=== PATIENT | male | born 1960 | race American Indian/Alaskan Native ===

== ENCOUNTER 2017-06-15 04:26 | Inpatient (IN) | payer OTHER ==
[~2017-06-15 04:26] MED LIST: FUROSEMIDE 100 MG/10 ML VIAL IV ONE; Nicardipine/NS 25 MG/250 ML KIT IV ONE; RSI MEDICATION KIT IV ONE
[2017-06-15 04:59] LABS: Arterial Blood Carboxyhemoglob 1.2 % (0-1.5); Blood O2 Saturation 83.7 % (92-98.5)
[2017-06-15 05:15] LABS: Absolute Lymphocytes (CBC) 10.6 K/uL (0.7-4.9); Absolute Monocytes 1.3 K/uL (0.1-1.3); Absolute Neutrophil 11.9 K/uL (1.8-8.0); Basophils % 0.8 % (0-1.3); Eosinophils % 3.1 % (0-4.4); Hematocrit 54.5 % (39.6-49.0); Lymphocytes % 42.9 % (15.3-44.8); MCH 21.5 pg (27.0-35.0); MCV 71.3 fL (80-100); MPV 8.7 fL (7.6-11.3); Monocytes % 5.2 % (3.3-12.3); RBC Red Blood Cell Count 7.64 M/uL (4.33-5.43)
[2017-06-15] MEDS ORDERED: FENTANYL CITR 100 MCG/2 ML ONE (05:24)
[2017-06-15] MEDS ORDERED: MIDAZOLAM HCL 2 MG/2 ML INJ ONE (05:24)
[2017-06-15] MEDS ORDERED: ALBUTEROL 2.5 MG/3 ML NEB SOL ONE (05:41)
[2017-06-15] MEDS ORDERED: IPRATROPIUM BROM 0.5MG/2.5ML ONE (05:41)
[2017-06-15 05:47] LABS: Albumin 4.3 g/dL (3.2-5.5); Bilirubin Direct 0.2 mg/dL (0-0.2); Bilirubin Total 0.5 mg/dL (0.3-1.2); Magnesium 2.2 mg/dL (1.8-2.5); Protein, Total 8.5 g/dL (6.0-8.3)
[2017-06-15 05:48] LABS: Potassium 2.7 mEq/L (3.6-5.0)
--- NOTE | 2017-06-15 06:04 | ER ---
Nurse's Notes [facility] Unit Name: Marco Antonio Reed Age: 56 yrs Sex: Male : 1960 Arrival Date: 06/15/2017 Time: 04:29 Bed 2 Private MD: Diagnosis: Acute respiratory failure Presentation: 06/15 04:35 Presenting complaint:. Transition of care: patient was not received from another 2 setting of care. Onset of symptoms was June 15, 2017. Care prior to arrival: None. 04:35 Method Of Arrival: EMS: [facility] tl2 04:35 Acuity: SHAKIRA 2 tl2 04:35 Presenting complaint: EMS states: HE CALLED 911 CAUSE HE COULDN'T BREATHE. bp Triage Assessment: 04:35 General: Appears distressed, uncomfortable, Behavior is restless. Pain: Denies pain. bp EENT: No deficits noted. Neuro: PT UNABLE TO ANSWER. Cardiovascular: Rhythm is sinus tachycardia. Respiratory: Breath sounds with crackles bilaterally. GI: No deficits noted. : No signs and/or symptoms were reported regarding the genitourinary system. Derm: No deficits noted. Musculoskeletal: Circulation, motion, and sensation intact. Range of motion: UNABLE TO ASSESS. Historical: - Allergies: 04:44 unknown; tl2 - Home Meds: 04:44 tramadol 50 mg Oral tab 1 tab q 6 hrs prn [Active]; metoprolol succinate 50 mg oral tl2 Tb24 [Active]; losartan potassium [Active]; atorvastatin 80 mg Oral tab nightly [Active]; Plavix 75 mg Oral tab 1 tab once daily [Active]; sertraline 50 mg Oral tab 1 tab once daily [Active]; Precose 25 mg Oral tab 1 tab 3 times per day [Active]; trental 400 mg three times a day [Active]; - PMHx: 04:44 CAD; Depression; Diabetes - NIDDM; High Cholesterol; Hypertension; Myocardial tl2 infarction; PERIPHERAL NEUROPATHY; - Immunization history:: Adult Immunizations up to date. - Social history:: Smoking status: unknown. Screenin:45 Abuse screen: Denies threats or abuse. Nutritional screening: No deficits noted. tl2 Tuberculosis screening: No symptoms or risk factors identified. Fall Risk IV access (20 points). Assessment: 04:45 General: Appears distressed, uncomfortable, well groomed, Behavior is appropriate for bp age, agitated, anxious. Pain: Denies pain. Neuro: Level of Consciousness is awake, alert, obeys commands, UNABLE TO ASSESS. Cardiovascular: Rhythm is sinus tachycardia. Respiratory: Airway is patent Respiratory effort is labored, gasping, with retractions, Respiratory pattern is symmetrical, hyperventilation tachypnea Breath sounds with crackles bilaterally. GI: No deficits noted. No signs and/or symptoms were reported involving the gastrointestinal system. : No signs and/or symptoms were reported regarding the genitourinary system. EENT: No signs and/or symptoms were reported regarding the EENT system. Derm: Skin is diaphoretic, Skin is dusky, Skin temperature is cool. Musculoskeletal: Circulation, motion, and sensation intact. Range of motion: intact in all extremities. 04:45 Reassessment: PT PLACED ON BIPAP, TRIPODING, UNABLE TO SPEAK 2/2 DYSPNEA. bp 05:15 Reassessment: CARDENE ON HOLD 2/2 HYPOTENSION. bp 05:30 Reassessment: WBC 24.1, MD NOTIFIED. bp 05:41 Reassessment: PT INDICATES S/S IMPROVED, INTUBATION ON HOLD AT THIS TIME PER MD. bp 05:51 Reassessment: CRITICAL VALUE K 2.7, MD NOTIFIED. bp 07:11 Reassessment: Respiratory Therapist at bedside reassessing patient and adjusting Bipap ae1 settings, O2 now set to 70%. 07:12 Reassessment: Patient appears in no apparent distress at this time. Patient states yes ae1 the Bipap is providing relief. Patient states feeling better. Vital Signs: 04:16 BP 197 / 131; Pulse 135; Resp 32; Pulse Ox 74% ; Weight 81.65 kg (R); bp 04:33 BP 134 / 86; Pulse 120; Resp 51; Pulse Ox 91% ; bp 04:44 BP 128 / 84; Pulse 121; Resp 48; Pulse Ox 89% on BiPAP; tl2 05:00 BP 100 / 82; Pulse 117; Resp 41; Pulse Ox 90% ; bp 05:15 BP 101 / 75; Pulse 116; Resp 45; Pulse Ox 89% ; bp 05:30 BP 121 / 81; Pulse 118; Resp 36; Pulse Ox 98% ; bp 05:49 BP 118 / 80; Pulse 118; Resp 34; Temp 98.4; Pulse Ox 95% on 90% BiPAP; tl2 06:20 BP 143 / 91; Pulse 112; Resp 36; Pulse Ox 96% on 90% BiPAP; tl2 06:42 BP 137 / 91; Pulse 110; Resp 34; Temp 98.5; Pulse Ox 95% on 90% BiPAP; tl2 07:11 BP 142 / 94; Pulse 109; Resp 45; Temp 98.6; Pulse Ox 98% on 80% BiPAP; ae1 07:22 BP 142 / 96; Pulse 109; Resp 32; Temp 98.8(C); Pulse Ox 97% on 70% BiPAP; ae1 07:33 BP 129 / 95; Pulse 109; Resp 35; Temp 98.9(C); Pulse Ox 100% on 70% BiPAP; ae1 ED Course: 04:23 No provider procedures requiring assistance completed. Inserted saline lock: 20 gauge bp in left antecubital area, using aseptic technique. Blood collected. 04:27 Inserted saline lock: 22 gauge in right hand, using aseptic technique. bp 04:29 Patient arrived in ED. bb 04:29 Ishan Contreras MD is Attending Physician. gs 04:35 Null cath inserted, using sterile technique, 18 Fr., by ED staff, balloon inflated, to bp gravity drainage, urine specimen collected. 04:37 Triage completed. tl2 04:44 Arm band placed on right wrist. tl2 04:45 Patient has correct armband on for positive identification. Placed in gown. Bed in low tl2 position. Call light in reach. Side rails up X2. 05:12 X-ray completed. Portable x-ray completed in exam room. Patient tolerated procedure jw2 well. 05:14 XRAY Chest (1 view) In Process Unspecified. EDMS 05:36 Slava Dupree, JESUS is Primary Nurse. bp 06:02 Robson Shelley MD is Hospitalizing Provider. gs 06:58 Notified ED physician of a critical lab result(s). lactate acid of 53.2 Dr Diane ireland notified. 08:03 Patient admitted, IV remains in place. ae1 Administered Medications: Discontinued: Cardene 5 mcg/kg/min IV at Titrate continuous; 5mg/hr 04:23 Drug: Lasix 80 mg Route: IVP; Site: left antecubital; bp 05:44 Follow up: Response: No adverse reaction bp 04:26 Drug: Cardene 5 mcg/kg/min Route: IV; Rate: Titrate; Site: left antecubital; bp 08:05 Follow up: IV Status: Order to discontinue infusion ae1 06:41 Drug: Cefepime 1 grams Route: IVPB; Rate: 200 ml/hr; Infused Over: 30 mins; Site: left tl2 antecubital; 07:14 Follow up: IV Status: Completed infusion ae1 06:53 CANCELLED (Physician Discretion): Succinylcholine 145 mg IVP once bb 06:53 CANCELLED (Physician Discretion): Etomidate 20 mg IVP once bb Outcome: 06:03 Decision to Hospitalize by Provider. 08:03 Admitted to ICU accompanied by nurse, accompanied by tech, via stretcher, room 7, with ae1 oxygen, on monitor, with chart, Report called to JESUS jordan 08:03 Condition: stable 08:03 Instructed on follow up and referral plans. the need for admit, Demonstrated understanding of instructions. 08:04 Patient left the ED. ae1 Signatures: Dispatcher [employer] EDMS Lynne Stiles RN RN Nancy Acosta jw2 Nisa Moya RN RN tl2 Kenan Hyde RN RN ae1 Ishan Contreras MD MD gs Peltier, Brian RN RN bp Corrections: (The following items were deleted from the chart) 05:40 04:38 Inserted saline lock: 22 gauge in right hand, using aseptic technique. bp bp 05:51 04:35 BP 197 / 131; Pulse 135bpm; Resp 32bpm; Pulse Ox 74%; 81.65 kg Reported; bp bp
--- NOTE | 2017-06-15 06:04 | EDPHYS ---
Physician Documentation [facility] Name: Marco Antonio Reed Age: 56 yrs Sex: Male : 1960 Arrival Date: 06/15/2017 Time: 04:29 Bed 2 Private MD: ED Physician Ishan Contreras HPI: 06/15 05:53 This 56 yrs old Other Male presents to ER via EMS with unknown complaint. gs 05:53 The patient has shortness of breath at rest. Onset: The symptoms/episode began/occurred gs acutely. Duration: The symptoms are continuous, and are markedly worse than the original presentation. Severity of symptoms: At their worst the symptoms were incapacitating in the emergency department the symptoms are unchanged. Unable to obtain HPI due to patient distress. Historical: - Allergies: 04:44 unknown; tl2 - Home Meds: 04:44 tramadol 50 mg Oral tab 1 tab q 6 hrs prn [Active]; metoprolol succinate 50 mg oral tl2 Tb24 [Active]; losartan potassium [Active]; atorvastatin 80 mg Oral tab nightly [Active]; Plavix 75 mg Oral tab 1 tab once daily [Active]; sertraline 50 mg Oral tab 1 tab once daily [Active]; Precose 25 mg Oral tab 1 tab 3 times per day [Active]; trental 400 mg three times a day [Active]; - PMHx: 04:44 CAD; Depression; Diabetes - NIDDM; High Cholesterol; Hypertension; Myocardial tl2 infarction; PERIPHERAL NEUROPATHY; - Immunization history:: Adult Immunizations up to date. - Social history:: Smoking status: unknown. ROS: 05:53 Unable to obtain ROS due to patient distress. gs Exam: 05:53 Head/Face: Normocephalic, atraumatic. Eyes: Pupils equal round and reactive to light, gs extra-ocular motions intact. Lids and lashes normal. Conjunctiva and sclera are non-icteric and not injected. Cornea within normal limits. Periorbital areas with no swelling, redness, or edema. ENT: Nares patent. No nasal discharge, no septal abnormalities noted. Tympanic membranes are normal and external auditory canals are clear. Oropharynx with no redness, swelling, or masses, exudates, or evidence of obstruction, uvula midline. Mucous membranes moist. Neck: Trachea midline, no thyromegaly or masses palpated, and no cervical lymphadenopathy. Supple, full range of motion without nuchal rigidity, or vertebral point tenderness. No Meningismus. Chest/axilla: Normal chest wall appearance and motion. Nontender with no deformity. No lesions are appreciated. 05:53 Abdomen/GI: Soft, non-tender, with normal bowel sounds. No distension or tympany. No guarding or rebound. No evidence of tenderness throughout. Back: No spinal tenderness. No costovertebral tenderness. Full range of motion. Skin: Warm, dry with normal turgor. Normal color with no rashes, no lesions, and no evidence of cellulitis. MS/ Extremity: Pulses equal, no cyanosis. Neurovascular intact. Full, normal range of motion. Neuro: Awake and alert, GCS 15, oriented to person, place, time, and situation. Cranial nerves II-XII grossly intact. Motor strength 5/5 in all extremities. Sensory grossly intact. Cerebellar exam normal. Normal gait. 05:53 Constitutional: The patient appears alert, awake, in obvious distress, severely distressed. 05:53 Cardiovascular: Rate: tachycardic, Rhythm: regular, Pulses: no pulse deficits are appreciated, Edema: is not appreciated. 05:53 ECG was reviewed by the Attending Physician. 05:53 Respiratory: severe repiratory distress is noted, Respirations: labored breathing, accessory muscle usage, shallow respirations, tachypnea, Breath sounds: rales, that are moderate, are heard diffusely, Respiratory rate: 50 Vital Signs: 04:16 BP 197 / 131; Pulse 135; Resp 32; Pulse Ox 74% ; Weight 81.65 kg (R); bp 04:33 BP 134 / 86; Pulse 120; Resp 51; Pulse Ox 91% ; bp 04:44 BP 128 / 84; Pulse 121; Resp 48; Pulse Ox 89% on BiPAP; tl2 05:00 BP 100 / 82; Pulse 117; Resp 41; Pulse Ox 90% ; bp 05:15 BP 101 / 75; Pulse 116; Resp 45; Pulse Ox 89% ; bp 05:30 BP 121 / 81; Pulse 118; Resp 36; Pulse Ox 98% ; bp 05:49 BP 118 / 80; Pulse 118; Resp 34; Temp 98.4; Pulse Ox 95% on 90% BiPAP; tl2 06:20 BP 143 / 91; Pulse 112; Resp 36; Pulse Ox 96% on 90% BiPAP; tl2 06:42 BP 137 / 91; Pulse 110; Resp 34; Temp 98.5; Pulse Ox 95% on 90% BiPAP; tl2 07:11 BP 142 / 94; Pulse 109; Resp 45; Temp 98.6; Pulse Ox 98% on 80% BiPAP; ae1 07:22 BP 142 / 96; Pulse 109; Resp 32; Temp 98.8(C); Pulse Ox 97% on 70% BiPAP; ae1 07:33 BP 129 / 95; Pulse 109; Resp 35; Temp 98.9(C); Pulse Ox 100% on 70% BiPAP; ae1 MDM: 04:29 Patient medically screened. 05:53 Differential diagnosis: CHF exacerbation, Chronic Obstructive Pulmonary Disease gs Myocardial Infarction pneumonia. Data reviewed: vital signs, nurses notes. ED course: pt denies chest pain, cxr shows severe pulmonary edema, mult reevals rr in 50's sats in high 80's. planned to intubate but pt wanted more time. at 535 had episode of coughing sats went to mid 90's and rr to high 20's will hold intubation based on this and abg shows adequate co2 ventilation.. 06/15 04:30 Order name: Basic Metabolic Panel 06/15 04:30 Order name: BNP 06/15 04:30 Order name: CBC with Diff 06/15 04:30 Order name: LFT's 06/15 04:30 Order name: Magnesium 06/15 04:30 Order name: PT-INR 06/15 04:30 Order name: Troponin (emerg Dept Use Only) 06/15 04:30 Order name: XRAY Chest (1 view) 06/15 04:59 Order name: ABG Arterial Blood Gas; Complete Time: 05:21 EDMS 06/15 05:26 Order name: Manual Differential EDMS 06/15 05:33 Order name: Lactate 06/15 05:33 Order name: Blood Culture* 06/15 04:30 Order name: EKG; Complete Time: 04:57 06/15 04:30 Order name: Cardiac monitoring; Complete Time: 04:47 06/15 04:30 Order name: EKG - Nurse/Tech; Complete Time: 04:47 06/15 04:30 Order name: IV Saline Lock; Complete Time: 04:47 gs 06/15 04:30 Order name: Labs collected and sent; Complete Time: 04:47 gs 06/15 04:30 Order name: O2 Per Protocol; Complete Time: 04:47 gs 06/15 04:30 Order name: O2 Sat Monitoring; Complete Time: 04:47 06/15 04:30 Order name: Urine Dipstick-Ancillary (obtain specimen); Complete Time: 04:47 gs EC:53 Rate is 123 beats/min. [place] interval is normal. QRS interval is prolonged. T waves are gs Flattened. Clinical impression: NSR w/ Non-specific ST/T Changes and Abnormal EKG without significant change. Interpreted by me. Administered Medications: Discontinued: Cardene 5 mcg/kg/min IV at Titrate continuous; 5mg/hr 04:23 Drug: Lasix 80 mg Route: IVP; Site: left antecubital; bp 05:44 Follow up: Response: No adverse reaction bp 04:26 Drug: Cardene 5 mcg/kg/min Route: IV; Rate: Titrate; Site: left antecubital; bp 08:05 Follow up: IV Status: Order to discontinue infusion ae1 06:41 Drug: Cefepime 1 grams Route: IVPB; Rate: 200 ml/hr; Infused Over: 30 mins; Site: left tl2 antecubital; 07:14 Follow up: IV Status: Completed infusion ae1 06:53 CANCELLED (Physician Discretion): Succinylcholine 145 mg IVP once bb 06:53 CANCELLED (Physician Discretion): Etomidate 20 mg IVP once bb Disposition: 05:53 Critical Care:. gs Disposition: 06/15/17 06:03 Hospitalization ordered by Robson Shelley for Inpatient Admission. Preliminary diagnosis is Acute respiratory failure. - Bed requested for Intensive Care Unit. - Status is Inpatient Admission. ae1 - Condition is Critical. - Problem is an acute exacerbation. - Symptoms have improved. UTI on Admission? No Critical care time excluding procedures: 05:53 Critical care time: Bedside Care: 10 minutes, Consultation: 10 minutes, Family gs Intervention: 10 minutes. Total time: 30 minutes Signatures: Dispatcher [employer] EDWI Ray Hidalgo 2 Lynne Stiles RN RN bb Nisa Moya RN RN tl2 Kenan Hyde RN RN ae1 Ishan Contreras MD MD gs Slava Dupree RN RN bp Corrections: (The following items were deleted from the chart) :53 06:52 Succinylcholine 145 mg IVP once ordered. shu ireland :53 06:52 Etomidate 20 mg IVP once ordered. shu ireland
[2017-06-15] MEDS ORDERED: FUROSEMIDE 40 MG/4 ML VIAL IV ONE (06:12)
--- NOTE | 2017-06-15 06:23 | P.HP ---
Certification for Inpatient Patient admitted to: Inpatient With expected LOS: >2 Midnights Practitioner: I am a practitioner with admitting privileges, knowledge of patient current condition, hospital course, and medical plan of care. Services: Services provided to patient in accordance with Admission requirements found in Title 42 Section 412.3 of the Code of Federal Regulations Patient History Date of Service: 06/15/17 Reason for admission: acute respiratory failure History of Present Illness: Mr Reed is a 56 years old male with history of DM II, CAD, HTN, tobacco abuse, who start a couple of days ago with productive cough, with yellowish secretions. Yesterday, he start feeling worse and suddenly become SOB. No history of fever or chills. No chest pain either. At arrival he was on respiratory distress, O2 Sat 74 % on RA, BP 197/131. CXR shows bilateral infiltrate consistent with pulmonary edema vs ARDS. He was placed on BiPAP, received benzodiazepine and fentanyl, his BP decreased and he gradually improved. Lab work remarkable for leukocytosis. Lactic acid and procalcitonin still pending. Allergies No Known Allergies Allergy (Verified 12/11/16 16:32) Home Medications: Aspirin Chewable [Aspirin Chewable*] 81 mg PO DAILY #30 tab.chew 12/12/16 Clopidogrel Bisulfate [Plavix*] 75 mg PO DAILY #30 tablet 12/12/16 Metoprolol Tartrate [Lopressor*] 50 mg PO BID #60 tab 12/12/16 - Past Medical/Surgical History Diabetic: Yes -: DM -: HTN -: HYPERLIPEMIA -: CHF -: SMOKER' -: CT -: PERIPHERAL NEUROPATHY -: CAD -: CABG 2013 - Social History Smoking Status: Heavy Tobacco smoker (>10 cigarettes/day) Counseled patient to stop smoking for: less than 10 minutes Smoking therapy provided: Yes Patient receptive to therapy: Yes Alcohol use: No CD- Drugs: No Caffeine use: No Review of Systems 10-point ROS is otherwise unremarkable Physical Examination - Physical Exam General: Alert, Mild distress (due to SOB) HEENT: Atraumatic, PERRLA, Mucous membr. moist/pink, EOMI, Sclerae nonicteric Neck: Supple, 2+ carotid pulse no bruit, No LAD, Without JVD or thyroid abnormality Respiratory: Normal air movement, Crackles/rales (bibasilar crackles) Cardiovascular: Regular rate/rhythm, Normal S1 S2 Gastrointestinal: Normal bowel sounds, No tenderness Musculoskeletal: No tenderness Integumentary: No rashes Neurological: Normal speech, Normal strength at 5/5 x4 extr, Normal tone, Normal affect Lymphatics: No axilla or inguinal lymphadenopathy - Studies Laboratory Data (last 24 hrs) 06/15/17 04:23: WBC 24.7 H*, Hgb 16.5, Hct 54.5 H, Plt Count 375 06/15/17 04:23: B-Natriuretic Peptide 373 H 06/15/17 04:23: Sodium 131 L, Potassium 2.7 L*, BUN 9, Creatinine 1.12, Glucose 341 H, Magnesium 2.2, Total Bilirubin 0.5, AST 38, ALT 33, Alkaline Phosphatase 89 Assessment and Plan - Problems (Diagnosis) (1) Acute respiratory failure Current Visit: Yes Status: Acute Qualifiers: Respiratory failure complication: hypoxia Qualified Code(s): J96.01 - Acute respiratory failure with hypoxia (2) Pulmonary edema Current Visit: Yes Status: Acute Qualifiers: Chronicity: acute Qualified Code(s): J81.0 - Acute pulmonary edema (3) CAD (coronary artery disease) of artery bypass graft Current Visit: No Status: Acute Qualifiers: [place] vs. transplanted heart: [place] heart (4) Diabetes mellitus Onset Date: 12/12/16 Current Visit: No Status: Acute Qualifiers: Diabetes mellitus type: type 2 Diabetes mellitus snf insulin use: without termite inspector use Diabetes mellitus complication status: with unspecified complications Qualified Code(s): E11.8 - Type 2 diabetes mellitus with unspecified complications (5) Hypertension Onset Date: 12/12/16 Current Visit: No Status: Acute Qualifiers: Hypertension type: essential hypertension Qualified Code(s): I10 - Essential (primary) hypertension - Plan Mr Reed will be admitted to the hospital due to acute respiratory failure, possible secondary to flash pulmonary edema on top of respiratory infection. The patient improved with BiPAP but mostly after BP decreased. Will continue with diuretics, empiric antibiotics treatment and scheduled breathing treatments. - Advance Directives Does patient have a Living Will: No Does patient have a Durable POA for Healthcare: No - Code Status/Comfort Care Code Status Assessed: Yes Code Status: Full Code
[2017-06-15] MEDS ORDERED: CEFEPIME 1 GM/100 ML BAG IV ONE (06:27)
[2017-06-15 06:58] LABS: Protime INR 1.08
[2017-06-15] MEDS ORDERED: ONDANSETRON 4 MG/2 ML VIAL IV PRN (07:23)
[2017-06-15] MEDS ORDERED: ACETAMINOPHEN 500 MG TAB PO PRN (07:23)
[2017-06-15] MEDS: ALBUTEROL 2.5 MG/3 ML NEB SOL NEB SCH ×5 (08:00→23:24)
[2017-06-15] MEDS: IPRATROPIUM BROM 0.5MG/2.5ML NEB SCH ×5 (08:00→23:24)
[2017-06-15 08:13] LABS: Anisocytosis 1+; Blood Morphology Comment NOTED (NOT SEEN); Platelet Estimate ADEQ; Platelets, Giant PRESENT; Polychromasia SLIGHT
[2017-06-15] MEDS ORDERED: Levofloxacin 750mg IV 750 MG/150 ML BAG IV SCH (09:00)
[2017-06-15] MEDS: KCL 20 MEQ/100 mL IVPB 20 MEQ/100 ML BAG IV SCH ×3 (09:58→15:04)
[2017-06-15] MEDS: NICOTINE 14 MG/PAT TD SCH (09:58)
[2017-06-15] MEDS: ENOXAPARIN 40 MG/0.4 ML SQ SCH (09:58)
[2017-06-15] MEDS: INSULIN -REGULAR HUMAN 50 UNIT/0.5 ML ML SQ SCH ×4 (10:24→20:12)
--- NOTE | 2017-06-15 10:28 | RAD REPORT ---
EXAM DESCRIPTION: RAD - Chest Single View - 06/15/2017 5:14 am CLINICAL HISTORY: Cough, shortness of breath COMPARISON: December 2016 TECHNIQUE: AP portable chest image was obtained 0509 hours . FINDINGS: Diffuse alveolar edema is present throughout most of the lung rodríguez. This is accentuated by shallow inspiration. Sternotomy wires in place. Heart size within normal limits for portable imagi ng. Trachea is midline. Vasculature is obscured mostly by the alveolar opacification. No pneumothorax . No large pleural effusion. No gross bony abnormality seen. No acute aortic findings suspected. IMPRESSION: Diffuse alveolar edema pattern most commonly from failure or volume overload. Extensive bilateral pneumonia would be possible if there are matching clinical or laboratory findings.
[2017-06-15] MEDS ORDERED: ETOMIDATE 20 MG/10 ML VIAL IV ONE (10:39)
[2017-06-15] MEDS ORDERED: SUCCINYLCHOLINE 20 MG/ML (10 ML) IV ONE (10:39)
[2017-06-15 11:06] LABS: Urine Appearance CLEAR; Urine Bilirubin NEGATIVE (NEG); Urine Blood 2+ (NEG); Urine Color YELLOW; Urine Glucose TRACE (NEG); Urine Protein NEGATIVE (NEG); Urine Specific Gravity <=1.005 (1.005-1.030); Urine Urobilinogen 0.2 mg/dL (0.2-1.0); Urine pH 6.5 (5.0-7.0)
[2017-06-15 11:43] LABS: Urine Microscopic Reflex ORDER UMIC
[2017-06-15 11:47] LABS: Urine Bacteria <20 /HPF (NONE SEEN); Urine Culture Reflex Order REFLEXED
[2017-06-15] MEDS ORDERED: TRAMADOL HCL 50 MG TAB PO PRN (13:39)
[2017-06-15 14:39] LABS: Absolute Lymphocytes (CBC) 1.4 K/uL (0.7-4.9); Absolute Monocytes 0.7 K/uL (0.1-1.3); Absolute Neutrophil 16.4 K/uL (1.8-8.0); Basophils % 0.4 % (0-1.3); Eosinophils % 0.1 % (0-4.4); Hematocrit 48.9 % (39.6-49.0); Lymphocytes % 7.3 % (15.3-44.8); MCH 21.1 pg (27.0-35.0); MCV 67.7 fL (80-100); MPV 7.8 fL (7.6-11.3); Monocytes % 3.7 % (3.3-12.3); RBC Red Blood Cell Count 7.22 M/uL (4.33-5.43)
--- NOTE | 2017-06-15 14:58 | RAD REPORT ---
EXAM DESCRIPTION: RAD - Chest Single View - 06/15/2017 2:43 pm CLINICAL HISTORY: Respiratory failure COMPARISON: June 15 TECHNIQUE: AP portable chest image was obtained 1432 hours . FINDINGS: Alveolar opacification seen previously has substantially cleared. Heart size is normal. Va sculature has decreased in prominence. No pneumothorax or enlarging pleural effusion. No gross bony a bnormality seen. No acute aortic findings suspected. IMPRESSION: Substantial clearing of the pulmonary edema pattern seen earlier in the day.
[2017-06-15] MEDS: VANCOMYCIN 1.75 GM in NA CHLORIDE 0.9% 500 ML IVPB SCH (15:02)
[2017-06-15 15:06] LABS: Albumin 4.1 g/dL (3.2-5.5); Bilirubin Total 0.9 mg/dL (0.3-1.2); Potassium 4.5 mEq/L (3.6-5.0)
[2017-06-15] MEDS ORDERED: LORazepam 2 MG/ML VIAL IV PRN (15:57)
[2017-06-15] MEDS: LOSARTAN POTASSIUM 50 MG TABLET PO SCH (15:57)
[2017-06-15] MEDS: ASPIRIN 81 MG CHEWABLE TABLET PO SCH (15:58)
[2017-06-15] MEDS: METOPROLOL XL 50 MG TAB PO SCH (15:58)
[2017-06-15] MEDS: CLOPIDOGREL 75 MG TABLET PO SCH (15:59)
[2017-06-15] MEDS ORDERED: FUROSEMIDE 40 MG/4 ML VIAL IV SCH (17:00)
[2017-06-15] MEDS: PIPER/TAZO/NS 3.375gm 3.375 GM/100 ML BAG IV SCH (17:03)
[2017-06-15 17:10] LABS: Blood Morphology Comment NOTED (NOT SEEN); Platelet Estimate ADEQ
[2017-06-15] MEDS: ATORVASTATIN 80 MG TAB PO SCH (19:46)
--- NOTE | 2017-06-15 22:31 | EKG ---
Test Date: 2017-06-15 Test Time: 04:29:19 Flotation Tender: CLAUDIA MEASUREMENT RESULTS: Intervals: Rate: 123 OR: 150 QRSD: 106 QT: 308 QTc: 440 [place]: P: 63 OR: 150 QRS: -8 T: 248 INTERPRETIVE STATEMENTS: Sinus tachycardia Possible Left atrial enlargement Septal infarct, age undetermined Marked ST abnormality, possible inferior subendocardial injury Abnormal ECG Compared to ECG 12/12/2016 07:09:03 Sinus rhythm no longer present Possible ischemia no longer present Myocardial infarct finding still present ST (T wave) deviation still present Electronically Signed On 06-15-17 22:30:37 CDT by Travis Torres
[2017-06-16] MEDS: PIPER/TAZO/NS 3.375gm 3.375 GM/100 ML BAG IV SCH ×3 (01:48→16:50)
[2017-06-16] MEDS: IPRATROPIUM BROM 0.5MG/2.5ML NEB SCH ×2 (03:36→07:35)
[2017-06-16] MEDS: ALBUTEROL 2.5 MG/3 ML NEB SOL NEB SCH ×2 (03:36→07:35)
[2017-06-16 05:16] LABS: Absolute Lymphocytes (CBC) 2.2 K/uL (0.7-4.9); Absolute Monocytes 1.1 K/uL (0.1-1.3); Absolute Neutrophil 11.5 K/uL (1.8-8.0); Basophils % 0.8 % (0-1.3); Eosinophils % 1.4 % (0-4.4); Hematocrit 44.3 % (39.6-49.0); Lymphocytes % 14.4 % (15.3-44.8); MCH 21.3 pg (27.0-35.0); MPV 8.2 fL (7.6-11.3); Monocytes % 7.4 % (3.3-12.3); RBC Red Blood Cell Count 6.56 M/uL (4.33-5.43)
[2017-06-16 05:21] LABS: MCV 67.6 fL (80-100)
[2017-06-16 05:36] LABS: Potassium 4.1 mEq/L (3.6-5.0)
[2017-06-16] MEDS: INSULIN -REGULAR HUMAN 50 UNIT/0.5 ML ML SQ SCH ×4 (07:30→20:46)
[2017-06-16] MEDS ORDERED: ALBUTEROL 2.5 MG/3 ML NEB SOL NEB PRN (08:25)
--- NOTE | 2017-06-16 08:26 | P.CNS ---
Date of Consult: 06/15/17 Chief Complaint: acute respiratory failure History of Present Illness: Patient is 56 years of age an alcoholic who was recently traveling to [facility] has been sick for the past 2-3 weeks has been complaining of shortness of breath he was seen by a doctor in [place] became progressively worse and appeared in the hospital. Denies any fever chills cough sputum hemoptysis or weight loss history of coronary artery disease status post CABG Allergies No Known Allergies Allergy (Verified 12/11/16 16:32) Home Medications: Aspirin Chewable [Aspirin Chewable*] 81 mg PO DAILY #30 tab.chew 12/12/16 Clopidogrel Bisulfate [Plavix*] 75 mg PO DAILY #30 tablet 12/12/16 Atorvastatin Calcium [Lipitor] 80 mg PO BEDTIME 06/15/17 Levocetirizine Dihydrochloride [Xyzal] 5 mg PO DAILY 06/15/17 Losartan Potassium [Cozaar] 25 mg PO DAILY 06/15/17 Metoprolol Succinate 50 mg PO DAILY 06/15/17 Ranolazine [Ranexa] 500 mg PO BID 06/15/17 Tramadol HCl [Ultram] 50 mg PO Q6HR PRN 06/15/17 - Past Medical/Surgical History Diabetic: Yes -: DM -: HTN -: HYPERLIPEMIA -: CHF -: SMOKER' -: GA -: PERIPHERAL NEUROPATHY -: CAD -: CABG 2013 - Social History Smoking Status: Unknown if ever smoked Alcohol use: No CD- Drugs: No Caffeine use: No Place of Residence: Home Review of Systems 10-point ROS is otherwise unremarkable General: Weakness Respiratory: Shortness of Breath Physical Examination Temp Pulse Resp BP Pulse Ox 99.2 F 86 25 H 103/71 96 06/16/17 04:00 06/16/17 07:00 06/16/17 07:00 06/16/17 07:00 06/16/17 07:00 General: Alert, Oriented x3 HEENT: Atraumatic Neck: Supple Respiratory: Clear to auscultation bilaterally Cardiovascular: No edema, Regular rate/rhythm Gastrointestinal: Normal bowel sounds, Soft and benign Musculoskeletal: No clubbing, No swelling Integumentary: No rashes, No breakdown - Problems (1) Acute respiratory failure Current Visit: Yes Status: Acute Plan: Patient is 56 years of age admitted with dyspnea bilateral infiltrates he is an alcoholic most likely he has heart failure patient is hypoxic white count is elevated he does have patchy bilateral infiltrates high risk for pneumonia cover with broad-spectrum antibiotics sputum cultures blood cultures doubt if this tuberculosis CT angio patient has a microcytosis rule out iron deficiency workup is pending including echocardiogram cultures except for use breathing treatments on a p.r.n. basis patient is also on active smoker Qualifiers: Respiratory failure complication: hypoxia Qualified Code(s): J96.01 - Acute respiratory failure with hypoxia
--- NOTE | 2017-06-16 08:29 | P.PN ---
Subjective Date of Service: 06/16/17 Chief Complaint: acute respiratory failure Subjective: Improving (Patient is doing better he is on nasal cannula oxygen very comfortable) Review of Systems Unremarkable Physical Examination - Vital Signs Temperature: 99.2 F Blood Pressure: 103/71 Pulse: 86 Respirations: 25 Pulse Ox (%): 96 - Physical Exam General: Alert, Oriented x3 Neck: Supple Respiratory: Crackles/rales (Crackles mostly on the left side) Cardiovascular: No edema, Regular rate/rhythm Assessment & Plan - Problems (Diagnosis) (1) Acute respiratory failure Current Visit: Yes Status: Acute Plan: Patient is improving workup is all pending labs cultures echo CT angiogram ordered I have also ordered pro von he is a heavy smoker white count is improving chest x-ray shows left lower lobe consolidation doubt TB reduce dose of Lasix Qualifiers: Respiratory failure complication: hypoxia Qualified Code(s): J96.01 - Acute respiratory failure with hypoxia
[2017-06-16] MEDS ORDERED: HOME MED 1 EA UNK (Levocetirizine Dihydrochloride [Xyzal] 5 MG) PO SCH (09:00)
[2017-06-16] MEDS: ASPIRIN 81 MG CHEWABLE TABLET PO SCH (09:23)
[2017-06-16] MEDS: NICOTINE 14 MG/PAT TD SCH (09:23)
[2017-06-16] MEDS: CLOPIDOGREL 75 MG TABLET PO SCH (09:23)
[2017-06-16] MEDS: FUROSEMIDE 40 MG/4 ML VIAL IV SCH ×2 (09:24→16:50)
[2017-06-16] MEDS: VANCOMYCIN 1.75 GM in NA CHLORIDE 0.9% 500 ML IVPB SCH (09:24)
[2017-06-16] MEDS: ENOXAPARIN 40 MG/0.4 ML SQ SCH (09:24)
[2017-06-16] MEDS: CETIRIZINE HCL 5 MG TABLET PO SCH (09:26)
[2017-06-16] MEDS: LOSARTAN POTASSIUM 50 MG TABLET PO SCH (09:26)
[2017-06-16] MEDS: METOPROLOL XL 50 MG TAB PO SCH (09:26)
[2017-06-16 09:40] LABS: Ferritin 239.7 ng/ml (23.9-336.2); Thyroid Stimulating Hormone 2.63 uIU/mL (0.34-5.60)
--- NOTE | 2017-06-16 10:58 | P.PN ---
Subjective Date of Service: 06/16/17 Chief Complaint: acute respiratory failure Patient seen and examined at bedside with RN. Chart reviewed. Case discussed with pulmonology. Currently patient is awaiting CT of the thorax. Abdomen is markedly since yesterday. Feels much better. Had IV Lasix and put out over 1999 overnight. No fever chills noted. Patient denies having any night sweats , recent weight loss or any exposure to TB. Patient's sister stated questionable exposure to TB. Currently is on isolation awaiting AFB cultures. Highly unlikely. Continues to have hemoptysis With light marina color sputum Review of Systems General: As per HPI Physical Examination - Vital Signs Temperature: 99.2 F Blood Pressure: 99/66 Pulse: 92 Respirations: 20 Pulse Ox (%): 95 - Physical Exam General: Alert, In no apparent distress, Oriented x3 HEENT: Atraumatic Neck: Supple, JVD not distended Respiratory: Normal air movement, Rhonchi/gurgles Cardiovascular: Regular rate/rhythm, Normal S1 S2 Gastrointestinal: Normal bowel sounds, No tenderness Musculoskeletal: No tenderness Integumentary: No rashes Neurological: Normal speech, Normal tone, Normal affect Lymphatics: No axilla or inguinal lymphadenopathy - Studies Medications List Reviewed: Yes Assessment & Plan - Problems (Diagnosis) (1) Acute respiratory failure Onset Date: 06/16/17 Current Visit: Yes Status: Acute Plan: Most Likely 2/2 to Volume overload. Cannot r/o PNA. Improving. -Initially on BIPAP now on NC saturating well -IV vanc and zosyn and lasix -Pulmonology consulted. appreciated reccs -CT thorax pending. -Sputum Culture pending (AFB as well) -Currently with hemoptysis and ? exposure to TB and thus on isolation. Qualifiers: Respiratory failure complication: hypoxia Qualified Code(s): J96.01 - Acute respiratory failure with hypoxia (2) Pulmonary edema Onset Date: 06/16/17 Current Visit: Yes Status: Acute Plan: Acute Pulmonary Edema. Now resolved -ECHO pending -IV lasix BID Qualifiers: Chronicity: acute Qualified Code(s): J81.0 - Acute pulmonary edema (3) CAD (coronary artery disease) of artery bypass graft Onset Date: 06/16/17 Current Visit: No Status: Chronic Qualifiers: [place] vs. 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 Smoke for > 20 years and 1 pack a day now down to 1/2 pack a day (8) Alcohol abuse Current Visit: Yes Status: Acute Plan: CIWA with Ativan PRN. Drinks 2 pints of hard liquor Discharge Plan: Home Plan to discharge in: 48 Hours - Code Status/Comfort Care Code Status Assessed: Yes Critical Care: No
--- NOTE | 2017-06-16 11:04 | ECHO ---
HEIGHT: 5 ft 8 in WEIGHT: 177 lb 3 oz DATE OF STUDY: 06/16/[address]: Padmaja Joe MD 2-DIMENSIONAL: YES M.MODE: YES DOPPLER: YES COLOR FLOW: YES TDS: NO PORTABLE: NO DEFINITY: NO BUBBLE STUDY: NO DIAGNOSIS: RULE OUT CONGESTIVE HEART FAILURE CARDIAC HISTORY: CATHERIZATION: NO SURGERY:CABG PROSTHETIC VALVE: NO PACEMAKER: NO MEASUREMENTS (cm) DIASTOLIC (NORMALS) SYSTOLIC (NORMALS) IVSd 1.2 (0.6-1.2) LA Diam 3.8 (1.9-4.0) LVEF 30-35% LVIDd 5.1 (3.5-5.7) LVIDs 4.5 (2.0-3.5) %FS 12% LVPWd 1.2 (0.6-1.2) Ao Diam 2.4 (2.0-3.7) 2 DIMENSIONAL ASSESSMENT: RIGHT ATRIUM: DILATED LEFT ATRIUM: DILATED RIGHT VENTRICLE: NORMAL LEFT VENTRICLE: NORMAL TRICUSPID VALVE: NORMAL MITRAL VALVE: NORMAL PULMONIC VALVE: NORMAL AORTIC VALVE: NORMAL PERICARDIAL EFFUSION: NONE AORTIC ROOT: NORMAL LEFT VENTRICULAR WALL MOTION: GOLBAL HYPOKINESIS. DOPPLER/COLOR FLOW: WAS NORMAL. COMMENTS: DEPRESSED LEFT VENTRICULAR EJECTION FRACTION. DILATED LEFT AND RIGHT ATRIUM. TECHNOLOGIST: ALMA DELIA HERNANDEZ
--- NOTE | 2017-06-16 11:26 | RAD REPORT ---
EXAM DESCRIPTION: CT - Chest For Pe Angio - 06/16/2017 11:05 am CLINICAL HISTORY: Shortness of breath, TB precautions COMPARISON: Chest exams June 15 TECHNIQUE: Dynamically enhanced 3 mm thick images of the chest were obtained during administration o f approximately 150mL Isovue 370 IV contrast. Coronal and oblique reconstruction images were generate d and reviewed. Exam utilizes a protocol to evaluate the pulmonary arterial tree. All CT scans are performed using dose optimization technique as appropriate and may include automated exposure control or mA/KV adjustment according to patient size. FINDINGS: No pulmonary emboli are identified. The aorta as imaged shows no acute or suspicious finding. No pericardial thickening or effusion. Albin nary artery calcifications are present. Bypass surgical changes are noted. Interstitial thickening is present throughout both lung rodríguez. There are scattered areas of ground-g lass opacification in mid and upper aspects of each upper lobe. Similar ground-glass opacities are pr esent scattered in each lower lobe. No pleural based mass. No pleural effusion or pleural thickening. No consolidated parenchyma or air bronchogram formation. No endobronchial lesion or significant bron chial wall thickening. No mediastinal or hilar suspicious masses. No chest wall masses or abnormal axillary lymphadenopathy. IMPRESSION: No pulmonary emboli identified. Interstitial thickening throughout the lung rodríguez with scattered ground-glass opacities most likely edema from failure or volume overload. Focal infectious pneumonia is unlikely.
[2017-06-16] MEDS: ARFORMOTEROL TARTRATE 15 MCG/2 ML VIAL.NEB NEB SCH ×2 (11:45→19:58)
--- NOTE | 2017-06-16 16:55 | CON ---
CARDIOLOGY CONSULTATION History Of Present Illness: Mr. Reed is a 56-year-old man, who came to the hospital with dyspne a. He had been on an airplane traveling to [place] and back and became very short of breath, more so w hen supine than sitting. He has a history of bypass surgery. He had a myocardial infarction before the bypass surgery. He has a depressed ejection fraction, which is known, but he has not had any hea rt failure hospital admissions on our records or that the patient remembers. He has been instructed to stay on a low-sodium diet. He had a CAT scan of the chest that indicated no pulmonary emboli and looked like diffuse pulmonary edema on the CT scan. On the chest x-ray, it looked like focal infiltr ate, retrocardiac, but that is not borne out by the CT scan, and the patient seems to have had a mario estive heart failure exacerbation. His ejection fraction is in the 30% to 35% range. Medications: As an outpatient, he takes aspirin, Plavix, Ranexa, tramadol, atorvastatin, losartan, m etoprolol, and Xyzal as needed. Allergies: HE HAS NO ALLERGIES. Social History: He uses no tobacco, he did remotely. He does not have diabetes. Laboratory Data: When he first came to the hospital, his white cell count was 24,000. There did not seem to be a left shift. His next CBC showed a white cell count of 18,500 with a left shift, so lit tle bit of a confusing issue there. I do not think he has had an elevated procalcitonin, although on e was 0.61, which is barely above normal. Physical Examination: Vital Signs: Height 5 feet 8 inches, weight 177 pounds. Alert, oriented, pleasant, and not in distr ess. Lungs: Reveal sparse basilar crackles. Heart: Exam is significant for a regular rate and rhythm. No significant murmur. There seems to be an S4 gallop. Abdomen: Soft. Extremities: No edema. Distal pulses are diminished but palpable. Diagnostic Data: His electrocardiogram revealed sinus rhythm, old septal infarct. There is an ST ab normality, nonspecific. His troponins have been in the borderline range or actually probably complet misha normal, the highest one we see is 0.04. Assessment And Plan: I think Mr. Reed probably has congestive heart failure that is chronic. H e had an acute exacerbation probably from spending more than 15 hours on an airplane over the last fe w days flying back from [place] and probably got exposed to a lot of extra sodium and probably resulted in pulmonary edema. I do not really think it is infectious process at all, so continued congestive heart failure care. As an outpatient, he could be considered for Entresto therapy, it might improve things for him overall, but he is improving with the present care. I think he is ready to be moved o fl of intensive care. DL/MODL Voice ID: [id number] Report ID: [id number]
[2017-06-16] MEDS: ATORVASTATIN 80 MG TAB PO SCH (20:46)
[2017-06-17] MEDS: PIPER/TAZO/NS 3.375gm 3.375 GM/100 ML BAG IV SCH ×2 (01:46→09:23)
[2017-06-17] MEDS ORDERED: VANCOMYCIN 1.75 GM in NA CHLORIDE 0.9% 500 ML IVPB SCH (03:00)
[2017-06-17] MEDS: ARFORMOTEROL TARTRATE 15 MCG/2 ML VIAL.NEB NEB SCH (07:15)
[2017-06-17] MEDS: INSULIN -REGULAR HUMAN 50 UNIT/0.5 ML ML SQ SCH ×2 (07:30→11:30)
[2017-06-17] MEDS: ENOXAPARIN 40 MG/0.4 ML SQ SCH (08:38)
[2017-06-17] MEDS: FUROSEMIDE 40 MG/4 ML VIAL IV SCH (08:39)
[2017-06-17] MEDS: NICOTINE 14 MG/PAT TD SCH (08:40)
[2017-06-17] MEDS: CLOPIDOGREL 75 MG TABLET PO SCH (08:41)
[2017-06-17] MEDS: CETIRIZINE HCL 5 MG TABLET PO SCH (08:41)
[2017-06-17] MEDS: ASPIRIN 81 MG CHEWABLE TABLET PO SCH (08:41)
[2017-06-17] MEDS: METOPROLOL XL 50 MG TAB PO SCH (08:41)
[2017-06-17] MEDS: LOSARTAN POTASSIUM 50 MG TABLET PO SCH (08:41)
--- NOTE | 2017-06-17 10:54 | PN ---
Date of Progress Note: 06/17/2017 The patient was seen by Dr. Torres yesterday for congestive heart failure that is acute on chronic sy stolic congestive heart failure, ejection fraction 30% to 35%. He continues to diuresed. He is diur esing well. His vital signs are stable. He was afebrile. He was in normal rhythm. He can go home today. He needs an outpatient appointment, probably an outpatient stress test and consider starting him on outpatient Entresto. He should be a good candidate for defibrillator. I will discuss the radha e further with Dr. Joe. He can go home whenever it is okay with Dr. Joe. OFE/REJI Voice ID: [id number] Report ID: [id number]
[2017-06-17 12:44] LABS: Absolute Lymphocytes (CBC) 2.9 K/uL (0.7-4.9); Absolute Monocytes 0.7 K/uL (0.1-1.3); Absolute Neutrophil 7.5 K/uL (1.8-8.0); Basophils % 1.1 % (0-1.3); Eosinophils % 4.5 % (0-4.4); Hematocrit 43.4 % (39.6-49.0); Lymphocytes % 25.1 % (15.3-44.8); MCH 21.2 pg (27.0-35.0); MCV 68.5 fL (80-100); MPV 8.1 fL (7.6-11.3); Monocytes % 5.7 % (3.3-12.3); RBC Red Blood Cell Count 6.34 M/uL (4.33-5.43)
[2017-06-17 12:46] LABS: Potassium 3.6 mEq/L (3.6-5.0)
[2017-06-17 12:59] LABS: Albumin 3.8 g/dL (3.2-5.5); Bilirubin Total 0.9 mg/dL (0.3-1.2); Protein, Total 7.1 g/dL (6.0-8.3)
[2017-06-17 13:46] LABS: Anisocytosis 1+; Blood Morphology Comment NOTED (NOT SEEN); Hypochromasia 1+; Platelet Estimate ADEQ
[2017-06-17] MEDS ORDERED: POTASSIUM CL SA 10 MEQ TAB PO ONE (14:00)
[2017-06-17] MEDS ORDERED: D50W 25 GM/50 ML SYRINGE IV PRN (14:12)
[2017-06-17] MEDS ORDERED: GLUCAGON 1 MG/VIAL IM PRN (14:12)
--- NOTE | 2017-06-17 16:36 | P.DS ---
Admission Date: 06/15/17 Discharge Date: 06/17/17 Primary Care Provider: None Disposition: ROUTINE DISCHARGE Discharge Condition: GOOD Reason for Admission: acute respiratory failure Consultations: Cardiology and Pulmonology - Problems (1) Acute respiratory failure Onset Date: 06/16/17 Current Visit: Yes Status: Resolved Qualifiers: Respiratory failure complication: hypoxia Qualified Code(s): J96.01 - Acute respiratory failure with hypoxia (2) Pulmonary edema Onset Date: 06/16/17 Current Visit: Yes Status: Resolved Qualifiers: Chronicity: acute Qualified Code(s): J81.0 - Acute pulmonary edema (3) CAD (coronary artery disease) of artery bypass graft Onset Date: 06/16/17 Current Visit: No Status: Chronic Qualifiers: [place] vs. transplanted heart: [place] heart (4) Diabetes mellitus Onset Date: 12/12/16 Current Visit: No Status: Chronic Qualifiers: Diabetes mellitus type: type 2 Diabetes mellitus [facility] insulin use: without adjunct faculty for medical terminology use Diabetes mellitus complication status: with unspecified complications Qualified Code(s): E11.8 - Type 2 diabetes mellitus with unspecified complications (5) Dyslipidemia Onset Date: 12/12/16 Current Visit: No Status: Chronic (6) Hypertension Onset Date: 12/12/16 Current Visit: No Status: Chronic Qualifiers: Hypertension type: essential hypertension Qualified Code(s): I10 - Essential (primary) hypertension (7) Nicotine abuse Current Visit: Yes Status: Chronic (8) Alcohol abuse Current Visit: Yes Status: Chronic Brief History of Present Illness: Mr Reed is a 56 years old male with history of DM II, CAD, HTN, tobacco abuse, who start a couple of days ago with productive cough, with yellowish secretions. Yesterday, he start feeling worse and suddenly become SOB. No history of fever or chills. No chest pain either. At arrival he was on respiratory distress, O2 Sat 74 % on RA, BP 197/131. CXR shows bilateral infiltrate consistent with pulmonary edema vs ARDS. He was placed on BiPAP, received benzodiazepine and fentanyl, his BP decreased and he gradually improved. Lab work remarkable for leukocytosis. Lactic acid and procalcitonin still pending. Hospital Course: Overall during the hospital stay patient remained stable The patient was initially admitted to the hospital for chronic cough and hemoptysis along with dyspnea. Patient did recently travel to [facility] for about 20 days and returned with worsening of his cough hemoptysis and dyspnea. The patient was initially admitted to the ICU and was on BiPAP. X-ray the admission room was consistent with extensive opacity which could have been possibly due to CHF overload versus pneumonia. Pulmonology was consulted at that time patient was kept on vanc and Zosyn. Patient also had some IV Lasix in the ER which improved his symptoms markedly. Patient was continued on antibiotics and IV Lasix here in the hospital and had improvement over several days. Given the history of travel and hemoptysis patient was also high risk for TB. Patient however did not complain of having any fever chills night sweats or any other associated symptoms. If the was done which was negative. Sputum cultures were negative as well. Per pulmonology is recommendation patient had Dc of his IV antibiotics as patient's symptoms were most likely secondary to the CHF exacerbation. Echocardiogram was done here in the hospital which was consistent with EF of 30%. Cardiology was consulted who recommended that patient be kept on Lasix and have a close outpatient followup. Patient to also have outpatient stress test. Today the patient was feeling much better and thus was discharged home under stable condition. Patient was asked to follow up with cardiology and pulmonology in 1 week and have a primary care doctor. While here in the hospital patient also remained on Ativan IV for his alcohol withdrawal. Patient is trying to pt of alcohol daily. Patient is as dictated extensively while here in the hospital regarding alcohol and its effect on heart given the CHF. Patient demonstrated understanding and stated that he would slow down on his drinking and eventually stopped. Patient also has tobacco abuse and was given smoking cessation here in the hospital. Vital Signs/Physical Exam: Temp Pulse Resp BP Pulse Ox 97.9 F 84 18 117/73 96 06/17/17 12:00 06/17/17 12:00 06/17/17 12:00 06/17/17 12:06/17/17 12:00 General: Alert, In no apparent distress, Oriented x3 HEENT: Atraumatic, PERRLA, EOMI Neck: Supple, JVD not distended Respiratory: Clear to auscultation bilaterally, Normal air movement Cardiovascular: Regular rate/rhythm, Normal S1 S2 Gastrointestinal: Normal bowel sounds, No tenderness Musculoskeletal: No tenderness Integumentary: No rashes Neurological: Normal speech, Normal tone, Normal affect Lymphatics: No axilla or inguinal lymphadenopathy Laboratory Data at Discharge: WBC 11.7 K/uL (4.3-10.9) H D 06/17/17 12:15 Hgb 13.4 g/dL (13.6-17.9) L 06/17/17 12:15 Hct 43.4 % (39.6-49.0) 06/17/17 12:15 Plt Count 231 K/uL (152-406) 06/17/17 12:15 PT 12.7 SECONDS (9.5-12.5) H 06/15/17 06:31 INR 1.08 06/15/17 06:31 Sodium 134 mEq/L (135-145) L 06/17/17 12:15 Potassium 3.6 mEq/L (3.6-5.0) 06/17/17 12:15 BUN 18 mg/dL (6-20) 06/17/17 12:15 Creatinine 0.97 mg/dL (0.61-1.24) 06/17/17 12:15 Glucose 186 mg/dL (65-120) H 06/17/17 12:15 Magnesium 2.2 mg/dL (1.8-2.5) 06/15/17 04:23 Total Bilirubin 0.9 mg/dL (0.3-1.2) 06/17/17 12:15 AST 45 IU/L (10-42) H 06/17/17 12:15 ALT 30 IU/L (10-60) 06/17/17 12:15 Alkaline Phosphatase 52 IU/L (42-121) 06/17/17 12:15 B-Natriuretic Peptide 373 pg/ml (<=100) H 06/15/17 04:23 Home Medications: Aspirin Chewable [Aspirin Chewable*] 81 mg PO DAILY #30 tab.chew 12/12/16 Clopidogrel Bisulfate [Plavix*] 75 mg PO DAILY #30 tablet 12/12/16 Atorvastatin Calcium [Lipitor] 80 mg PO BEDTIME 06/15/17 Levocetirizine Dihydrochloride [Xyzal] 5 mg PO DAILY 06/15/17 Losartan Potassium [Cozaar] 25 mg PO DAILY 06/15/17 Metoprolol Succinate 50 mg PO DAILY 06/15/17 Ranolazine [Ranexa] 500 mg PO BID 06/15/17 Tramadol HCl [Ultram] 50 mg PO Q6HR PRN 06/15/17 Arformoterol Tartrate [Brovana] 15 mcg NEB BIDRESP #1 vial.neb 06/17/17 Furosemide 40 mg PO DAILY #30 tablet 06/17/17 New Medications: Arformoterol Tartrate [Brovana] 15 mcg NEB BIDRESP #1 vial.neb Furosemide 40 mg PO DAILY #30 tablet Patient Discharge Instructions: Please f/u with Cardiology in 1 week post discharge. Please f/u with PCP in 1 week post discharge. Please f/u with Dr Dawson in 1 week post discharge. You were admitted to the hospital for Congestive heart failure. Heart Ultrasound was consistent with EF of 30-35%. You need to conitinue with 1.5L fluids restriction and Low Sodium diet. New medication. lasix 40mg Daily. Continue taking ASA, Lipitor, Losartan, Metoprolol and Inhalers. You will need an outpt Stress test and new medication for your heart after your f/u with Cardiology. Diet: Low Sodium with 1.5L fluid restriciton Activity: Ad kelsey Followup: Antonio Marcano MD [ACTIVE - CAN ADMIT] - 1 Week Federico Wilde MD [ACTIVE - CAN ADMIT] - 1 Week
== END 2017-06-17 15:12 | disposition home or self-care (01) | DRG 291 ==
LOC: ER 04:26 → ERHOLD 05:46 → 3RD-ICU 06:19 → 2ND 06-16 14:27
PROVIDERS: ADMIT Internal Medicine; ATTEND Internal Medicine
PROC: 5A09457 Assistance with Respiratory Ventilation, 24-96 Consecutive Hours, Continuous Positive Airway Pressure (ICD-10-PCS; principal; 2017-06-15)
DX: I11.0 Hypertensive heart disease with heart failure (principal); J96.01 Acute respiratory failure with hypoxia; I50.23 Acute on chronic systolic (congestive) heart failure; E11.9 Type 2 diabetes mellitus without complications; E78.5 Hyperlipidemia, unspecified; F17.210 Nicotine dependence, cigarettes, uncomplicated; I25.10 Atherosclerotic heart disease of native coronary artery without angina pectoris; Z95.1 Presence of aortocoronary bypass graft; F10.10 Alcohol abuse, uncomplicated; I25.2 Old myocardial infarction
CPT/HCPCS: 36415; 51702; 71045; 71275; 80048; 80053; 80076; 81003; 81015; 82607; 82728; 82805; 82962; 83540; 83605; 83735; 83880; 84145; 84443; 84466; 84484; 85025; 85610; 87015; 87040; 87070; 87081; 87086; 87088; 87116; 87205; 87206; 87804; 93005; 93306; 94640; 94660; 94760; 96365; 96366; 96375; 99285; J0330; J0692; J1650; J2250; J2543; J3010; J7605; Q9967

== ENCOUNTER 2018-07-11 04:57 | Inpatient (IN) | payer OTHER ==
--- OUTSIDE RECORDS SUMMARY | 2018-07-11 05:00 | XMS REPORT | Summary of Care ---
:1960 Author Organization [facility] Cardiology [facility] Address [address] [place] [address] Encounter HQ Augustor_dov(FIN) [id number] Date(s): 12/10/17 - 12/10/17 [facility] Cardiology [facility] [address] [address] [place] [address]- [phone] Attending Physician: Favian Mcnair MD Referring Physician: Brian Portillo MD Vital Signs No data available for this section Problem List Condition Effective Dates Status Health Status Informant CAD - Coronary artery Active disease(Confirmed) Cardiomyopathy(Confirmed) Active CHF (congestive heart Active failure)(Confirmed) CHF (congestive heart Resolved failure)(Confirmed) CVA (cerebral infarction)(Confirmed) Resolved DM - Diabetes mellitus(Confirmed) Active H/O: stroke(Confirmed) Active H/O acute myocardial Active infarction(Confirmed) Hypercholesterolemia(Confirmed) Active Hypertension(Confirmed) Active PAD (peripheral artery Active disease)(Confirmed) PAD (peripheral artery Resolved disease)(Confirmed) Peripheral artery disease(Confirmed) Active PVD (peripheral vascular Active disease)(Confirmed) PVD (peripheral vascular Resolved disease)(Confirmed) Allergies, Adverse Reactions, Alerts No Known Medication Allergies Medications No data available for this section Results No data available for this section Immunizations Given and Recorded Vaccine Date Status Refusal Reason pneumococcal 23-valent vaccine 09/30/12 Given Procedures Procedure Date Related Diagnosis Body Site Status Peripheral angiography 09/18/17 Completed Catheterization Completed Hernia repair1 Completed 1abdominal in [place] 2009 Social History Social History Type Response Substance Abuse Use: None. Sexual Sexually active: No. Alcohol Current, Type Beer, Liquor. Frequency: Daily. Previous treatment: None. Alcohol use interferes with work or home: No. Drinks more than intended: Yes. Others hurt by drinking: No. Ready to change: Yes. Household alcohol concerns: No. Smoking Status Heavy tobacco smoker; Type: Cigarettes; Ready to change: Yes; Concerns about tobacco use in household: No; Exposure to Tobacco Smoke None; Cigarette Smoking Last 365 Days No; Reg Smoking Cessation Counseling No1 entered on: 11/18/17 11 pack of cigarette per day, last time he had was 06/14/17 . Assessment and Plan No data available for this section
--- OUTSIDE RECORDS SUMMARY | 2018-07-11 05:00 | XMS REPORT | Summary of Care ---
:1960 Author Organization [facility] Cardiology [facility] Address [address] [place] [address] Encounter HQ Mariana_dov(FIN) [id number] Date(s): 10/10/17 - 10/10/17 [facility] [address] [address] [place] [address] [phone] Discharge Disposition: Home or Self Care Attending Physician: Tito Hunt MD Referring Physician: Brian Portillo MD Vital Signs Most recent to oldest [Reference Range]: 1 Height 172.72 cm (10/10/17 1:39 PM) Blood Pressure [90-140/60-90 mmHg] 120/77 mmHg (10/10/17 1:39 PM) Peripheral Pulse Rate [60-100 bpm] 71 bpm (10/10/17 1:39 PM) Weight 73.409 kg (10/10/17 1:39 PM) Body Mass Index 24.61 m2 (10/10/17 1:39 PM) Problem List Condition Effective Dates Status Health [...] vascular Resolved disease)(Confirmed) Allergies, Adverse Reactions, Alerts Substance Reaction Severity Status NKDA Active Medications clopidogrel 75 mg oral tablet 75 mg=1 tab, PO, Daily, # 90 tab, 2 Refill(s), Pharmacy: [facility] Start Date: 10/10/17 Stop Date: 10/23/17 Status: Discontinued Results No data available for this section [...]
--- OUTSIDE RECORDS SUMMARY | 2018-07-11 05:00 | XMS REPORT | Summary of Care ---
:1960 Author Organization [facility] Cardiology [facility] Address [address] [place] [address] [address] [place] [address]- Encounter HQ Mariana_dov(FIN) [id number] Date(s): 10/10/17 - 10/11/[address], [facility] [address] [place] [address]- [phone] Vital Signs No data available for this [...] Substance Reaction Severity Status NKDA Active Medications No data available for this section [...]
--- OUTSIDE RECORDS SUMMARY | 2018-07-11 05:00 | XMS REPORT | Summary of Care ---
:1960 Author Organization [facility] Cardiology [facility] Address [address] [place] [address], [address] [place] [address]- Encounter HQ Ofelia(IVON) [id number] Date(s): 11/18/17 - 11/18/[address] [place], [place] [address]- [phone] Discharge Disposition: Home or Self Care Attending Physician: Tito Hunt MD Referring Physician: Brian Portillo MD Vital Signs Most recent to oldest [Reference Range]: 1 Height 172.72 cm (11/18/17 2:21 PM) Blood Pressure [90-140/60-90 mmHg] 132/86 mmHg (11/18/17 2:21 PM) Peripheral Pulse Rate [60-100 bpm] 76 bpm (11/18/17 2:21 PM) Weight 72.273 kg (11/18/17 2:21 PM) Body Mass Index 24.23 m2 (11/18/17 2:21 PM) Problem List Condition Effective Dates Status [...] Medications clopidogrel 75 mg oral tablet 75 mg, PO, Daily, # 90 tab, 0 Refill(s), Pharmacy: [facility] Start Date: 11/18/17 Stop Date: 02/16/18 Status: Ordered Results No data available for this section [...]
--- OUTSIDE RECORDS SUMMARY | 2018-07-11 05:02 | XMS REPORT | Summary of Care ---
:1960 Author Organization [facility] Cardiology [facility] Address [address] [address] Encounter HQ Augustor_jaydeerna(FIN) [id number] Date(s): 08/26/17 - 08/27/17 [facility] [address] [place] [address] [phone] Vital Signs No data available for this section Problem List Condition Effective Dates Status Health Status Informant CAD - Coronary artery Active disease(Confirmed) Cardiomyopathy(Confirmed) Active CVA (cerebral infarction)(Confirmed) Resolved DM - Diabetes mellitus(Confirmed) Active H/O: stroke(Confirmed) Active H/O acute myocardial Active infarction(Confirmed) Hypertension(Confirmed) Active Peripheral artery disease(Confirmed) Active Allergies, Adverse Reactions, Alerts Substance Reaction Severity Status NKDA Active Medications aspirin 81 mg tablet, enteric coated 81 mg=1 tab, PO, Daily, # 90 tab, 2 Refill(s), Pharmacy: [facility] Start Date: 08/26/17 Stop Date: 05/23/18 Status: Orderedatorvastatin 40 mg oral tablet 80 mg=2 tab, PO, Bedtime, # 180 tab, 2 Refill(s), Pharmacy: [facility] Start Date: 08/26/17 Stop Date: 05/23/18 Status: Orderedcarvedilol 3.125 mg oral tablet 6.25 mg=2 tab, PO, Q12H, # 360 tab, 2 Refill(s), Pharmacy: [facility] Start Date: 08/26/17 Stop Date: 3/23/19 Status: Orderedclopidogrel 75 mg oral tablet 75 mg=1 tab, PO, Daily, # 90 tab, 2 Refill(s), Pharmacy: [facility] Start Date: 08/26/17 Stop Date: 05/23/18 Status: OrderedLasix 20 mg oral tablet 20 mg=1 tab, PO, Daily, PRN Edema, NEEDED FOR EDEMA, # 90 tab, 2 Refill(s), Pharmacy: [facility] Start Date: 08/26/17 Stop Date: 05/23/18 Status: Orderedlosartan 25 mg oral tablet 25 mg=1 tab, PO, Daily, # 90 tab, 2 Refill(s), Pharmacy: [facility] Start Date: 08/26/17 Stop Date: 05/23/18 Status: Ordered Results No data available for this section Immunizations Given and Recorded Vaccine Date Status Refusal Reason pneumococcal 23-valent vaccine 09/30/12 Given Procedures Procedure Date Related Diagnosis Body Site Status Catheterization Completed Hernia repair1 Completed 1abdominal in [facility] 2009 Social History Social History Type Response [...] Reg Smoking Cessation Counseling No1 entered on: 07/31/17 11 pack of cigarette per day, last time he had was 06/14/17 . Assessment and Plan No data available for this section
--- OUTSIDE RECORDS SUMMARY | 2018-07-11 05:02 | XMS REPORT | Summary of Care ---
:1960 Author Organization [facility] Address [address], [place] [address]- Encounter HQ Mariana_dov(IVON) [id number] Date(s): 08/26/17 - 08/26/17 [facility] [address] [place] [address]- Discharge Disposition: Home or Self Care Attending Physician: Favian Mcnair MD Referring Physician: Favian Mcnair MD Vital Signs Most recent to oldest [Reference Range]: 1 Height 172.72 cm (08/26/17 8:29 AM) Temperature Oral [96.4-99.1 DegF] 98.5 DegF (08/26/17 8:33 AM) Blood Pressure [90-140/60-90 mmHg] 131/75 mmHg (08/26/17 8:33 AM) Weight 74.545 kg (08/26/17 8:29 AM) Body Mass Index 24.99 m2 (08/26/17 8:29 AM) Problem List Condition Effective Dates Status Health Status Informant CAD - Coronary artery Active disease(Confirmed) Cardiomyopathy(Confirmed) Active CVA (cerebral infarction)(Confirmed) Resolved DM - Diabetes mellitus(Confirmed) Active H/O: stroke(Confirmed) Active H/O acute myocardial Active infarction(Confirmed) Hypertension(Confirmed) Active Peripheral artery disease(Confirmed) Active Allergies, Adverse Reactions, Alerts Substance Reaction Severity Status NKDA Active Medications aspirin 81 mg tablet, chewable 81 mg, Route: PO, Drug form: CHEWTAB, ONCE, Dosing Weight 74.545, kg, Start date : 08/26/17 8:48:00 CDT, Stop date: 08/26/17 8:48:00 CDT Start Date: 08/26/17 Stop Date: 08/26/17 Status: CompletedPlavix 75 mg, Route: PO, Drug form: TAB, ONCE, Dosing Weight 74.545, kg, Start date: 8:48:00 CDT, Stop date: 08/26/17 8:48:00 CDT Start Date: 08/26/17 Stop Date: 08/26/17 Status: CompletedSodium Chloride 0.9% IV 1,000 mL 1,000 mL, Rate: 75 ml/hr, Infuse over: 13.3 hr, Route: IV, Dosing Weight 74.545 kg, Total Volume: 1,000, Start date: 08/26/17 9:19:00 CDT, Duration: 30 day, Stop date: 09/25/17 9:18:00 CDT, 1.9, m2 Start Date: 08/26/17 Stop Date: 08/26/17 Status: Discontinued Results No data available for this section Immunizations Given and Recorded Vaccine Date Status Refusal Reason pneumococcal 23-valent vaccine 09/30/12 Given Procedures Procedure Date Related Diagnosis Body Site Status Catheterization Completed Hernia repair1 Completed 1abdominal in [facility] 2009 Social History Social History Type Response [...]
--- OUTSIDE RECORDS SUMMARY | 2018-07-11 05:02 | XMS REPORT | Summary of Care ---
:1960 Author Organization [facility] [place] Address [address] [facility] [address] [place] [address] Encounter HQ Augustor_dov(FIN) [id number] Date(s): 09/29/17 - 09/29/17 [facility] [place] [address] [facility] [address] [place] [address] [phone] Discharge Disposition: Home or Self Care Attending Physician: Litzy Santana MD Referring Physician: Litzy Santana MD Vital Signs Most recent to oldest [Reference Range]: 1 Height 172.72 cm (09/29/17 2:06 PM) Temperature Oral [96.4-99.1 DegF] 98.2 DegF (09/29/17 2:06 PM) Blood Pressure [90-140/60-90 mmHg] 126/79 mmHg (09/29/17 2:06 PM) Peripheral Pulse Rate [60-100 bpm] 82 bpm (09/29/17 2:06 PM) Weight 73.818 kg (09/29/17 2:06 PM) Body Mass Index 24.74 m2 (09/29/17 2:06 PM) Problem List Condition Effective Dates Status Health Status Informant CAD - Coronary artery Active disease(Confirmed) Cardiomyopathy(Confirmed) Active CHF (congestive heart Resolved failure)(Confirmed) CVA (cerebral infarction)(Confirmed) Resolved DM - Diabetes mellitus(Confirmed) Active H/O: stroke(Confirmed) Active H/O acute myocardial Active infarction(Confirmed) Hypertension(Confirmed) Active PAD (peripheral artery Resolved disease)(Confirmed) Peripheral artery disease(Confirmed) Active PVD (peripheral vascular Resolved disease)(Confirmed) Allergies, Adverse Reactions, Alerts Substance Reaction Severity Status NKDA Active Medications No Known Medications Results No data available for this section [...] concerns: No. Smoking Status Heavy tobacco smoker; Exposure to Tobacco Smoke None; Cigarette Smoking Last 365 Days Yes; Reg Smoking Cessation Counseling No entered on: 09/29/17 Assessment and Plan No data available for this section
--- OUTSIDE RECORDS SUMMARY | 2018-07-11 05:02 | XMS REPORT | Summary of Care ---
:1960 Author Organization [facility] Cardiology [facility] Address [address] [address] Encounter HQ Ofelia(IVON) [id number] Date(s): 09/10/17 - 09/10/17 [facility] Cardiology [facility] [address] [address] [phone] Discharge Disposition: Home or Self Care Attending Physician: Favian Mcnair MD Referring Physician: Brian Portillo MD Vital Signs Most recent to oldest [Reference Range]: 1 Height 172.72 cm (09/10/17 10:55 AM) Blood Pressure [90-140/60-90 mmHg] 111/67 mmHg (09/10/17 10:55 AM) Peripheral Pulse Rate [60-100 bpm] 78 bpm (09/10/17 10:55 AM) Weight 73.239 kg (09/10/17 10:55 AM) Body Mass Index 24.55 m2 (09/10/17 10:55 AM) Problem List Condition Effective Dates Status Health Status Informant CAD - Coronary artery Active disease(Confirmed) Cardiomyopathy(Confirmed) Active CVA (cerebral infarction)(Confirmed) Resolved DM - Diabetes mellitus(Confirmed) Active H/O: stroke(Confirmed) Active H/O acute myocardial Active infarction(Confirmed) Hypertension(Confirmed) Active Peripheral artery disease(Confirmed) Active Allergies, Adverse Reactions, Alerts Substance Reaction Severity Status NKDA Active Medications No Known Medications Results ELECTROLYTES Most recent to oldest [Reference Range]: 1 Sodium Lvl [135-145 mEq/L] 141 mEq/L (08/18/17 10:43 AM) Potassium Lvl [3.5-5.1 mEq/L] 4.7 mEq/L (08/18/17 10:43 AM) Chloride Lvl [95-109 mEq/L] 105 mEq/L (08/18/17 10:43 AM) CO2 [24-32 mEq/L] 27 mEq/L (08/18/17 10:43 AM) AGAP [10.0-20.0 mEq/L] 13.7 mEq/L (08/18/17 10:43 AM) CHEM PANEL Most recent to oldest [Reference Range]: 1 Creatinine Lvl [0.50-1.40 mg/dL] 0.90 mg/dL (08/18/17 10:43 AM) eGFR 95 mL/min/1.73m2 1 *NA* (08/18/17 10:43 AM) BUN [7-22 mg/dL] 12 mg/dL (08/18/17 10:43 AM) Glucose Lvl [70-99 mg/dL] 139 mg/dL *HI* (08/18/17 10:43 AM) Calcium Lvl [8.5-10.5 mg/dL] 9.3 mg/dL (08/18/17 10:43 AM) 1Result Comment: The eGFR is calculated using the CKD-EPI formula. In most young , healthy individualsthe eGFR will be >90 mL/min/1.73m2. The eGFR declines with age. An eGFR of 60-89 may be normal insome populations, particularly the elderly, for whom the CKD-EPI formula has not been extensively validated. Use of the eGFR is not recommended in the following populations: Individuals with unstable creatinine concentrations, including patients and those with serious co-morbid conditions. Patients with extremes in muscle mass or diet. The data above are obtained from the National Kidney Disease Education Program ( NKDEP) which additionally recommends that when the eGFR is used in patients with extremes of body mass index for purposesof drug dosing, the eGFR should be multiplied by the estimated BMI.HEMATOLOGY Most recent to oldest [Reference Range]: 1 WBC [3.7-10.4 K/CMM] 11.2 K/CMM *HI* (08/18/17 10:43 AM) RBC [4.70-6.10 M/CMM] 6.21 M/CMM *HI* (08/18/17 10:43 AM) Hgb [14.0-18.0 g/dL] 12.8 g/dL *LOW* (08/18/17 10:43 AM) Hct [42.0-54.0 %] 41.0 % *LOW* (08/18/17 10:43 AM) MCV [80.0-94.0 fL] 66.0 fL *LOW* (08/18/17 10:43 AM) MCH [27.0-31.0 pg] 20.7 pg *LOW* (08/18/17 10:43 AM) MCHC [32.0-36.0 g/dL] 31.3 g/dL *LOW* (08/18/17 10:43 AM) RDW [11.5-14.5 %] 15.3 % *HI* (08/18/17 10:43 AM) MPV [7.4-10.4 fL] 9.2 fL (08/18/17 10:43 AM) Platelet [133-450 K/CMM] 195 K/CMM (08/18/17 10:43 AM) Segs [45.0-75.0 %] 60.7 % (08/18/17 10:43 AM) Lymphocytes [20.0-40.0 %] 27.0 % (08/18/17 10:43 AM) Monocytes [2.0-12.0 %] 7.0 % (08/18/17 10:43 AM) Eosinophils [0.0-4.0 %] 4.6 % *HI* (08/18/17 10:43 AM) Basophils [0.0-1.0 %] 0.7 % (08/18/17 10:43 AM) Segs-Bands # [1.5-8.1 K/CMM] 6.8 K/CMM (08/18/17 10:43 AM) Lymphocytes # [1.0-5.5 K/CMM] 3.0 K/CMM (08/18/17 10:43 AM) Monocytes # [0.0-0.8 K/CMM] 0.8 K/CMM (08/18/17 10:43 AM) Eosinophils # [0.0-0.5 K/CMM] 0.5 K/CMM (08/18/17 10:43 AM) Basophils # [0.0-0.2 K/CMM] 0.1 K/CMM (08/18/17 10:43 AM) Microcyte [None Seen] 3+ *NA* (08/18/17 10:43 AM) Plt Morph Normal (08/18/17 10:43 AM) PT [12.0-14.7 seconds] 14.8 seconds *HI* (08/18/17 10:43 AM) INR [0.85-1.17] 1.16 (08/18/17 10:43 AM) PTT [22.9-35.8 seconds] 33.1 seconds (08/18/17 10:43 AM) Immunizations Given and Recorded Vaccine Date Status [...] Reg Smoking Cessation Counseling No1 entered on: 09/12/17 11 pack of cigarette per day, last time he had was 06/14/17 . Assessment and Plan No data available for this section
--- OUTSIDE RECORDS SUMMARY | 2018-07-11 05:02 | XMS REPORT | Summary of Care ---
:1960 Author Organization [facility] Cardiology [facility] Address [address] [facility] [address] [place] [address] Encounter HQ Ofelia(IVON) [id number] Date(s): 09/12/17 - 09/12/17 [facility] Cardiology [facility] [address] [facility] [address] [place] [address] [phone] Discharge Disposition: Home or Self Care Attending Physician: Tito Hunt MD Referring Physician: Favian Mcnair MD Vital Signs Most recent to oldest [Reference Range]: 1 Height 172.72 cm (09/12/17 3:53 PM) Blood Pressure [90-140/60-90 mmHg] 108/74 mmHg (09/12/17 3:53 PM) Peripheral Pulse Rate [60-100 bpm] 72 bpm (09/12/17 3:53 PM) Weight 72.33 kg (09/12/17 3:53 PM) Body Mass Index 24.25 m2 (09/12/17 3:53 PM) Problem List Condition Effective Dates Status [...]
--- OUTSIDE RECORDS SUMMARY | 2018-07-11 05:03 | XMS REPORT | Summary of Care ---
:1960 Author Organization [facility] Cardiology [facility] Address [address] [address] Encounter HQ Lazarusntr_dov(FIN) [id number] Date(s): 03/23/18 - 03/23/18 [facility] [address] [place] [address] [phone] Attending Physician: Favian Mcnair MD Vital Signs No data available for [...]
--- OUTSIDE RECORDS SUMMARY | 2018-07-11 05:03 | XMS REPORT | Summary of Care ---
:1960 Author Organization [facility] Cardiology [facility] Address [address] [place] [address], [address] [place] [address]- Encounter HQ Augustor_dov(FIN) [id number] Date(s): 10/29/17 - 10/30/[address] [place] [address] [phone] Vital Signs No data available for this [...]
--- OUTSIDE RECORDS SUMMARY | 2018-07-11 05:03 | XMS REPORT | Summary of Care ---
:1960 Author Organization [facility] Address [facility] [place], [place] [address]- Encounter HQ Encntr_alierna(FIN) [id number] Date(s): 10/24/17 - 10/27/[address] [address]- Encounter Diagnosis Atherosclerosis of sy[place] arteries of extremities with intermittent claudication , right leg (Final) - 11/03/17 Chronic systolic (congestive) heart failure (Final) - Acute posthemorrhagic anemia (Final) - Postprocedural hemorrhage of a circulatory system organ or structure following other circulatory system procedure (Final) - Postprocedural hematoma of a circulatory system organ or structure following other circulatory system procedure (Final) - Type 2 diabetes mellitus with diabetic peripheral angiopathy without gangrene ( Final) - Hypertensive heart disease with heart failure (Final) - Thrombocytopenia, unspecified (Final) - Type 2 diabetes mellitus with hyperglycemia (Final) - Hyperlipidemia, unspecified (Final) - Pure hypercholesterolemia, unspecified (Final) - Bradycardia, unspecified (Final) - Postprocedural hypotension (Final) - 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 (Final) - Nicotine dependence, cigarettes, uncomplicated (Final) - Presence of aortocoronary bypass graft (Final) - Discharge Disposition: Home or Self Care Attending Physician: Yaw Hayes MD Admitting Physician: Yaw Hayes MD Referring Physician: Makayla Guerrero MD Vital Signs Most recent to oldest 1 2 3 [Reference Range]: Height 172.72 cm (10/23/17 7:58 AM) Current Weight 77.409 kg 77.727 kg 78.182 kg (10/27/17 5:25 AM) (10/25/17 5:00 AM) (10/24/17 5:27 AM) Temperature Oral [96.4-99.1 98.7 DegF 99 DegF 99.7 DegF DegF] (10/26/17 7:40 AM) (10/25/17 5:00 PM) *HI* (10/25/17 4:00 AM) Blood Pressure [90-140/60-90 133/80 mmHg 124/71 mmHg 130/76 mmHg mmHg] (10/27/17 11:13 AM) (10/27/17 7:31 AM) (10/27/17 4:30 AM) Respiratory Rate [14-20 BRMIN] 18 BRMIN 18 BRMIN 18 BRMIN (10/27/17 11:13 AM) (10/27/17 7:31 AM) (10/27/17 4:30 AM) Peripheral Pulse Rate [60-100 79 bpm 73 bpm 80 bpm bpm] (10/27/17 11:13 AM) (10/27/17 7:31 AM) (10/27/17 4:30 AM) Weight 72.841 kg (10/23/17 7:58 AM) Body Mass Index 24.42 m2 (10/23/17 7:58 AM) Problem List Condition Effective Dates Status [...] Substance Reaction Severity Status NKDA Active Medications acetaminophen 650 mg, 2 tab, Route: PO, Drug form: TAB, Q4H, Dosing Weight 72.841, kg, PRN Pain 1-3/Temp > 100.4 F, Start date: 10/23/17 13:11:00 CDT, Duration: 30 day , Stop date: 11/22/17 13:10:00 CDT Notes: Do not exceed 4 gm/day. (Same as: Tylenol) Start Date: 10/23/17 Stop Date: 10/27/17 Status: Discontinuedacetaminophen 650 mg, 2 tab, Route: PO, Drug form: TAB, Q4H, Dosing Weight 72.841, kg, PRN Pain Score 1-3, Start date: 10/23/17 10:29:00 CDT, Duration: 30 day, Stop date: 11/22/17 10:28:00 CDT Notes: Do not exceed 4 gm/day. (Same as: Tylenol) Start Date: 10/23/17 Stop Date: 10/27/17 Status: Discontinuedacetaminophen-codeine #3 2 tab, Route: PO, Drug Form: TAB, Dosing Weight 72.841, kg, Q4H, PRN Pain Score 4-6, Start date: 10/23/17 13:11:00 CDT, Duration: 30 day, Stop date: 11/22/17 13 :10:00 CDT Notes: Do not exceed 4gm/day of acetaminophen. (Same as: Tylenol with Codeine # 3) Start Date: 10/23/17 Stop Date: 10/27/17 Status: Discontinuedacetaminophen-codeine #3 1 tab, Route: PO, Drug Form: TAB, Dosing Weight 72.841, kg, Q4H, PRN Pain Score 4-6, Start date: 10/23/17 13:11:00 CDT, Duration: 30 day, Stop date: 11/22/17 13 :10:00 CDT Notes: Do not exceed 4gm/day of acetaminophen. (Same as: Tylenol with Codeine # 3) Start Date: 10/23/17 Stop Date: 10/27/17 Status: Discontinuedacetaminophen-hydrocodone 325 mg-10 mg oral tablet 1 tab, Route: PO, Drug Form: TAB, Dosing Weight 72.841, kg, Q6H, PRN Pain Score 6-10, Start date: 10/23/17 13:11:00 CDT, Duration: 30 day, Stop date: 11/22/17 13:10:00 CDT Notes: Do not exceed 4gm/day of acetaminophen. (Same as: [place] 325/10) Start Date: 10/23/17 Stop Date: 10/27/17 Status: Discontinuedacetaminophen-hydrocodone 325 mg-5 mg oral tablet 1 tab, Route: PO, Drug Form: TAB, Dosing Weight 72.841, kg, Q4H, PRN Pain Score 4-6, Start date: 10/23/17 13:11:00 CDT, Duration: 30 day, Stop date: 11/22/17 13 :10:00 CDT Notes: (Same as: [place] 325/5) Do not exceed 4gm/day of acetaminophen. Start Date: 10/23/17 Stop Date: 10/27/17 Status: Discontinuedacetaminophen-hydrocodone 325 mg-5 mg oral tablet 1 tab, Route: PO, Drug Form: TAB, Dosing Weight 72.841, kg, Q4H, PRN Pain Score 4-6, Start date: 10/23/17 10:29:00 CDT, Duration: 30 day, Stop date: 11/22/17 10 :28:00 CDT Notes: (Same as: [place] 325/5) Do not exceed 4gm/day of acetaminophen. Start Date: 10/23/17 Stop Date: 10/23/17 Status: Discontinuedacetaminophen-hydrocodone 325 mg-5 mg oral tablet 2 tab, Route: PO, Drug Form: TAB, Dosing Weight 72.841, kg, Q4H, PRN Pain Score 7-10, Start date: 10/23/17 10:29:00 CDT, Duration: 30 day, Stop date: 11/22/17 10:28:00 CDT Notes: (Same as: [place] 325/5) Do not exceed 4gm/day of acetaminophen. Start Date: 10/23/17 Stop Date: 10/27/17 Status: DiscontinuedAmidate (ANES) Route: IV, Drug form: INJ, ONCE, Stop date: 10/23/17 13:34:00 CDT Start Date: 10/23/17 Stop Date: 10/23/17 Status: CompletedANES flumazenil 0.2 mg, 2 mL, Route: IVP, Drug form: INJ, PRN, Dosing Weight 72.841, kg, PRN Benzodiazepine Reversal, Initial dose, Start date: 10/23/17 13:27:00 CDT, Duration: 30 day, Stop date: 11/22/17 13:26:00 CDT Notes: (Same as: Romazicon) Start Date: 10/23/17 Stop Date: 10/27/17 Status: DiscontinuedANES HYDROmorphone 0.5 mg, 0.25 mL, Route: IVP, Drug form: INJ, Q5Min, Dosing Weight 72.841, kg, PRN Pain Score 7-10, Start date: 10/23/17 13:27:00 CDT, Duration: 4 doses or times, Stop date: Limited # of times Notes: Same as Dilaudid Start Date: 10/23/17 Stop Date: 10/27/17 Status: DiscontinuedANES labetalol 10 mg, 2 mL, Route: IVP, Drug form: INJ, Q5Min, Dosing Weight 72.841, kg, PRN Elevated BP, Start date: 10/23/17 13:27:00 CDT, Duration: 5 doses or times, Stop date: Limited # of times Notes: (Same as: Normodyne, Trandate)Push over 2 minutes Give bolus over 2-3 minutes. Start Date: 10/23/17 Stop Date: 10/27/17 Status: DiscontinuedANES morphine Sulfate 2 mg, 0.5 mL, Route: IVP, Drug form: SOLN, Q5Min, Dosing Weight 72.841, kg, PRN Pain Score 4-6, Start date: 10/23/17 13:27:00 CDT, Duration: 5 doses or times, Stop date: Limited # of times Notes: (Same as:MORPhine Sulfate) Start Date: 10/23/17 Stop Date: 10/27/17 Status: DiscontinuedANES naloxone 0.4 mg, 1 mL, Route: IVP, Drug form: INJ, Q2MIN, Dosing Weight 72.841, kg, PRN Narcotic Reversal, Start date: 10/23/17 13:27:00 CDT, Duration: 8 doses or times , Stop date: Limited # of times Notes: Same as Narcan Start Date: 10/23/17 Stop Date: 10/27/17 Status: DiscontinuedANES ondansetron 4 mg, 2 mL, Route: IVP, Drug form: INJ, ONCE, Dosing Weight 72.841, kg, PRN Nausea & Vomiting, Start date: 10/23/17 13:27:00 CDT Notes: (Same as: Sharon) MEDICATION WASTE Product Size: 4 mgProduct Wasted: ___ mg Start Date: 10/23/17 Stop Date: 10/23/17 Status: Completedaspirin 81 mg tablet, enteric coated 81 mg, 1 tab, Route: PO, Drug form: ECTAB, Daily, Dosing Weight 72.841, kg, Start date: 10/24/17 9:00:00 CDT, Duration: 30 day, Stop date: 11/22/17 9:00:00 CDT Notes: Do not crush or chew.(Same As: Ecotrin) Start Date: 10/24/17 Stop Date: 10/27/17 Status: Discontinuedaspirin 81 mg tablet, enteric coated 81 mg=1 tab, PO, Daily, 0 Refill(s) Start Date: 10/23/17 Status: Orderedaspirin 81 mg tablet, enteric coated 81 mg, 1 tab, Route: PO, Drug form: ECTAB, Daily, Dosing Weight 72.841, kg, Start date: 10/24/17 9:00:00 CDT, Duration: 30 day, Stop date: 11/22/17 9:00:00 CDT Notes: Do not crush or chew.(Same As: Ecotrin) Start Date: 10/24/17 Stop Date: 10/23/17 Status: Canceledatorvastatin 80 mg, 2 tab, Route: PO, Drug form: TAB, Bedtime, Dosing Weight 72.841, kg, Start date: 10/23/17 21:00:00 CDT, Duration: 30 day, Stop date: 11/21/17 21:00: 00 CDT Notes: (Same as: Lipitor) Start Date: 10/23/17 Stop Date: 10/27/17 Status: Discontinuedatorvastatin 80 mg oral tablet 80 mg, PO, Bedtime, 0 Refill(s) Start Date: 10/23/17 Status: Orderedcarvedilol 6.25 mg, 1 tab, Route: PO, Drug form: TAB, Q12H, Dosing Weight 72.841, kg, Start date: 10/23/17 21:00:00 CDT, Duration: 30 day, Stop date: 11/22/17 9:00: 00 CDT Notes: Give with food. (Same As: Coreg) Start Date: 10/23/17 Stop Date: 10/27/17 Status: Discontinuedcarvedilol 6.25 mg oral tablet 6.25 mg, PO, Q12H, 0 Refill(s) Start Date: 10/23/17 Status: OrderedceFAZolin (ANES) Route: IV, Drug form: INJ, ONCE, Stop date: 10/23/17 13:34:00 CDT Start Date: 10/23/17 Stop Date: 10/23/17 Status: Completedcefuroxime (ANES) Route: IV, Drug form: INJ, ONCE, Stop date: 10/23/17 13:34:00 CDT Start Date: 10/23/17 Stop Date: 10/23/17 Status: Completedclopidogrel 75 mg, 1 tab, Route: PO, Drug form: TAB, Daily, Dosing Weight 72.841, kg, Start date: 10/24/17 9:00:00 CDT, Duration: 30 day, Stop date: 11/22/17 9:00:00 CDT Notes: (Same As: Plavix) Start Date: 10/24/17 Stop Date: 10/27/17 Status: Discontinuedclopidogrel 75 mg, 1 tab, Route: PO, Drug form: TAB, Daily, Dosing Weight 72.841, kg, Start date: 10/24/17 9:00:00 CDT, Duration: 30 day, Stop date: 11/22/17 9:00:00 CDT Notes: (Same As: Plavix) Start Date: 10/24/17 Stop Date: 10/23/17 Status: Canceledclopidogrel 75 mg oral tablet 75 mg, PO, Daily, 0 Refill(s) Start Date: 10/23/17 Stop Date: 11/18/17 Status: DiscontinuedDextrose 50% Syringe 25 gm, 50 mL, Route: IVP, Drug Form: INJ, Dosing Weight 72.841, kg, PRN, PRN Blood Glucose Results, Start date: 10/24/17 15:37:00 CDT, Duration: 30 day, Stop date: 11/23/17 15:36:00 CDT Start Date: 10/24/17 Stop Date: 10/27/17 Status: DiscontinuedDextrose 50% Syringe 12.5 gm, 25 mL, Route: IVP, Drug Form: INJ, Dosing Weight 72.841, kg, PRN, PRN Blood Glucose Results, Start date: 10/24/17 15:37:00 CDT, Duration: 30 day, Stop date: 11/23/17 15:36:00 CDT Start Date: 10/24/17 Stop Date: 10/27/17 Status: Discontinueddocusate sodium 100 mg oral capsule 100 mg, 1 cap, Route: PO, Drug form: CAP, BID, Dosing Weight 72.841, kg, Start date: 10/23/17 17:00:00 CDT, Duration: 30 day, Stop date: 11/22/17 9:00:00 CDT Notes: (Same as: Colace) (Do Not Crush) Start Date: 10/23/17 Stop Date: 10/27/17 Status: Discontinuedferrous sulfate 325 mg, 1 tab, Route: PO, Drug form: TAB, Daily, Dosing Weight 72.841, kg, Start date: 10/27/17 9:00:00 CDT, Duration: 30 day, Stop date: 11/25/17 9:00:00 CDT Notes: Give with food.iron elemental [id number] as ferrous sulfateDose=___mg elemental iron Start Date: 10/27/17 Stop Date: 10/27/17 Status: Discontinuedglucagon 1 mg, Route: IM, Drug form: PDR/INJ, PRN, Dosing Weight 72.841, kg, PRN Blood Glucose Results, Startdate: 10/24/17 15:37:00 CDT, Duration: 30 day, Stop date: 11/23/17 15:36:00 CDT Start Date: 10/24/17 Stop Date: 10/27/17 Status: Discontinuedheparin 5,000 unit, 1 mL, Route: SUB-Q, Drug form: INJ, Q12H, Dosing Weight 72.841, kg, Start date: 10/23/1820:00:00 CDT, Stop date: 11/22/17 9:00:00 CDT Notes: porcine heparin Start Date: 10/23/17 Stop Date: 10/23/17 Status: Canceledinsulin lispro 1 unit, 0.01 mL, Route: SUB-Q, Drug form: SOLN, TID-Before Meals, Dosing Weight 72.841, kg, PRN Blood Glucose Results, Start date: 10/23/17 13:11:00 CDT, Duration: 30 day, Stop date: 11/22/17 13:10:00 CDT Notes: (Same as: Humalog ) Roll in palms of hands gently; Do not shake ` vigorously. "Single PatientUse Only " WASTE: F/P - Black; E - Municipal Trash Bin Stable for 28 days at room temperature.Expires in days from Date Start Date: 10/23/17 Stop Date: 10/24/17 Status: Discontinuedinsulin lispro 2 unit, 0.02 mL, Route: SUB-Q, Drug form: SOLN, TID-Before Meals, Dosing Weight 72.841, kg, PRN Blood Glucose Results, Start date: 10/23/17 13:11:00 CDT, Duration: 30 day, Stop date: 11/22/17 13:10:00 CDT Notes: (Same as: Humalog ) Roll in palms of hands gently; Do not shake ` vigorously. "Single PatientUse Only " WASTE: F/P - Black; E - Municipal Trash Bin Stable for 28 days at room temperature.Expires in days from Date Start Date: 10/23/17 Stop Date: 10/24/17 Status: Discontinuedinsulin lispro 5 unit, 0.05 mL, Route: SUB-Q, Drug form: SOLN, TID-Before Meals, Dosing Weight 72.841, kg, PRN Blood Glucose Results, Start date: 10/23/17 13:11:00 CDT, Duration: 30 day, Stop date: 11/22/17 13:10:00 CDT Notes: (Same as: Humalog ) Roll in palms of hands gently; Do not shake ` vigorously. "Single PatientUse Only " WASTE: F/P - Black; E - Municipal Trash Bin Stable for 28 days at room temperature.Expires in days from Date Start Date: 10/23/17 Stop Date: 10/24/17 Status: Discontinuedinsulin lispro 4 unit, 0.04 mL, Route: SUB-Q, Drug form: SOLN, TID-Before Meals, Dosing Weight 72.841, kg, PRN Blood Glucose Results, Start date: 10/23/17 13:11:00 CDT, Duration: 30 day, Stop date: 11/22/17 13:10:00 CDT Notes: (Same as: Humalog ) Roll in palms of hands gently; Do not shake ` vigorously. "Single PatientUse Only " WASTE: F/P - Black; E - Municipal Trash Bin Stable for 28 days at room temperature.Expires in days from Date Start Date: 10/23/17 Stop Date: 10/24/17 Status: Discontinuedinsulin lispro 3 unit, 0.03 mL, Route: SUB-Q, Drug form: SOLN, TID-Before Meals, Dosing Weight 72.841, kg, PRN Blood Glucose Results, Start date: 10/23/17 13:11:00 CDT, Duration: 30 day, Stop date: 11/22/17 13:10:00 CDT Notes: (Same as: Humalog ) Roll in palms of hands gently; Do not shake ` vigorously. "Single PatientUse Only " WASTE: F/P - Black; E - Municipal Trash Bin Stable for 28 days at room temperature.Expires in days from Date Start Date: 10/23/17 Stop Date: 10/24/17 Status: Discontinuedinsulin lispro 10 unit, 0.1 mL, Route: SUB-Q, Drug form: SOLN, TID-Before Meals, Dosing Weight 72.841, kg, PRN Blood Glucose Results, Start date: 10/24/17 15:37:00 CDT, Duration: 30 day, Stop date: 11/23/17 15:36:00 CDT Notes: (Same as: Humalog ) Roll in palms of hands gently; Do not shake ` vigorously. "Single PatientUse Only " WASTE: F/P - Black; E - Municipal Trash Bin Stable for 28 days at room temperature.Expires in days from Date Start Date: 10/24/17 Stop Date: 10/27/17 Status: Discontinuedinsulin lispro 6 unit, 0.06 mL, Route: SUB-Q, Drug form: SOLN, TID-Before Meals, Dosing Weight 72.841, kg, PRN Blood Glucose Results, Start date: 10/24/17 15:37:00 CDT, Duration: 30 day, Stop date: 11/23/17 15:36:00 CDT Notes: (Same as: Humalog ) Roll in palms of hands gently; Do not shake ` vigorously. "Single PatientUse Only " WASTE: F/P - Black; E - Municipal Trash Bin Stable for 28 days at room temperature.Expires in days from Date Start Date: 10/24/17 Stop Date: 10/27/17 Status: Discontinuedinsulin lispro 8 unit, 0.08 mL, Route: SUB-Q, Drug form: SOLN, TID-Before Meals, Dosing Weight 72.841, kg, PRN Blood Glucose Results, Start date: 10/24/17 15:37:00 CDT, Duration: 30 day, Stop date: 11/23/17 15:36:00 CDT Notes: (Same as: Humalog ) Roll in palms of hands gently; Do not shake ` vigorously. "Single PatientUse Only " WASTE: F/P - Black; E - Municipal Trash Bin Stable for 28 days at room temperature.Expires in days from Date Start Date: 10/24/17 Stop Date: 10/27/17 Status: Discontinuedinsulin lispro 2 unit, 0.02 mL, Route: SUB-Q, Drug form: SOLN, TID-Before Meals, Dosing Weight 72.841, kg, PRN Blood Glucose Results, Start date: 10/24/17 15:37:00 CDT, Duration: 30 day, Stop date: 11/23/17 15:36:00 CDT Notes: (Same as: Humalog ) Roll in palms of hands gently; Do not shake ` vigorously. "Single PatientUse Only " WASTE: F/P - Black; E - Municipal Trash Bin Stable for 28 days at room temperature.Expires in days from Date Start Date: 10/24/17 Stop Date: 10/27/17 Status: Discontinuedinsulin lispro 4 unit, 0.04 mL, Route: SUB-Q, Drug form: SOLN, TID-Before Meals, Dosing Weight 72.841, kg, PRN Blood Glucose Results, Start date: 10/24/17 15:37:00 CDT, Duration: 30 day, Stop date: 11/23/17 15:36:00 CDT Notes: (Same as: Humalog ) Roll in palms of hands gently; Do not shake ` vigorously. "Single PatientUse Only " WASTE: F/P - Black; E - Municipal Trash Bin Stable for 28 days at room temperature.Expires in days from Date Start Date: 10/24/17 Stop Date: 10/27/17 Status: Discontinuediron sulfate (ferrous sulfate) 325 mg oral tablet 325 mg=1 tab, PO, Daily, # 90 tab, 0 Refill(s), Pharmacy: [facility] Start Date: 10/27/17 Stop Date: 01/25/18 Status: OrderedIsolyte S PH 7.4 (ANES) 1000 mL Route: IV, Total Volume: 1,000, Start date: 10/23/17 12:30:00 CDT, Stop date: 13:30:00 CDT Start Date: 10/23/17 Stop Date: 10/23/17 Status: CompletedJardiance 10 mg oral tablet Jardiance 10 mg oral tablet, 10 mg, Route: PO, Bedtime, 10/23/17 21:00:00 CDT, Duration: 30 day, Stop date: 11/21/17 21:00:00 CDT, Patient's Own Meds Start Date: 10/23/17 Stop Date: 10/27/17 Status: DiscontinuedketOROLAC 15 mg, 1 mL, Route: IVP, Drug form: INJ, Q6H, Dosing Weight 72.841, kg, Start date: 10/23/17 18:00:00 CDT, Duration: 6 doses or times, Stop date: 10/25/17 0: 00:00 CDT Notes: (Same as:Toradol) IV bolus must be given >15 seconds. Give IM administration slowly and deeply into the muscle. Not for use > 4 days. Start Date: 10/23/17 Stop Date: 10/24/17 Status: DiscontinuedLasix 20 mg oral tablet 20 mg=1 tab, PO, Daily, PRN Edema, 0 Refill(s) Start Date: 10/23/17 Status: OrderedLasix 20 mg oral tablet 20 mg, 1 tab, Route: PO, Drug form: TAB, Daily, Dosing Weight 72.841, kg, PRN Edema, Start date: 10/23/17 10:30:00 CDT, Duration: 30 day, Stop date: 11/22/17 10:29:00 CDT Notes: (Same as: Lasix) May cause GI upset. Give with food or milk. Start Date: 10/23/17 Stop Date: 10/27/17 Status: DiscontinuedLasix 20 mg oral tablet 20 mg, 1 tab, Route: PO, Drug form: TAB, Daily, Dosing Weight 72.841, kg, PRN Edema, Start date: 10/23/17 13:14:00 CDT, Duration: 30 day, Stop date: 11/22/17 13:13:00 CDT Start Date: 10/23/17 Stop Date: 10/23/17 Status: Discontinuedlosartan 25 mg, 1 tab, Route: PO, Drug form: TAB, Daily, Dosing Weight 72.841, kg, Start date: 10/24/17 9:00:00 CDT, Duration: 30 day, Stop date: 11/22/17 9:00:00 CDT Notes: (Same as: Cozaar) Start Date: 10/24/17 Stop Date: 10/27/17 Status: Discontinuedlosartan 25 mg, Route: PO, Drug form: TAB, Daily, Dosing Weight 72.841, kg, Start date: 10/24/17 9:00:00 CDT,Duration: 30 day, Stop date: 11/22/17 9:00:00 CDT Start Date: 10/24/17 Stop Date: 10/23/17 Status: Discontinuedlosartan 25 mg oral tablet 25 mg, PO, Daily, 0 Refill(s) Start Date: 10/23/17 Status: Orderedmorphine Sulfate 2 mg, 0.5 mL, Route: IVP, Drug form: SOLN, Q4H, Dosing Weight 72.841, kg, PRN Pain Score 1-3, Start date: 10/23/17 13:11:00 CDT, Duration: 30 day, Stop date: 11/22/17 13:10:00 CDT Notes: (Same as:MORPhine Sulfate) Start Date: 10/23/17 Stop Date: 10/27/17 Status: DiscontinuedOmnipaque 350 injectable solution 100 mL, Route: IVP, Drug Form: SOLN, Dosing Weight 72.841, kg, ONCALL, For CTA exam with GFR > 45mL/min, STAT, Start date: 10/25/17 10:32:00 CDT, Duration: 1 doses or times Notes: (same as:Omnipaque 350).WASTE: F/P - Black; E - Municipal Trash Bin Start Date: 10/25/17 Stop Date: 10/25/17 Status: Completedondansetron 4 mg, 2 mL, Route: IVP, Drug form: INJ, Q6H, Dosing Weight 72.841, kg, PRN Nausea & Vomiting, Start date: 10/23/17 13:11:00 CDT, Duration: 30 day, Stop date: 11/22/17 13:10:00 CDT Notes: (Same as: Sharon) MEDICATION WASTE Product Size: 4 mgProduct Wasted: ___ mg Start Date: 10/23/17 Stop Date: 10/27/17 Status: Discontinuedondansetron 4 mg, 2 mL, Route: IVP, Drug form: INJ, Q8H, Dosing Weight 72.841, kg, PRN Nausea & Vomiting, Start date: 10/23/17 10:29:00 CDT, Duration: 30 day, Stop date: 11/22/17 10:28:00 CDT Notes: (Same as: Zofrhawa) MEDICATION WASTE Product Size: 4 mgProduct Wasted: ___ mg Start Date: 10/23/17 Stop Date: 10/27/17 Status: Discontinuedpantoprazole 40 mg, 1 tab, Route: PO, Drug form: ECTAB, Daily, Dosing Weight 72.841, kg, Start date: 10/24/17 9:00:00 CDT, Duration: 30 day, Stop date: 11/22/17 9:00:00 CDT Notes: Tablet should not be chewed or crushed.(Same as: Protonix) Start Date: 10/24/17 Stop Date: 10/27/17 Status: Discontinuedphenylephrine (ANES) Route: IV, Drug form: INJ, ONCE, Stop date: 10/23/17 13:34:00 CDT Start Date: 10/23/17 Stop Date: 10/23/17 Status: Completedrocuronium (ANES) Route: IV, Drug form: INJ, ONCE, Stop date: 10/23/17 13:34:00 CDT Start Date: 10/23/17 Stop Date: 10/23/17 Status: CompletedSaline Flush 0.9% 10 ml, Route: IVP, Drug Form: INJ, Dosing Weight 72.841, kg, PRN, PRN Line Flush , Start date: 10/23/17 13:11:00 CDT, Duration: 30 day, Stop date: 11/22/17 13:10 :00 CDT Notes: (Same as: BD Posiflush) Start Date: 10/23/17 Stop Date: 10/27/17 Status: DiscontinuedSodium Chloride 0.9% IV 1,000 mL 1,000 mL, Rate: 75 ml/hr, Infuse over: 13.3 hr, Route: IV, Dosing Weight 72.841 kg, Total Volume: 1,000, Start date: 10/23/17 13:11:00 CDT, Duration: 30 day, Stop date: 11/22/17 13:10:00 CDT, 1.88, m2 Start Date: 10/23/17 Stop Date: 10/23/17 Status: DiscontinuedSodium Chloride 0.9% IV 1,000 mL 1,000 mL, Rate: 30 ml/hr, Infuse over: 33.3 hr, Route: IV, Dosing Weight 72.841 kg, Total Volume: 1,000, Start date: 10/23/17 8:06:00 CDT, Duration: 30 day, Stop date: 11/22/17 8:05:00 CDT, 1.88, m2 Start Date: 10/23/17 Stop Date: 10/23/17 Status: DiscontinuedSodium Chloride 0.9% IV 750 mL 750 mL, Rate: 75 ml/hr, Infuse over: 10 hr, Route: IV, Dosing Weight 72.841 kg, Total Volume: 750, Start date: 10/23/17 10:29:00 CDT, Duration: 10 hr, Stop date : 10/23/17 20:28:00 CDT, 1.88, m2 Start Date: 10/23/17 Stop Date: 10/23/17 Status: Discontinuedsugammadex (ANES) Route: IV, Drug form: SOLN, ONCE, Stop date: 10/23/17 13:35:00 CDT Start Date: 10/23/17 Stop Date: 10/23/17 Status: CompletedZinacef + sterile water 20 mL 1.5 gm, Route: IVP, Drug form: PDR/INJ, PRE OP, Dosing Weight 72.841, kg, Start date: 10/23/17 12:00:00 CDT, Duration: 30 day, Stop date: 11/22/17 11:59:00 CDT Notes: (Same As: Kefurox, Zinacef) MEDICATION WASTE Product Size: 1500 mgProduct Wasted: ___ mg Start Date: 10/23/17 Stop Date: 10/27/17 Status: DiscontinuedZinacef + sterile water 20 mL 1.5 gm, Route: IVP, Drug form: PDR/INJ, ABXQ8H, Dosing Weight 72.841, kg, Start date: 10/23/17 14:00:00 CDT, Duration: 2 doses or times, Stop date: 10/23/17 22: 00:00 CDT Notes: (Same As: Kefurox, Zinacef) MEDICATION WASTE Product Size: 1500 mgProduct Wasted: ___ mg Start Date: 10/23/17 Stop Date: 10/23/17 Status: DeletedZinacef + sterile water 20 mL 1.5 gm, Route: IVP, Drug form: PDR/INJ, ABXQ8H, Dosing Weight 72.841, kg, Start date: 10/23/17 21:00:00 CDT, Duration: 2 doses or times, Stop date: 10/24/17 5: 00:00 CDT Notes: (Same As: Kefurox, Zinacef) MEDICATION WASTE Product Size: 1500 mgProduct Wasted: ___ mg Start Date: 10/23/17 Stop Date: 10/24/17 Status: Completed Results BLOOD BANK RESULTS Most recent to oldest 1 2 3 [Reference Range]: ABO/Rh A POS *Unknown* (10/23/17 11:57 AM) Antibody Scrn Negative (10/23/17 11:57 AM) RBC product Product available 1 Product available Product available (10/25/17 9:45 AM) (10/23/17 3:45 PM) (10/23/17 12:05 PM) 1Result Comment: 10/25/2017 09:59 [id number] Blood available, notified Artemio at 10/25/2017 09:59 by [email or web address] Most recent to oldest 1 2 3 [Reference Range]: Sodium Lvl [135-145 mEq/L] 136 mEq/L 136 mEq/L 140 mEq/L (10/27/17 5:36 AM) (10/26/17 4:41 AM) (10/25/17 4:54 AM) Potassium Lvl [3.5-5.1 4.3 mEq/L 3.8 mEq/L 3.9 mEq/L mEq/L] (10/27/17 5:36 AM) (10/26/17 4:41 AM) (10/25/17 4:54 AM) Chloride Lvl [95-109 mEq/L] 102 mEq/L 103 mEq/L 105 mEq/L (10/27/17 5:36 AM) (10/26/17 4:41 AM) (10/25/17 4:54 AM) CO2 [24-32 mEq/L] 25 mEq/L 25 mEq/L 24 mEq/L (10/27/17 5:36 AM) (10/26/17 4:41 AM) (10/25/17 4:54 AM) AGAP [10.0-20.0 mEq/L] 13.3 mEq/L 11.8 mEq/L 14.9 mEq/L (10/27/17 5:36 AM) (10/26/17 4:41 AM) (10/25/17 4:54 AM) POC Sodium [135-145 mEq/L] 140 mEq/L (10/23/17 7:34 AM) POC Potassium [3.5-5.1 4.1 mEq/L mEq/L] (10/23/17 7:34 AM) POC Chloride [95-109 mEq/L] 101 mEq/L (10/23/17 7:34 AM) POC Carbon Dioxide [24-32 26 mEq/dL mEq/dL] (10/23/17 7:34 AM) POC AGAP [10.0-20.0 mEq/L] 18.0 mEq/L (10/23/17 7:34 AM) CHEM PANEL Most recent to oldest 1 2 3 [Reference Range]: Creatinine Lvl [0.50-1.40 0.70 mg/dL 0.80 mg/dL 0.80 mg/dL mg/dL] (10/27/17 5:36 AM) (10/26/17 4:41 AM) (10/25/17 4:54 AM) eGFR 106 mL/min/1.73m2 1 100 mL/min/1.73m2 2 100 mL/min/1.73m2 3 *NA* *NA* *NA* (10/27/17 5:36 AM) (10/26/17 4:41 AM) (10/25/17 4:54 AM) BUN [7-22 mg/dL] 10 mg/dL 10 mg/dL 15 mg/dL (10/27/17 5:36 AM) (10/26/17 4:41 AM) (10/25/17 4:54 AM) B/C Ratio [6-25] 10 (10/23/17 11:57 AM) Glucose Lvl [70-99 mg/dL] 124 mg/dL 127 mg/dL 140 mg/dL *HI* *HI* *HI* (10/27/17 5:36 AM) (10/26/17 4:41 AM) (10/25/17 4:54 AM) POC Creatinine [0.5-1.4 0.8 mg/dL mg/dL] (10/23/17 7:34 AM) POC BUN [7-22 mg/dL] 8 mg/dL (10/23/17 7:34 AM) POC Glucose [70-99 mg/dL] 138 mg/dL *HI* (10/23/17 7:34 AM) Total Protein [6.4-8.4 5.5 g/dL g/dL] *LOW* (10/23/17 11:57 AM) Albumin Lvl [3.5-5.0 g/dL] 2.8 g/dL *LOW* (10/23/17 11:57 AM) Globulin [2.7-4.2 g/dL] 2.7 g/dL (10/23/17 11:57 AM) A/G Ratio [0.7-1.6] 1.0 (10/23/17 11:57 AM) Calcium Lvl [8.5-10.5 9.0 mg/dL 8.1 mg/dL 8.2 mg/dL mg/dL] (10/27/17 5:36 AM) *LOW* *LOW* (10/26/17 4:41 AM) (10/25/17 4:54 AM) POC Ion Ca [1.05-1.25 1.26 mMol/L mMol/L] *HI* (10/23/17 7:34 AM) ALT [0-65 unit/L] 15 unit/L (10/23/17 11:57 AM) AST [0-37 unit/L] 15 unit/L (10/23/17 11:57 AM) Alk Phos [39-136 unit/L] 66 unit/L (10/23/17 11:57 AM) Bili Total [0.2-1.3 mg/dL] 1.4 mg/dL *HI* (10/23/17 11:57 AM) 1Result Comment: The eGFR is calculated [...] eGFR should be multiplied by the estimated BMI.2Result Comment: The eGFR is calculated using the CKD-EPI formula. In most young, healthy individualsthe eGFR will be >90 mL/min/1.73m2. [...] eGFR should be multiplied by the estimated BMI.3Result Comment: The eGFR is calculated using the CKD-EPI formula. In most young, healthy individualsthe eGFR will be >90 mL/min/1.73m2. [...] the estimated BMI.HEMATOLOGY Most recent to oldest 1 2 3 [Reference Range]: WBC [3.7-10.4 K/CMM] 11.7 K/CMM 10.6 K/CMM 9.9 K/CMM *HI* *HI* (10/26/17 4:41 AM) (10/27/17 5:36 AM) (10/26/17 6:00 PM) RBC [4.70-6.10 M/CMM] 4.09 M/CMM 4.07 M/CMM 3.81 M/CMM *LOW* *LOW* *LOW* (10/27/17 5:36 AM) (10/26/17 6:00 PM) (10/26/17 4:41 AM) Hgb [14.0-18.0 g/dL] 9.7 g/dL 9.7 g/dL 9.0 g/dL *LOW* *LOW* *LOW* (10/27/17 5:36 AM) (10/26/17 6:00 PM) (10/26/17 4:41 AM) Hct [42.0-54.0 %] 29.3 % 29.3 % 27.2 % *LOW* *LOW* *LOW* (10/27/17:36 AM) (10/26/17 6:00 PM) (10/26/17 4:41 AM) POC Hemoglobin [14.0-18.0 15.6 g/dL g/dL] (10/23/17 7:34 AM) POC Hematocrit [42.0-54.0 46.0 % %] (10/23/17 7:34 AM) MCV [80.0-94.0 fL] 71.5 fL 72.0 fL 71.2 fL *LOW* *LOW* *LOW* (10/27/17 5:36 AM) (10/26/17 6:00 PM) (10/26/17 4:41 AM) MCH [27.0-31.0 pg] 23.8 pg 23.7 pg 23.6 pg *LOW* *LOW* *LOW* (10/27/17 5:36 AM) (10/26/17 6:00 PM) (10/26/17 4:41 AM) MCHC [32.0-36.0 g/dL] 33.3 g/dL 33.0 g/dL 33.2 g/dL (10/27/17 5:36 AM) (10/26/17 6:00 PM) (10/26/17 4:41 AM) RDW [11.5-14.5 %] 23.5 % 22.9 % 22.6 % *HI* *HI* *HI* (10/27/17 5:36 AM) (10/26/17 6:00 PM) (10/26/17 4:41 AM) MPV [7.4-10.4 fL] 8.8 fL 9.8 fL 9.0 fL (10/27/17 5:36 AM) (10/26/17 6:00 PM) (10/26/17 4:41 AM) Platelet [133-450 K/CMM] 133 K/CMM 135 K/CMM 122 K/CMM (10/27/17 5:36 AM) (10/26/17 6:00 PM) *LOW* (10/26/17 4:41 AM) Segs [45.0-75.0 %] 63.5 % 59.0 % 64.7 % (10/27/17 5:36 AM) (10/26/17 4:41 AM) (10/25/17 4:54 AM) Lymphocytes [20.0-40.0 %] 21.5 % 25.2 % 21.7 % (10/27/17 5:36 AM) (10/26/17 4:41 AM) (10/25/17 4:54 AM) Monocytes [2.0-12.0 %] 9.0 % 9.7 % 9.0 % (10/27/17 5:36 AM) (10/26/17 4:41 AM) (10/25/17 4:54 AM) Eosinophils [0.0-4.0 %] 5.7 % 5.6 % 4.1 % *HI* *HI* *HI* (10/27/17 5:36 AM) (10/26/17 4:41 AM) (10/25/17 4:54 AM) Basophils [0.0-1.0 %] 0.3 % 0.5 % 0.5 % (10/27/17 5:36 AM) (10/26/17 4:41 AM) (10/25/17 4:54 AM) Neutrophils # [1.5-8.1 7.4 K/CMM 5.9 K/CMM 7.0 K/CMM K/CMM] (10/27/17 5:36 AM) (10/26/17 4:41 AM) (10/25/17 4:54 AM) Lymphocytes # [1.0-5.5 2.5 K/CMM 2.5 K/CMM 2.3 K/CMM K/CMM] (10/27/17 5:36 AM) (10/26/17 4:41 AM) (10/25/17 4:54 AM) Monocytes # [0.0-0.8 K/CMM] 1.0 K/CMM 1.0 K/CMM 1.0 K/CMM *HI* *HI* *HI* (10/27/17 5:36 AM) (10/26/17 4:41 AM) (10/25/17 4:54 AM) Eosinophils # [0.0-0.5 0.7 K/CMM 0.6 K/CMM 0.4 K/CMM K/CMM] *HI* *HI* (10/25/17 4:54 AM) (10/27/17 5:36 AM) (10/26/17 4:41 AM) Basophils # [0.0-0.2 K/CMM] 0.1 K/CMM 0.2 K/CMM 0.1 K/CMM (10/25/17 4:54 AM) (10/24/17 7:37 AM) (10/23/17 11:57 AM) Polychrom [None Seen] Moderate Moderate *ABN* *ABN* (10/26/17 4:41 AM) (10/23/17 11:57 AM) Microcyte [None Seen] 2+ 2+ 3+ *ABN* *ABN* *NA* (10/27/17 5:36 AM) (10/26/17 4:41 AM) (10/25/17 4:54 AM) Tear Cell [None Seen] Moderate *ABN* (10/26/17 4:41 AM) Baso Stipplin [None Seen] Moderate *ABN* (10/23/17 11:57 AM) Plt Morph Normal Normal (10/26/17 4:41 AM) (10/23/17 11:57 AM) PT [12.0-14.7 seconds] 14.6 seconds 17.9 seconds (10/27/17 5:36 AM) *HI* (10/23/17 11:57 AM) INR [0.85-1.17] 1.14 1.47 (10/27/17 5:36 AM) *HI* (10/23/17 11:57 AM) POC Activated Clotting Time 301 seconds 330 seconds *NA* *NA* (10/23/17 8:52 AM) (10/23/17 8:04 AM) PTT [22.9-35.8 seconds] 30.9 seconds 96.0 seconds (10/27/17 5:36 AM) *HI* (10/23/17 11:57 AM) ACT (TEG) Rapid [86-118 128 seconds seconds] *HI* (10/23/17 12:54 PM) Split Point Rapid 0.7 minutes *NA* (10/23/17 12:54 PM) R-time Rapid [0.4-0.7 0.8 minutes minutes] *HI* (10/23/17 12:54 PM) K-time Rapid [0.6-2.3 1.7 minutes minutes] (10/23/17 12:54 PM) Angle Rapid [64-80 degrees] 70 degrees (10/23/17 12:54 PM) Max Amplitude Rapid [52-71 58 mm mm] (10/23/17 12:54 PM) G-value Rapid [5.0-11.6 K 6.8 K d/sc d/sc] (10/23/17 12:54 PM) Estimated % Lysis Rapid 1.4 % [0.0-7.5 %] (10/23/17 12:54 PM) Immunizations Given and Recorded Vaccine Date Status [...] had was 06/14/17 . Assessment and Plan Extracted from: Title: Cardiology Author: Maakyla Guerrero MD Date: 10/27/17 INTERVENTIONAL CARDIOLOGY MAKAYLA GUERRERO MD, PHD, [facility], [facility] PHONE: [phone] FAX:[phone] Attending: Yaw Hayes MD Service: Internal Medicine Code status: Full Code Reason for Admission: PVD Working DRG: Isolation: No Isolation/Standard Precautions Consulting Physicians: Yaw Hayes MD Office: Service: Medicine MaryaOsmany MD Office: Service: Thoracic/Cardiac Surgery SUBJECTIVE: JOSE MANUEL drain removed, no CP, no SOB, no LE pain OBJECTIVE: General: no acute distress, resting comfortably HEENT: anicteric sclerae, oral mucosa moist, Neck: supple, Cardiovascular: RRR , carotid upstrokes brisk Lungs: normal resp. effort, CTAB Abdomen: soft, non-distended, no guarding, + BS Extremities: no edema , no clubbing Skin: warm, no jaundice, Psych: AOx3, coherent, mood appropriate Temperature No result Systolic Blood Pressure 124 (07:32) Diastolic Blood Pressure 71 (07:32) Pulse 73 (07:32) SpO2 No result Respiratory Rate 18 (07:32) Vitals and Temp: Vitals Tmp(F) Pulse BP RR SpO2 FIO2 10/27 07:31 99.0 73 124/71 18 --- --- 10/27 04:30 99.5 80 130/76 18 --- --- 10/26 23:34 99.5 73 113/68 18 --- --- 10/26 19:44 99 69 121/74 18 --- --- 10/26 16:00 98.2 74 123/73 18 99 --- 24 Hr Tmax: 99.5F (37.50c) at 10/27 04:30 Vital Signs are the last 5 in the past 48 hours. Date Wt(kg) Wt(lb) Ht(cm) Ht(in) Method 10/27 77.41 170.30 Measured 10/25 77.73 171.00 Measured 10/24 78.18 172.00 Measured 10/23 (initial) 72.84 160.25 Measured 10/23 172.72 68.00 Stated I&O Record In Out Bal 10/27 24hr Tot 0 0 0 10/26 24hr Tot 360 [id number] -175 CURRENT MEDS: Medications (35) Active Scheduled Meds (9): 10/25/17 (Suspended) aspirin (aspirin 81 mg tablet, enteric coated) 81 mg PO Daily 10/23/17 atorvastatin 80 mg PO Bedtime 10/23/17 carvedilol 6.25 mg PO Q12H 10/24/17 clopidogrel 75 mg PO Daily 10/23/17 docusate (docusate sodium 100 mg oral capsule) 100 mg PO BID 10/27/17 ferrous sulfate 325 mg PO Daily 10/24/17 losartan 25 mg PO Daily 10/23/17 non-formulary (Jardiance 10 mg oral tablet) 10 mg PO Bedtime 10/24/17 pantoprazole 40 mg PO Daily Unscheduled Meds (1): 10/23/17 cefuroxime + sterile water 20 mL (Zinacef + sterile water 20 mL) 1.5 gm IVP PRE OP 400 ml/hr PRN Meds (25): 10/24/17 Dextrose 50% in Water IV (Dextrose 50% Syringe) 12.5 gm IVP PRN 10/24/17 Dextrose 50% in Water IV (Dextrose 50% Syringe) 25 gm IVP PRN 10/23/17 acetaminophen-codeine (acetaminophen-codeine #3) 1 tab PO Q4H 10/23/17 acetaminophen-codeine (acetaminophen-codeine #3) 2 tab PO Q4H 10/23/17 acetaminophen-hydrocodone (acetaminophen-hydrocodone 325 mg-5 mg oral tablet) 2 tab PO Q4H 10/23/17 acetaminophen-hydrocodone (acetaminophen-hydrocodone 325 mg-5 mg oral tablet) 1 tab PO Q4H 10/23/17 acetaminophen-hydrocodone (acetaminophen-hydrocodone 325 mg-10 mg oral tablet) 1 tab PO Q6H 10/23/17 acetaminophen 650 mg PO Q4H 10/23/17 acetaminophen 650 mg PO Q4H 10/23/17 flumazenil (ANES flumazenil) 0.2 mg IVP PRN 10/23/17 furosemide (Lasix 20 mg oral tablet) 20 mg PO Daily 10/24/17 glucagon 1 mg IM PRN 10/23/17 hydromorphone (ANES HYDROmorphone) 0.5 mg IVP Q5Min 10/24/17 insulin lispro 2 unit SUB-Q TID-Before Meals 10/24/17 insulin lispro 4 unit SUB-Q TID-Before Meals 10/24/17 insulin lispro 6 unit SUB-Q TID-Before Meals 10/24/17 insulin lispro 8 unit SUB-Q TID-Before Meals 10/24/17 insulin lispro 10 unit SUB-Q TID-Before Meals 10/23/17 labetalol (ANES labetalol) 10 mg IVP Q5Min 10/23/17 morphine Sulfate 2 mg IVP Q4H 10/23/17 morphine Sulfate (ANES morphine Sulfate) 2 mg IVP Q5Min 10/23/17 naloxone (ANES naloxone) 0.4 mg IVP Q2MIN 10/23/17 ondansetron 4 mg IVP Q8H 10/23/17 ondansetron 4 mg IVP Q6H 10/23/17 sodium chloride (Saline Flush 0.9%) 10 ml IVP PRN One Time Meds: None Continuous Infusions: None LABS: reviewed. Labs (Last four charted values) WBC H 11.7 (OCT 27) H 10.6 (OCT 26) 9.9 (OCT 26) H 10.8 (OCT 25) Hgb L 9.7 (OCT 27) L 9.7 (OCT 26) L 9.0 (OCT 26) L 7.2 (OCT 25 ) Hct L 29.3 (OCT 27) L 29.3 (OCT 26) L 27.2 (OCT 26) L 22.2 ( OCT 25) Plt 133 (OCT 27) 135 (OCT 26) L 122 (OCT 26) L 128 (OCT 25) Na 136 (OCT 27) 136 (OCT 26) 140 (OCT 25) 140 (OCT 24) K 4.3 (OCT 27) 3.8 (OCT 26) 3.9 (OCT 25) 4.3 (OCT 24) CO2 25 (OCT 27) 25 (OCT 26) 24 (OCT 25) 24 (OCT 24) Cl 102 (OCT 27) 103 (OCT 26) 105 (OCT 25) 105 (OCT 24) Cr 0.70 (OCT 27) 0.80 (OCT 26) 0.80 (OCT 25) 1.20 (OCT 24) BUN 10 (OCT 27) 10 (OCT 26) 15 (OCT 25) 19 (OCT 24) Glucose Random H 124 (OCT 27) H 127 (OCT 26) H 140 (OCT 25) H 147 (OCT 24 ) Ca 9.0 (OCT 27) L 8.1 (OCT 26) L 8.2 (OCT 25) L 8.4 (OCT 24) PT 14.6 (OCT 27) H 17.9 (OCT 23) INR 1.14 (OCT 27) H 1.47 (OCT 23) PTT 30.9 (OCT 27) H 96.0 (OCT 23) DIAGNOSTIC TESTS:Reviewed independently. TELEMETRY(reviewed tracings): ASSESSMENT and PLAN: 57 yo male with PMH CAD, CABG, PAD, CHF who presented for planned peripheral intervention. Post procedure noted Vascade failurewith RP bleed. Taken to the OR for exploration and repair. PAD- s/p DATA ENTRY SPECIALIST with atherectomy of R SFA and popliteal artery, s/p DATA ENTRY SPECIALIST of deep profunda artery RETROPERITONEAL HEMATOMA- s/p exploration/drainage and repair CAD - CP free. CHF - euvolemic. ANEMIA- stable post transfusion THROMBOCYTOPENIA - mild resume ASA, cont. plavix ok to d/c home f/u in 2 weeks. Total time ([id number]/floor time) including counseling and coordination of care > 35 min. Please excuse any typographical errors, documentation prepared using electronic dictation software - it may contain unintendedword substitutions
--- OUTSIDE RECORDS SUMMARY | 2018-07-11 05:03 | XMS REPORT | Summary of Care ---
:1960 Author Organization [facility] Address [facility] [place], [place] [address]- Encounter HQ Mariana_dov(FIN) [id number] Date(s): 09/18/17 - 09/19/[address] [address]- Encounter Diagnosis Atherosclerosis of blackfeet arteries of extremities with intermittent claudication , left leg (Final) - 09/27/17 Chronic total occlusion of artery of the extremities (Final) - Hypertensive heart disease with heart failure (Final) - Heart failure, unspecified (Final) - Atherosclerotic heart disease of blackfeet coronary artery without angina pectoris (Final) - Type 2 diabetes mellitus with diabetic peripheral angiopathy without gangrene ( Final) - Cardiomyopathy, unspecified (Final) - Old myocardial infarction (Final) - Nicotine dependence, cigarettes, uncomplicated (Final) - Personal history of transient ischemic attack (TIA), and cerebral infarction without residual deficits (Final) - assisted (current) use of aspirin (Final) - intermediate designer (current) use of antithrombotics/antiplatelets (Final) - Presence of aortocoronary bypass graft (Final) - Discharge Disposition: Home or Self Care Attending Physician: Makayla Guerrero MD Referring Physician: Makayla Guerrero MD Vital Signs Most recent to oldest 1 2 3 [Reference Range]: Height 172.72 cm (09/18/17 9:00 AM) Temperature Oral [96.4-99.1 97.5 DegF DegF] (09/18/17 9:00 AM) Blood Pressure [90-140/60-90 144/74 mmHg 125/66 mmHg 125/72 mmHg mmHg] *HI* (09/19/17 4:00 AM) (09/19/17 12:00 AM) (09/19/17 8:00 AM) Respiratory Rate [14-20 BRMIN] 18 BRMIN 20 BRMIN 20 BRMIN (09/19/17 8:00 AM) (09/19/17 4:00 AM) (09/19/17 12:00 AM) Peripheral Pulse Rate [60-100 81 bpm 77 bpm 88 bpm bpm] (09/19/17 8:00 AM) (09/19/17 4:00 AM) (09/19/17 12:00 AM) Weight 76.136 kg 71.818 kg (09/19/17 5:00 AM) (09/18/17 9:00 AM) Body Mass Index 24.07 m2 (09/18/17 9:00 AM) Problem List Condition Effective Dates Status [...] aspirin 81 mg tablet, enteric coated 81 mg, 1 tab, Route: PO, Drug form: ECTAB, Daily, Dosing Weight 71.818, kg, Start date: 09/19/17 9:00:00 CDT, Duration: 30 day, Stop date: 10/18/17 9:00:00 CDT Notes: Do not crush or chew.(Same As: Ecotrin) Start Date: 09/19/17 Stop Date: 09/19/17 Status: Discontinuedatorvastatin 80 mg, 2 tab, Route: PO, Drug form: TAB, Bedtime, Dosing Weight 71.818, kg, Start date: 09/18/17 21:00:00 CDT, Duration: 30 day, Stop date: 10/17/17 21:00: 00 CDT Notes: (Same as: Lipitor) Start Date: 09/18/17 Stop Date: 09/19/17 Status: DiscontinuedBD Normal Saline Flush 10 mL, Route: IVP, Drug Form: INJ, PRN, PRN Line Flush, Start date: 09/18/17 15: 49:00 CDT, Duration:30 day, Stop date: 10/18/17 15:48:00 CDT Notes: (Same as: BD Posiflush) Start Date: 09/18/17 Stop Date: 09/19/17 Status: Discontinuedcarvedilol 6.25 mg, 1 tab, Route: PO, Drug form: TAB, Q12H, Dosing Weight 71.818, kg, Start date: 09/18/17 21:00:00 CDT, Duration: 30 day, Stop date: 10/18/17 9:00: 00 CDT Notes: Give with food. (Same As: Coreg) Start Date: 09/18/17 Stop Date: 09/19/17 Status: Discontinuedclopidogrel 75 mg, 1 tab, Route: PO, Drug form: TAB, Daily, Dosing Weight 71.818, kg, Start date: 09/19/17 9:00:00 CDT, Duration: 30 day, Stop date: 10/18/17 9:00:00 CDT Notes: (Same As: Plavix) Start Date: 09/19/17 Stop Date: 09/19/17 Status: DiscontinuedJardiance PO, QAM, 0 Refill(s) Start Date: 09/18/17 Stop Date: 09/18/17 Status: DeletedJardiance 10 mg oral tablet 10 mg=1 tab, PO, Bedtime, 0 Refill(s) Start Date: 09/18/17 Status: Orderedlosartan 25 mg, 1 tab, Route: PO, Drug form: TAB, Daily, Dosing Weight 71.818, kg, Start date: 09/19/17 9:00:00 CDT, Duration: 30 day, Stop date: 10/18/17 9:00:00 CDT Notes: (Same as: Cozaar) Start Date: 09/19/17 Stop Date: 09/19/17 Status: DiscontinuedLovenox 70 mg, 0.7 mL, Route: SUB-Q, Drug form: INJ, ONCE, Dosing Weight 71.818, kg, Start date: 09/18/17 21:00:00 CDT, Stop date: 09/18/17 21:00:00 CDT Notes: Nurse to ensure documentation of patient education per anticoagulation policy. (Same as: Lovenox) Start Date: 09/18/17 Stop Date: 09/18/17 Status: Completednitroglycerin 2% ointment 0.5 inch, Route: TOP, Drug Form: OINT, Dosing Weight 71.818, kg, Q8H, Start date : 09/18/17 16:00:00 CDT, Duration: 30 day, Stop date: 10/18/17 8:00:00 CDT Notes: 1 gram is approximately 1 inch of nitroglycerin ointment (20 mg NTG per gram) (Same as:Nitro-Bid) Start Date: 09/18/17 Stop Date: 09/19/17 Status: Discontinuednitroglycerin 2% ointment 0.5 inch, Route: TOP, Drug Form: OINT, Dosing Weight 71.818, kg, TID, Start date : 09/18/17 17:00:00 CDT, Duration: 30 day, Stop date: 10/18/17 13:00:00 CDT Start Date: 09/18/17 Stop Date: 09/18/17 Status: CanceledSodium Chloride 0.9% IV 250 mL, Route: IVPB, Start date: 09/18/17 15:49:00 CDT, Duration: 30 day, Stop date: 10/18/17 15:48:00 CDT, PRN Line Flush Start Date: 09/18/17 Stop Date: 09/19/17 Status: DiscontinuedSodium Chloride 0.9% IV 1,000 mL 1,000 mL, Rate: 75 ml/hr, Infuse over: 13.3 hr, Route: IV, Dosing Weight 72.33 kg, Total Volume: 1,000, Start date: 09/18/17 8:40:00 CDT, Duration: 30 day, Stop date: 10/18/17 8:39:00 CDT, 1.87, m2 Start Date: 09/18/17 Stop Date: 09/19/17 Status: DiscontinuedSodium Chloride 0.9% IV 750 mL 750 mL, Rate: 75 ml/hr, Infuse over: 10 hr, Route: IV, Dosing Weight 71.818 kg, Total Volume: 750, Start date: 09/18/17 14:18:00 CDT, Duration: 10 hr, Stop date : 09/19/17 0:17:00 CDT, 1.87, m2 Start Date: 09/18/17 Stop Date: 09/19/17 Status: Completedtramadol 50 mg oral tablet 50 mg, 1 tab, Route: PO, Drug form: TAB, ONCE, Dosing Weight 76.136, kg, Priority: NOW, Start date: 09/19/17 10:17:00 CDT, Stop date: 09/19/17 10:17:00 CDT Notes: Not to exceed 400mg/day. (Same As: Ultram) Start Date: 09/19/17 Stop Date: 09/19/17 Status: Completed Results ELECTROLYTES Most recent to oldest [Reference Range]: 1 2 Sodium Lvl [135-145 mEq/L] 138 mEq/L (09/19/17 4:11 AM) Potassium Lvl [3.5-5.1 mEq/L] 3.8 mEq/L (09/19/17 4:11 AM) Chloride Lvl [95-109 mEq/L] 105 mEq/L (09/19/17 4:11 AM) CO2 [24-32 mEq/L] 23 mEq/L *LOW* (09/19/17 4:11 AM) AGAP [10.0-20.0 mEq/L] 13.8 mEq/L (09/19/17 4:11 AM) POC Sodium [135-145 mEq/L] 141 mEq/L (09/18/17 9:43 AM) POC Potassium [3.5-5.1 mEq/L] 3.9 mEq/L (09/18/17 9:43 AM) POC Chloride [95-109 mEq/L] 102 mEq/L (09/18/17 9:43 AM) POC Carbon Dioxide [24-32 mEq/dL] 25 mEq/dL (09/18/17 9:43 AM) POC AGAP [10.0-20.0 mEq/L] 19.0 mEq/L (09/18/17 9:43 AM) CHEM PANEL Most recent to oldest [Reference Range]: 1 2 Creatinine Lvl [0.50-1.40 mg/dL] 0.90 mg/dL (09/19/17 4:11 AM) eGFR 95 mL/min/1.73m2 1 106 mL/min/1.73m2 2 *NA* *NA* (09/19/17 4:11 AM) (09/18/17 9:43 AM) BUN [7-22 mg/dL] 16 mg/dL (09/19/17 4:11 AM) Glucose Lvl [70-99 mg/dL] 136 mg/dL *HI* (09/19/17 4:11 AM) POC Creatinine [0.5-1.4 mg/dL] 0.7 mg/dL (09/18/17 9:43 AM) POC BUN [7-22 mg/dL] 10 mg/dL (09/18/17 9:43 AM) POC Glucose [70-99 mg/dL] 137 mg/dL *HI* (09/18/17 9:43 AM) Calcium Lvl [8.5-10.5 mg/dL] 8.3 mg/dL *LOW* (09/19/17 4:11 AM) POC Ion Ca [1.05-1.25 mMol/L] 1.28 mMol/L *HI* (09/18/17 9:43 AM) 1Result Comment: The eGFR is calculated [...] Most recent to oldest [Reference Range]: 1 2 WBC [3.7-10.4 K/CMM] 10.8 K/CMM *HI* (09/19/17 4:11 AM) RBC [4.70-6.10 M/CMM] 5.85 M/CMM (09/19/17 4:11 AM) Hgb [14.0-18.0 g/dL] 12.3 g/dL *LOW* (09/19/17 4:11 AM) Hct [42.0-54.0 %] 37.2 % *LOW* (09/19/17 4:11 AM) MCV [80.0-94.0 fL] 63.6 fL *LOW* (09/19/17 4:11 AM) MCH [27.0-31.0 pg] 21.0 pg *LOW* (09/19/17 4:11 AM) MCHC [32.0-36.0 g/dL] 33.0 g/dL (09/19/17 4:11 AM) RDW [11.5-14.5 %] 16.4 % *HI* (09/19/17 4:11 AM) MPV [7.4-10.4 fL] 9.3 fL (09/19/17 4:11 AM) Platelet [133-450 K/CMM] 167 K/CMM (09/19/17 4:11 AM) POC Hemoglobin [14.0-18.0 g/dL] 13.3 g/dL *LOW* (09/18/17 9:43 AM) POC Hematocrit [42.0-54.0 %] 39.0 % *LOW* (09/18/17 9:43 AM) Segs [45.0-75.0 %] 66.8 % (09/19/17 4:11 AM) Lymphocytes [20.0-40.0 %] 19.2 % *LOW* (09/19/17 4:11 AM) Monocytes [2.0-12.0 %] 8.5 % (09/19/17 4:11 AM) Eosinophils [0.0-4.0 %] 4.9 % *HI* (09/19/17 4:11 AM) Basophils [0.0-1.0 %] 0.6 % (09/19/17 4:11 AM) Neutrophils # [1.5-8.1 K/CMM] 7.2 K/CMM (09/19/17 4:11 AM) Lymphocytes # [1.0-5.5 K/CMM] 2.1 K/CMM (09/19/17 4:11 AM) Monocytes # [0.0-0.8 K/CMM] 0.9 K/CMM *HI* (09/19/17 4:11 AM) Eosinophils # [0.0-0.5 K/CMM] 0.5 K/CMM (09/19/17 4:11 AM) Basophils # [0.0-0.2 K/CMM] 0.1 K/CMM (09/19/17 4:11 AM) Polychrom [None Seen] Moderate *ABN* (09/19/17 4:11 AM) Microcyte [None Seen] 3+ *NA* (09/19/17 4:11 AM) Schistocyte [None Seen] 1-3 per HPF (09/19/17 4:11 AM) Plt Morph Normal (09/19/17 4:11 AM) POC Activated Clotting Time 339 seconds 358 seconds *NA* *NA* (09/18/17 1:02 PM) (09/18/17 12:17 PM) Immunizations Given and Recorded Vaccine Date [...] and Plan Extracted from: Title: Cardiology Author: Makayla Guerrero MD Date: 09/19/17 [facility]ARDIOLOG[facility] MAKAYLA GUERRERO MD, PHD, FACC, [facility] [place] PHONE: [phone] FAX:[phone] Attending: Makayla Guerrero MD Service: Internal Medicine Code status: None Specified=FULL CODE Reason for Admission: I73.9 Working DRG: Isolation: None Documented Consulting Physicians: (none on file) SUBJECTIVE: No LE pain, had some tingling in the L toe, OBJECTIVE: General: no acute distress, resting comfortably HEENT: anicteric sclerae, oral mucosa moist, Neck: supple, Cardiovascular: RRR, no murmur , carotid upstrokes brisk Lungs: normal resp. effort, CTAB Abdomen: soft, non-distended, no guarding, + BS Extremities: no edema, R groin no hematoma, L EKG/ECG TECHNICIAN ++ L and R foot warm. L DP palpable, L HVAC SALES ENGINEER / DP with strong biphasic doppler signals Skin: warm, no jaundice, Psych: AOx3, coherent, mood appropriate Temperature No result Systolic Blood Pressure 125 (05:17) Diastolic Blood Pressure 66 (05:17) Pulse 77 (05:17) SpO2 100 (07:18) Respiratory Rate 20 (05:17) Vitals and Temp: Vitals Tmp(F) Pulse BP RR SpO2 FIO2 09/19 04:00 99.4 77 125/66 20 100 --- 09/19 00:00 97.6 88 125/72 20 99 --- 09/18 20:00 98.8 66 147/79 20 100 --- 09/18 17:00 97.7 70 147/81 18 98 --- 09/18 09:00 97.5 73 114/69 18 100 --- 24 Hr Tmax: 99.4F (37.44c) at 09/19 04:00 Vital Signs are the last 5 in the past 48 hours. Date Wt(kg) Wt(lb) Ht(cm) Ht(in) Method 09/19 76.14 167.50 Measured 09/18 (initial) 71.82 158.00 Measured 09/18 172.72 68.00 Stated I&O Record In Out Bal 09/18 24hr Tot 1672 750 922 09/17 24hr Tot 0 0 0 CURRENT MEDS: Medications (10) Active Scheduled Meds (6): 09/19/17 aspirin (aspirin 81 mg tablet, enteric coated) 81 mg PO Daily 09/18/17 atorvastatin 80 mg PO Bedtime 09/18/17 carvedilol 6.25 mg PO Q12H 09/19/17 clopidogrel 75 mg PO Daily 09/19/17 losartan 25 mg PO Daily 09/18/17 nitroglycerin (nitroglycerin 2% ointment) 0.5 inch TOP Q8H Unscheduled Meds: None PRN Meds (2): 09/18/17 Sodium Chloride 0.9% IV 250 mL IVPB PRN 09/18/17 sodium chloride (BD Normal Saline Flush) 10 mL IVP PRN One Time Meds (1): 09/18/17 (Completed) enoxaparin (Lovenox) 70 mg SUB-Q ONCE Continuous Infusions (1): 09/18/17 Sodium Chloride 0.9% IV 1,000 mL 1,000 mL 75 ml/hr LABS: reviewed. Labs (Last four charted values) WBC H 10.8 (SEP 19) Hgb L 12.3 (SEP 19) Hct L 37.2 (SEP 19) Plt 167 (SEP 19) Na 138 (SEP 19) K 3.8 (SEP 19) CO2 L 23 (SEP 19) Cl 105 (SEP 19) Cr 0.90 (SEP 19) BUN 16 (SEP 19) Glucose Random H 136 (SEP 19) Ca L 8.3 (SEP 19) DIAGNOSTIC TESTS:Reviewed independently. ASSESSMENT and PLAN: 57 yo male with PMH CAD, CABG, PAD, CHF who presented for planned peripheral intervention. [employer] SAL[employer] ENGINEER of the L EKG/ECG TECHNICIAN with atherectomy [employer] SAL[employer] ENGINEER of the L SFA with atherectomy and stent x 2 [employer] SALES ENGINEER of the L ROSY CAD - CP free. CHF - euvolemic. L foot warm, strong dopplerable pulses, L DP palpable. Cont. ASA 8 1mg Cont. PLavix 75 mg cont. statin d/c home f/u in 2 weeks. Total time ([id number]/floor time) including counseling and coordination of care > 35 min. Please excuse any typographical errors, documentation prepared using electronic dictation software - it may contain unintendedword substitutions
--- OUTSIDE RECORDS SUMMARY | 2018-07-11 05:03 | XMS REPORT | Summary of Care ---
:1960 Author Organization [facility] [place] Address [address] [address] Encounter [facility] [place](FIN) [id number] Date(s): 09/29/17 - 09/29/17 [facility] [place] [address] [id number] [phone] Discharge Disposition: Home or Self Care Attending [...] Catheterization Completed Hernia repair1 Completed 1abdominal in [facility] [place] 2009 Social History Social History Type Response [...]
--- OUTSIDE RECORDS SUMMARY | 2018-07-11 05:03 | XMS REPORT | CCD ---
:1960 Author Organization [facility] Care Team Providers Name Role Phone Dante Burnham Consulting Provider Allergies, Adverse Reactions, Alerts Substance Reaction Status NKDA Active Problem List Condition Effective Dates Status DM - Diabetes mellitus Active Hypertension Active Results CHEMISTRY Most recent to oldest [Reference Range]: 1 POC Sodium [135-145 mEq/L] 138 mEq/L (09/16/2012 11:08:00) POC Potassium [3.5-5.1 mEq/L] 4.0 mEq/L (09/16/2012 11:08:00) POC Chloride [95-109 mEq/L] 106 mEq/L (09/16/2012 11:08:00) POC Carbon Dioxide [24-32 mEq/dL] 22 mEq/dL *LOW* (09/16/2012 11:08:00) eGFR 87 mL/min/1.73m2 1 *NA* (09/16/2012 11:08:00) POC Creatinine [0.5-1.4 mg/dL] 1.0 mg/dL (09/16/2012 11:08:00) POC BUN [7-22 mg/dL] 21 mg/dL (09/16/2012 11:08:00) POC Glucose [70-99 mg/dL] 98 mg/dL (09/16/2012 11:08:00) 1Result Comment: The eGFR is calculated using the CKD-EPI formula. In most young , healthy individualsthe eGFR will be >90 mL/min/1.73m2. The eGFR declines with age. An eGFR of 60-89 may be normal in some populations, particularly the elderly, for whom the [...] Most recent to oldest [Reference Range]: 1 POC Hemoglobin [14.0-18.0 g/dL] 13.6 g/dL *LOW* (09/16/2012 11:08:00) POC Hematocrit [42.0-54.0 %] 40.0 % *LOW* (09/16/2012 11:08:00)
--- OUTSIDE RECORDS SUMMARY | 2018-07-11 05:04 | XMS REPORT | CCD ---
:1960 Author Organization [facility] Care Team Providers Name Role Phone Mike Chawla Consulting Provider Allergies, Adverse Reactions, Alerts Substance Reaction Status NKDA Active Problem List Condition Effective Dates Status CAD - Coronary artery disease Active DM - Diabetes mellitus Active Hypertension Active Medications Medication Instructions Start Date End Date Status valsartan 160 mg oral tablet 160 mg, 1 tab, PO, Daily, 09/25/2012 Ordered tab, Substitution Allowed, TAB pravastatin 80 mg oral tablet 80 mg, 1 tab, PO, Daily, 09/25/2012 Ordered tab, Substitution Allowed, TAB isosorbide mononitrate 30 mg 30 mg, 1 tab, PO, QAM, 09/25/2012 Ordered oral tablet, extended release tab, Substitution Allowed, ERTAB enoxaparin 80 mg/0.8 mL SUB-Q, Q12H, Substitution 09/25/2012 Ordered subcutaneous solution Allowed docusate sodium 100 mg oral 100 mg, PO, BID, PRN, 20 09/25/2012 Ordered capsule cap, Constipation, Substitution Allowed carvedilol 3.125 mg oral 3.125 mg, 1 tab, PO, Q12H, 09/25/2012 Ordered tablet 60 tab, Substitution Allowed, TAB [place] 5/325 oral tablet 1 tab, PO, Q4H, PRN, for 09/25/2012 Ordered pain, Substitution Allowed, Maintenance, TAB Vital Signs Most recent to oldest [Reference Range]: 1 Height 172.72 cm (09/25/2012 12:15:00) Weight 93.182 kg (09/25/2012 12:15:00) Procedures Procedures Date Related Diagnosis Catheterization
--- OUTSIDE RECORDS SUMMARY | 2018-07-11 05:04 | XMS REPORT | CCD ---
:1960 Author Organization [facility] Care Team Providers Name Role Phone Mike Chawla Consulting Provider Allergies, Adverse Reactions, Alerts Substance Reaction Status NKDA Active Problem List Condition Effective Dates Status CAD - Coronary artery disease Active DM - Diabetes mellitus Active Hypertension Active
--- OUTSIDE RECORDS SUMMARY | 2018-07-11 05:04 | XMS REPORT | CCD ---
:1960 Author Organization [facility] Care Team Providers Name Role Phone Dante Burnham Referring Provider Allergies, Adverse Reactions, Alerts Substance Reaction Status NKDA Active Problem List Condition Effective Dates Status DM - Diabetes mellitus Active Hypertension Active Vital Signs Most recent to oldest [Reference Range]: 1 Current Weight 78.909 kg (08/21/2012 10:15:00) Results CHEMISTRY Most recent to oldest [Reference Range]: 1 2 3 POC Sodium [135-145 mEq/L] 138 mEq/L (08/21/2012 10:24:00) POC Potassium [3.5-5.1 mEq/L] 4.5 mEq/L (08/21/2012 10:24:00) POC Chloride [95-109 mEq/L] 105 mEq/L (08/21/2012 10:24:00) POC Carbon Dioxide [24-32 mEq/dL] 25 mEq/dL (08/21/2012 10:24:00) eGFR 87 mL/min/1.73m2 1 *NA* (08/21/2012 10:24:00) POC Creatinine [0.5-1.4 mg/dL] 1.0 mg/dL (08/21/2012 10:24:00) POC BUN [7-22 mg/dL] 19 mg/dL (08/21/2012 10:24:00) POC Glucose [70-99 mg/dL] 126 mg/dL *HI* (08/21/2012 10:24:00) 1Result Comment: The eGFR is calculated using [...] to oldest 1 2 3 [Reference Range]: POC Hemoglobin 13.9 g/dL [14.0-18.0 g/dL] *LOW* (08/21/2012 10:24:00) POC Hematocrit 41.0 % [42.0-54.0 %] *LOW* (08/21/2012 10:24:00) POC PT [12.0-14.7 43.7 seconds 34.8 seconds 21.3 seconds seconds] *HI* *HI* *HI* (09/16/2012 10:56:00) (08/27/2012 10:27:00) (08/24/2012 16:19:00) POC INR [0.8-1.2] 3.9 3.1 1.8 *HI* *HI* *HI* (09/16/2012 10:56:00) (08/27/2012 10:27:00) (08/24/2012 16:19:00)
--- OUTSIDE RECORDS SUMMARY | 2018-07-11 05:05 | XMS REPORT | Summary of Care ---
:1960 Author Name [address] Address Unavailable Unavailable , Care Team Providers Name Role Phone VANIA TINOCO M.D. Unavailable Unavailable OTONIEL AZ[address] RD Unavailable Unavailable Vania Tinoco MD Unavailable Unavailable Unavailable Unavailable Unavailable Functional Status Name Dates Details Functional status health issues are not documented Status: Name Dates Details Cognitive status health issues are not documented Status: Problems Name Dates Details Coronary artery disease (414.00, I25.10) Status: Active Left ventricular thrombosis (410.90, I51.3) Status: Active Aftercare following surgery (V58.89, Z48.89) Status: Active Controlled diabetes mellitus (250.00, E11.9) Status: Active Carotid artery stenosis (433.10, I65.29) Status: Active CVA (cerebral vascular accident) (434.91, I63.9) Status: Active PAD (peripheral artery disease) (443.9, I73.9) Status: Active CAD (coronary artery disease) (414.00, I25.10) Status: Active ETOH abuse (305.00, F10.10) Status: Active Medications Name Dates Details Aspirin 81 MG TABS TAKE 1 TABLET DAILY. Refills: 0 Active Atorvastatin Calcium 40 MG Oral Tablet TAKE 1 TABLET AT BEDTIME. Quantity: 30 Refills: 0 Active Losartan Potassium 25 MG Oral Tablet TAKE 1 TABLET DAILY Quantity: 90 Refills: 0 Active Carvedilol 3.125 MG Oral Tablet TAKE 1 TABLET TWICE DAILY WITH MEALS. Refills: 0 Active Plavix 75 MG Oral Tablet TAKE 1 TABLET DAILY. Refills: 0 Active Jardiance 10 MG Oral Tablet TAKE 1 TABLET BY MOUTH EVERY DAY Quantity: 30 Refills: 0 Active Januvia 100 MG Oral Tablet TAKE 1 TABLET DAILY. Quantity: 90 Refills: 1 Active OneTouch Verio In Vitro Strip USE 1 STRIP DAILY Quantity: 1 Refills: 0 VANIA TINOCO M.D. Start : 11-Feb-2018 Active 100 Strip Box OneTouch Delica Lancets Fine Test 1 times a day Quantity: 1 Refills: 0 ALEJANDRINA Pate MIGUELINAJarrod Start : 11-Feb-2018 Active 100 Unit Box Allergies and Adverse Reactions Name Dates Details No Known Drug Allergies (Allergy) Status: Active Past Medical History Name Dates Details Aftercare following surgery (V58.89, Z48.89) Status: Active Carotid artery stenosis (433.10, I65.29) Status: Active Coronary artery disease (414.00, I25.10) Status: Active Left ventricular thrombosis (410.90, I51.3) Status: Active History of congestive heart disease (V12.59, Z86.79) Status: Resolved History of Diabetes mellitus (250.00, E11.9) Status: Resolved History of essential hypertension (V12.59, Z86.79) Status: Resolved History of hyperlipidemia (V12.29, Z86.39) Status: Resolved History of transient cerebral ischemia (V12.54, Z86.73) Status: Resolved Past myocardial infarction (412, I25.2) Status: Resolved Procedures Procedure Dates Details [QLH] CMP W/EGFR Date: 11-Feb-2018 [QL] LIPID PANEL Date: 11-Feb-2018 [QL] MICROALBUMIN, RANDOM URINE (W/CREATININE) Date: 11-Feb-2018 [QL] T4, FREE Date: 11-Feb-2018 [QL] TSH, 3RD GENERATION Date: 11-Feb-2018 History of Lithotomy Completed History of CABG Completed Immunization Name Dates Details Immunizations not documented Family History Name Dates Details Family history of Coronary Artery Disease (V17.49) Comments: Family History Status: Active Social History Name Dates Details - Status: Name Dates Details Current every day smoker Vital Signs Date Test Result Details [id number] BP Systolic 134 mm[Hg] Status: Comments: Location: RUE; Position: Sitting BP Diastolic 82 mm[Hg] Status: Comments: Location: E; Position: Sitting Height 68 in Status: Weight 166 lb Status: Body Mass Index Calculated 25.24 kg/m2 Status: Body Surface Area Calculated 1.89 m2 Status: Heart Rate 76 /min Status: Results Date Description Value Details [id number] Glucose (Point of Care In Office) Glucose POC Lifescan 203 (Abnormal) [id number] [O] Hemoglobin A1c (in office) HEMOGLOBIN A1c 6.5 (Abnormal) Plan of Care Name Dates Details Planned Observations Planned Goals not documented Planned Encounters Appointment; VANIA TINOCO M.D. On: 11-Mar-2018 15:00 Interventions Provided Follow-ups/ReferralsDiabetes Educator Referral; Done: 11 Feb 2018 Instructions Name Dates Details Instructions not documented Encounters Appointment; VANIA TINOCO M.D. On: 11-Feb-2018 14:20 Encounter Diagnosis: Problem not documented
--- OUTSIDE RECORDS SUMMARY | 2018-07-11 05:05 | XMS REPORT | CCD ---
:1960 Author Organization [facility] Care Team Providers Name Role Phone Everardo Rand Consulting Provider Allergies, Adverse Reactions, Alerts Substance Reaction Status NKDA Active Problem List Condition Effective Dates Status CAD - Coronary artery disease Active CVA (cerebral infarction) Resolved DM - Diabetes mellitus Active Hypertension Active Medications Medication Instructions Start Date End Date Status levalbuterol 0.63 mg, 3 mL, Route: 10/09/2012 10/13/2012 Discontinued NEB, Drug form: SOLN, PRN, Dosing Weight 68.182, kg, PRN Respiratory Protocol, Start date: 10/09/12 9:24:00, Duration: 30 day, Stop date: 11/08/12 9:23:00, Substitute Allowed No fentanyl 50 microgram, 1 mL, 09/29/2012 10/07/2012 Discontinued Route: IVP, Drug form: INJ, Q1H, Dosing Weight 78, kg, PRN Breakthrough Pain, Start date: 09/29/12 9:32:00, Duration: 30 day, Stop date: 10/29/12 9:31:00 Tylenol 650 mg, 2 tab, Route: 09/29/2012 10/13/2012 Discontinued PO, Drug form: TAB, Q4H, Dosing Weight 78, kg, PRN Fever, Start date: 09/29/12 9:32:00, Duration: 30 day, Stop date: 10/29/12 9:31:00 Protonix 40 mg, 1 tab, Route: PO, 09/29/2012 10/01/2012 Completed Drug form: ECTAB, Before Dinner, Dosing Weight 78, kg, Start date: 09/29/12 16:30:00, Stop date: 10/01/12 19:00:00 fentanyl 75 microgram, 1.5 mL, 09/29/2012 09/30/2012 Discontinued Route: IV, Drug form: INJ, Q1H, Dosing Weight 78, kg, PRN Pain, Start date: 09/29/12 9:32:00, Duration: 30 day, Stop date: 10/29/12 9:31:00 simethicone 80 mg, 1 tab, Route: 09/29/2012 10/13/2012 Discontinued CHEW, Drug form: CHEWTAB, Q6H, Dosing Weight 78, kg, Start date: 09/29/12 12:00:00, Duration: 30 day, Stop date: 10/29/12 6:00:00 colchicine 0.6 mg, 1 tab, Route: 10/07/2012 10/13/2012 Discontinued PO, Drug form: TAB, BID, Dosing Weight 68.182, kg, Start date: 10/07/12 17:00:00, Duration: 30 day, Stop date: 11/06/12 9:00:00 albumin human 25% 25 gm, 100 mL, Route: 09/30/2012 09/30/2012 Completed intravenous solution IVPB, Drug form: INJ, ONCE, Dosing Weight 78, kg, Start date: 09/30/12 10:43:00, Stop date: 09/30/12 10:43:00 warfarin 7.5 mg, 1 tab, Route: 10/02/2012 10/02/2012 Completed PO, Drug form: TAB, Q5PM, Dosing Weight 68.182, kg, Start date: 10/02/12 17:00:00, Duration: 1 doses or times, Stop date: 10/02/12 17:00:00 warfarin 7.5 mg, 1 tab, Route: 10/10/2012 10/10/2012 Completed PO, Drug form: TAB, Q5PM, Dosing Weight 68.182, kg, Start date: 10/10/12 17:00:00, Duration: 1 doses or times, Stop date: 10/10/12 17:00:00 albumin human 5% 25 gm, 500 mL, 0 ml/hr, 09/29/2012 09/29/2012 Completed intravenous solution Route: IV, Drug Form: INJ, Dosing Weight 78, kg, ONCE, NOW, Start date: 09/29/12 9:38:00, Stop date: 09/29/12 9:38:00 ipratropium 0.5 mg, 2.5 mL, Route: 09/28/2012 10/13/2012 Discontinued NEB, Drug form: SOLN, PRN, Dosing Weight 79.091, kg, PRN Respiratory Protocol, Start date: 09/28/12 16:23:00, Duration: 30 day, Stop date: 10/28/12 16:22:00 Lasix 40 mg, 4 mL, Route: IVP, 10/10/2012 10/13/2012 Discontinued Drug form: INJ, Daily, Dosing Weight 68.182, kg, Start date: 10/10/12 14:03:00, Duration: 30 day, Stop date: 11/09/12 9:00:00 warfarin 7.5 mg, 1 tab, Route: 10/13/2012 10/13/2012 Completed PO, Drug form: TAB, Q5PM, Dosing Weight 68.182, kg, Start date: 10/13/12 17:00:00, Duration: 1 doses or times, Stop date: 10/13/12 17:00:00 pravastatin 80 mg, 4 tab, Route: PO, 09/29/2012 10/13/2012 Discontinued Drug form: TAB, Bedtime, Dosing Weight 78, kg, Start date: 09/29/12 21:00:00, Duration: 30 day, Stop date: 10/28/12 21:00:00 warfarin 7.5 mg, 1 tab, Route: 10/04/2012 10/04/2012 Completed PO, Drug form: TAB, Q5PM, Dosing Weight 68.182, kg, Start date: 10/04/12 17:00:00, Duration: 1 doses or times, Stop date: 10/04/12 17:00:00 Silvadene 1% topical cream 1 appl, Route: TOP, BID, 10/10/2012 10/13/2012 Discontinued Drug form: CRM, Start date: 10/10/12 17:00:00, Duration: 30 day, Stop date: 11/09/12 9:00:00 magnesium oxide 400 mg, 1 tab, Route: 10/09/2012 10/11/2012 Discontinued PO, Drug form: TAB, Daily, Dosing Weight 68.182, kg, Priority: NOW, Start date: 10/09/12 14:47:00, Duration: 30 day, Stop date: 11/08/12 9:00:00 Saline Flush 0.9% 10 mL, Route: IVP, Drug 10/02/2012 10/13/2012 Discontinued Form: INJ, Dosing Weight 68.182, kg, PRN, PRN Line Flush, Start date: 10/02/12 10:31:00, Duration: 30 day, Stop date: 11/01/12 10:30:00 Saline Flush 0.9% 10 mL, Route: IVP, Drug 10/02/2012 10/13/2012 Discontinued Form: INJ, Dosing Weight 68.182, kg, Q8H, Start date: 10/02/12 16:00:00, Duration: 30 day, Stop date: 11/01/12 8:00:00 NS 0.45% IV 1,000 mL 1,000 mL, Rate: 75 09/29/2012 09/30/2012 Discontinued ml/hr, Infuse over: 13.3 hr, Route: IV, Dosing Weight 78 kg, Total Volume: 1,000, Start date: 09/29/12 9:36:00, Stop date: 10/29/12 9:35:00 molasses 240 mL, Route: GA, Drug 10/02/2012 10/02/2012 Discontinued Form: SYRP, Dosing Weight 68.182, kg, ONCE, Milk of Molasses Enema, Start date: 10/02/12 9:55:00, Duration: 1 doses or times, Stop date: 10/02/12 9:55:00 warfarin 7.5 mg, 1 tab, Route: 10/09/2012 10/09/2012 Completed PO, Drug form: TAB, Q5PM, Dosing Weight 68.182, kg, Start date: 10/09/12 17:00:00, Duration: 1 doses or times, Stop date: 10/09/12 17:00:00 [place] 5/325 oral tablet 1 tab, Route: PO, Drug 09/29/2012 09/30/2012 Discontinued Form: TAB, Dosing Weight 78, kg, Q4H, PRN Pain, Start date: 09/29/12 21:20:00, Duration: 30 day, Stop date: 10/29/12 21:19:00 [place] Enema 133 ml, Route: GA, Drug 10/01/2012 10/13/2012 Discontinued Form: FERNIE, Dosing Weight 68.182, kg, ONCE, PRN Bowel Movements, Start date: 10/01/12 16:56:00, May repeat x 1 if needed Lasix 40 mg, Route: IVP, Drug 10/01/2012 10/01/2012 Completed form: INJ, ONCE, Dosing Weight 78, kg, Priority: STAT, Start date: 10/01/12 6:08:00, Stop date: 10/01/12 6:08:00 Toradol 15 mg/mL 15 mg, 1 mL, Route: IV, 09/30/2012 10/02/2012 Completed injectable solution Drug form: INJ, Q6H, Dosing Weight 78, kg, Start date: 09/30/12 18:00:00, Stop date: 10/02/12 6:00:00 fentanyl 25 microgram, 0.5 mL, 09/28/2012 09/29/2012 Discontinued Route: IVP, Drug form: INJ, Q2H, Dosing Weight 79.091, kg, PRN Pain, Start date: 09/28/12 16:21:00, Duration: 30 day, Stop date: 10/28/12 16:20:00 pneumococcal 23-valent 0.5 ml, Route: IM, Drug 09/30/2012 09/30/2012 Completed vaccine Form: INJ, Start date: 09/30/12 9:00:00, Stop date: 09/30/12 9:00:00 norepinephrine 8 mg + 242 mL, Rate: Use as 09/28/2012 09/29/2012 Discontinued Sodium Chloride 0.9% direced, Dosing Weight (titrate) 242 mL 79.091, kg, Route: IV, Total Volume: 250 mL, Duration: 30 day, Stop date: 10/28/12 16:21:00, Replace Every: 24 hr colchicine 0.6 mg oral 0.6 mg, 1 tab, Route: 10/07/2012 10/07/2012 Discontinued tablet PO, Drug form: TAB, BID, Dosing Weight 68.182, kg, PRN Other -See Comment, Start date: 10/07/12 9:59:00, Duration: 30 day, Stop date: 11/06/12 9:58:00 aspirin 325 mg tablet, 325 mg, 1 tab, Route: 09/30/2012 10/06/2012 Discontinued enteric coated PO, Drug form: ECTAB, Daily, Dosing Weight 78, kg, Priority: NOW, Start date: 09/30/12 10:23:00, Duration: 30 day, Stop date: 10/30/12 9:00:00 Coumadin 5 mg oral tablet See Instructions, 1 tab PO Daily, 30 tab, Substitution Allowed 10/13/2012 Ordered 1 tab PO Daily calcium gluconate + Sodium 4 gm, 40 mL, Route: IVPB, ONCE, Dosing Weight 68.182, kg, Start date: 10/06/12 12:21:00, Duration: 1 doses or times, Stop date : 10/06/12 12:21:00, For Ionized Ca < 0.91 mMol/L 10/06/2012 10/06/2012 Completed Chloride 0.9% IV 110 mL For Ionized Ca < 0.91 mMol/L potassium chloride 20 mEq, Route: PO, Drug 10/01/2012 10/01/2012 Discontinued form: ELIX, ONCE, Dosing Weight 78, kg, Start date: 10/01/12 12:59:00, Stop date: 10/01/12 12:59:00 Lasix 40 mg, Route: IVP, Drug 10/01/2012 10/01/2012 Canceled form: INJ, Q12H, Dosing Weight 78, kg, Start date: 10/01/12 21:00:00, Duration: 30 day, Stop date: 10/31/12 9:00:00 Toradol 30 mg/mL 30 mg, 1 mL, Route: IV, 09/30/2012 09/30/2012 Completed injectable solution Drug form: INJ, ONCE, Dosing Weight 78, kg, Priority: NOW, Start date: 09/30/12 12:37:00, Stop date: 09/30/12 12:37:00 metoprolol extended 25 mg, 1 tab, Route: PO, 10/05/2012 10/13/2012 Discontinued release Drug form: ERTAB, Q12H, Start date: 10/05/12 21:00:00, Duration: 30 day, Stop date: 11/04/12 9:00:00 magnesium oxide 500 mg, Route: PO, Drug 10/11/2012 10/10/2012 Canceled form: TAB, Daily, Dosing Weight 68.182, kg, Start date: 10/11/12 9:00:00, Duration: 30 day, Stop date: 11/09/12 9:00:00 pneumococcal 23-valent 0.5 ml, Route: IM, Drug 09/30/2012 09/30/2012 Completed vaccine Form: INJ, Daily, Start date: 09/30/12 9:00:00, Duration: 1 doses or times, Stop date: 09/30/12 9:00:00 Coumadin 2.5 mg oral See Instructions, 1 tab, 30 tab, Substitution Allowed Ordered tablet 1 tab Zofran 4 mg, 2 mL, Route: IVP, 09/28/2012 10/13/2012 Discontinued Drug form: INJ, Q8H, PRN Nausea, Start date: 09/28/12 21:41:00, Duration: 30 day, Stop date: 10/28/12 21:40:00 furosemide 20 mg, 2 mL, Route: IV, 10/08/2012 10/09/2012 Completed Drug form: INJ, Daily, Dosing Weight 68.182, kg, Start date: 10/08/12 14:00:00, Duration: 2 doses or times, Stop date: 10/09/12 9:00:00 insulin aspart 10 unit, 0.1 mL, Route: 09/30/2012 10/13/2012 Discontinued SUB-Q, Drug form: SOLN, TID-Before Meals, Dosing Weight 78, kg, PRN Blood Glucose Results, Start date: 09/30/12 10:38:00, Duration: 30 day, Stop date: 10/30/12 10:37:00 insulin aspart 6 unit, 0.06 mL, Route: 09/30/2012 10/13/2012 Discontinued SUB-Q, Drug form: SOLN, TID-Before Meals, Dosing Weight 78, kg, PRN Blood Glucose Results, Start date: 09/30/12 10:38:00, Duration: 30 day, Stop date: 10/30/12 10:37:00 insulin aspart 4 unit, 0.04 mL, Route: 09/30/2012 10/13/2012 Discontinued SUB-Q, Drug form: SOLN, TID-Before Meals, Dosing Weight 78, kg, PRN Blood Glucose Results, Start date: 09/30/12 10:38:00, Duration: 30 day, Stop date: 10/30/12 10:37:00 insulin aspart 2 unit, 0.02 mL, Route: 09/30/2012 10/13/2012 Discontinued SUB-Q, Drug form: SOLN, TID-Before Meals, Dosing Weight 78, kg, PRN Blood Glucose Results, Start date: 09/30/12 10:38:00, Duration: 30 day, Stop date: 10/30/12 10:37:00 insulin aspart 8 unit, 0.08 mL, Route: 09/30/2012 10/13/2012 Discontinued SUB-Q, Drug form: SOLN, TID-Before Meals, Dosing Weight 78, kg, PRN Blood Glucose Results, Start date: 09/30/12 10:38:00, Duration: 30 day, Stop date: 10/30/12 10:37:00 glucagon 1 mg, Route: IM, Drug 09/30/2012 10/13/2012 Discontinued form: PDR/INJ, PRN, Dosing Weight 78, kg, PRN Blood Glucose Results, Start date: 09/30/12 10:38:00, Duration: 30 day, Stop date: 10/30/12 10:37:00 Dextrose 50% Syringe 25 gm, 50 mL, Route: 09/30/2012 10/13/2012 Discontinued IVP, Drug Form: INJ, Dosing Weight 78, kg, PRN, PRN Blood Glucose Results, Start date: 09/30/12 10:38:00, Duration: 30 day, Stop date: 10/30/12 10:37:00 Dextrose 50% Syringe 12.5 gm, 25 mL, Route: 09/30/2012 10/13/2012 Discontinued IVP, Drug Form: INJ, Dosing Weight 78, kg, PRN, PRN Blood Glucose Results, Start date: 09/30/12 10:38:00, Duration: 30 day, Stop date: 10/30/12 10:37:00 insulin aspart 5 unit, 0.05 mL, Route: 09/30/2012 10/13/2012 Discontinued SUB-Q, Drug form: SOLN, TID-Before Meals, Dosing Weight 78, kg, Start date: 09/30/12 11:30:00, Stop date: 10/30/12 7:30:00 insulin glargine 10 unit, 0.1 mL, Route: 09/30/2012 09/30/2012 Discontinued SUB-Q, Drug form: INJ, Q12H, Dosing Weight 78, kg, Start date: 09/30/12 21:00:00, Duration: 30 day, Stop date: 10/30/12 9:00:00 NS 1,000 mL 1,000 mL, Rate: 75 09/28/2012 09/29/2012 Discontinued ml/hr, Infuse over: 13.3 hr, Route: IV, Dosing Weight 78 kg, Total Volume: 1,000, Start date: 09/28/12 18:53:00, Duration: 30 day, Stop date: 10/28/12 18:52:00 warfarin 1 mg, 1 tab, Route: PO, 10/07/2012 10/07/2012 Completed Drug form: TAB, Q5PM, Dosing Weight 68.182, kg, Start date: 10/07/12 17:00:00, Duration: 1 doses or times, Stop date: 10/07/12 17:00:00 warfarin 5 mg, 1 tab, Route: PO, 10/12/2012 10/12/2012 Completed Drug form: TAB, Q5PM, Dosing Weight 68.182, kg, Start date: 10/12/12 17:00:00, Duration: 1 doses or times, Stop date: 10/12/12 17:00:00 tramadol 50 mg oral tablet 50 mg, 1 tab, Route: PO, 10/02/2012 10/13/2012 Discontinued Drug form: TAB, Q6H, Dosing Weight 68.182, kg, Start date: 10/02/12 12:00:00, Duration: 30 day, Stop date: 11/01/12 6:00:00 vancomycin 1.5 gm, Route: IVPB, 09/28/2012 09/28/2012 Completed ONCE, Dosing Weight 79.091, kg, Start date: 09/28/12 8:11:00, Stop date: 09/28/12 8:11:00 Flomax 0.8 mg, 2 cap, Route: 10/01/2012 10/13/2012 Discontinued PO, Drug form: CAP, After Dinner, Dosing Weight 68.182, kg, Priority: NOW, Start date: 10/01/12 19:04:00, Stop date: 10/31/12 17:00:00 warfarin 5 mg, 1 tab, Route: PO, 10/03/2012 10/03/2012 Completed Drug form: TAB, Q5PM, Dosing Weight 68.182, kg, Start date: 10/03/12 17:00:00, Duration: 1 doses or times, Stop date: 10/03/12 17:00:00 Ancef 2 gm, Route: IVP, ONCE, 09/28/2012 09/28/2012 Completed Dosing Weight 79.091, kg, Start date: 09/28/12 8:11:00, Stop date: 09/28/12 8:11:00 Lantus 10 unit, Route: SUB-Q, 09/30/2012 09/30/2012 Discontinued Drug form: SOLN, Daily, Dosing Weight 78, kg, Priority: NOW, Start date: 09/30/12 10:35:00, Duration: 30 day, Stop date: 10/30/12 9:00:00 indomethacin 25 mg, 1 cap, Route: PO, 10/01/2012 10/02/2012 Discontinued Drug form: CAP, TID, Dosing Weight 68.182, kg, Priority: NOW, Start date: 10/01/12 17:32:00, Duration: 30 day, Stop date: 10/31/12 17:00:00 Ancef 2 gm, Route: IVPB, ONCE, 10/06/2012 10/06/2012 Completed Dosing Weight 68.182, kg, Start date: 10/06/12 8:28:00, Duration: 1 doses or times, Stop date: 10/06/12 8:28:00 Lasix 40 mg, 4 mL, Route: IVP, 09/30/2012 09/30/2012 Completed Drug form: INJ, ONCE, Dosing Weight 78, kg, Priority: STAT, Start date: 09/30/12 10:34:00, Stop date: 09/30/12 10:34:00 Insulin regular 100 unit + 99 mL, Rate: Start Insulin Drip Per ICU Protocol, Dosing Weight 79.091, kg, Route: IVPB, Total Volume: 100, Stop date: 10/28/12 14 :01:00, Replace Every: 24 hr, Initial Insulin Drip Rate (units/hour)=(Fasting Blood Glucose-60)X0.03 "multiplier". 09/28/2012 09/30/2012 Discontinued Sodium Chloride 0.9% Initial Insulin Drip Rate (units/hour)=(Fasting Blood Glucose-60)X0.03 "multiplier". (titrate) 99 mL Dextrose 50% Syringe 25 gm, 50 mL, Route: 09/28/2012 09/30/2012 Discontinued IVP, Drug Form: INJ, Dosing Weight 79.091, kg, PRN, PRN Blood Glucose Results, Start date: 09/28/12 14:00:00, Duration: 30 day, Stop date: 10/28/12 13:59:00 Dextrose 50% Syringe 12.5 gm, 25 mL, Route: 09/28/2012 09/30/2012 Discontinued IVP, Drug Form: INJ, Dosing Weight 79.091, kg, PRN, PRN Blood Glucose Results, Start date: 09/28/12 14:00:00, Duration: 30 day, Stop date: 10/28/12 13:59:00 aspirin 81 mg tablet, 81 mg, 1 tab, Route: PO, 09/29/2012 09/29/2012 Discontinued enteric coated Drug form: ECTAB, Daily, Dosing Weight 79.091, kg, Start date: 09/29/12 9:00:00, Duration: 30 day, Stop date: 10/28/12 9:00:00 cefazolin (SCIP) 1 gm, Route: IVPB, Drug 09/28/2012 09/29/2012 Completed form: PDR/INJ, [id number], Dosing Weight 79.091, kg, Start date: 09/28/12 16:00:00, Duration: 3 doses or times, Stop date: 09/29/12 8:00:00 vancomycin (SCIP) 1 gm, Route: IVPB, Drug 09/28/2012 09/29/2012 Completed form: INJ, [id number], Dosing Weight 79.091, kg, Start date: 09/28/12 20:00:00, Duration: 2 doses or times, Stop date: 09/29/12 8:00:00 magnesium oxide 400 mg, 1 tab, Route: 10/12/2012 10/13/2012 Discontinued PO, Drug form: TAB, Daily, Dosing Weight 68.182, kg, Start date: 10/12/12 9:00:00, Duration: 30 day, Stop date: 11/10/12 9:00:00 metoprolol tartrate 25 mg, 1 tab, Route: PO, 10/03/2012 10/05/2012 Discontinued Drug form: TAB, TID, Dosing Weight 68.182, kg, Start date: 10/03/12 13:00:00, Duration: 30 day, Stop date: 11/02/12 9:00:00 metoprolol 25 mg oral 25 mg, 1 tab, PO, Q12H, 10/13/2012 Ordered tablet, extended release 60 tab, Substitution Allowed, ERTAB Dilaudid 0.5 mg, 0.25 mL, Route: 09/29/2012 09/29/2012 Discontinued IV, Drug form: INJ, Q2H, Dosing Weight 78, kg, PRN Pain, Priority: NOW, Start date: 09/29/12 15:52:00, Duration: 30 day, Stop date: 10/29/12 15:51:00 tamsulosin 0.4 mg oral 0.8 mg, 2 cap, PO, After 10/13/2012 Ordered capsule Dinner, 60 cap, Substitution Allowed, CAP Xopenex 1.25 mg, 3 mL, Route: 10/06/2012 10/09/2012 Discontinued NEB, Drug form: SOLN, RQ4H, Dosing Weight 68.182, kg, Start date: 10/06/12 15:00:00, Duration: 30 day, Stop date: 11/05/12 11:00:00 nitroglycerin 0.4 mg, 1 tab, Route: 10/06/2012 10/13/2012 Discontinued SL, Drug form: TAB, Q5Min, Dosing Weight 68.182, kg, PRN Chest Pain, Start date: 10/06/12 9:31:00, Duration: 30 day, Stop date: 11/05/12 9:30:00 chlorhexidine topical 15 ml, Route: S&SPIT, 10/06/2012 10/06/2012 Canceled 0.12% liquid Q12H, Drug form: LIQ, Start date: 10/06/12 21:00:00, Duration: 2 week, Stop date: 10/20/12 9:00:00 docusate 100 mg, Route: PO, BID, 10/06/2012 10/06/2012 Deleted Dosing Weight 68.182, kg, PRN Constipation, Start date: 10/06/12 9:31:00, Duration: 30 day, Stop date: 11/05/12 9:30:00 atorvastatin 20 mg, Route: PO, Drug 10/06/2012 10/06/2012 Canceled form: TAB, QPM, Dosing Weight 68.182, kg, Start date: 10/06/12 17:00:00, Duration: 30 day, Stop date: 11/04/12 17:00:00 aspirin 81 mg tablet, 81 mg, 1 tab, Route: PO, 10/07/2012 10/13/2012 Discontinued enteric coated Drug form: ECTAB, Daily, Dosing Weight 68.182, kg, Start date: 10/07/12 9:00:00, Duration: 30 day, Stop date: 11/05/12 9:00:00 cefazolin (SCIP) 1 gm, Route: IVPB, Drug 10/06/2012 10/07/2012 Completed form: PDR/INJ, Q8H, Dosing Weight 68.182, kg, Start date: 10/06/12 16:00:00, Duration: 3 doses or times, Stop date: 10/07/12 8:00:00 Lactated Ringers Injection 1,000 mL, Rate: 50 10/06/2012 10/07/2012 Discontinued IV 1,000 mL ml/hr, Infuse over: 20 hr, Route: IV, Dosing Weight 68.182 kg, Total Volume: 1,000, Start date: 10/06/12 9:31:00, Duration: 30 day, Stop date: 11/05/12 9:30:00 Colace 100 mg oral capsule 100 mg, 1 cap, Route: 09/29/2012 10/13/2012 Discontinued PO, Drug form: CAP, BID, Dosing Weight 78, kg, Start date: 09/29/12 17:00:00, Duration: 30 day, Stop date: 10/29/12 9:00:00 colchicine 0.6 mg oral 0.6 mg, 1 tab, PO, BID, 10/13/2012 Ordered tablet 14 tab, Substitution Allowed, TAB aspirin 81 mg tablet, 81 mg, 1 tab, PO, Daily, 10/13/2012 Ordered enteric coated 30 tab, Substitution Allowed, ECTAB FENTanyl 1000 mcg in 20 mL 1,000 microgram, 20 mL, 09/28/2012 09/29/2012 Discontinued (titrate) IV 1,000 Rate: Titrate., Dosing microgram Weight 78, kg, Route: IV, Total Volume: 20, Duration: 30 day, Stop date: 10/28/12 18:52:00, Replace Every: 24 hr metoprolol tartrate 12.5 mg, 1 ea, Route: 10/01/2012 10/03/2012 Discontinued PO, Drug form: TAB, Q6H, Dosing Weight 68.182, kg, Priority: NOW, Start date: 10/01/12 15:51:00, Duration: 30 day, Stop date: 10/31/12 12:00:00 metoprolol 5 mg/5 ml INJ 5 mg, 5 mL, Route: IVP, 09/30/2012 10/13/2012 Discontinued Drug form: INJ, Q6H, Dosing Weight 78, kg, PRN Hypertension, Start date: 09/30/12 10:41:00, Duration: 30 day, Stop date: 10/30/12 10:40:00, SBP >150 ipratropium 0.5 mg, 2.5 mL, Route: 09/29/2012 10/13/2012 Discontinued NEB, Drug form: SOLN, RQ8H, Dosing Weight 78, kg, Start date: 09/29/12 15:00:00, Duration: 30 day, Stop date: 10/29/12 7:00:00 [place] 7.5/325 oral tablet 1 tab, PO, Q4H, PRN, 30 10/13/2012 Ordered tab, Pain Score 1-5, Substitution Allowed, Maintenance, TAB Zofran 4 mg, 2 mL, Route: IV, 09/28/2012 09/28/2012 Discontinued Drug form: INJ, Q8H, Dosing Weight 78, kg, PRN Nausea, Start date: 09/28/12 21:19:00, Duration: 30 day, Stop date: 10/28/12 21:18:00 [place] 7.5/325 oral tablet 2 tab, Route: PO, Drug 09/30/2012 10/13/2012 Discontinued Form: TAB, Dosing Weight 78, kg, Q4H, PRN Pain Score 6-10, Start date: 09/30/12 10:33:00, Duration: 30 day, Stop date: 10/30/12 10:32:00 [place] 7.5/325 oral tablet 1 tab, Route: PO, Drug 09/30/2012 10/13/2012 Discontinued Form: TAB, Dosing Weight 78, kg, Q4H, PRN Pain Score 1-5, Start date: 09/30/12 10:33:00, Duration: 30 day, Stop date: 10/30/12 10:32:00 Silvadene 1% topical cream 1 appl, Route: TOP, BID, 09/30/2012 10/10/2012 Discontinued Drug form: CRM, Start date: 09/30/12 17:00:00, Duration: 30 day, Stop date: 10/30/12 9:00:00 magnesium sulfate 2 gm, 50 mL, Route: 09/29/2012 09/29/2012 Completed IVPB, Drug form: INJ, ONCE, Dosing Weight 78, kg, Total dose=2 gm, Start date: 09/29/12 19:32:00, Duration: 1 doses or times, Stop date: 09/29/12 19:32:00 epinephrine 4 mg + Sodium 246 mL, Rate: Titrate, 09/28/2012 09/29/2012 Discontinued Chloride 0.9% (titrate) Dosing Weight 79.091, 246 mL kg, Route: IV, Total Volume: 250, Duration: 30 day, Stop date: 10/28/12 14:02:00, Replace Every: 24 hr metoprolol tartrate 12.5 mg, 1 ea, Route: 09/30/2012 10/01/2012 Discontinued PO, Drug form: TAB, Q12H, Dosing Weight 78, kg, Priority: NOW, Start date: 09/30/12 10:40:00, Duration: 30 day, Stop date: 10/30/12 9:00:00 Lovenox 70 mg, 0.7 mL, Route: 10/01/2012 10/05/2012 Discontinued SUB-Q, Drug form: INJ, [id number], Dosing Weight 68.182, kg, Priority: NOW, Start date: 10/01/12 15:49:00, Duration: 30 day, Stop date: 10/31/12 3:49:00 Lovenox 70 mg, 0.7 mL, Route: 10/10/2012 10/13/2012 Discontinued SUB-Q, Drug form: INJ, [id number], Dosing Weight 68.182, kg, Priority: NOW, Start date: 10/10/12 6:44:00, Duration: 30 day, Stop date: 11/08/12 18:44:00 molasses 240 mL, Route: GA, Drug 10/02/2012 10/02/2012 Discontinued Form: SYRP, Dosing Weight 68.182, kg, ONCE, Milk of Molasses Enema, Start date: 10/02/12 10:11:00, Duration: 1 doses or times, Stop date: 10/02/12 10:11:00 Dulcolax Laxative 10 mg, 1 supp, Route: 09/30/2012 10/02/2012 Discontinued GA, Drug form: SUPP, Daily, Dosing Weight 78, kg, Priority: NOW, Start date: 09/30/12 15:15:00, Duration: 30 day, Stop date: 10/30/12 9:00:00 warfarin 5 mg, 1 tab, Route: PO, 10/01/2012 10/01/2012 Completed Drug form: TAB, Q5PM, Dosing Weight 68.182, kg, Start date: 10/01/12 17:00:00, Duration: 1 doses or times, Stop date: 10/01/12 17:00:00 furosemide 20 mg, Route: IV, ONCE, 10/08/2012 10/08/2012 Discontinued Dosing Weight 68.182, kg, Start date: 10/08/12 13:31:00, Stop date: 10/08/12 13:31:00 warfarin 7.5 mg, 1 tab, Route: 10/11/2012 10/11/2012 Completed PO, Drug form: TAB, Q5PM, Dosing Weight 68.182, kg, Start date: 10/11/12 17:00:00, Duration: 1 doses or times, Stop date: 10/11/12 17:00:00 warfarin 5 mg, 1 tab, Route: PO, 10/08/2012 10/08/2012 Completed Drug form: TAB, Q5PM, Dosing Weight 68.182, kg, Start date: 10/08/12 17:00:00, Duration: 1 doses or times, Stop date: 10/08/12 17:00:00 Lovenox 40 mg, 0.4 mL, Route: 09/30/2012 10/01/2012 Discontinued SUB-Q, Drug form: INJ, [id number], Dosing Weight 78, kg, Start date: 09/30/12 9:00:00, Duration: 30 day, Stop date: 10/29/12 9:00:00 enoxaparin 80 mg/0.8 mL 70 mg, 0.7 mL, SUB-Q, 10/13/2012 Ordered subcutaneous solution [id number], 4 doses or times, 0, 0, Substitution Allowed, INJ Reglan 10 mg, 2 mL, Route: IVP, 09/30/2012 10/03/2012 Completed Drug form: INJ, Q6H, Dosing Weight 78, kg, Priority: NOW, Start date: 09/30/12 15:14:00, Duration: 3 day, Stop date: 10/03/12 12:00:00 Milk of Magnesia 30 ml, Route: PO, Drug 09/30/2012 10/13/2012 Discontinued Form: SUSP, Dosing Weight 78, kg, Daily, Routine, Start date: 09/30/12 9:00:00, Duration: 30 day, Stop date: 10/29/12 9:00:00 morphine Sulfate 1 mg, 0.5 mL, Route: 10/08/2012 10/08/2012 Completed IVP, Drug form: INJ, ONCE, Dosing Weight 68.182, kg, Start date: 10/08/12 12:34:00, Stop date: 10/08/12 12:34:00 Blistex Lip Revitalizer 1 appl, Route: TOP, TID, 09/29/2012 10/13/2012 Discontinued Drug form: STIC, PRN Dry Lips, Start date: 09/29/12 13:00:00, Duration: 30 day, Stop date: 10/29/12 9:00:00 phenol topical 1.4% spray 1 spray, Route: TOP, 09/29/2012 10/13/2012 Discontinued QID, Drug form: SPRY, PRN as needed for sore throat, Start date: 09/29/12 13:00:00, Stop date: 10/29/12 9:00:00 Lantus 15 unit, 0.15 mL, Route: 09/30/2012 10/13/2012 Discontinued SUB-Q, Drug form: INJ, Q12H, Dosing Weight 78, kg, Priority: NOW, Start date: 09/30/12 10:52:00, Stop date: 10/30/12 9:00:00 Immunizations Vaccine Date Status pneumococcal 23-valent vaccine 09/30/2012 Auth (Verified) Vital Signs Most recent to oldest 1 2 3 [Reference Range]: Height 147.32 cm 172.72 cm 172.72 cm (09/28/2012 18:30:00) (09/28/2012 06:10:00) (09/25/2012 16:04:00) Current Weight 77.926 kg 82.443 kg 82.3 kg (10/12/2012 04:28:00) (10/09/2012 07:01:00) (09/29/2012 07:07:00) Temperature Oral 98.1 DegF 97.8 DegF 98.9 DegF [96.4-99.1 DegF] (10/13/2012 12:15:00) (10/13/2012 07:30:00) (10/13/2012 04: 00:00) Systolic Blood Pressure 97 mmHg 99 mmHg 104 mmHg [90-140 mmHg] (10/13/2012 14:00:00) (10/13/2012 12:00:00) (10/13/2012 11:00: 00) Diastolic Blood Pressure 63 mmHg 60 mmHg 67 mmHg [60-90 mmHg] (10/13/2012 14:00:00) (10/13/2012 12:00:00) (10/13/2012 11:00: 00) Respiratory Rate [14-20 20 BRMIN 22 BRMIN 20 BRMIN BRMIN] (10/13/2012 14:00:00) *HI* (10/13/2012 11:00:00) (10/13/2012 12:00:00) Peripheral Pulse Rate 99 bpm 97 bpm 100 bpm [60-100 bpm] (10/03/2012 15:15:00) (10/03/2012 15:00:00) (10/03/2012 14:45: 00) Weight 78 kg 79.091 kg 79.091 kg (09/28/2012 18:30:00) (09/28/2012 06:10:00) (09/25/2012 16:04:00) Results BACTERIAL - SEROLOGY Most recent to oldest [Reference Range]: 1 2 3 MRSA by PCR Negative 1 (09/28/2012 14:52:41) 1Interpretive Data: Interpretive Data: The [employer] Light[employer] MRSA assay is a qualitative test for thedirect detection of nasal colonization with methicillin- resistant Staphylococcus aureus (MRSA) to aid in the prevention and control of MRSA infections in healthcare settings. A positive result does notindicate an infection or require treatment. A negative result does not exclude colonization or infection. The polymerase chain reaction (PCR) assay detects a proprietary sequence indicative of the integration of the SCCmec cassette into the Staphylococcus aureus chromosome, indicating the presence of MRSA DNA. The assay utilizes FDA cleared IVD reagents. Performance characteristics have been verified by the [facility] within the [facility]. The [facility] is authorized under the Clinical Laboratory Improvement Amendment of 1988 (CLIA-88) to performhigh complexity testing.BEDSIDE GLUCOSE TESTING Most recent to 1 2 3 [Reference Range]: Gluc POC Lifscn [70-99 127 mg/dL 2 130 mg/dL 3 157 mg/dL 4 mg/dL] *HI* *HI* *HI* (10/13/2012 11:53:00) (10/13/2012 08:05:00) (10/12/2012 21:14:00) Comment1 Notify RN/MD Notify RN/MD Notify RN/MD *NA* *NA* *NA* (10/13/2012 11:53:00) (10/13/2012 08:05:00) (10/12/2012 21:14:00) 2Interpretive Data: Upper Reportable Limit: 200 mg/dL.3Interpretive Data: Upper Reportable Limit: 200 mg/dL.4Interpretive Data: Upper Reportable Limit: 200 mg/dL.URINALYSIS Most recent to oldest [Reference 1 2 3 Range]: UA Turbidity [Clear] Clear Clear (10/01/2012 11:34:28) (09/25/2012 13:40:00) UA Color [Yellow] Yellow Yellow *NA* *NA* (10/01/2012 11:34:28) (09/25/2012 13:40:00) UA pH [5.0-8.0] 5.0 5.5 (10/01/2012 11:34:28) (09/25/2012 13:40:00) UA Spec Grav [<=1.030] 1.011 1.016 (10/01/2012 11:34:28) (09/25/2012 13:40:00) UA Glucose [Negative mg/dL] Negative mg/dL 50 mg/dL *NA* *ABN* (10/01/2012 11:34:28) (09/25/2012 13:40:00) UA Blood [Negative] Negative Negative (10/01/2012 11:34:28) (09/25/2012 13:40:00) UA Ketones [Negative mg/dL] Negative mg/dL Negative mg/dL *NA* *NA* (10/01/2012 11:34:28) (09/25/2012 13:40:00) UA Protein [Negative mg/dL] Negative mg/dL Negative mg/dL (10/01/2012 11:34:28) (09/25/2012 13:40:00) UA Urobilinogen [0.1-1.0 mg/dL] <=1.0 mg/dL <=1.0 mg/dL *NA* *NA* (10/01/2012 11:34:28) (09/25/2012 13:40:00) UA Bili [Negative] Negative Negative *NA* *NA* (10/01/2012 11:34:28) (09/25/2012 13:40:00) UA Leuk Est [Negative] Negative Negative (10/01/2012 11:34:28) (09/25/2012 13:40:00) UA Nitrite [Negative] Negative Negative (10/01/2012 11:34:28) (09/25/2012 13:40:00) UA WBC [0-5 /HPF] 2 /HPF 2 /HPF (10/01/2012 11:34:28) (09/25/2012 13:40:00) UA RBC [0-2 /HPF] 3 /HPF <1 /HPF *HI* (09/25/2012 13:40:00) (10/01/2012 11:34:28) UA Sq Epi [Few /LPF] Few /LPF Few /LPF *NA* *NA* (10/01/2012 11:34:28) (09/25/2012 13:40:00) UA Mucus [None Seen /LPF] Few /LPF *NA* (10/01/2012 11:34:28) Micro? Not Indicated Not Indicated *NA* *NA* (10/01/2012 11:34:28) (09/25/2012 13:40:00) STOOL TESTS Most recent to oldest [Reference 1 2 3 Range]: Occult Bld Stl [Negative] Negative Negative (10/02/2012 11:00:00) (10/01/2012 21:36:45) BLOOD BANK RESULTS Most recent to oldest [Reference 1 2 3 Range]: ABO/Rh A POS A POS *Unknown* *Unknown* (10/06/2012 07:10:00) (09/28/2012 06:25:00) Antibody Scrn Negative Negative (10/06/2012 07:10:00) (09/28/2012 06:25:00) FFP product Product available Product available (10/05/2012 15:32:00) (09/28/2012 06:00:00) Platelet product Product available (09/28/2012 06:00:00) RBC product Product available Product available (09/29/2012 15:52:00) (09/28/2012 06:00:00) CHEMISTRY Most recent to oldest 1 2 3 [Reference Range]: Sodium Lvl [135-145 mEq/L] 137 mEq/L 136 mEq/L 135 mEq/L (10/13/2012 05:01:00) (10/12/2012 04:09:00) (10/11/2012 04:25:30) Potassium Lvl [3.5-5.1 4.4 mEq/L 4.4 mEq/L 4.5 mEq/L mEq/L] (10/13/2012 05:01:00) (10/12/2012 04:09:00) (10/11/2012 04:25:30) Chloride Lvl [95-109 98 mEq/L 99 mEq/L 97 mEq/L mEq/L] (10/13/2012 05:01:00) (10/12/2012 04:09:00) (10/11/2012 04:25:30) CO2 [24-32 mEq/L] 26 mEq/L 25 mEq/L 26 mEq/L (10/13/2012 05:01:00) (10/12/2012 04:09:00) (10/11/2012 04:25:30) AGAP [10.0-20.0 mEq/L] 17.4 mEq/L 16.4 mEq/L 16.5 mEq/L (10/13/2012 05:01:00) (10/12/2012 04:09:00) (10/11/2012 04:25:30) Creatinine Lvl [0.5-1.4 0.9 mg/dL 1.0 mg/dL 0.9 mg/dL mg/dL] (10/13/2012 05:01:00) (10/12/2012 04:09:00) (10/11/2012 04:25:30) eGFR 99 mL/min/1.73m2 5 87 mL/min/1.73m2 6 99 mL/min/1.73m2 7 *NA* *NA* *NA* (10/13/2012 05:01:00) (10/12/2012 04:09:00) (10/11/2012 04:25:30) BUN [7-22 mg/dL] 20 mg/dL 21 mg/dL 19 mg/dL (10/13/2012 05:01:00) (10/12/2012 04:09:00) (10/11/2012 04:25:30) B/C Ratio [6-25] 25 (10/06/2012 10:00:00) Glucose Lvl [70-99 mg/dL] 105 mg/dL 8 129 mg/dL 9 78 mg/dL 10 *HI* *HI* (10/11/2012:25:30) (10/13/2012 05:01:00) (10/12/2012 04:09:00) Total Protein [6.4-8.4 5.8 g/dL g/dL] *LOW* (10/06/2012 10:00:00) Albumin Lvl [3.5-5.0 g/dL] 2.8 g/dL *LOW* (10/06/2012 10:00:00) Globulin [2.0-4.0 g/dL] 3.0 g/dL (10/06/2012 10:00:00) A/G Ratio [0.7-1.6] 0.9 (10/06/2012 10:00:00) Calcium Lvl [8.5-10.5 8.6 mg/dL 8.6 mg/dL 8.7 mg/dL mg/dL] (10/13/2012 05:01:00) (10/12/2012 04:09:00) (10/11/2012 04:25:30) Phosphorus [2.5-4.5 mg/dL] 4.3 mg/dL 5.0 mg/dL 4.6 mg/dL (10/12/2012 04:09:00) *HI* *HI* (10/11/2012 04:25:30) (10/10/2012 04:50:00) Magnesium Lvl [1.8-2.4 1.9 mg/dL 2.0 mg/dL 1.8 mg/dL mg/dL] (10/13/2012 05:01:00) (10/12/2012 04:09:00) (10/11/2012 04:25:30) ALT [0-65 unit/L] 33 unit/L (10/06/2012 10:00:00) AST [0-37 unit/L] 49 unit/L *HI* (10/06/2012 10:00:00) Alk Phos [39-136 unit/L] 111 unit/L (10/06/2012 10:00:00) Bili Total [0.2-1.3 mg/dL] 0.7 mg/dL (10/06/2012 10:00:00) Total CK [12-191 unit/L] 127 unit/L 240 unit/L (10/02/2012 04:29:00) *HI* (10/01/2012 09:10:26) CK MB [0.5-3.6 ng/mL] 5.4 ng/mL 6.6 ng/mL *HI* *HI* (10/02/2012 04:29:00) (10/01/2012 09:10:26) CK MB Index [0.0-2.5] 4.3 2.8 *HI* *HI* (10/02/2012 04:29:00) (10/01/2012 09:10:26) Troponin-T [0.000-0.100 0.306 ng/mL 11 0.312 ng/mL 12 ng/mL] *CRIT* *CRIT* (10/02/2012 04:29:00) (10/01/2012 09:10:26) Myoglobin [25-72 ng/mL] 62 ng/mL 66 ng/mL (10/02/2012 04:29:00) (10/01/2012 09:10:26) Hgb A1C [<=5.6 %] 8.4 % *HI* (09/25/2012 13:40:00) TSH [0.360-3.740 uIU/mL] 2.350 uIU/mL (09/28/2012 15:07:11) Ca Ion WB [1.05-1.25 1.15 mMol/L 1.09 mMol/L 0.80 mMol/L 13 mMol/L] (10/07/2012 01:58:00) (10/06/2012 18:30:00) *CRIT* (10/06/2012 10:01:16) Ca Norm WB [1.05-1.25 1.11 mMol/L 1.10 mMol/L 0.81 mMol/L mMol/L] (10/07/2012 01:58:00) (10/06/2012 18:30:00) *CRIT* (10/06/2012 10:01:16) POC A Hct [42.0-54.0 %] 28.0 % 27.0 % 24.0 % *LOW* *LOW* *LOW* (10/06/2012 10:40:00) (10/06/2012 09:52:00) (09/29/2012 10:46:00) POC A Ca Ion [1.05-1.25 1.05 mMol/L 1.11 mMol/L 1.07 mMol/L mMol/L] (10/06/2012 10:40:00) (10/06/2012 09:52:00) (09/29/2012 10:46:00) POC A K [3.5-5.1 mEq/L] 4.5 mEq/L 4.2 mEq/L 3.9 mEq/L (10/06/2012 10:40:00) (10/06/2012 09:52:00) (09/29/2012 10:46:00) POC A Source ART ART ART *NA* *NA* *NA* (10/06/2012 10:40:00) (10/06/2012 09:52:00) (09/29/2012 10:46:00) POC A Temp 37.0 DegC 37.0 DegC 37.0 DegC *NA* *NA* *NA* (10/06/2012 10:40:00) (10/06/2012 09:52:00) (09/29/2012 10:46:00) POC A pH [7.35-7.45] 7.43 7.34 7.43 (10/06/2012 10:40:00) *LOW* (09/29/2012 10:46:00) (10/06/2012 09:52:00) POC A PCO2 [35-45 mmHg] 41 mmHg 51 mmHg 39 mmHg (10/06/2012 10:40:00) *HI* (09/29/2012 10:46:00) (10/06/2012 09:52:00) POC A PO2 [80-100 mmHg] 99 mmHg 242 mmHg 156 mmHg (10/06/2012 10:40:00) *HI* *HI* (10/06/2012 09:52:00) (09/29/2012 10:46:00) POC A HCO3 [22-26 mMol/L] 27 mMol/L 28 mMol/L 26 mMol/L *HI* *HI* (09/29/2012 10:46:00) (10/06/2012 10:40:00) (10/06/2012 09:52:00) POC A BE [-2-2 mMol/L] 3 mMol/L 1 mMol/L 2 mMol/L *HI* (10/06/2012 09:52:00) (09/29/2012 10:46:00) (10/06/2012 10:40:00) POC A O2 Sat [95.0-100.0 98.0 % 100.0 % 99.0 % %] (10/06/2012 10:40:00) (10/06/2012 09:52:00) (09/29/2012 10:46:00) POC A Glu [70-99 mg/dL] 145 mg/dL 154 mg/dL 92 mg/dL *HI* *HI* (09/29/2012 10:46:00) (10/06/2012 10:40:00) (10/06/2012 09:52:00) POC A LA [0.5-2.2 mMol/L] 0.7 mMol/L 1.3 mMol/L 0.7 mMol/L (10/06/2012 10:40:00) (10/06/2012 09:52:00) (09/29/2012 10:46:00) POC A Na [135-145 mEq/L] 128 mEq/L 128 mEq/L 136 mEq/L *LOW* *LOW* (09/29/2012 10:46:00) (10/06/2012 10:40:00) (10/06/2012 09:52:00) POC A Mode CPAP PS10 SIMV IMV PS 15 *NA* *NA* *NA* (10/06/2012 09:52:00) (09/29/2012 03:38:00) (09/28/2012 18:45:00) POC A Mech Rate [0-70 bpm] 15 bpm 15 bpm 10 bpm (09/29/2012 03:38:00) (09/28/2012 18:45:00) (09/28/2012 14:45:00) POC A VT [2-1200 mL] 550 mL 550 mL 550 mL (09/29/2012 03:38:00) (09/28/2012 18:45:00) (09/28/2012 14:45:00) POC A PEEP [0.0-40.0 5.0 cmH20 7.0 cmH20 7.0 cmH20 cmH20] (10/06/2012 09:52:00) (09/29/2012 03:38:00) (09/28/2012 18:45:00) POC A CPAP [0.0-40.0 40.0 cmH20 cmH20] (09/29/2012 07:10:00) POC A %FIO2 [18.0-100.0 %] 100.0 % 40.0 % 70.0 % (10/06/2012 09:52:00) (09/29/2012 03:38:00) (09/28/2012 18:45:00) POC V Source ROJELIO *NA* (09/28/2012:55:00) POC V Temp 37.0 DegC *NA* (09/28/2012:55:00) POC V pH [7.28-7.42] 7.23 *LOW* (09/28/2012 14:55:00) POC V PCO2 [38-52 mmHg] 51 mmHg (09/28/2012:55:00) POC V PO2 [20-49 mmHg] 29 mmHg (09/28/2012:55:00) POC V HCO3 [22-26 mmol/L] 21 mmol/L *LOW* (09/28/2012:55:00) POC V BE [-2-2 mmol/L] -6 mmol/L *LOW* (09/28/2012:55:) POC V O2 Sat [40.0-70.0 %] 42.0 % (09/28/2012:55:00) POC V Glu [70-99 mg/dL] 190 mg/dL *HI* (09/28/2012 14:55:00) POC V Hct [42.0-54.0 %] 38.0 % *LOW* (09/28/2012 14:55:00) POC V Ion Ca [1.05-1.25 1.65 mMol/L mMol/L] *CRIT* (09/28/2012 14:55:00) POC V K [3.5-5.1 mEq/L] 4.1 mEq/L (09/28/2012 14:55:00) POC V LA [0.5-2.2 mMol/L] 4.8 mMol/L *HI* (09/28/2012 14:55:00) POC V Na [135-145 mEq/L] 164 mEq/L *CRIT* (09/28/2012 14:55:00) 5Result Comment: The eGFR is calculated using the [...] eGFR should be multiplied by the estimated BMI.6Result Comment: The eGFR is calculated using the CKD-EPI formula. In most young, healthy individualsthe eGFR will be >90 mL/ min/1.73m2. The eGFR declines with age. An eGFR [...] eGFR should be multiplied by the estimated BMI.7Result Comment: The eGFR is calculated using the CKD-EPI formula. In most young, healthy individualsthe eGFR will be >90 mL/ min/1.73m2. The eGFR declines with age. An eGFR [...] eGFR should be multiplied by the estimated BMI.8Interpretive Data: Adult reference range values reflect the clinical guidelines of the [place] [employer].9Interpretive Data: Adult reference range values reflect the clinical guidelines of the [place] [employer].10Interpretive Data: Adult reference range values reflect the clinical guidelines of the [place] [employer].11Result Comment: Critical Result(s) called to avtar blair at 10/02/2012 06:10 by . Read back OK.12Result Comment : Critical Result(s) called to Lukas Sundar at 10/01/2012 11:15 by lwb . Read backOK.13Result Comment: Critical Result(s) called to Binta Dolan at 10/06/2012 10:44 by lwb . Read back OK.HEMATOLOGY Most recent to oldest 1 2 3 [Reference Range]: WBC [3.7-10.4 K/CMM] 11.0 K/CMM 11.7 K/CMM 14.9 K/CMM *HI* *HI* *HI* (10/13/2012 05:01:00) (10/12/2012 04:09:00) (10/11/2012 04:25:21) RBC [4.70-6.10 M/CMM] 4.13 M/CMM 4.01 M/CMM 4.05 M/CMM *LOW* *LOW* *LOW* (10/13/2012 05:01:00) (10/12/2012 04:09:00) (10/11/2012 04:25:21) Hgb [14.0-18.0 g/dL] 8.8 g/dL 8.6 g/dL 8.6 g/dL *LOW* *LOW* *LOW* (10/13/2012 05:01:00) (10/12/2012 04:09:00) (10/11/2012 04:25:21) Hct [42.0-54.0 %] 28.0 % 27.3 % 27.4 % *LOW* *LOW* *LOW* (10/13/2012 05:01:00) (10/12/2012 04:09:00) (10/11/2012 04:25:21) MCV [80.0-94.0 fL] 67.7 fL 68.2 fL 67.8 fL *LOW* *LOW* *LOW* (10/13/2012 05:01:00) (10/12/2012 04:09:00) (10/11/2012 04:25:21) MCH [27.0-31.0 pg] 21.3 pg 21.4 pg 21.3 pg *LOW* *LOW* *LOW* (10/13/2012 05:01:00) (10/12/2012 04:09:00) (10/11/2012 04:25:21) MCHC [32.0-36.0 g/dL] 31.4 g/dL 31.4 g/dL 31.5 g/dL *LOW* *LOW* *LOW* (10/13/2012 05:01:00) (10/12/2012 04:09:00) (10/11/2012 04:25:21) RDW [11.5-14.5 %] 19.1 % 19.2 % 19.5 % *HI* *HI* *HI* (10/13/2012 05:01:00) (10/12/2012 04:09:00) (10/11/2012 04:25:21) Platelet [133-450 K/CMM] 277 K/CMM 272 K/CMM 311 K/CMM (10/13/2012 05:01:00) (10/12/2012 04:09:00) (10/11/2012 04:25:21) MPV [7.4-10.4 fL] 8.5 fL 8.3 fL 8.4 fL (10/13/2012 05:01:00) (10/12/2012 04:09:00) (10/11/2012 04:25:21) Segs [45.0-75.0 %] 44.3 % 46.8 % 52.3 % *LOW* (10/12/2012 04:09:00) (10/11/2012 04:25:21) (10/13/2012 05:01:00) Bands [0.0-11.0 %] 1.0 % 3.0 % 2.0 % (10/10/2012 04:50:00) (10/06/2012 10:00:00) (09/28/2012 14:52:00) Lymphocytes [20.0-40.0 %] 32.0 % 31.4 % 27.2 % (10/13/2012 05:01:00) (10/12/2012 04:09:00) (10/11/2012 04:25:21) Atypical Lymphs [<=0.0 %] 1.0 % 0.0 % 0.0 % *HI* (10/06/2012 10:00:00) (09/28/2012 14:52:00) (10/10/2012 04:50:00) Monocytes [2.0-12.0 %] 8.4 % 8.0 % 7.5 % (10/13/2012 05:01:00) (10/12/2012 04:09:00) (10/11/2012 04:25:21) Eosinophils [0.0-4.0 %] 14.3 % 12.9 % 11.5 % *HI* *HI* *HI* (10/13/2012 05:01:00) (10/12/2012 04:09:00) (10/11/2012 04:25:21) Basophils [0.0-1.0 %] 1.0 % 0.9 % 1.5 % (10/13/2012 05:01:00) (10/12/2012 04:09:00) *HI* (10/11/2012 04:25:21) Metamyelocytes [0.0-1.0 %] 1.0 % (10/06/2012 10:00:00) Segs-Bands # [1.5-8.1 4.9 K/CMM 5.5 K/CMM 7.8 K/CMM K/CMM] (10/13/2012 05:01:00) (10/12/2012 04:09:00) (10/11/2012 04:25:21) Lymphocytes # [1.0-5.5 3.5 K/CMM 3.7 K/CMM 4.1 K/CMM K/CMM] (10/13/2012 05:01:00) (10/12/2012 04:09:00) (10/11/2012 04:25:21) Monocytes # [0.0-0.8 0.9 K/CMM 0.9 K/CMM 1.1 K/CMM K/CMM] *HI* *HI* *HI* (10/13/2012 05:01:00) (10/12/2012 04:09:00) (10/11/2012 04:25:21) Eosinophils # [0.0-0.5 1.6 K/CMM 1.5 K/CMM 1.7 K/CMM K/CMM] *HI* *HI* *HI* (10/13/2012 05:01:00) (10/12/2012 04:09:00) (10/11/2012 04:25:21) Basophils # [0.0-0.2 0.1 K/CMM 0.1 K/CMM 0.2 K/CMM K/CMM] (10/13/2012 05:01:00) (10/12/2012 04:09:00) (10/11/2012 04:25:21) NRBC 2 /100WB *NA* (10/06/2012 10:00:00) Tot Cell Ct 100 *NA* (10/10/2012 04:50:00) Anisocyte [None Seen] 3+ 1+ 1+ (10/10/2012 04:50:00) *ABN* *ABN* (10/06/2012 10:00:00) (10/05/2012 04:05:00) Polychrom [None Seen] Slight Slight Slight (10/10/2012 04:50:00) (10/06/2012 10:00:00) (10/05/2012 04:05:00) Hypochrom [None Seen] Slight Slight Slight (10/10/2012 04:50:00) (10/06/2012 10:00:00) (10/05/2012 04:05:00) Microcyte [None Seen] 3+ 3+ 3+ *NA* *NA* *NA* (10/13/2012 05:01:00) (10/12/2012 04:09:00) (10/11/2012 04:25:21) Target Cell [None Seen] Slight Slight Slight *ABN* *ABN* *ABN* (10/10/2012 04:50:00) (10/06/2012 10:00:00) (09/29/2012 03:45:00) Tear Cell [None Seen] Slight Slight Slight *ABN* *ABN* *ABN* (10/10/2012 04:50:00) (10/06/2012 10:00:00) (10/05/2012 04:05:00) Elliptocyte [None Seen] Slight Slight Slight *ABN* *ABN* *ABN* (10/10/2012 04:50:00) (10/06/2012 10:00:00) (10/05/2012 04:05:00) Spherocyte [None Seen] Rare *ABN* (10/06/2012 10:00:00) Baso Stipplin [None Seen] Slight *ABN* (10/06/2012 10:00:00) Rouleaux [None Seen] Present *ABN* (09/29/2012 03:45:00) Acanthocyte [None Seen] Occasional *ABN* (10/05/2012 04:05:00) Plt Morph Normal Normal Normal (10/10/2012 04:50:00) (10/06/2012 10:00:00) (09/30/2012 03:14:00) Large Plt [None Seen] Slight *ABN* (10/05/2012 04:05:00) Sed Rate [0-15 mm/hr] 84 mm/hr *HI* (10/01/2012 12:27:19) PT [12.0-14.7 seconds] 19.8 seconds 18.5 seconds 17.4 seconds *HI* *HI* *HI* (10/13/2012 05:01:00) (10/12/2012 04:09:00) (10/11/2012 04:25:30) INR [0.85-1.17] 1.67 14 1.53 15 1.41 16 *HI* *HI* *HI* (10/13/2012 05:01:00) (10/12/2012 04:09:00) (10/11/2012 04:25:30) PTT [22.9-35.8 seconds] 48.5 seconds 17 47.0 seconds 18 43.4 seconds 19 *HI* *HI* *HI* (10/13/2012 05:01:00) (10/12/2012 04:09:00) (10/11/2012 04:25:30) 14Interpretive Data: RECOMMENDED RANGES FOR PROTIME INR: 2.0-3.0 for most medical and surgical thromboembolic states. 2.5-3.5 for artificial heart valves and recurrent embolism. INR SHOULD BE USED ONLY FOR PATIENTS ON STABLE ANTICOAGULANT THERAPY.15Interpretive Data: RECOMMENDED RANGES FOR PROTIME INR: 2.0-3.0 for most medical and surgical thromboembolic states. 2.5-3.5 for artificial heart valves and recurrent embolism. INR SHOULD BE USED ONLY FOR PATIENTS ON STABLE ANTICOAGULANT THERAPY.16Interpretive Data: RECOMMENDED RANGES FOR PROTIME INR: 2.0-3.0 for most medical and surgical thromboembolic states. 2.5-3.5 for artificial heart valves and recurrent embolism. INR SHOULD BE USED ONLY FOR PATIENTS ON STABLE ANTICOAGULANT THERAPY.17Interpretive Data: Heparin Therapeutic Range: 57 - 92 [id number] Data: Heparin Therapeutic Range: 57 - 92 [id number] Data: Heparin Therapeutic Range: 57 - 92 Seconds Microbiology Reports PROCEDURE:Culture: Urine STATUS: Auth (Verified) BODY SITE: COLLECTED DATE/TIME: 10/01/2012 11:34:32 SOURCE: Urine, Clean Catch FREE TEXT SOURCE: FINAL REPORTS Final ReportNo GrowthPRELIMINARY REPORTS Preliminary ReportNo Growth; Holding PROCEDURE:Culture: Blood STATUS: Auth (Verified) BODY SITE: Arm L COLLECTED DATE/TIME: 10/01/2012 09:00:00 SOURCE: Blood FREE TEXT SOURCE: FINAL REPORTS Final ReportNo Growth At 5 DaysPRELIMINARY REPORTS* Preliminary ReportNo Growth At 1 Day Preliminary ReportNo Growth At 4 Days Preliminary ReportNo Growth At 2 Days Preliminary ReportNo Growth At 3 Days Preliminary ReportNo Growth At 5 Days PROCEDURE:Culture: Blood STATUS: Auth (Verified) BODY SITE: IJ R COLLECTED DATE/TIME: 10/01/2012 09:00:00 SOURCE: Blood FREE TEXT SOURCE: FINAL REPORTS Final ReportNo Growth At 5 DaysPRELIMINARY REPORTS* Preliminary ReportNo Growth At 1 Day Preliminary ReportNo Growth At 4 Days Preliminary ReportNo Growth At 5 Days Preliminary ReportNo Growth At 2 Days Preliminary ReportNo Growth At 3 Days
--- OUTSIDE RECORDS SUMMARY | 2018-07-11 05:05 | XMS REPORT | CCD ---
:1960 Author Organization [facility] Care Team Providers Name Role Phone Physician, Non Associated Consulting Provider Unavailable Allergies, Adverse Reactions, Alerts Substance Reaction Status NKDA Active Problem List Condition Effective Dates Status CAD - Coronary artery disease Active CVA (cerebral infarction) Resolved DM - Diabetes mellitus Active Hypertension Active Medications Medication Instructions Start Date End Date Status pneumococcal 23-valent 0.5 ml, Route: IM, Drug 09/30/2012 09/30/2012 Completed vaccine Form: INJ, Start date: 09/30/12 9:00:00, Stop date: 09/30/12 9:00:00 Immunizations Vaccine Date Status pneumococcal 23-valent vaccine 09/30/2012 Auth (Verified) Results HEMATOLOGY Most recent to oldest [Reference Range]: 1 POC PT [12.0-14.7 seconds] 36.2 seconds *HI* (10/26/2012 11:24:00) POC INR [0.8-1.2] 3.2 *HI* (10/26/2012 11:24:00)
--- OUTSIDE RECORDS SUMMARY | 2018-07-11 05:05 | XMS REPORT | CCD ---
:1960 Author Organization [facility] Care Team Providers Name Role Phone Dante [...] (Verified) Vital Signs Most recent to oldest [Reference Range]: 1 Height 162.56 cm (10/01/2012 14:33:00) Weight 68.182 kg (10/01/2012 14:33:00) Results HEMATOLOGY Most recent to oldest [Reference 1 2 Range]: POC PT [12.0-14.7 seconds] 35.4 seconds 23.2 seconds *HI* *HI* (10/20/2012 09:06:00) (10/15/2012 09:23:00) POC INR [0.8-1.2] 3.1 2.0 *HI* *HI* (10/20/2012 09:06:00) (10/15/2012 09:23:00)
--- OUTSIDE RECORDS SUMMARY | 2018-07-11 05:05 | XMS REPORT ---
:1960 [facility] [address] [place] [address] [address] [place] [address] Care Team Providers Name Role Phone Unavailable Unavailable Unavailable Problems This patient has no known problems. Allergies, Adverse Reactions, Alerts This patient has no known allergies or adverse reactions. Medications This patient has no known medications.
--- OUTSIDE RECORDS SUMMARY | 2018-07-11 05:06 | XMS REPORT ---
:1960 Author Organization [employer] Care Team Providers Name Role Phone Heath Rhett Provider Role Unavailable Allergies, Adverse Reactions, Alerts Substance Reaction Event Type N.K.D.A. Info Not Available Non Drug Allergy Problems Problem Type Condition Code Onset Dates Condition Status Problem Uncontrolled type 2 diabetes E11.65 Active mellitus with hyperglycemia Problem Systolic congestive heart failure, I50.20 Active unspecified HF chronicity Problem Former heavy tobacco smoker Z87.891 Active Problem HTN (hypertension), benign I10 Active Assessment Former heavy tobacco smoker Z87.891 Active Problem PAD (peripheral artery disease) I73.9 Active Problem History of CVA (cerebrovascular Z86.73 Active accident) Problem S/P arterial stent Z95.9 Active Problem Coronary artery disease involving I25.810 Active coronary bypass graft of ambler heart, angina presence unspecified Problem Mixed hyperlipidemia E78.2 Active Problem 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 Assessment 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 Assessment PAD (peripheral artery disease) I73.9 Active Assessment History of CVA (cerebrovascular Z86.73 Active accident) Assessment S/P arterial stent Z95.9 Active Assessment Systolic congestive heart failure, I50.20 Active unspecified HF chronicity Assessment Coronary artery disease involving I25.810 Active coronary bypass graft of ambler heart, angina presence unspecified Assessment Mixed hyperlipidemia E78.2 Active Assessment Uncontrolled type 2 diabetes E11.65 Active mellitus with hyperglycemia Assessment HTN (hypertension), benign I10 Active Medications Medication Code Code Instructions Start End Status Dosage System Date Date [facility] 99821239553 81 MG Orally Active 1 tablet Once a day Jardiance [facility] 81126298536 10 MG Orally Hali Active 1 tablet Once a day 2018 Losartan [facility] 81956839540 25 MG Orally Active 1 tablet Potassium Once a day Carvedilol [facility] 75667086038 3.125 MG Orally Active as directed Clopidogrel [facility] 43621571373 75 MG Orally Active as Bisulfate directed Ranolazine ER [facility] [address]-45 500 MG Orally Active 1 tablet Twice a day Januvia [facility] 77090505243 100 MG Orally Active 1 tablet Once a day Atorvastatin [facility] 25237660866 40 MG Orally Active 1 tablet Calcium Once a day Results No Known Results Summary Purpose [employer]ClinicalWorks Submission
--- OUTSIDE RECORDS SUMMARY | 2018-07-11 05:06 | XMS REPORT ---
[...] Problem PAD (peripheral artery disease) I73.9 Active Assessment Adult BMI 27.0-27.9 kg/sq m Z68.27 Active Problem History of CVA (cerebrovascular Z86.73 Active accident) Problem S/P arterial stent Z95.9 Active Problem Coronary artery disease involving I25.810 Active coronary bypass graft of [place] heart, angina presence unspecified Problem Mixed hyperlipidemia [...] involving I25.810 Active coronary bypass graft of [place] heart, angina presence unspecified Assessment Mixed hyperlipidemia E78.2 Active Assessment Uncontrolled type 2 diabetes E11.65 Active mellitus with hyperglycemia Assessment HTN (hypertension), benign I10 Active Medications Medication Code Code Instructions Start End Status Dosage System Date Date Ranolazine ER [facility] [address]-97 500 MG Orally Active 1 tablet Twice a day Carvedilol [facility] 92723066378 3.125 MG Orally Active as directed Januvia [facility] 22400371240 100 MG Orally Active 1 tablet Once a day Aspir-81 [facility] 04852782900 81 MG Orally Active 1 tablet Once a day Atorvastatin [facility] 53258826459 80 MG Orally Active 1 tablet Calcium Once a day Clopidogrel [facility] 24983853471 75 MG Orally Active as Bisulfate directed Losartan [facility] 42236877855 25 MG Orally Active 1 tablet Potassium Once a day Jardiance [facility] 47377412699 10 MG Orally Active 1 tablet Once a day Results Name Result Date Reference Range Unit Abnormality Flag HEMOGLOBIN A1C ----A1C 7.5 [id number] Summary Purpose eClinicalWorks Submission
--- OUTSIDE RECORDS SUMMARY | 2018-07-11 05:06 | XMS REPORT ---
:1960 Author Organization eClinicalWorks Care Team Providers Name Role Phone Rhett Joe Provider Role Unavailable Allergies, Adverse Reactions, Alerts Substance Reaction Event Type N.K.D.A. Info Not Available Non Drug Allergy Problems Problem Type Condition Code Onset Dates Condition Status Assessment Encounter for screening for Z12.2 Active malignant neoplasm of lung Assessment Tobacco use disorder F17.200 Active Assessment Alcohol screening Z13.39 Active Assessment Depression screening Z13.31 Active Problem Mixed hyperlipidemia E78.2 Active Assessment Encounter for screening for other Z11.59 Active viral diseases Problem PAD (peripheral artery disease) I73.9 Active Problem History of CVA (cerebrovascular Z86.73 Active accident) Problem HTN (hypertension), benign I10 Active Problem 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 Problem S/P arterial stent Z95.9 Active Assessment S/P arterial stent Z95.9 Active Assessment History of CVA (cerebrovascular Z86.73 Active accident) Problem Tobacco use disorder F17.200 Active Assessment Adult BMI 27.0-27.9 kg/sq m Z68.27 Active Problem Former heavy tobacco smoker Z87.891 Active Problem Uncontrolled type 2 diabetes E11.65 Active mellitus with hyperglycemia Problem Coronary artery disease involving I25.810 Active coronary bypass graft of [place] heart, angina presence unspecified Problem Systolic congestive heart failure, I50.20 Active unspecified HF chronicity Assessment Mixed hyperlipidemia E78.2 Active Assessment HTN (hypertension), benign I10 Active Assessment Uncontrolled type 2 diabetes E11.65 Active mellitus with hyperglycemia Assessment PAD (peripheral artery disease) I73.9 Active Assessment Coronary artery disease involving I25.810 Active coronary bypass graft of [place] heart, angina presence unspecified Assessment Well adult on routine health check Z00.00 Active Assessment Systolic congestive heart failure, I50.20 Active unspecified HF chronicity Assessment 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 Medications Medication Code Code Instructions Start End Status Dosage System Date Date [facility] 75322530041 81 MG Orally Active 1 tablet Once a day Laurent [facility] 93824096633 100 MG Orally Active 1 tablet Once a day Ranolazine ER [facility] [address]-65 500 MG Orally Active 1 tablet Twice a day Losartan [facility] 59384390966 25 MG Orally Active 1 tablet Potassium Once a day Atorvastatin [facility] 35615720033 80 MG Orally Active 1 tablet Calcium Once a day Clopidogrel [facility] 79336573968 75 MG Orally Active as Bisulfate directed Jardiance [facility] 01801519234 10 MG Orally Active 1 tablet Once a day Carvedilol [facility] 98983755371 3.125 MG Orally Active as directed Results No Known Results Summary Purpose eClinicalWorks Submission
--- OUTSIDE RECORDS SUMMARY | 2018-07-11 05:06 | XMS REPORT ---
:1960 Author Organization eClinicalWorks Care Team Providers Name Role Phone JoeRhett Provider Role Unavailable Allergies, Adverse Reactions, Alerts Substance Reaction Event Type N.K.D.A. Info Not Available Non Drug Allergy Problems Problem Type Condition Code Onset Dates Condition Status Problem Uncontrolled type 2 diabetes E11.65 Active mellitus with hyperglycemia Problem Systolic congestive heart failure, I50.20 Active unspecified HF chronicity Problem Former heavy tobacco smoker Z87.891 Active Problem Diabetic polyneuropathy associated E11.42 Active with type 2 diabetes mellitus Problem Heavy tobacco smoker F17.200 Active Problem Claudication I73.9 Active Problem S/P arterial stent Z95.9 Active Problem Coronary artery disease involving I25.810 Active coronary bypass graft of [place] heart, angina presence unspecified Problem Tobacco use disorder F17.200 Active Problem 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 Assessment Abrasion foot/toe S90.819A Active Assessment Diabetic polyneuropathy associated E11.42 Active with type 2 diabetes mellitus Assessment Claudication I73.9 Active Problem Mixed hyperlipidemia E78.2 Active Problem PAD (peripheral artery disease) I73.9 Active Assessment Peripheral neuropathic pain M79.2 Active Problem HTN (hypertension), benign I10 Active Problem History of CVA (cerebrovascular Z86.73 Active accident) Medications Medication Code Code Instructions Start End Status Dosage System Date Date Clopidogrel [place] 54016933095 75 MG Orally Active as Bisulfate directed Carvedilol [facility] 07935768854 3.125 MG Orally Active as directed Jardiance [facility] 05959170587 10 MG Orally Active 1 tablet Once a day Januvia [facility] 76900953735 100 MG Orally Active 1 tablet Once a day Atorvastatin [facility] 18377479914 80 MG Orally Active 1 tablet Calcium Once a day Lyrica ND 42973025248 75 MG Orally Hali Active 1 capsule Twice a day 2018 Ranolazine ER [facility] [address]-05 500 MG Orally Active 1 tablet Twice a day Losartan [facility] 09869498980 25 MG Orally Active 1 tablet Potassium Once a day Aspir-81 [facility] 10145380182 81 MG Orally Active 1 tablet Once a day Results No Known Results Summary Purpose eClinicalWorks Submission
[2018-07-11 05:25] LABS: Arterial Blood Carboxyhemoglob 1.5 % (0-1.5); Blood Gas Oxyhemoglobin 94.2 % (94-97); Blood O2 Saturation 97.1 % (92-98.5)
--- NOTE | 2018-07-11 05:31 | ER ---
Nurse's Notes [facility] Name: Marco Antonio Reed Age: 58 yrs Sex: Male : 1960 Arrival Date: 07/11/2018 Time: 04:58 Bed 2 Private MD: Diagnosis: Dyspnea, unspecified;Respiratory failure, unspecified;Cardiac arrest-sp cpr;Obesity, unspecified;Type 2 diabetes mellitus Presentation: 07/11 04:55 Method Of Arrival: EMS: [facility] tl2 04:55 Acuity: SHAKIRA 1 tl2 04:55 Presenting complaint: EMS states: Called out for CP, pt was found sitting on couch, tl2 gasping breaths and cyanotic. Pt lost pulse on ambulance, CPR was started at 0427. #[address] 14 cm at the teeth. No shocks were administered en route. No medications given. CPR in progress on arrival. Care prior to arrival: Oral intubation, CPR via thumper performed by EMS and is still in progress. Compressions began at 04:27. 04:55 Transition of care: patient was not received from another setting of care. Initial tl2 Sepsis Screen: Does the patient meet any 2 criteria?. 04:55 Onset of symptoms was July 11, 2018 at 04:00. Risk Assessment: Do you want to hurt tl2 yourself or someone else? Patient reports no desire to harm self or others. Initial Sepsis Screen: Does the patient have a suspected source of infection? No. Patient's initial sepsis screen is negative. Triage Assessment: 04:55 Pain: Unable to use pain scale. Patient is unresponsive. tl2 07:00 General: Appears in no apparent distress. Behavior is unresponsive. bp Historical: - Allergies: 05:29 UNKNOWN; tl2 - Home Meds: 05:29 atorvastatin 80 mg Oral tab nightly [Active]; losartan potassium [Active]; metoprolol tl2 succinate 50 mg Oral Tb24 [Active]; Plavix 75 mg Oral tab 1 tab once daily [Active]; Precose 25 mg Oral tab 1 tab 3 times per day [Active]; sertraline 50 mg Oral tab 1 tab once daily [Active]; tramadol 50 mg Oral tab 1 tab q 6 hrs prn [Active]; trental 400 mg three times a day [Active]; - PMHx: 05:29 CAD; Depression; Diabetes - NIDDM; High Cholesterol; Hypertension; Myocardial tl2 infarction; PERIPHERAL NEUROPATHY; - Immunization history:: Adult Immunizations up to date. - Social history:: Smoking status: Patient uses tobacco products, smokes one-half pack cigarettes per day. - Family history:: not pertinent. - Ebola Screening: : No symptoms or risks identified at this time. Screenin:55 Abuse screen: Denies threats or abuse. Nutritional screening: No deficits noted. tl2 Tuberculosis screening: No symptoms or risk factors identified. Fall risk At risk due to immobility. 05:41 Fall Risk IV access (20 points). Mental Status- Overestimates/Forgets Limitations (15 tl2 pts.). Assessment: 04:55 CPR assessment: unresponsive, no respiratory effort, intubated, mechanical ventilation, tl2 cyanotic. Cardiac rhythm is asystole. General: Appears obese. Neuro: Level of Consciousness is unresponsive. Cardiovascular: Rhythm is asystole. Respiratory: Airway via oral intubation. GI: Abdomen is round distended. Derm: Skin is dusky, pale. 04:59 Reassessment: ROSC achieved. pulses present and CPR stopped. Cardiovascular: Rhythm is tl2 sinus tachycardia. 05:15 General: Appears ill. Pain: Unable to use pain scale. Patient is unresponsive. Neuro: aa1 Level of Consciousness is unresponsive. Cardiovascular: Heart tones S1 S2 present Capillary refill < 3 seconds Clubbing of nail beds is absent JVD is absent Rhythm is regular. Respiratory: Airway via oral intubation Respiratory effort is assisted with ventilator Respiratory pattern is symmetrical, Breath sounds are clear bilaterally. : Mauricio in place to gravity drainage Urine is clear. Derm: Skin is intact, is healthy with good turgor, Skin is pink, warm \T\ dry. 05:30 Reassessment: Family stated that pt just returned from [place] yesterday. Had been having tl2 CP two days prior. Had recently had a R leg bypass done at [facility]. 05:45 Reassessment: Patient appears in no apparent distress at this time. Pt taken to CT at [facility] this time. 06:26 Reassessment: Patient appears in no apparent distress at this time. No changes from aa1 previously documented assessment. Pt back from CT at this time. 06:37 Reassessment: Dr. Banks at bedside for admission assessment. Pt awaiting ICU bed. aa1 07:00 Reassessment: RECD REPORT FROM NITA LEE. 58YO AM S/P CPR. ETT IN PLACE, RESP CLEAR bp BILATERALLY. MAURICIO AND OGT IN PLACE. PROPOFOL GTT AT 35 MCG/KG/MIN. ICU ADMIT PENDING. 08:00 Reassessment: PT REMAINS VS STABLE, RASS -2. bp 09:00 Reassessment: NO CHANGE IN PT STATUS, VS STABLE ON MONITOR. PT ER HOLD, SEE [facility] bp FOR FURTHER CHARTING. 13:12 Reassessment: REPORT TO SAMIA LEE, ICU 8. PT YULIANA WITH PCT, RN AND RT. bp Vital Signs: 04:55 Pulse 0; Resp 16 A; Pulse Ox 97% on ETT ambu; Weight 86.18 kg; Height 5 ft. 7 in. tl2 (170.18 cm); 04:59 BP 153 / 119; Pulse 129; Resp 16 A; Pulse Ox 97% on ETT ambu; tl2 05:01 BP 167 / 96; Pulse 124; Resp 16 A; Pulse Ox 100% on ETT ambu; tl2 05:10 BP 143 / 85; Pulse 101; Resp 18 A; Temp 97.4(C); Pulse Ox 100% on ETT vent; tl2 05:48 BP 155 / 97; Pulse 98; Resp 22 A; Temp 97.1(C); Pulse Ox 100% on ETT vent; tl2 06:29 BP 112 / 78; Pulse 92; Resp 22; Temp 96.4(C); Pulse Ox 100% on ETT vent; aa1 06:53 BP 120 / 77; Pulse 94; Resp 16; Temp 96.2(C); Pulse Ox 100% on ETT vent; aa1 07:00 BP 111 / 80; Pulse 95; Resp 18; Temp 96.3; Pulse Ox 100% ; bp 08:00 BP 116 / 81; Pulse 95; Resp 29; Temp 96.6; Pulse Ox 100% ; bp 09:00 BP 109 / 79; Pulse 88; Resp 7; Temp 97.3; Pulse Ox 100% ; bp 13:00 BP 89 / 65; Pulse 86; Resp 18; Temp 99; Pulse Ox 99% ; bp 04:55 Body Mass Index 29.76 (86.18 kg, 170.18 cm) tl2 Levasy Coma Score: 04:55 Eye Response: none(1). Verbal Response: none(1). Motor Response: none(1). Total: 3. tl2 ED Course: 04:55 Patient has correct armband on for positive identification. Placed in gown. Bed in low tl2 position. Side rails up X2. 04:55 Arm band placed on left wrist. tl2 04:56 Inserted saline lock: 20 gauge in left forearm, using aseptic technique. tl2 04:58 Patient arrived in ED. am2 04:58 Intubation: 7.5 Fr. ETT placed orally. Performed by Sukhdev Nobles MD Successful on tl2 first attempt. Placement verified by CO2 detector w/ + color change, auscultating bilateral breath sounds, Ventilated with ventilator. 05:07 Mauricio cath inserted, using sterile technique, 18 Fr., by ED staff, balloon inflated, to tl2 gravity drainage, returned clear yellow urine. 05:09 NGT: inserted 16 Fr. other oral verified return of gastric contents, to intermittent tl2 suction. Returned gastric contents. 05:10 Assisted provider with central line placement. Set up central line tray. Triple lumen tl2 line placed in right femoral. Line placed by Sukhdev Nobles MD Placement verified by blood return, Dressed with Tegaderm, Blood was collected. 05:14 Sukhdev Nobles MD is Attending Physician. sydni 05:27 Triage completed. tl2 05:28 X-ray completed. Portable x-ray completed in exam room. 1 05:28 Carmelo Banks MD is Hospitalizing Provider. sydni 05:29 XRAY Chest (1 view) In Process Unspecified. EDMS 05:45 RN/[employer] SITTER escort patient out of department to CT scan with Ambu bag, oxygen, cardiac aa1 monitor, Respiratory therapist, electrical maintenance technician. 06:45 CT Aorta for Dissection: ro dissection , pe In Process Unspecified. EDMS 07:12 CT Head Brain wo Cont In Process Unspecified. EDMS 07:17 Slava Dupree, RN is Primary Nurse. bp 13:10 Patient admitted, IV remains in place. bp Administered Medications: 04:57 Drug: NS 0.9% 1000 ml Route: IV; Rate: 1 bolus; Site: left forearm; tl2 05:45 Follow up: IV Status: Completed infusion; IV Intake: 1000ml aa1 04:57 Drug: EPINEPHrine 0.1mg/mL 1:10,000 1 mg {Note: administered by JESUS Jordan.} Route: tl2 IVP; Site: left forearm; 04:59 Follow up: Response: Cardiac rhythm changed aa1 04:58 Drug: Sodium Bicarbonate 1 amp {Note: JESUS Jordan.} Route: IVP; Site: left forearm; tl2 06:52 Follow up: Response: No adverse reaction aa1 05:12 Drug: Sodium Bicarbonate 1 amp Route: IVP; Site: left forearm; tl2 06:52 Follow up: Response: No adverse reaction aa1 05:45 Drug: Propofol 5 mcg/kg/min Route: IV; Rate: calculated rate; Site: left forearm; aa1 06:43 Follow up: IV Status: Infusion continued upon admission aa1 06:36 Drug: fentaNYL (PF) 25 mcg Route: IVP; Site: right femoral; aa1 07:28 Follow up: Response: Pain is decreased bp 06:50 Drug: Ativan 1 mg Route: IVP; Site: right femoral; aa1 07:27 Follow up: Response: Anxiety decreased bp Point of Care Testing: Blood Glucose: 05:29 Blood Glucose: 356 mg/dL; tl2 Ranges: Intake: 05:45 IV: 1000ml; Total: 1000ml. aa1 Ventilator: 05:09 Fi02: 100%; Rate: 18min; T.V.: 540ml; Peep: 0cm; tl2 Outcome: 05:30 Decision to Hospitalize by Provider. [facility] 07:00 Outcome Resuscitation successful bp 13:10 Admitted to ICU accompanied by nurse, accompanied by tech, family with patient, via bp stretcher, room 8, with oxygen, on monitor, with chart, Report called to SAMIA LEE 13:10 critical 13:10 Instructed on the need for admit. 13:24 Patient left the ED. eb Signatures: Dispatcher [employer] EDMS Nita Taylor RN RN aa1 Sukhdev Nobles MD MD cha Harvey, Martha 1 Nisa Moya RN RN tl2 Marialuisa Apodaca Brian, RN RN Lola Tanner Corrections: (The following items were deleted from the chart) 06:30 04:58 BP 153 / 119; Pulse 129bpm; Resp 16bpm; Assisted; Pulse Ox 97% ET / Ambu; tl2 tl2 13:12 09:00 Reassessment: NO CHANGE IN PT STATUS, VS STABLE ON MONITOR bp bp
--- NOTE | 2018-07-11 05:31 | EDPHYS ---
Physician Documentation [facility] Name: Marco Antonio Reed Age: 58 yrs Sex: Male : 1960 Arrival Date: 07/11/2018 Time: 04:58 Bed 2 Private MD: ED Physician Sukhdev Nobles HPI: 07/11 05:16 This 58 yrs old Other Male presents to ER via Unassigned with complaints of CPR. sydni 05:16 Preceding the arrest, the patient collapsed, was dyspneic. The arrest occurred at home. sydni Pre-hospital course: The patient has not experienced similar symptoms in the past. Historical: - Allergies: 05:29 UNKNOWN; tl2 - Home Meds: 05:29 atorvastatin 80 mg Oral tab nightly [Active]; losartan potassium [Active]; metoprolol tl2 succinate 50 mg Oral Tb24 [Active]; Plavix 75 mg Oral tab 1 tab once daily [Active]; Precose 25 mg Oral tab 1 tab 3 times per day [Active]; sertraline 50 mg Oral tab 1 tab once daily [Active]; tramadol 50 mg Oral tab 1 tab q 6 hrs prn [Active]; trental 400 mg three times a day [Active]; - PMHx: 05:29 CAD; Depression; Diabetes - NIDDM; High Cholesterol; Hypertension; Myocardial tl2 infarction; PERIPHERAL NEUROPATHY; - Immunization history:: Adult Immunizations up to date. - Social history:: Smoking status: Patient uses tobacco products, smokes one-half pack cigarettes per day. - Family history:: not pertinent. - Ebola Screening: : No symptoms or risks identified at this time. ROS: 05:17 Neuro: Positive for syncope. sydni 05:17 Unable to obtain ROS due to obtunded state, patient is on ventilator. Exam: 05:17 Head/Face: Normocephalic, atraumatic. ENT: Nares patent. No nasal discharge, no sydni septal abnormalities noted. Tympanic membranes are normal and external auditory canals are clear. Oropharynx with no redness, swelling, or masses, exudates, or evidence of obstruction, uvula midline. Mucous membranes moist. Neck: Trachea midline, no thyromegaly or masses palpated, and no cervical lymphadenopathy. Supple, full range of motion without nuchal rigidity, or vertebral point tenderness. No Meningismus. Chest/axilla: Normal chest wall appearance and motion. Nontender with no deformity. No lesions are appreciated. Cardiovascular: Regular rate and rhythm with a normal S1 and S2. No gallops, murmurs, or rubs. Normal PMI, no JVD. No pulse deficits. Back: No spinal tenderness. No costovertebral tenderness. Full range of motion. Male : Normal genitalia with no discharge or lesions. Skin: Warm, dry with normal turgor. Normal color with no rashes, no lesions, and no evidence of cellulitis. MS/ Extremity: Pulses equal, no cyanosis. Neurovascular intact. Full, normal range of motion. Psych: Awake, alert, with orientation to person, place and time. Behavior, mood, and affect are within normal limits. 05:17 Respiratory: moderate respiratory distress is noted, intubated, Respirations: labored breathing, that is mild, Breath sounds: decreased breath sounds, rhonchi, wheezing: expiratory that is mild, Respiratory rate: 18 Vital Signs: 04:55 Pulse 0; Resp 16 A; Pulse Ox 97% on ETT ambu; Weight 86.18 kg; Height 5 ft. 7 in. tl2 (170.18 cm); 04:59 BP 153 / 119; Pulse 129; Resp 16 A; Pulse Ox 97% on ETT ambu; tl2 05:01 BP 167 / 96; Pulse 124; Resp 16 A; Pulse Ox 100% on ETT ambu; tl2 05:10 BP 143 / 85; Pulse 101; Resp 18 A; Temp 97.4(C); Pulse Ox 100% on ETT vent; tl2 05:48 BP 155 / 97; Pulse 98; Resp 22 A; Temp 97.1(C); Pulse Ox 100% on ETT vent; tl2 06:29 BP 112 / 78; Pulse 92; Resp 22; Temp 96.4(C); Pulse Ox 100% on ETT vent; aa1 06:53 BP 120 / 77; Pulse 94; Resp 16; Temp 96.2(C); Pulse Ox 100% on ETT vent; aa1 07:00 BP 111 / 80; Pulse 95; Resp 18; Temp 96.3; Pulse Ox 100% ; bp 08:00 BP 116 / 81; Pulse 95; Resp 29; Temp 96.6; Pulse Ox 100% ; bp 09:00 BP 109 / 79; Pulse 88; Resp 7; Temp 97.3; Pulse Ox 100% ; bp 13:00 BP 89 / 65; Pulse 86; Resp 18; Temp 99; Pulse Ox 99% ; bp 04:55 Body Mass Index 29.76 (86.18 kg, 170.18 cm) tl2 [place] Coma Score: 04:55 Eye Response: none(1). Verbal Response: none(1). Motor Response: none(1). Total: 3. tl2 Ventilator: 05:09 Fi02: 100%; Rate: 18min; T.V.: 540ml; Peep: 0cm; tl2 Procedures: 05:17 Intubation: Ventilated with 100% NRB prior to procedure. Intubated orally using # 4 sydni [place] blade with 7.5 mm ETT. Successful on second attempt. Ventilated with Ambu bag. Cricoid pressure applied during procedure. Placement verified by CO2 detector with (+) color change, auscultating bilateral breath sounds, O2 saturation after procedure was 100 %. Patient tolerated well. Central Line: the site was prepped with Betadine, a triple lumen catheter was inserted, in the right in 1 attempts. placement was verified, by blood return, the site was dressed with using sterile technique, the patient tolerated the procedure, well. MDM: 05:17 Data reviewed: vital signs, nurses notes, lab test result(s), EKG, radiologic studies, [facility] CT scan, plain films. 05:21 Patient medically screened. [facility] 07/11 05:16 Order name: Basic Metabolic Panel [facility] 07/11 05:16 Order name: CBC with Diff [facility] 07/11 05:16 Order name: LFT's [facility] 07/11 05:16 Order name: Magnesium [facility] 07/11 05:16 Order name: NT PRO-BNP [facility] 07/11 05:16 Order name: PT-INR [facility] 07/11 05:16 Order name: Troponin (emerg Dept Use Only); Complete Time: 06:21 [facility] 07/11 05:16 Order name: Lipase; Complete Time: 06:21 [facility] 07/11 05:16 Order name: Blood Culture Adult (2) [facility] 07/11 05:16 Order name: Urine Culture [facility] 07/11 05:16 Order name: ABG; Complete Time: 05:50 [facility] 07/11 05:16 Order name: Basic Metabolic Panel; Complete Time: 06:21 [facility] 07/11 05:16 Order name: CBC with Automated Diff [facility] 07/11 05:17 Order name: Liver (Hepatic) Function; Complete Time: 06:21 [facility] 07/11 05:16 Order name: XRAY Chest (1 view) [facility] 07/11 05:17 Order name: Magnesium; Complete Time: 06:21 [facility] 07/11 05:17 Order name: NT PRO-BNP; Complete Time: 06:21 [facility] 07/11 05:17 Order name: Protime (+INR); Complete Time: 06:13 [facility] 07/11 05:22 Order name: Urine Dipstick--Ancillary (enter results); Complete Time: 06:21 cm6 07/11 05:36 Order name: CT Head Brain wo Cont [facility] 07/11 05:36 Order name: CT Aorta for Dissection: ro dissection , pe [facility] 07/11 06:03 Order name: CBC Smear Scan [facility] 07/11 07:33 Order name: ABG 07/11 07:33 Order name: Troponin I 07/11 07:50 Order name: Echo with Doppler [facility] 07/11 07:51 Order name: EEG Request [facility] 07/11 12:59 Order name: ABG Arterial Blood Gas [facility] 07/11 05:16 Order name: EKG; Complete Time: 05:18 [facility] 07/11 05:16 Order name: Cardiac monitoring; Complete Time: 05:28 [facility] 07/11 05:16 Order name: EKG - Nurse/Tech; Complete Time: 05:28 [facility] 07/11 05:16 Order name: IV Saline Lock; Complete Time: 05:28 [facility] 07/11 05:16 Order name: Labs collected and sent; Complete Time: 05:28 [facility] 07/11 05:16 Order name: O2 Per Protocol; Complete Time: 05:28 [facility] 07/11 05:16 Order name: O2 Sat Monitoring; Complete Time: 05:28 [facility] 07/11 05:16 Order name: Urine Dipstick-Ancillary (obtain specimen); Complete Time: 05:28 [facility] 07/11 07:41 Order name: CONS Physician Consult [facility] 07/11 07:41 Order name: CONS Physician Consult [facility] 07/11 07:41 Order name: NPO [facility] 07/11 07:51 Order name: Respiratory Therapy Consult EDMS Administered Medications: 04:57 Drug: NS 0.9% 1000 ml Route: IV; Rate: 1 bolus; Site: left forearm; tl2 05:45 Follow up: IV Status: Completed infusion; IV Intake: 1000ml aa1 04:57 Drug: EPINEPHrine 0.1mg/mL 1:10,000 1 mg {Note: administered by JESUS Jordan.} Route: tl2 IVP; Site: left forearm; 04:59 Follow up: Response: Cardiac rhythm changed aa1 04:58 Drug: Sodium Bicarbonate 1 amp {Note: JESUS Jordan.} Route: IVP; Site: left forearm; tl2 06:52 Follow up: Response: No adverse reaction aa1 05:12 Drug: Sodium Bicarbonate 1 amp Route: IVP; Site: left forearm; tl2 06:52 Follow up: Response: No adverse reaction aa1 05:45 Drug: Propofol 5 mcg/kg/min Route: IV; Rate: calculated rate; Site: left forearm; aa1 06:43 Follow up: IV Status: Infusion continued upon admission aa1 06:36 Drug: fentaNYL (PF) 25 mcg Route: IVP; Site: right femoral; aa1 07:28 Follow up: Response: Pain is decreased bp 06:50 Drug: Ativan 1 mg Route: IVP; Site: right femoral; aa1 07:27 Follow up: Response: Anxiety decreased bp Point of Care Testing: Blood Glucose: 05:29 Blood Glucose: 356 mg/dL; tl2 Ranges: Critical Glucose Levels:Adult <50 mg/dl or >400 mg/dl <40 mg/dl or >180 mg/dl Disposition: 07/11/18 05:30 Hospitalization ordered by Carmelo Banks for Inpatient Admission. Preliminary diagnosis are Dyspnea, unspecified, Respiratory failure, unspecified, Cardiac arrest - sp cpr, Obesity, unspecified, Type 2 diabetes mellitus. - Bed requested for Intensive Care Unit. - Status is Inpatient Admission. eb - Condition is Guarded. - Problem is new. - Symptoms have improved. UTI on Admission? No Signatures: Dispatcher [employer] EDMS Nikki Taylor RN RN aa1 Sukhdev Nobles MD MD cha Williams, Irene, RN RN Wade Terry MD MD rn Knox, Taylor, RN RN tl2 Moise, Lola eb Joon, Slava RN bp Corrections: (The following items were deleted from the chart) 06:31 05:18 Head C Spine Cap Wo Con+CT.RAD.BRZ ordered. EDMS EDMS 08:38 05:30 Hospitalization Ordered by Carmelo Banks MD for Inpatient Admission. Preliminary iw diagnosis is Dyspnea, unspecified; Respiratory failure, unspecified; Cardiac arrest - sp cpr; Obesity, unspecified; Type 2 diabetes mellitus. Bed requested for Intensive Care Unit. Status is Inpatient Admission. Condition is Guarded. Problem is new. Symptoms have improved. UTI on Admission? No. sydni 08:38 08:38 07/11/2018 05:30 Hospitalization Ordered by Carmelo Banks MD for Inpatient iw Admission. Preliminary diagnosis is Dyspnea, unspecified; Respiratory failure, unspecified; Cardiac arrest - sp cpr; Obesity, unspecified; Type 2 diabetes mellitus. Bed requested for [facility] ER HOLD. Status is Inpatient Admission. Condition is Guarded. Problem is new. Symptoms have improved. UTI on Admission? No. iw 10:57 08:38 07/11/2018 05:30 Hospitalization Ordered by Carmelo Banks MD for Inpatient eb Admission. Preliminary diagnosis is Dyspnea, unspecified; Respiratory failure, unspecified; Cardiac arrest - sp cpr; Obesity, unspecified; Type 2 diabetes mellitus. Bed requested for [facility] ER HOLD. Status is Inpatient Admission. Condition is Guarded. Problem is new. Symptoms have improved. UTI on Admission? No. iw 13:24 10:57 07/11/2018 05:30 Hospitalization Ordered by Carmelo Banks MD for Inpatient eb Admission. Preliminary diagnosis is Dyspnea, unspecified; Respiratory failure, unspecified; Cardiac arrest - sp cpr; Obesity, unspecified; Type 2 diabetes mellitus. Bed requested for Intensive Care Unit. Status is Inpatient Admission. Condition is Guarded. Problem is new. Symptoms have improved. UTI on Admission? No. eb
[2018-07-11] MEDS ORDERED: PROPOFOL 1,000 MG/100 ML VIAL IV ONE ×2 (05:55→10:45)
[2018-07-11 05:57] LABS: Absolute Lymphocytes (CBC) 5.1 K/uL (0.7-4.9); Absolute Monocytes 0.7 K/uL (0.1-1.3); Absolute Neutrophil 7.4 K/uL (1.8-8.0); Basophils % 0.8 % (0-1.3); Eosinophils % 2.3 % (0-4.4); Hematocrit 42.9 % (39.6-49.0); Lymphocytes % 37.3 % (15.3-44.8); MPV 8.6 fL (7.6-11.3); Monocytes % 5.5 % (3.3-12.3)
[2018-07-11 06:02] LABS: Protime INR 1.06
[2018-07-11 06:14] LABS: Urine Blood 1+ (NEG); Urine Glucose 2+ (NEG); Urine Protein 2+ (NEG); Urine pH 5.5 (5.0-7.0)
[2018-07-11 06:17] LABS: Albumin 2.9 g/dL (3.4-5.0); Bilirubin Direct 0.2 mg/dL (0-0.2); Bilirubin Total 0.5 mg/dL (0.2-1.0); Magnesium 2.4 mg/dL (1.8-2.4); Potassium 4.3 mmol/L (3.5-5.1); Protein, Total 5.9 g/dL (6.4-8.2); Troponin (Emerg Dept Use Only) 0.02 ng/mL (0.0-0.045)
[2018-07-11] MEDS ORDERED: FENTANYL CITR 100 MCG/2 ML ONE (06:46)
[2018-07-11] MEDS ORDERED: LORazepam 2 MG/ML VIAL ONE (07:01)
[2018-07-11] MEDS ORDERED: ONDANSETRON 4 MG/2 ML VIAL IV PRN (07:35)
[2018-07-11] MEDS ORDERED: LORazepam 2 MG/ML VIAL IV PRN (07:39)
[2018-07-11 07:50] LABS: Blood Gas Oxyhemoglobin 95.8 % (94-97)
[2018-07-11] MEDS: Levofloxacin500mg IV 500 MG/100 ML BAG IV SCH (08:00)
--- NOTE | 2018-07-11 08:03 | P.HP ---
Certification for Inpatient Patient admitted to: Inpatient With expected LOS: >2 Midnights Patient will require the following post-hospital care: None Practitioner: I am a practitioner with admitting privileges, knowledge of patient current condition, hospital course, and medical plan of care. Services: Services provided to patient in accordance with Admission requirements found in Title 42 Section 412.3 of the Code of Federal Regulations Patient History Date of Service: 07/11/18 Reason for admission: Respiratory failure History of Present Illness: Patient is a 58-year-old gentleman who came into the hospital was respiratory failure. Patient recently flew back from [place]. He had been short of breath and suddenly had chest pain while he was at home. EMS was notified and when they arrived patient was looking cyanotic and in respiratory distress. He was put into the ambulance and he lost his pulse. CPR was initiated. CPR was being performed for 30 min when he arrived into the hospital. Patient was given Epi and they were able to get a pulse right away. He was intubated and placed on a ventilator. Patient's CT aortic dissection which revealed consolidated pneumonia with pulmonary edema. Patient was here in December with similar complaints and had an echocardiogram which revealed an ejection fraction of 30%. At this time, will go ahead and add the hospital and diurese patient. Continue on antibiotics. Will get pulmonary and cardiology consultation. We have done a full consultation and will proceed with care at our facility. Patient does have some myoclonic jerks which may be related to his hypoxemia. Will continue with treatment with benzodiazepines and also initiate antiepileptics. Stat echocardiogram is pending. ABG and troponins are pending as well. Allergies No Known Allergies Allergy (Verified 12/11/16 16:32) Home Medications: Aspirin Chewable [Aspirin Chewable*] 81 mg PO DAILY #30 tab.chew 12/12/16 Clopidogrel Bisulfate [Plavix*] 75 mg PO DAILY #30 tablet 12/12/16 Atorvastatin Calcium [Lipitor] 80 mg PO BEDTIME 06/15/17 Levocetirizine Dihydrochloride [Xyzal] 5 mg PO DAILY 06/15/17 Losartan Potassium [Cozaar] 25 mg PO DAILY 06/15/17 Metoprolol Succinate 50 mg PO DAILY 06/15/17 Ranolazine [Ranexa] 500 mg PO BID 06/15/17 Tramadol HCl [Ultram] 50 mg PO Q6HR PRN 06/15/17 Arformoterol Tartrate [Brovana] 15 mcg NEB BIDRESP #1 vial.neb 06/17/17 Furosemide 40 mg PO DAILY #30 tablet 06/17/17 - Past Medical/Surgical History Diabetic: Yes -: DM -: HTN -: HYPERLIPEMIA -: CHF -: SMOKER' -: [place] -: PERIPHERAL NEUROPATHY -: CAD -: CABG 2013 - Family History Father Family History: Reviewed- Non-Contributory - Social History Smoking Status: Former smoker Alcohol use: No CD- Drugs: No Caffeine use: No Review of Systems 10-point ROS is otherwise unremarkable Physical Examination - Vital Signs Temperature: 99 F Blood Pressure: 115/80 Pulse: 100 Respirations: 22 Pulse Ox (%): 96 - Physical Exam General: Unresponsive, Other (Intubated and sedated) HEENT: Atraumatic, Normocephalic, PERRLA Neck: Supple, 2+ carotid pulse no bruit, JVD not distended, No Thyromegaly Respiratory: Crackles/rales, Expiratory wheezes, Rhonchi/gurgles Cardiovascular: Regular rate/rhythm, Normal S1 S2, Systolic murmur Gastrointestinal: Normal bowel sounds, Soft and benign, Non-distended Musculoskeletal: No clubbing, No swelling Integumentary: No rashes Neurological: Other (Moves all extremities to painful stimuli; cranial nerves are intact; gag reflex and pupils pinpoint) - Studies Laboratory Data (last 24 hrs) 07/11/18 05:20: PT 12.5, INR 1.06 07/11/18 05:20: WBC 13.7 H, Hgb 13.3 L, Hct 42.9, Plt Count 209 07/11/18 05:20: Sodium 137, Potassium 4.3, BUN 11, Creatinine 1.55 H, Glucose 350 H, Magnesium 2.4, Total Bilirubin 0.5, AST 60 H, ALT 42, Alkaline Phosphatase 85, Lipase 288 Assessment & Plan - Problems (Diagnosis) (1) Acute respiratory failure Onset Date: 06/16/17 Current Visit: No Status: Resolved Qualifiers: Respiratory failure complication: hypoxia Qualified Code(s): J96.01 - Acute respiratory failure with hypoxia (2) Cardiac arrest Current Visit: Yes Status: Acute (3) Lung consolidation due to pneumococcal pneumonia Current Visit: Yes Status: Acute (4) CAD (coronary artery disease) of artery bypass graft Onset Date: 06/16/17 Current Visit: No Status: Chronic Qualifiers: [place] vs. 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: without chcf use Diabetes mellitus complication status: with unspecified complications Qualified Code(s): E11.8 - Type 2 diabetes mellitus with unspecified complications (7) Dyslipidemia Onset Date: 12/12/16 Current Visit: No Status: Chronic (8) Hypertension Onset Date: 12/12/16 Current Visit: No Status: Chronic Qualifiers: Hypertension type: essential hypertension Qualified Code(s): I10 - Essential (primary) hypertension (9) Nicotine abuse Current Visit: No Status: Chronic (10) Pulmonary edema Onset Date: 06/16/17 Current Visit: No Status: Resolved Qualifiers: Chronicity: acute Qualified Code(s): J81.0 - Acute pulmonary edema (11) Acute systolic CHF (congestive heart failure), NYHA class 4 Current Visit: Yes Status: Acute - Plan - Continue with IV antibiotics - Awaiting sputum and blood culture - Repeat chest x-ray - Pulmonary consultation - Continue with nebs as needed - continue on mechanical ventilation - Hep-Lock IV - Echocardiogram stat - Cardiology consultation - Aggressive diuresis - Strict I's and O's - serial troponins and repeat ABGs - Daily weights - anti epileptics - EEG - PPI Discharge Plan: Home Plan to discharge in: Greater than 2 days - Advance Directives Does patient have a Living Will: No Does patient have a Durable POA for Healthcare: No - Code Status/Comfort Care Code Status Assessed: Yes Code Status: Full Code Critical Care: Yes Time Spent Managing PTS Care (In Minutes): 120
[2018-07-11] MEDS ORDERED: SODIUM CHLORIDE 0.9% 10ML INJ IV PRN (08:11)
[2018-07-11] MEDS ORDERED: PIPER/TAZO/NS 3.375gm 3.375 GM/100 ML BAG IVPB SCH (09:00)
[2018-07-11] MEDS ORDERED: ENOXAPARIN 40 MG/0.4 ML SQ SCH (09:00)
[2018-07-11] MEDS ORDERED: PANTOPRAZOLE 40 MG INJ IVP SCH (09:00)
[2018-07-11] MEDS: CLOPIDOGREL 75 MG TABLET PO SCH (09:00)
[2018-07-11] MEDS ORDERED: METOPROLOL TAR 25 MG TAB PO SCH (09:00)
[2018-07-11] MEDS: ASPIRIN EC 81 MG TAB PO SCH (09:00)
[2018-07-11] MEDS: levETIRAcetam 500 MG in NA CHLORIDE 0.9% 100 ML IV SCH ×2 (09:00→21:02)
--- NOTE | 2018-07-11 09:18 | EKG ---
Test Date: 2018-07-11 Test Time: 05:02:13 Tile Decorator: RADHA MEASUREMENT RESULTS: Intervals: Rate: 114 TX: 154 QRSD: 102 QT: 352 QTc: 485 [place]: P: 10 TX: 154 QRS: -22 T: 141 INTERPRETIVE STATEMENTS: Sinus tachycardia Possible Left atrial enlargement Septal infarct, age undetermined Marked ST abnormality, possible inferior subendocardial injury Abnormal ECG Compared to ECG 06/15/2017 04:29:19 No significant changes Electronically Signed On 07-11-18 09:18:32 CDT by Federico Wilde
[2018-07-11 09:29] LABS: Anisocytosis 2+; Blood Morphology Comment NOTED (NOT SEEN); Platelet Estimate ADEQ; Poikilocytosis 1+; Polychromasia 1+; Urine White Blood Cell Casts OK
[2018-07-11] MEDS ORDERED: CLOPIDOGREL 75 MG TABLET ONE (10:00)
[2018-07-11] MEDS ORDERED: FUROSEMIDE 100 MG in NA CHLORIDE 0.9% 90 ML IV SCH (10:00)
[2018-07-11] MEDS ORDERED: ASPIRIN EC 81 MG TAB PO ONE (10:00)
[2018-07-11] MEDS ORDERED: FUROSEMIDE 100 MG/10 ML VIAL IV ONE (10:01)
[2018-07-11] MEDS ORDERED: METOPROLOL TAR 25 MG TAB ONE (10:01)
[2018-07-11] MEDS ORDERED: ENOXAPARIN 40 MG/0.4 ML SQ ONE (10:01)
[2018-07-11] MEDS ORDERED: Levofloxacin500mg IV 500 MG/100 ML BAG IV ONE (10:01)
[2018-07-11] MEDS ORDERED: PANTOPRAZOLE 40 MG INJ ONE (10:01)
[2018-07-11] MEDS ORDERED: PIPER/TAZO/NS 3.375gm 3.375 GM/100 ML BAG ONE (10:02)
[2018-07-11] MEDS: IPRATROPIUM BROM 0.5MG/2.5ML NEB SCH ×3 (10:03→20:00)
[2018-07-11] MEDS: ALBUTEROL 2.5 MG/3 ML NEB SOL NEB SCH ×3 (10:03→20:00)
[2018-07-11] MEDS ORDERED: ALBUTEROL 2.5 MG/3 ML NEB SOL ONE (10:15)
[2018-07-11] MEDS ORDERED: IPRATROPIUM BROM 0.5MG/2.5ML ONE (10:15)
[2018-07-11] MEDS ORDERED: Pharmacy Consult 1 EA XX PRN (11:40)
--- NOTE | 2018-07-11 11:48 | P.CNS ---
Date of Consult: 07/11/18 Reason for Consult: Respiratory failure Chief Complaint: Respiratory failure History of Present Illness: Patient is 58 years of age complained of shortness of breath went into cardiopulmonary arrest brought here to the emergency room he underwent CPR no evidence of myocardial damage currently he is intermittently responsive on a propofol drip hemodynamically stable was diagnosed to have pneumonia apparently he travel to [facility] at this happened sudden onset multiple medical problems patient is on bronchodilators as also diabetic I suspect he may have underlying for re artery disease is seen in the patient was admitted here a year ago after having traveled to [facility] became sick he is an alcoholic smoker and history of congestive heart failure Allergies No Known Allergies Allergy (Verified 12/11/16 16:32) Home Medications: Aspirin Chewable [Aspirin Chewable*] 81 mg PO DAILY #30 tab.chew 12/12/16 Clopidogrel Bisulfate [Plavix*] 75 mg PO DAILY #30 tablet 12/12/16 Atorvastatin Calcium [Lipitor] 80 mg PO BEDTIME 06/15/17 Levocetirizine Dihydrochloride [Xyzal] 5 mg PO DAILY 06/15/17 Losartan Potassium [Cozaar] 25 mg PO DAILY 06/15/17 Metoprolol Succinate 50 mg PO DAILY 06/15/17 Ranolazine [Ranexa] 500 mg PO BID 06/15/17 Tramadol HCl [Ultram] 50 mg PO Q6HR PRN 06/15/17 Arformoterol Tartrate [Brovana] 15 mcg NEB BIDRESP #1 vial.neb 06/17/17 Furosemide 40 mg PO DAILY #30 tablet 06/17/17 - Past Medical/Surgical History Diabetic: Yes -: DM -: HTN -: HYPERLIPEMIA -: CHF -: SMOKER' -: [place] -: PERIPHERAL NEUROPATHY -: CAD -: CABG 2013 - Family History Father Family History: Reviewed- Non-Contributory - Social History Smoking Status: Unknown if ever smoked Alcohol use: No CD- Drugs: No Caffeine use: No Review of Systems is unable to be obtained Physical Examination Temp Pulse Resp BP Pulse Ox 97.9 F 88 18 97/73 100 07/11/18 11:00 07/11/18 11:00 07/11/18 11:00 07/11/18 11:00 07/11/18 11:00 General: Unresponsive Neck: Supple Respiratory: Clear to auscultation bilaterally Cardiovascular: No edema, Regular rate/rhythm Gastrointestinal: Normal bowel sounds, Soft and benign Laboratory Data (last 24 hrs) 07/11/18 05:20: PT 12.5, INR 1.06 07/11/18 05:20: WBC 13.7 H, Hgb 13.3 L, Hct 42.9, Plt Count 209 07/11/18 05:20: Sodium 137, Potassium 4.3, BUN 11, Creatinine 1.55 H, Glucose 350 H, Magnesium 2.4, Total Bilirubin 0.5, AST 60 H, ALT 42, Alkaline Phosphatase 85, Lipase 288 - Problems (1) Respiratory failure Current Visit: Yes Status: Acute Plan: Patient is 58 years of age with a history of diabetes coronary artery disease congestive heart failure presume COPD is an active smoker after having travel to [place] he developed sudden onset of shortness of breath chest tightness cardiopulmonary air Power had a similar episode last year patient has has had a cardiac catheterization done shows coronary artery disease is also an alcoholic active smoker no evidence of myocardial damage he does have a pneumonia patient has a mild microcytosis apparently there were no EKG changes I have added vancomycin sputum cultures bronchodilator therapy start patient on thymine 0 cardiogram cardiology Consul blood cultures are pending Qualifiers: Chronicity: acute
[2018-07-11 12:57] LABS: Arterial Blood Carboxyhemoglob 0.8 % (0-1.5); Blood Gas Oxyhemoglobin 92.7 % (94-97); Blood O2 Saturation 94.6 % (92-98.5)
[2018-07-11] MEDS: VANCOMYCIN 1.5 GM in NA CHLORIDE 0.9% 500 ML IVPB SCH (14:00)
[2018-07-11] MEDS: LORazepam 2 MG/ML VIAL IV PRN ×2 (15:01→16:42)
[2018-07-11] MEDS: THIAMINE 200 MG/2 ML INJ IVP SCH (15:04)
[2018-07-11] MEDS: FUROSEMIDE 40 MG/4 ML VIAL IV SCH (16:42)
--- NOTE | 2018-07-11 16:42 | RAD REPORT ---
EXAM DESCRIPTION: US - Extrem Venous W Compress Zaid - 07/11/2018 4:31 pm CLINICAL HISTORY: R/O DVT Bilateral leg edema and swelling. COMPARISON: No comparisons TECHNIQUE: Real-time sonographic interrogation of the left and right lower extremity deep venous sys tems was performed. FINDINGS: Normal compressibility, flow augmentation, phasic flow and spontaneous flow is identified in both the left and right lower extremity deep venous systems. IMPRESSION: No sonographic evidence of left or right lower extremity deep venous thrombosis.
--- NOTE | 2018-07-11 16:44 | RAD REPORT ---
EXAM DESCRIPTION: US - CP - 07/11/2018 4:31 pm CLINICAL HISTORY: s/p cardiac arrest, r/o carotid stenosis Headache, drowsiness COMPARISON: No comparisons TECHNIQUE: Real-time sonographic evaluation of both carotid systems was performed. Doppler interroga tion was performed with waveform tracing bilaterally. FINDINGS: Normal high resistance waveforms are noted in both external carotid arteries. The common c arotid arteries and internal carotid arteries show normal low resistance waveforms. Moderate mixed plaque is seen in both carotid bulbs. Peak systolic and end diastolic velocity values and the ICA/CCA ratios are in the non-hemodynamically significant range. The left vertebral artery was not well seen. Right vertebral artery shows forward flow. IMPRESSION: Moderate mixed plaque in both proximal internal carotid arteries. No evidence of a hemodynamically significant stenosis.
[2018-07-11] MEDS: ACETAMINOPHEN 650MG/RECT SUPP PR PRN (18:24)
[2018-07-11] MEDS: PROPOFOL 1,000 MG/100 ML VIAL IV PRN (18:30)
--- NOTE | 2018-07-11 19:16 | CON ---
Date of Consultation: 07/11/2018 The patient admitted on 07/11/[address] Banks's service. The patient was seen on 07/11/2018. Reason For Consultation: Status post cardiac arrest. History Of Present Illness: Mr. Reed is a 58-year-old. He has a very complicated past medical cardiac history, had an episode of respiratory failure requiring CPR, brought to the emergency room, intubated. Initial blood gases with PO2 of 202, pH of 6.99, pCO2 of 58 with posturing. The patient has a history of CAD. He is status post stent of an RCA graft in June 2016. At that time, he had a patent MARIE to the LAD and a patent graft to the OM. He has a totally occluded koi vessels. He has a history of depression, diabetes, dyslipidemia, hypertension, neuropathy, asthma, and peripheral arterial disease. Allergies: NONE. Review of Systems: Negative. Social History: Unobtainable. Family History: Noncontributory. Medications: At home include aspirin, Ranexa, Plavix, Lipitor, Brovana, Cozaar, metoprolol, Trental, Lasix, and Xyzal. Physical Examination: General: Intubated. Second set of blood gas was 142 PO2, pCO2 41, pH 7.33. HEENT: Negative. Neck: Supple. No bruit. Chest: Reveals diffuse rales and expiratory wheezing. Cardiac: Revealed a regular rhythm and rate. No murmurs, gallops, or rubs. Abdomen: Benign. Extremities: Revealed no clubbing, cyanosis, or edema. Diagnostic Data: EKG showed ST depression throughout. Last echo showed an ejection fraction of 35% in June 2017. Creatinine 1.55. His troponin was 0.16. [place] 31472, glucose was 350. Impression And Plan: The patient with history of coronary artery disease status post coronary artery bypass graft, status post percutaneous coronary intervention of the right coronary artery graft, pat ent left internal mammary artery and patent obtuse marginal graft. Ejection fraction of 35%. Chroni c systolic congestive heart failure, now status post cardiac arrest. He has an elevated troponin. H e was very acidotic, which can certainly explain the troponin elevation, but nevertheless, if he make s it through this neurologically, he needs to have another heart catheterization later. We need to d o another echocardiogram later today. I think we need to consider him for a defibrillator if he make s it through. He needs to be on Lovenox for prophylaxis. Once he is awake, we can resume his home m edications. For now, we will let Pulmonary manage his respiratory status. He may need neurological consultation later. His other problems include history of peripheral artery disease, asthma, diabete s, poorly controlled. He has a history of depression, hypertension, dyslipidemia, and neuropathy. Alicia castellanos will continue to follow Mr. Reed. OFE/REJI Voice ID: [id number] Report ID: [id number]
[2018-07-11] MEDS ORDERED: ARFORMOTEROL TARTRATE 15 MCG/2 ML VIAL.NEB NEB SCH (20:00)
[2018-07-11] MEDS: ARFORMOTEROL TARTRATE 15 MCG/2 ML VIAL.NEB NEB SCH (20:00)
[2018-07-11] MEDS ORDERED: ATORVASTATIN 80 MG TAB PO SCH (21:00)
[2018-07-11] MEDS: ATORVASTATIN 40 MG TAB PO SCH (21:02)
[2018-07-12] MEDS: PROPOFOL 1,000 MG/100 ML VIAL IV PRN (00:04)
[2018-07-12] MEDS: IPRATROPIUM BROM 0.5MG/2.5ML NEB SCH ×4 (02:00→19:20)
[2018-07-12] MEDS: ALBUTEROL 2.5 MG/3 ML NEB SOL NEB SCH ×4 (02:00→19:20)
[2018-07-12] MEDS: LORazepam 2 MG/ML VIAL IV PRN ×3 (04:30→21:00)
[2018-07-12 05:37] LABS: Blood Gas Oxyhemoglobin 92.9 % (94-97)
[2018-07-12 05:49] LABS: Absolute Lymphocytes (CBC) 1.7 K/uL (0.7-4.9); Absolute Monocytes 1.1 K/uL (0.1-1.3); Basophils % 0.4 % (0-1.3); Hematocrit 42.9 % (39.6-49.0); Lymphocytes % 10.6 % (15.3-44.8); RBC Red Blood Cell Count 6.61 M/uL (4.33-5.43)
[2018-07-12 05:51] LABS: ALT/SGPT 67 U/L (12-78); AST/SGOT 56 U/L (15-37); Albumin 3.5 g/dL (3.4-5.0); Alkaline Phosphatase 72 U/L (45-117); BUN Blood Urea Nitrogen 24 mg/dL (7-18); Bicarbonate 26 mmol/L (21-32); Glucose Level 177 mg/dL (74-106); HDL Cholesterol 21 mg/dL (40-60); LDL Cholesterol, Calculated ND (<130); Potassium 3.3 mmol/L (3.5-5.1); Protein, Total 7.3 g/dL (6.4-8.2); Sodium Level 140 mmol/L (136-145)
[2018-07-12 06:05] LABS: LDL, Direct 90 mg/dL (100-129)
[2018-07-12 06:36] LABS: Magnesium 2.2 mg/dL (1.8-2.4); Phosphorus 3.8 mg/dL (2.5-4.9)
[2018-07-12] MEDS: FUROSEMIDE 40 MG/4 ML VIAL IV SCH ×2 (08:03→16:52)
[2018-07-12] MEDS: PANTOPRAZOLE 40 MG INJ IVP SCH (08:03)
[2018-07-12] MEDS: THIAMINE 200 MG/2 ML INJ IVP SCH (08:03)
[2018-07-12] MEDS: LOSARTAN POTASSIUM 50 MG TABLET PO SCH (08:04)
[2018-07-12] MEDS: CLOPIDOGREL 75 MG TABLET PO SCH (08:04)
[2018-07-12] MEDS: ASPIRIN EC 81 MG TAB PO SCH (08:05)
[2018-07-12] MEDS: levETIRAcetam 500 MG in NA CHLORIDE 0.9% 100 ML IV SCH ×2 (08:05→21:47)
[2018-07-12] MEDS: Levofloxacin500mg IV 500 MG/100 ML BAG IV SCH (08:05)
[2018-07-12] MEDS: ARFORMOTEROL TARTRATE 15 MCG/2 ML VIAL.NEB NEB SCH ×2 (08:16→19:20)
[2018-07-12] MEDS ORDERED: POTASSIUM 25 MEQ EFFERV TAB PO ONE (09:00)
[2018-07-12] MEDS ORDERED: METOPROLOL XL 50 MG TAB PO SCH (09:00)
[2018-07-12] MEDS: ACETAMINOPHEN 650MG/RECT SUPP PR PRN ×2 (09:58→18:23)
--- NOTE | 2018-07-12 10:20 | P.PN ---
Subjective Date of Service: 07/12/18 Chief Complaint: Status post cardiac arrest Patient is coma toes unresponsive eyes wide open hemodynamically stable no spontaneous movement Review of Systems is unable to be obtained Physical Examination - Vital Signs Temperature: 100.1 F Blood Pressure: 156/85 Pulse: 102 Respirations: 15 Pulse Ox (%): 100 - Physical Exam General: Comatose Respiratory: Clear to auscultation bilaterally Cardiovascular: No edema Gastrointestinal: Normal bowel sounds Assessment & Plan - Problems (Diagnosis) (1) Cardiac arrest Current Visit: Yes Status: Acute Plan: Patient admitted with cardiac arrest he probably has significant anoxic damage to the brain currently comatosed. No spontaneous movements labs reviewed mildly abnormal renal function elevated white count mildly anemic head CT done no report available recommend withdrawal from the ventilator and life support system EEG pending
--- NOTE | 2018-07-12 10:33 | P.PN ---
Subjective Date of Service: 07/12/18 Chief Complaint: Status post cardiac arrest Patient seen and examined with Rn. Chart reviewed. pt is currently off the sedation. Currently continue to be on [facility] vent. Review of Systems 10-point ROS is otherwise unremarkable Physical Examination - Vital Signs Temperature: 100.1 F Blood Pressure: 156/85 Pulse: 102 Respirations: 15 Pulse Ox (%): 100 - Physical Exam General: Other (Intubated. ) Respiratory: Normal air movement, Expiratory wheezes, Inspiratory wheezes, Rhonchi/gurgles Cardiovascular: Regular rate/rhythm, Normal S1 S2 Gastrointestinal: Normal bowel sounds, No tenderness Musculoskeletal: No tenderness Integumentary: No rashes Neurological: Abnormal strength, Abnormal cranial nerve function, Abnormal reflexes Lymphatics: No axilla or inguinal lymphadenopathy - Studies Medications List Reviewed: Yes Assessment And Plan - Current Problems (Diagnosis) (1) Respiratory failure Current Visit: Yes Status: Acute Plan: Acute respiratory failure most likely secondary to cardiac arrest versus PE versus DE -currently patient remains intubated. Not on any sedation. -pulmonology consulted. Appreciated recommendations at this time -will continue to monitor pressure in closely. -prognosis is poor at this time. Qualifiers: Chronicity: acute Respiratory failure complication: hypoxia Qualified Code(s): J96.01 - Acute respiratory failure with hypoxia (2) Cardiac arrest Current Visit: Yes Status: Acute Plan: Cardiac arrest most likely secondary to 15 MRI versus PE versus sepsis -patient had CPR for more than 30 min before ROSC maintained -cardiology consulted. Appreciated recommendations at this time -echocardiogram with no new changes -currently on ACS medications at this time -will monitor patient closely -brain MRI, EEG, neurology consultation pending at this time (3) Sepsis Current Visit: Yes Status: Acute Plan: Sepsis most likely secondary to pneumonia -currently on broad-spectrum antibiotic -blood culture urine culture and sputum culture pending at this time -will monitor patient closely currently hemodynamically stable (4) CHF (congestive heart failure) Current Visit: No Status: Chronic Plan: Acute on chronic congestive heart failure -echocardiogram with ejection fraction of 30% -cardiology consulted -on Lasix 40 b.i.d. Qualifiers: Heart failure type: systolic Heart failure chronicity: acute on chronic Qualified Code(s): I50.23 - Acute on chronic systolic (congestive) heart failure (5) Alcohol abuse Current Visit: No Status: Chronic (6) CAD (coronary artery disease) of artery bypass graft Onset Date: 06/16/17 Current Visit: No Status: Chronic Qualifiers: [place] vs. 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 EEG and brain MRI are pending at this time. Neurology consultation is pending as well. Patient does have poor prognosis given the more than 30 min of CPR. Will follow up with family member. Daughter driving from [place]. Discharge Plan: Other Plan to discharge in: Greater than 2 days - Code Status/Comfort Care Code Status Assessed: Yes Critical Care: No
[2018-07-12] MEDS: VANCOMYCIN 1.5 GM in NA CHLORIDE 0.9% 500 ML IVPB SCH (12:28)
--- NOTE | 2018-07-12 14:53 | PN ---
Date of Progress Note: 07/12/2018 Mr. Reed was admitted yesterday with pneumonia, cardiorespiratory arrest, status post CPR, statu s post intubation, severe metabolic acidosis, positive troponin. Overnight, he remains in sinus rhyt hm. An echocardiogram was done showing an ejection fraction about 32%, which is chronic for him. He is known to have a history of bypass surgery with a patent MARIE to the LAD, patent graft to the OM, and patent RCA graft to the RCA, status post RCA graft stent about a year ago. Unfortunately, Mr. Marjorie lawrence remains intubated. Mental status is very poor. We will continue his present treatment as fa r as the respiratory support and pneumonia. Consider neurological consultation, and we will sit tigh t as far as any possible intervention from a cardiac standpoint for now. OFE/REJI Voice ID: [id number] Report ID: [id number]
[2018-07-12] MEDS: FENTANYL CITR 100 MCG/2 ML IV PRN ×2 (16:40→22:10)
[2018-07-12] MEDS: ATORVASTATIN 40 MG TAB PO SCH (21:47)
[2018-07-13] MEDS: ALBUTEROL 2.5 MG/3 ML NEB SOL NEB SCH ×3 (01:05→13:35)
[2018-07-13] MEDS: IPRATROPIUM BROM 0.5MG/2.5ML NEB SCH ×3 (01:05→13:35)
[2018-07-13] MEDS: METOPROLOL TARTRATE 5 MG/5 ML INJ IV SCH ×4 (02:05→05:41)
[2018-07-13] MEDS: ACETAMINOPHEN 650MG/RECT SUPP PR PRN ×2 (02:07→08:48)
[2018-07-13] MEDS: LORazepam 2 MG/ML VIAL IV PRN ×5 (05:00→23:50)
[2018-07-13] MEDS: FENTANYL CITR 100 MCG/2 ML IV PRN (05:15)
[2018-07-13 05:24] LABS: Absolute Lymphocytes (CBC) 1.7 K/uL (0.7-4.9); Absolute Monocytes 1.4 K/uL (0.1-1.3); Absolute Neutrophil 15.7 K/uL (1.8-8.0); Basophils % 0.4 % (0-1.3); Eosinophils % 0.3 % (0-4.4); Hematocrit 45.9 % (39.6-49.0); Lymphocytes % 8.9 % (15.3-44.8); MPV 9.1 fL (7.6-11.3); Monocytes % 7.6 % (3.3-12.3); RBC Red Blood Cell Count 6.99 M/uL (4.33-5.43)
[2018-07-13 05:40] LABS: Albumin 3.8 g/dL (3.4-5.0); Bilirubin Total 1.1 mg/dL (0.2-1.0); Potassium 3.7 mmol/L (3.5-5.1)
[2018-07-13] MEDS ORDERED: HYDRALAZINE HCL 20 MG/ML VIAL IV PRN (05:47)
[2018-07-13] MEDS ORDERED: FENTANYL CITR 100 MCG/2 ML IV ONE (06:51)
[2018-07-13] MEDS: LOSARTAN POTASSIUM 50 MG TABLET PO SCH (07:39)
--- NOTE | 2018-07-13 07:39 | P.PN ---
Date of Service: 07/12/18 Subjective: Spoke with nursing regarding labile blood pressure and elevated heart rate. Patient also looked uncomfortable. Patient with elevated temperature. Impaired thermoregulation possibly related to hypoxic brain injury. Patient's hemodynamics have also become more unstable. CT scan of the head from a couple of days ago but will need repeating along with EEG. Anticipating significant brain injury and cerebral edema. Poor prognosis Physical Examination Vitals: Afebrile vital signs are stable Physical exam is unchanged except vitals are unstable with hyperthermia and elevated blood pressure and heart rate Diagnostic data has been reviewed ASST: 1. Cardiac arrest 2. Hypoxic brain injury 3. Congestive heart failure 4. Possible pneumonia PLAN: 1. CTs rule out cerebral edema with concern for herniation 2. EEG 3. Antiepileptics 4. Maintain strict blood pressure control/may need nicardipine drip 5. Long-term prognosis is poor. Will need to get EEG to evaluate brain functioning. Will need to discuss with family the results and prognosis at that time. CC time: 30 minutes
[2018-07-13] MEDS: ARFORMOTEROL TARTRATE 15 MCG/2 ML VIAL.NEB NEB SCH (07:45)
[2018-07-13] MEDS ORDERED: HYDROMORPHONE HCL 0.5 MG/0.5 ML INJ IV PRN (07:49)
[2018-07-13] MEDS ORDERED: HYDROMORPHONE HCL 0.5 MG/0.5 ML INJ ONE (08:08)
--- NOTE | 2018-07-13 08:12 | ECHO ---
HEIGHT: 5 ft 7 in WEIGHT: 181 lb 6.4 oz DATE OF STUDY: 07/11/[address]: Carmelo Banks MD 2-DIMENSIONAL: YES M.MODE: YES DOPPLER: YES COLOR FLOW: YES TDS: NO PORTABLE: NO DEFINITY: NO BUBBLE STUDY: NO DIAGNOSIS: CONGESTIVE HEART FAILURE, RESPIRATORY FAILURE CARDIAC HISTORY: CATHERIZATION: YES SURGERY: NO PROSTHETIC VALVE: NO PACEMAKER: NO MEASUREMENTS (cm) DIASTOLIC (NORMALS) SYSTOLIC (NORMALS) IVSd 1.1 (0.6-1.2) LA Diam 4.0 (1.9-4.0) LVEF 32% LVIDd 4.6 (3.5-5.7) LVIDs 3.9 (2.0-3.5) %FS 15% LVPWd 1.1 (0.6-1.2) Ao Diam 2.7 (2.0-3.7) 2 DIMENSIONAL ASSESSMENT: RIGHT ATRIUM: NORMAL LEFT ATRIUM: NORMAL RIGHT VENTRICLE: NORMAL LEFT VENTRICLE: NORMAL TRICUSPID VALVE: NORMAL MITRAL VALVE: NORMAL PULMONIC VALVE: NORMAL AORTIC VALVE: NORMAL PERICARDIAL EFFUSION: NONE AORTIC ROOT: NORMAL LEFT VENTRICULAR WALL MOTION: SEVERE GLOBAL HYPOKINESIS. DOPPLER/COLOR FLOW: NORMAL COMMENTS: SEVERE GLOBAL HYPOKINESIS. LEFT VENTRICULAR EJECTION FRACTION 32%. NO EFFUSION. NO CHANGE SINCE 2018. TECHNOLOGIST: OSMANI Jacobo
[2018-07-13] MEDS: Levofloxacin500mg IV 500 MG/100 ML BAG IV SCH (08:40)
[2018-07-13] MEDS: CLOPIDOGREL 75 MG TABLET PO SCH (08:41)
[2018-07-13] MEDS: THIAMINE 200 MG/2 ML INJ IVP SCH (08:41)
[2018-07-13] MEDS: PANTOPRAZOLE 40 MG INJ IVP SCH (08:41)
[2018-07-13] MEDS: FUROSEMIDE 40 MG/4 ML VIAL IV SCH (08:41)
[2018-07-13] MEDS: levETIRAcetam 500 MG in NA CHLORIDE 0.9% 100 ML IV SCH (08:42)
--- NOTE | 2018-07-13 08:44 | RAD REPORT ---
EXAM DESCRIPTION: CT - Head Brain Wo Cont - 07/13/2018 8:16 am CLINICAL HISTORY: Alteration of awareness/ hypoxia COMPARISON: July 11, 2018 TECHNIQUE: Computed axial tomography of the head was obtained. IV contrast was not requested. All CT scans are performed using dose optimization technique as appropriate and may include automated exposure control or mA/KV adjustment according to patient size. FINDINGS: The sulci, ventricles and cisterns are small secondary to cerebral edema. Old right cerebr al infarction seen. Intracranial bleed is not noted. Shift of midline structures is not seen IMPRESSION: Diffuse extensive cerebral edema
[2018-07-13] MEDS ORDERED: ASPIRIN 81 MG CHEWABLE TABLET ONE (08:51)
[2018-07-13] MEDS ORDERED: ASPIRIN 81 MG CHEWABLE TABLET PO SCH (09:00)
[2018-07-13] MEDS ORDERED: METOPROLOL TAR 50 MG TAB PO SCH (09:00)
[2018-07-13] MEDS ORDERED: HYDROMORPHONE HCL 1 MG/ML INJ IV PRN (09:54)
[2018-07-13] MEDS ORDERED: DOXYCYCLINE 100 MG in NA CHLORIDE 0.9% 100 ML IVPB SCH (10:00)
--- NOTE | 2018-07-13 10:30 | RAD REPORT ---
EXAM DESCRIPTION: Head Brain Wo Cont CLINICAL HISTORY: 58 years Male, [place]OPE TECHNIQUE: This exam was performed according to our departmental dose-optimization program, which in cludes automated exposure control, adjustment of the mA and/or kV according to patient size and/or us e of iterative reconstruction technique. COMPARISON: None. FINDINGS: Changes of mild atrophy noted. There is no evidence of midline shift or mass effect.. Small old ischemic lesion posteriorly and inferiorly in the left cerebellar hemisphere. Remote infarc t also identified posteriorly in the right parietal lobe. No evidence of acute intracranial hemorrhage or extra-axial hematoma. Calvarium is intact. Mild mucosal thickening in the ethmoid air cells bilaterally. Trace mucosal thickening maxillary sinu ses. Paranasal sinuses otherwise appear well aerated. IMPRESSION: Atrophy, mild. Residua of prior ischemic change in the left cerebellar hemisphere and in the right parietal lobe. Exam is negative for acute intracranial abnormality. Electronically signed by: Rachel Norman 07/11/2018 7:15 AM CDT Due to temporary technical issues with the PACS/Fluency reporting system, reports are being signed by the in house radiologist as a courtesy to ensure prompt reporting. The interpreting radiologist is f ully responsible for the content of the report.
--- NOTE | 2018-07-13 10:32 | RAD REPORT ---
EXAM DESCRIPTION: CT Angiography Chest With Intravenous Contrast CT Angiography Abdomen and Pelvis With Intravenous Contrast CLINICAL HISTORY: The patient is 58 years old and is Male; Chest pain;Dyspnea TECHNIQUE: Axial computed tomographic angiography images of the chest, abdomen and pelvis with intra venous contrast using CT angiography protocol. Sagittal and coronal reformatted images were created and reviewed. This CT exam was performed using one or more of the following dose reduction techniq ues: automated exposure control, adjustment of the mA and/or kV according to patient size, and/or u se of iterative reconstruction technique. MIP reconstructed images were created and reviewed. COMPARISON: No relevant prior studies available. FINDINGS: ARTIFACTS: The exam is suboptimal secondary to motion artifact. VASCULATURE: AORTA: Atherosclerosis of the aorta is present. No aortic aneurysm. No dissection. PULMONARY ARTERIES: Unremarkable as visualized. No pulmonary embolism is identified. GREAT VESSELS OF AORTIC ARCH: No acute findings. No dissection. No arterial occlusion or sig nificant stenosis. CELIAC TRUNK AND MESENTERIC ARTERIES: Atherosclerosis of the celiac and SMA is noted. No acute fin dings. No occlusion or significant stenosis. RENAL ARTERIES: No acute findings. No occlusion or significant stenosis. ILIAC ARTERIES: No acute findings. No occlusion or significant stenosis. CHEST: LUNGS: Patchy opacities within the lung bases are present. Subtle scattered linear atelectasis t hroughout the lungs is noted. PLEURAL SPACE: Small bilateral pleural effusions are present. No pneumothorax. HEART: Unremarkable. No cardiomegaly. No significant pericardial effusion. ABDOMEN: LIVER: There is a diffuse decrease in hepatic parenchymal density, consistent with fatty infiltr ation. The liver is enlarged. GALLBLADDER AND BILE DUCTS: Suggestion of mild pericholecystic inflammation. Gallbladder is not well distended. No ductal dilation. PANCREAS: The pancreas is mildly atrophic. Mild peripancreatic inflammation is also suggested. N o ductal dilation. SPLEEN: Linear area of low attenuation throughout the spleen is noted. No splenomegaly. ADRENALS: Unremarkable. No mass. KIDNEYS AND URETERS: The kidneys enhance symmetrically. No hydronephrosis or hydroureter of eith er kidney is seen. No solid mass. STOMACH AND BOWEL: The stomach is well distended with fluid. Mild mucosal thickening involving t he proximal duodenum with minimal surrounding inflammation is noted. Majority the small bowel is flui d-filled but normal in caliber. Stool is present throughout the colon. There is no bowel obstruction. PELVIS: APPENDIX: The appendix is normal in caliber without surrounding inflammation. BLADDER: The bladder is decompressed with a Null catheter in place. REPRODUCTIVE: Unremarkable as visualized. CHEST, ABDOMEN and PELVIS: INTRAPERITONEAL SPACE: Unremarkable. No significant fluid collection. No free air. BONES/JOINTS: Median sternotomy wires are present. No acute fracture. No dislocation. SOFT TISSUES: Unremarkable. LYMPH NODES: Unremarkable. No enlarged lymph nodes. TUBES, LINES AND DEVICES: An endotracheal tube is present with the tip between the thoracic inle t and anisa. An enteric tube is noted with the tip at the level of the gastric antrum. A right fem oral vein catheter is present. IMPRESSION: 1. No evidence of aortic aneurysm or dissection. 2. Findings suggestive of mild proximal duodenitis with likely mild acute pancreatitis. However, th is area demonstrates significant motion artifact which limits evaluation. Correlation patient's labor atory values is recommended. 3. Small pleural effusions with likely compressive atelectasis/developing consolidation specificall y within the lung bases. 4. Linear area of low attenuation throughout the spleen is noted which is felt to be secondary to t he phase of contrast; within the differential is a small area of infarct which is felt to be less lik misha. Electronically signed by: Rosario Phillips MD 07/11/2018 7:06 AM CDT Due to temporary technical issues with the PACS/Fluency reporting system, reports are being signed by the in house radiologist as a courtesy to ensure prompt reporting. The interpreting radiologist is f ully responsible for the content of the report.
--- NOTE | 2018-07-13 10:35 | RAD REPORT ---
EXAM DESCRIPTION: Chest Single View CLINICAL HISTORY: DYSPNEA COMPARISON: None. TECHNIQUE: XR CHEST 1 VIEW 07/11/2018 5:16 AM CDT FINDINGS: The heart is enlarged. Sternotomy was performed. There is mild to moderate pulmonary edema . There is a small left pleural effusion. There is no pneumothorax. There are no acute osseous findin gs. NG tube to the stomach. IMPRESSION: Pulmonary edema. Electronically signed by: Morales Goff MD 07/11/2018 5:47 AM CDT Due to temporary technical issues with the PACS/Fluency reporting system, reports are being signed by the in house radiologist as a courtesy to ensure prompt reporting. The interpreting radiologist is f ully responsible for the content of the report.
--- NOTE | 2018-07-13 11:26 | P.PN ---
Subjective Date of Service: 07/13/18 Primary Care Provider: Dr. Joe Chief Complaint: Status post cardiac arrest Subjective: Other (Patient intubated with poor response) Physical Examination - Vital Signs Temperature: 100.1 F Blood Pressure: 166/71 Pulse: 92 Respirations: 17 Pulse Ox (%): 100 - Physical Exam General: Other (Patient intubated. No significant response to stimuli) Neck: Supple Respiratory: Clear to auscultation bilaterally Cardiovascular: Normal pulses, Regular rate/rhythm Gastrointestinal: Normal bowel sounds Neurological: Other (No response to stimuli. Patient intubated.) Other Physical/Emotional Findings: No significant change as per nurses. Family at bedside. - Studies Microbiology Data (last 24 hrs): 07/11/18 05:16 Catheterized Urine Pearl Count - Final 07/11/18 05:16 Catheterized Urine - Final No growth. Medications List Reviewed: Yes Assessment & Plan Discharge Plan: Other (Inpatient hospice likely) Plan to discharge in: Unknown - Code Status/Comfort Care Code Status Assessed: Yes (Patient is do not resuscitate) Physician Review Additional Text: Impression: Acute respiratory failure complicated with cardiopulmonary arrest likely related to acute on chronic systolic congestive heart failure and sepsis related to bilateral pneumonia with pleural effusion, sputum culture positive for Staph aureus Status post CPR due to cardiopulmonary arrest likely with Anoxic encephalopathy now with diffuse extensive cerebral edema CAD Hypertension Diabetes mellitus type 2 Hyperlipidemia Alcohol abuse Plan: Acute respiratory failure complicated with cardiopulmonary arrest likely related to acute on chronic systolic congestive heart failure and sepsis related to bilateral pneumonia with pleural effusion, sputum culture positive for Staph aureus: Patient currently intubated. Prognosis is poor. Case discussed with family present. They understand the current situation. Repeat CT brain shows diffuse extensive cerebral edema. EEG to be obtained. Case discussed with pulmonology and Neurology. Both report poor prognosis and recommend withdrawal of care. Daughter and sister are in agreement. They to discuss further with family. Advanced directives readdressed in detail with the daughter. Patient is do not resuscitate at this time. They are to consider withdrawal of care but will make that determination here soon. For now all continue with IV antibiotic therapy. Continue on ventilator. Will provide medication for blood pressure. Will provide medication for pain. Continue comfort measures at this time. Status post CPR due to cardiopulmonary arrest likely with Anoxic encephalopathy now with diffuse extensive cerebral edema: CT scan reviewed with daughter. Continue as above. Family will likely decide withdrawal of care soon after further discussion with extended family. CAD: Continue current medication. Hypertension: Continue current medication. Will provide medication as needed. Diabetes mellitus type 2: Continue sliding scale. Hyperlipidemia: Continue medication. Alcohol abuse: No evidence of withdrawal at this time. Will monitor closely. Time Spent Managing Pts Care (In Minutes): 45
--- NOTE | 2018-07-13 13:48 | EEG ---
CHART: [id number] TEST ID#: [id number] DATE OF STUDY: 07/13/2018 THE EEG WAS RECORDED PORTABLE IN THE ICU ON A 14 CHANNEL MACHINE. ELECTRODES WERE APPLIED IN THE USUAL MANNER USING THE INTERNATIONAL 10-20 SYSTEM. THERE IS NO ACTIVITY OF ELECTROCEREBRAL ORIGIN RECORDED DURING THIS STUDY. ELECTROCARDIOGRAM AND ELECTRODE ARTIFACT HAVE BEEN IDENTIFIED. IMPRESSION: THIS IS A SEVERLY ABNORMAL EEG DUE TO THE ABSENCE OF ELECTROCEREBRAL ACTIVITY. IN THE ABSENCE OF SEVERE HYPOTHERMIA, DEEP SEDATING MEDICATIONS AND MARKED METABOLIC DERRANGEMENTS, THIS FINDING IS CONSISTENT WITH BRAIN .
[2018-07-13] MEDS ORDERED: LANO/MINERAL OIL/PETRO 3.5 GM EACH EYE PRN (14:35)
[2018-07-13] MEDS: VANCOMYCIN 1.5 GM in NA CHLORIDE 0.9% 500 ML IVPB SCH (14:37)
[2018-07-13] MEDS ORDERED: DIAZEPAM 10 MG/2 ML INJ SYRINGE IV ONE (15:26)
[2018-07-13] MEDS: MORPHINE 4 MG/ML SYR IV PRN ×4 (16:15→23:15)
[2018-07-13] MEDS ORDERED: SCOPOLAMINE HYDROBROMIDE PATCH TD ONE (16:49)
[2018-07-13] MEDS ORDERED: ATORVASTATIN 80 MG TAB PO SCH (21:00)
[2018-07-13] MEDS: MORPHINE 2 MG/ML SYR IV PRN (21:50)
--- NOTE | 2018-07-13 23:57 | CON ---
Reason For Consultation: Consultation called because of the patient being unresponsive after resuscitation. History Of Present Illness: The patient is a 58-year-old, right-handed gentleman from [facility], who recently came back after a trip to [facility] and had significant shortness of breath and suddenly collapsed at home and was then brought by emergency medical services into [facility]. When the patient was evaluated by the EMS, he had found to have no pulse and cardiopulmonary resuscitation was initiated. The patient had about 30 minutes of cardiopulmonary resuscitation, after which a pulse was acquired after epinephrine was given. The patient was determined to have consolidated pneumonia and pulmonary edema and since his resuscitation has not had response to verbal or tactile stimulation. The patient's family and nursing staff indicated that over the weekend, he had continuous myoclonic jerking of the upper and lower extremities, which subsided to just today only having some intermittent left more than right eye blinking activity and no extremity spontaneous movement. His initial head CT scan done on the , 2 days ago, showed atrophy, which is mild and chronic left cerebellar hemispheric stroke as well as a right parietal lobe stroke, but no acute ischemic or hemorrhagic change. Subsequent head CT done today identified diffuse extensive cerebral edema with slit-like appearances of the sulci, ventricles, and cisterns and the old stroke as indicated. His electroencephalogram done at 7 microvolts per millimeter showed no activity of electrocerebral origin. There were EKG artifact and electrode artifact identified. His laboratory studies show white blood cell count of 19,000 with 82.9% neutrophils and absolute neutrophil count elevated at 15.7. His glucose ranged up to 195, and liver function show mildly elevated AST of 59. Troponin slightly elevated at 0.16, to be noted on admission his pH was at 6.99 after intubation. Past Medical History: Includes dyslipidemia, hypertension, diabetes mellitus, congestive heart failure, prior myocardial infarction, peripheral neuropathy, coronary artery disease. Surgical History: Coronary artery bypass grafting. Family History: Noncontributory. Social History: The patient smokes tobacco. No alcohol or IV drugs. Review of Systems: Unable to perform. The patient is in a comatose state and unresponsive. Current Medications: Please note all oral medications have been held as the patient is unable to swallow, however, aspirin 81 mg daily, Plavix 75 mg daily, Lipitor 80 mg at bedtime, Xyzal 5 mg daily, Cozaar 25 mg daily, metoprolol 50 mg daily, Ranexa 500 mg twice daily, Ultram 50 mg daily, Brovana 15 mcg nebulizer 3 times daily, and Lasix 40 mg daily. Physical Examination: Vital Signs: Blood pressure 174/73, pulse up to 127, respiratory rate of 20. The patient is set at 16, breathing around 4 over ventilation, temperature 103.5. General: Mr. Reed is intubated and breathing over the ventilator. He does have occasional myoclonic eye twitching. No spontaneous movement of the arms or legs. He has good breath sounds. No significant edema or cyanosis in the extremities. Neurological: The patient does not respond to unco pressure in the upper and lower extremities. He does not respond to supraorbital pressure. He does not have a visual threat response. In his cranial nerves, no Doll's eyes detected. The pupils are mid position and show no reactivity to bright light. His tone in the upper and lower extremities is increased. He does not have responses to noxious stimulation as indicated. Unable to assess any coordination, full strength, full gait. Please note, the echocardiogram shows ejection fraction of 32% with severe global hypokinesis. Left ventricular size indicated was not changed since 2018. His carotid artery ultrasound showed moderate mixed plaque in proximal internal carotid arteries, but no evidence of hemodynamically significant stenosis. His venous Dopplers of the lower extremities showed no deep venous thrombus. A chest CT scan showed no evidence of aortic aneurysm or dissection. His electrocardiogram showed sinus tachycardia with left atrial enlargement. Assessment: Mr. Reed is a 58-year-old patient who is status post severe hypoxic ischemic injury to the brain and brainstem. His brain CT scan shows a severe diffuse swelling that is a sequelae of marked cerebral hypoperfusion with hypo-oxygenation. His EEG is also consistent with that finding showing no electrocerebral activity. He, however, does have some brainstem reflexes still present. The patient's prognosis was discussed with the family, which is very severe with no significant chance of any recovery given the findings on his examination, head CT scan and EEG. Plan: The plan is to have the family discuss the removal of respiratory support and let the patient pass naturally. This will be discussed with the family. I spoke with the patient's nephew who is a neurologist and 3 of the patient's other relatives who are nurses. The patient's disposition will be determined as the family makes their decision to withdraw care, which may be in the next day or so. No further neurological workup is recommended. KENNY/REJI Voice ID: [id number] Report ID: [id number] MTDD
[2018-07-14] MEDS: MORPHINE 4 MG/ML SYR IV PRN ×11 (00:53→10:59)
[2018-07-14] MEDS ORDERED: LORazepam 2 MG/ML VIAL ONE ×2 (01:47→05:54)
[2018-07-14] MEDS: LORazepam 2 MG/ML VIAL IV PRN ×5 (01:50→10:21)
[2018-07-14] MEDS ORDERED: MORPHINE 4 MG/ML SYR IV PRN (07:26)
[2018-07-14] MEDS ORDERED: VANCOMYCIN 1.5 GM in NA CHLORIDE 0.9% 500 ML IVPB SCH (08:00)
[2018-07-14] MEDS: ACETAMINOPHEN 650MG/RECT SUPP PR PRN (08:05)
[2018-07-14] MEDS: MORPHINE 2 MG/ML SYR IV PRN ×5 (08:13→11:00)
--- NOTE | 2018-07-14 08:35 | P.PN ---
Subjective Date of Service: 07/13/18 Primary Care Provider: Dr. Joe Chief Complaint: Status post cardiac arrest Patient is calmer toast unresponsive no spontaneous movements scan shows cerebellar edema patient is currently on a ventilator Review of Systems is unable to be obtained Physical Examination - Vital Signs Temperature: 103.2 F Blood Pressure: 141/80 Pulse: 135 Respirations: 34 Pulse Ox (%): 81 - Physical Exam General: Comatose Respiratory: Clear to auscultation bilaterally Cardiovascular: Edema Other Physical/Emotional Findings: No significant change as per nurses. Family at bedside. - Studies Microbiology Data (last 24 hrs): 07/11/18 05:16 Catheterized Urine [place] Count - Final 07/11/18 05:16 Catheterized Urine - Final No growth. Medications List Reviewed: Yes Assessment & Plan - Problems (Diagnosis) (1) Cardiac arrest Current Visit: Yes Status: Acute Plan: Patient is status post cardiac arrest coma toes anoxic encephalopathy with cerebral edema he has been comatose for nearly 48 hr family members present at the bedside discuss with relatives on likely to recover consider withdrawal from ventilator for underlying prior oasis due to smoking congestive heart failure possibly underlying pneumonia mild renal failure sputum shows Staph aureus on antibiotics Physician Review Additional Text: Impression: Acute respiratory failure complicated with cardiopulmonary arrest likely related to acute on chronic systolic congestive heart failure and sepsis related to bilateral pneumonia with pleural effusion, sputum culture positive for Staph aureus Status post CPR due to cardiopulmonary arrest likely with Anoxic encephalopathy now with diffuse extensive cerebral edema CAD Hypertension Diabetes mellitus type 2 Hyperlipidemia Alcohol abuse Plan: Acute respiratory failure complicated with cardiopulmonary arrest likely related to acute on chronic systolic congestive heart failure and sepsis related to bilateral pneumonia with pleural effusion, sputum culture positive for Staph aureus: Patient currently intubated. Prognosis is poor. Case discussed with family present. They understand the current situation. Repeat CT brain shows diffuse extensive cerebral edema. EEG to be obtained. Case discussed with pulmonology and Neurology. Both report poor prognosis and recommend withdrawal of care. Daughter and sister are in agreement. They to discuss further with family. Advanced directives readdressed in detail with the daughter. Patient is do not resuscitate at this time. They are to consider withdrawal of care but will make that determination here soon. For now all continue with IV antibiotic therapy. Continue on ventilator. Will provide medication for blood pressure. Will provide medication for pain. Continue comfort measures at this time. Status post CPR due to cardiopulmonary arrest likely with Anoxic encephalopathy now with diffuse extensive cerebral edema: CT scan reviewed with daughter. Continue as above. Family will likely decide withdrawal of care soon after further discussion with extended family. CAD: Continue current medication. Hypertension: Continue current medication. Will provide medication as needed. Diabetes mellitus type 2: Continue sliding scale. Hyperlipidemia: Continue medication. Alcohol abuse: No evidence of withdrawal at this time. Will monitor closely.
--- NOTE | 2018-07-14 10:32 | P.PN ---
Subjective Date of Service: 07/14/18 Primary Care Provider: Dr. Joe Chief Complaint: Status post cardiac arrest Subjective: Other (Patient on comfort measures. Medications address yesterday. Patient getting IV morphine and Ativan. Family at bedside.) Physical Examination - Vital Signs Temperature: 103.2 F Blood Pressure: 141/80 Pulse: 135 Respirations: 34 Pulse Ox (%): 81 - Physical Exam General: Other (Patient appears comfortable. ) Other Physical/Emotional Findings: Family at bedside. Patient appears stable. Patient does not look in distress - Studies Microbiology Data (last 24 hrs): 07/11/18 05:16 Catheterized Urine [place] Count - Final 07/11/18 05:16 Catheterized Urine - Final No growth. Medications List Reviewed: Yes Assessment & Plan Discharge Plan: Other (Hospice inpatient) Plan to discharge in: 24 Hours Physician Review Additional Text: Impression: Acute respiratory failure complicated with cardiopulmonary arrest likely related to acute on chronic systolic congestive heart failure and sepsis related to bilateral pneumonia with pleural effusion, sputum culture positive for Staph aureus Status post CPR due to cardiopulmonary arrest likely with Anoxic encephalopathy now with diffuse extensive cerebral edema CAD Hypertension Diabetes mellitus type 2 Hyperlipidemia Alcohol abuse Plan: Acute respiratory failure complicated with cardiopulmonary arrest likely related to acute on chronic systolic congestive heart failure and sepsis related to bilateral pneumonia with pleural effusion, sputum culture positive for Staph aureus: Patient now on comfort measures. Case discussed at length with family. Will continue to adjust morphine and Ativan for pain and comfort control. Discussed inpatient hospice. Family is in agreement. Will consult social skilled services to help start inpatient hospice. Status post CPR due to cardiopulmonary arrest likely with Anoxic encephalopathy now with diffuse extensive cerebral edema: Continue as above. Will initiate inpatient hospice CAD: Medications discontinued continue current plan of care. Hypertension: Medications discontinued continue current plan of care. Diabetes mellitus type 2: Medications discontinued continue current plan of care. Hyperlipidemia: Medications discontinued continue current plan of care. Alcohol abuse: Will monitor closely. Time Spent Managing Pts Care (In Minutes): 55
--- NOTE | 2018-07-14 14:31 | P.DS ---
Admission Date: 07/11/18 Discharge Date: 07/14/18 Primary Care Provider: Dr. Joe Disposition: HOSPICE-MEDICAL FACILITY Discharge Condition: CRITICAL Reason for Admission: Status post cardiac arrest Consultations: Cardiology-Dr. Torres Pulmonary-Dr. Marcano Neurology-Dr. Recio Procedures: CT brain: FINDINGS: Changes of mild atrophy noted. There is no evidence of midline shift or mass effect.. Small old ischemic lesion posteriorly and inferiorly in the left cerebellar hemisphere. Remote infarct also identified posteriorly in the right parietal lobe. No evidence of acute intracranial hemorrhage or extra-axial hematoma. Calvarium is intact. Mild mucosal thickening in the ethmoid air cells bilaterally. Trace mucosal thickening maxillary sinuses. Paranasal sinuses otherwise appear well aerated. IMPRESSION: Atrophy, mild. Residua of prior ischemic change in the left cerebellar hemisphere and in the right parietal lobe. Exam is negative for acute intracranial abnormality. CT scan: IMPRESSION: 1. No evidence of aortic aneurysm or dissection. 2. Findings suggestive of mild proximal duodenitis with likely mild acute pancreatitis. However, this area demonstrates significant motion artifact which limits evaluation. Correlation patient's laboratory values is recommended. 3. Small pleural effusions with likely compressive atelectasis/developing consolidation specifically within the lung bases. 4. Linear area of low attenuation throughout the spleen is noted which is felt to be secondary to the phase of contrast; within the differential is a small area of infarct which is felt to be less likely. ECHO: EF 32% LEFT VENTRICULAR WALL MOTION: SEVERE GLOBAL HYPOKINESIS. DOPPLER/COLOR FLOW: NORMAL COMMENTS: SEVERE GLOBAL HYPOKINESIS. LEFT VENTRICULAR EJECTION FRACTION 32% . NO EFFUSION. NO CHANGE SINCE 2018. EEG: The EEG was recorded PORTABLE IN THE ICU on a 14 channel machine. Electrodes were applied in the usual manner using the International 10-20 system. THERE IS NO ACTIVITY OF ELECTROCEREBRAL ORIGIN RECORDED DURING THIS STUDY. ELECTROCARDIOGRAM AND ELECTRODE ARTIFACT HAVE BEEN IDENTIFIED. IMPRESSION: THIS IS A SEVERLY ABNORMAL EEG DUE TO THE ABSENCE OF ELECTROCEREBRAL ACTIVITY. IN THE ABSENCE OF SEVERE HYPOTHERMIA, DEEP SEDATING MEDICATIONS AND MARKED METABOLIC DERRANGEMENTS, THIS FINDING IS CONSISTENT WITH BRAIN . Repeat CT Scan Brain: FINDINGS: The sulci, ventricles and cisterns are small secondary to cerebral edema. 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 Intracranial bleed is not noted. Shift of midline structures is not seen IMPRESSION: Diffuse extensive cerebral edema Medical Problem List: Acute respiratory failure complicated with cardiopulmonary arrest likely related to acute on chronic systolic congestive heart failure and bilateral pneumonia with pleural effusion, sputum culture positive for Staph aureus Status post CPR due to cardiopulmonary arrest now with Anoxic encephalopathy with noted diffuse extensive cerebral edema on CT scan and EEG consistent with brain CAD Hypertension Diabetes mellitus type 2 Hyperlipidemia Alcohol abuse Brief History of Present Illness: 58-year-old gentleman with prior history of systolic CHF, diabetes, hypertension , hyperlipidemia, CAD, prior CABG, prior CVA. Patient brought in by EMS for respiratory failure. Patient had recently flew back from [facility]. He had been having shortness of breath and chest pain while at home. EMS was notified. When they arrived patient looked cyanotic and had acute respiratory distress. Patient was placed into the ambulance when he lost pulse. CPR was initiated. CPR was performed for 30 min. When he finally arrived at the hospital patient given epinephrine. At that time there were able to get a pulse. Patient was intubated and placed on ventilator. CT scan revealed pulmonary edema with possible consolidated pneumonia. Patient was having myoclonic jerks likely related to hypoxemia. Patient was treated in the emergency room and initiated on anti epileptics. Patient was admitted to the ICU for further evaluation and treatment. Hospital Course: Patient was admitted for acute respiratory failure complicated with cardiopulmonary arrest. Patient with significant past history of systolic congestive heart failure, CAD, hypertension, diabetes mellitus type 2, hyperlipidemia, previous CABG, previous CVA, and alcohol abuse. Patient was initially evaluated by EMS. Patient lost pulse upon transport. CPR was initiated and continued for 30 min. In the ER patient given epinephrine with return of pulse. Patient was intubated. Respiratory failure likely related to acute on chronic systolic CHF and with noted bilateral pneumonia and pleural effusion. During the course of his stay patient was sent to the ICU for further management. Cardiology, pulmonology and Neurology were consulted. Patient continued on the ventilator. Patient remained on IV antibiotic therapy to cover for suspected bilateral pneumonia. CHF was treated by Cardiology. His condition did not improve and continued to decline. He was not able to be weaned off the ventilator. Patient had poor prognosis. Refer to daily notes for more details. As his condition continued to decline, repeat CT head an EEG was performed. CT scan showed diffuse extensive cerebral edema. EEG was consistent with brain . When I came on the service, patient did not improve. Family had already addressed advanced directives with the hospitalist team which included do not resuscitate. After a long discussion with pulmonology and neurology recommended withdrawal of care and comfort measures. After review of CT brain and EEG with Neurology and family, it was decided to withdrawal care. Family wanted comfort measures only. Patient was eventually transitioned to inpatient hospice to continue comfort measures. Final diagnosis acute respiratory failure status post cardiac arrest likely related to acute on chronic systolic CHF with noted pleural effusion and bilateral pneumonia, anoxic encephalopathy with CT scan showing diffuse cerebral edema and EEG showing brain , CAD, diabetes, hypertension, and alcohol abuse. Vital Signs/Physical Exam: Temp Pulse Resp BP Pulse Ox 103.2 F H 119 H 27 H 120/70 85 L 07/14/18 10:32 07/14/18 11:00 07/14/18 11:00 07/14/18 11:00 07/14/18 11:00 Other Physical/Emotional Findings: Patient with increased respirations and tachycardia. No sensation to pain. Patient continues with comfort measures. Laboratory Data at Discharge: WBC 19.0 K/uL (4.3-10.9) H D 07/13/18 05:05 Hgb 14.4 g/dL (13.6-17.9) 07/13/18 05:05 Hct 45.9 % (39.6-49.0) 07/13/18 05:05 Plt Count 220 K/uL (152-406) 07/13/18 05:05 PT 12.5 SECONDS (9.5-12.5) 07/11/18 05:20 INR 1.06 07/11/18 05:20 Sodium 141 mmol/L (136-145) 07/13/18 05:05 Potassium 3.7 mmol/L (3.5-5.1) 07/13/18 05:05 BUN 28 mg/dL (7-18) H 07/13/18 05:05 Creatinine 1.13 mg/dL (0.55-1.3) 07/13/18 05:05 Glucose 195 mg/dL (74-106) H 07/13/18 05:05 Phosphorus 3.8 mg/dL (2.5-4.9) 07/12/18 05:03 Magnesium 2.2 mg/dL (1.8-2.4) 07/12/18 05:03 Total Bilirubin 1.1 mg/dL (0.2-1.0) H 07/13/18 05:05 AST 59 U/L (15-37) H 07/13/18 05:05 ALT 52 U/L (12-78) 07/13/18 05:05 Alkaline Phosphatase 76 U/L (45-117) 07/13/18 05:05 Troponin I 0.16 ng/mL (0.0-0.045) H 07/11/18 07:45 Triglycerides 783 mg/dL (<150) H 07/12/18 05:03 Cholesterol 205 mg/dL (<200) H 07/12/18 05:03 LDL Cholesterol Direct 90 mg/dL (100-129) L 07/12/18 05:03 HDL Cholesterol 21 mg/dL (40-60) L 07/12/18 05:03 Cholesterol/HDL Ratio 9.76 07/12/18 05:03 Lipase 288 U/L (73-393) 07/11/18 05:20 Home Medications: Aspirin Chewable [Aspirin Chewable*] 81 mg PO DAILY #30 tab.chew 12/12/16 Clopidogrel Bisulfate [Plavix*] 75 mg PO DAILY #30 tablet 12/12/16 Atorvastatin Calcium [Lipitor] 80 mg PO BEDTIME 06/15/17 Levocetirizine Dihydrochloride [Xyzal] 5 mg PO DAILY 06/15/17 Losartan Potassium [Cozaar] 25 mg PO DAILY 06/15/17 Metoprolol Succinate 50 mg PO DAILY 06/15/17 Ranolazine [Ranexa] 500 mg PO BID 06/15/17 Tramadol HCl [Ultram] 50 mg PO Q6HR PRN 06/15/17 Arformoterol Tartrate [Brovana] 15 mcg NEB BIDRESP #1 vial.neb 06/17/17 Furosemide 40 mg PO DAILY #30 tablet 06/17/17 Patient Discharge Instructions: Patient transitioned to inpatient hospice. Diet: NPO Activity: Comfort measures only Time spent managing pt's care (in minutes): 55
== END 2018-07-14 11:00 | disposition hospice, inpatient (51) | DRG 871 ==
LOC: ER 04:57 → ERHOLD 07:35 → 3RD-ICU 13:13
PROVIDERS: ADMIT Hospitalist; ATTEND Family Medicine
PROC: 0BH17EZ Insertion of Endotracheal Airway into Trachea, Via Natural or Artificial Opening (ICD-10-PCS; principal; 2018-07-11)
DX: A41.9 Sepsis, unspecified organism (principal); J96.01 Acute respiratory failure with hypoxia; I46.9 Cardiac arrest, cause unspecified; I50.23 Acute on chronic systolic (congestive) heart failure; J15.211 Pneumonia due to Methicillin susceptible Staphylococcus aureus; E87.2 Acidosis; G93.1 Anoxic brain damage, not elsewhere classified; E11.9 Type 2 diabetes mellitus without complications; I10 Essential (primary) hypertension; E78.5 Hyperlipidemia, unspecified; G62.9 Polyneuropathy, unspecified; I25.10 Atherosclerotic heart disease of native coronary artery without angina pectoris; F10.10 Alcohol abuse, uncomplicated; F17.200 Nicotine dependence, unspecified, uncomplicated; I25.2 Old myocardial infarction; Z95.1 Presence of aortocoronary bypass graft
CPT/HCPCS: 36415; 51702; 70450; 71045; 71275; 74175; 80048; 80053; 80061; 80076; 80202; 81003; 82805; 82962; 83690; 83735; 83880; 84100; 84484; 85025; 85610; 87040; 87070; 87077; 87086; 87088; 87186; 87205; 87804; 92950; 93005; 93306; 93880; 93970; 94002; 94003; 94640; 95816; 96365; 96367; 99291; C9113; J0360; J1170; J1650; J1940; J1953; J2270; J2543; J2704; J3010; J3360; J3411; J7605; Q9967

== ENCOUNTER 2018-07-14 11:29 | Inpatient (IN) | payer OTHER ==
--- OUTSIDE RECORDS SUMMARY | 2018-07-14 12:02 | XMS REPORT | Continuity of Care Document ---
:1960 Author Organization Interface Problems Problem Status Onset Classification Date Comments Source Date Reported Atherosclerosis of 05/16/2018 [place] arteries of 018 [facility] extremities with intermittent claudication, right leg I73.9 Active 0[address] Active 018 [facility] Atherosclerosis of 04/08/2018 [place] arteries of 018 [facility] extremities with intermittent claudication, left leg Acute respiratory Resolved Finding 06/17/[address] [facility] failure 018 [facility] CAD of artery bypass Active Finding 06/17/[address] [facility] graft 018 [facility] Pulmonary edema Resolved Finding 06/17/[address] [facility] [facility]18 [facility] NSTEMI Active Finding 06/17/[address] [facility] [facility]17 [facility] Diabetes mellitus Active Finding 06/17/[address] [facility] [facility]17 [facility] Dyslipidemia Active Finding 06/17/[address] [facility] [facility]17 [facility] Depression Active Finding 06/17/[address] [facility] 017 [facility] NEW PT COUMADIN Active [address] COUMADIN F/U Active [address] CAROTID ARTERY Active [address] SMOKING Active [address] CORONARY ARTERY Active [address] CHF Active [address] COUMADIN Active [address] CAD - Coronary artery Active Problem 11/15/2012 [facility] DM - Diabetes mellitus Active Problem 11/15/2012 [facility] Hypertension Active Problem 11/15/2012 [facility] CVA Resolved Problem 11/15/2012 [facility] CAD - Coronary artery Active Problem 06/29/2018 [facility] [place] Cardiomyopathy Active Problem 06/29/2018 [facility], [place] CVA (<span Resolved Problem 06/29/2018 [place] ID="[id number]">Confi Rigoberto, rmed</span>) [facility] DM - Diabetes mellitus Active Problem 06/29/2018 [facility] H/O: stroke Active Problem 06/29/2018 [facility] H/O acute myocardial Active Problem 06/29/2018 [facility] infarction Neuro, [facility] Hypertension Active Problem 06/29/2018 [facility] [place] Peripheral artery Active Problem 06/29/2018 [facility] disease [facility] CHF (<span Active Problem 06/29/2018 Medical ID="[id number]">Conf Group,Misch irmed</span>) er Neuro,[facility] CHF (<span Resolved Problem 06/29/2018 Medical ID="[id number]">[facility],Misch irmed</span>) er Neuro,[facility] Hypercholesterolemia Active Problem 06/29/2018 Medical Group,[facility] er Neuro,[facility] PAD (<span Active Problem 06/29/2018 Medical ID="[id number]">Conf Group,Misch irmed</span>) er Neuro,[facility] PAD (<span Resolved Problem 06/29/2018 Medical ID="[id number]">Conf Group,Misch irmed</span>) er Neuro,[facility] PVD (<span Active Problem 06/29/2018 Medical ID="[id number]">Conf Group,Misch irmed</span>) er Neuro,[facility] PVD (<span Resolved Problem 06/29/2018 Medical ID="[id number]">Conf Group,Misch irmed</span>) er Neuro,[facility] 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 Heart failure, 04/08/2018 unspecified [facility] Atherosclerotic heart 05/16/2018 disease of [place] [facility] coronary artery without angina pectoris Type 2 diabetes 05/16/2018 mellitus with diabetic [facility] peripheral angiopathy without gangrene Cardiomyopathy, 04/08/2018 unspecified [facility] Old myocardial 04/08/2018 infarction [facility] Nicotine dependence, 05/16/2018 cigarettes, [facility] uncomplicated Personal history of 04/08/2018 transient ischemic [place] attack , and cerebral infarction without residual deficits senior care use of 04/08/2018 aspirin [facility] senior care use of 04/08/2018 antithrombotics/antipl [facility] atelets 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 CAD - Coronary artery Active Problem 05/16/2018 [facility] disease Neuro, [place],[facility] Cardiomyopathy Active Problem [facility] [place],[facility] CVA (<span Resolved Problem 05/16/2018 [place] ID="[id number]">Confi Neuro, rmed</span>) [place],[facility] DM - Diabetes mellitus Active Problem 05/16/2018 [facility] Neuro,[facility] H/O: stroke Active Problem 05/16/2018 [facility] Neuro,[facility] H/O acute myocardial Active Problem 05/16/2018 [facility] Hypertension Active Problem 05/16/2018 [facility], [place],[facility] Peripheral artery Active Problem 05/16/2018 [facility] 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/16/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 [facility] Acute posthemorrhagic 05/16/2018 anemia [facility] Postprocedural 05/16/2018 hemorrhage of a [facility] circulatory system organ or structure following other circulatory system procedure Postprocedural 05/16/2018 hematoma of a [facility] circulatory system organ or structure following other circulatory system procedure Thrombocytopenia, 05/16/2018 unspecified [facility] Type 2 diabetes 05/16/2018 mellitus with [facility] hyperglycemia Hyperlipidemia, 05/16/2018 unspecified [facility] Pure 05/16/2018 hypercholesterolemia, [facility] unspecified Bradycardia, 05/16/2018 unspecified [facility] Postprocedural 05/16/2018 hypotension [facility] Nicotine abuse Active Finding 06/17/[address] [facility] Alcohol abuse Active Finding 06/17/[address] [facility] AMI Active Finding 06/17/[address] [facility] CHF Active Finding 06/17/[address] [facility] Congestive heart Active Finding 06/17/[address] failure [facility] COR ATH UNSP VSL Active [facility] NT/[facility] SINGLE LB-IN HOSPITL Active [facility] PERIPHERAL VASCULAR Active DISEASE, UNSPECIFIED [facility] Medications Medication Details Route Status Patient Ordering Order Source Instructions Provider Date clopidogrel 75 75 mg, PO, Active Medical mg oral tablet Daily, # 90 2018 Group tab, 0 Refill(s), Pharmacy: [facility] ferrous sulfate 325 mg=1 tab, Active 325 MG Oral PO, Daily, # 90 2018 [facility] Tablet tab, 0 Refill(s), Pharmacy: [facility] ferrous sulfate 325 mg, 1 tab, Inactive Route: PO, Drug 2017 [facility] form: TAB, Daily, Dosing Weight 72.841, kg, Start date: 10/27/17 9:00:00 CDT, Duration: 30 day, Stop date: 11/25/17 9:00:00 CDTNotes: Give with food. iron elemental [id number] as ferrous sulfate Dose=___mg elemental iron Omnipaque 350 100 mL, Route: Inactive injectable IVP, Drug Form: 2017 [facility] solution SOLN, Dosing Weight 72.841, kg, ONCALL, For CTA exam with GFR > 45 mL/min, STAT, Start date: 10/25/17 10:32:00 CDT, Duration: 1 doses or timesNotes: (same as:Omnipaque 350). WASTE: F/P - Black; E - Municipal Trash Bin Dextrose 50% 25 gm, 50 mL, No Longer Syringe Route: IVP, Active 2017 [facility] Drug Form: INJ, Dosing Weight 72.841, kg, PRN, PRN Blood Glucose Results, Start date: 10/24/17 15:37:00 CDT, Duration: 30 day, Stop date: 11/23/17 15:36:00 CDT Glucagon 1 mg, Route: No Longer IM, Drug form: Active 2017 [facility] PDR/INJ, PRN, Dosing Weight 72.841, kg, PRN Blood Glucose Results, Start date: 10/24/17 15:37:00 CDT, Duration: 30 day, Stop date: 11/23/17 15:36:00 CDT Insulin Lispro 10 unit, 0.1 No Longer mL, Route: Active 2017 [facility] SUB-Q, Drug form: SOLN, TID-Before Meals, Dosing Weight 72.841, kg, PRN Blood Glucose Results, Start date: 10/24/17 15:37:00 CDT, Duration: 30 day, Stop date: 11/23/17 15:36:00 CDTNotes: (Same as: Humalog ) Roll in palms of hands gently; Do not shake `vigorously. "Single Patient Use Only " WASTE: F/P - Black; E - Municipal Trash Bin Stable for 28 days at room temperature. Expires in days from D ate clopidogrel 75 mg, 1 tab, No Longer Route: PO, Drug Active 2017 [facility] form: TAB, Daily, Dosing Weight 72.841, kg, Start date: 10/24/17 9:00:00 CDT, Duration: 30 day, Stop date: 11/22/17 9:00:00 CDTNotes: (Same As: Plavix) pantoprazole 40 mg, 1 tab, No Longer Route: PO, Drug Active 2017 [facility] form: ECTAB, Daily, Dosing Weight 72.841, kg, Start date: 10/24/17 9:00:00 CDT, Duration: 30 day, Stop date: 11/22/17 9:00:00 CDTNotes: Tablet should not be chewed or crushed. (Same as: Protonix) Aspirin 81 MG 81 mg, 1 tab, No Longer [facility] Enteric Coated Route: PO, Drug Active 2017 [facility] Tablet form: ECTAB, Daily, Dosing Weight 72.841, kg, Start date: 10/24/17 9:00:00 CDT, Duration: 30 day, Stop date: 11/22/17 9:00:00 CDTNotes: Do not crush or chew. (Same As: Ecotrin) Losartan 25 mg, 1 tab, No Longer 08 [facility] Route: PO, Drug Active 2017 [facility] form: TAB, Daily, Dosing Weight 72.841, kg, Start date: 10/24/17 9:00:00 CDT, Duration: 30 day, Stop date: 11/22/17 9:00:00 CDTNotes: (Same as: Gerardo) Zinacef + 1.5 gm, Route: No Longer sterile water 20 IVP, Drug form: Active 2017 [facility] mL PDR/INJ, ABXQ8H, Dosing Weight 72.841, kg, Start date: 10/23/17 21:00:00 CDT, Duration: 2 doses or times, Stop date: 10/24/17 5:00:00 CDTNotes: (Same As: Kefurox, Zinacef) MEDICATION WASTE Product Size: 1500 mg Product Wasted: ___ mg Jardiance 10 mg Jardiance 10 mg No Longer oral tablet oral tablet, 10 Active 2017 [place] mg, Route: PO, Bedtime, 10/23/17 21:00:00 CDT, Duration: 30 day, Stop date: 11/21/17 21:00:00 CDT, Patient's Own Meds carvedilol 6.25 mg, 1 tab, No Longer Route: PO, Drug Active 2017 [facility] form: TAB, Q12H, Dosing Weight 72.841, kg, Start date: 10/23/17 21:00:00 CDT, Duration: 30 day, Stop date: 11/22/17 9:00:00 CDTNotes: Give with food. (Same As: Coreg) atorvastatin 80 mg, 2 tab, No Longer Route: PO, Drug Active 2017 [facility] form: TAB, Bedtime, Dosing Weight 72.841, kg, Start date: 10/23/17 21:00:00 CDT, Duration: 30 day, Stop date: 11/21/17 21:00:00 CDTNotes: (Same as: Lipitor) heparin 5,000 unit, 1 Inactive mL, Route: 2017 SUB-Q, Drug form: INJ, Q12H, Dosing Weight 72.841, kg, Start date: 10/23/17 21:00:00 CDT, Stop date: 11/22/17 9:00:00 CDTNotes: porcine heparin Ketorolac 15 mg, 1 mL, No Longer Route: IVP, Active 2017 [facility] Drug form: INJ, Q6H, Dosing Weight 72.841, kg, Start date: 10/23/17 18:00:00 CDT, Duration: 6 doses or times, Stop date: 10/25/17 0:00:00 CDTNotes: (Same as:Toradol) IV bolus must be given >15 seconds. Give IM administration slowly and deeply into the muscle. Not for use > 4 days. Docusate Sodium 100 mg, 1 cap, No Longer 100 MG Oral Route: PO, Drug Active 2017 [facility] Capsule form: CAP, BID, Dosing Weight 72.841, kg, Start date: 10/23/17 17:00:00 CDT, Duration: 30 day, Stop date: 11/22/17 9:00:00 CDTNotes: (Same as: Colace) (Do Not Crush) Zinacef 1.5 gm, Route: Inactive IVP, Drug form: 2017 [facility] PDR/INJ, ABXQ8H, Dosing Weight 72.841, kg, Start date: 10/23/17 14:00:00 CDT, Duration: 2 doses or times, Stop date: 10/23/17 22:00:00 CDTNotes: (Same As: Kefurox, Zinacef) MEDICATION WASTE Product Size: 1500 mg Product Wasted: ___ mg sugammadex Route: IV, Drug Inactive (ANES) form: SOLN, 2017 [facility] ONCE, Stop date: 10/23/17 13:35:00 CDT Amidate (ANES) Route: IV, Drug Inactive form: INJ, 2017 [facility] ONCE, Stop date: 10/23/17 13:34:00 CDT phenylephrine Route: IV, Drug Inactive (ANES) form: INJ, 2017 [facility] ONCE, Stop date: 10/23/17 13:34:00 CDT cefuroxime Route: IV, Drug Inactive (ANES) form: INJ2017 [facility] ONCE, Stop date: 10/23/17 13:34:00 CDT ceFAZolin (ANES) Route: IV, Drug Inactive form: INJ, 2017 [facility] ONCE, Stop date: 10/23/17 13:34:00 CDT rocuronium Route: IV, Drug Inactive (ANES) form: INJ, 2017 [facility] ONCE, Stop date: 10/23/17 13:34:00 CDT Morphine 2 mg, 0.5 mL, No Longer Route: IVP, 2017 [facility] Drug form: SOLN, Q5Min, Dosing Weight 72.841, kg, PRN Pain Score 4-6, Start date: 10/23/17 13:27:00 CDT, Duration: 5 doses or times, Stop date: Limited # of timesNotes: (Same as:MORPhine Sulfate) Naloxone 0.4 mg, 1 mL, No Longer Route: IVP, 2017 [facility] Drug form: INJ, Q2MIN, Dosing Weight 72.841, kg, PRN Narcotic Reversal, Start date: 10/23/17 13:27:00 CDT, Duration: 8 doses or times, Stop date: Limited # of timesNotes: Same as Narcan Hydromorphone 0.5 mg, 0.25 No Longer mL, Route: IVP, 2017 [facility] Drug form: INJ, Q5Min, Dosing Weight 72.841, kg, PRN Pain Score 7-10, Start date: 10/23/17 13:27:00 CDT, Duration: 4 doses or times, Stop date: Limited # of timesNotes: Same as Dilaudid Flumazenil 0.2 mg, 2 mL, No Longer Route: IVP, 2017 [facility] Drug form: INJ, PRN, Dosing Weight 72.841, kg, PRN Benzodiazepine Reversal, Initial dose, Start date: 10/23/17 13:27:00 CDT, Duration: 30 day, Stop date: 11/22/17 13:26:00 CDTNotes: (Same as: Romazicon) Labetalol 10 mg, 2 mL, No Longer Route: IVP, 2017 [facility] Drug form: INJ, Q5Min, Dosing Weight 72.841, kg, PRN Elevated BP, Start date: 10/23/17 13:27:00 CDT, Duration: 5 doses or times, Stop date: Limited # of timesNotes: (Same as: Normodyne, Trandate) Push over 2 minutes Give bolus over 2-3 minutes. Ondansetron 4 mg, 2 mL, Inactive Route: IVP, 2018 [facility] Drug form: INJ, ONCE, Dosing Weight 72.841, kg, PRN Nausea & Vomiting, Start date: 10/23/17 13:27:00 CDTNotes: (Same as: Zofran) MEDICATION WASTE Product Size: 4 mg Product Wasted: ___ mg Furosemide 20 MG 20 mg, 1 tab, Inactive Oral Tablet Route: PO, Drug 2017 [facility] [Lasix] form: TAB, Daily, Dosing Weight 72.841, kg, PRN Edema, Start date: 10/23/17 13:14:00 CDT, Duration: 30 day, Stop date: 11/22/17 13:13:00 CDT Saline Flush 10 ml, Route: No Longer 0.9% IVP, Drug Form: Active 2018 [facility] INJ, Dosing Weight 72.841, kg, PRN, PRN Line Flush, Start date: 10/23/17 13:11:00 CDT, Duration: 30 day, Stop date: 11/22/17 13:10:00 CDTNotes: (Same as: BD Posiflush) Insulin Lispro 1 unit, 0.01 No Longer mL, Route: Active 2018 [facility] SUB-Q, Drug form: SOLN, TID-Before Meals, Dosing Weight 72.841, kg, PRN Blood Glucose Results, Start date: 10/23/17 13:11:00 CDT, Duration: 30 day, Stop date: 11/22/17 13:10:00 CDTNotes: (Same as: Humalog ) Roll in palms of hands gently; Do not shake `vigorously. "Single Patient Use Only " WASTE: F/P - Black; E - Municipal Trash Bin Stable for 28 days at room temperature. Expires in days from D ate Sodium Chloride 1,000 mL, Rate: Inactive 0.9% IV 1,000 mL 75 ml/hr, 2017 [facility] Infuse over: 13.3 hr, Route: IV, Dosing Weight 72.841 kg, Total Volume: 1,000, Start date: 10/23/17 13:11:00 CDT, Duration: 30 day, Stop date: 11/22/17 13:10:00 CDT, 1.88, m2 Ondansetron 4 mg, 2 mL, No Longer Route: IVP, Active 2017 [facility] Drug form: INJ, Q6H, Dosing Weight 72.841, kg, PRN Nausea & Vomiting, Start date: 10/23/17 13:11:00 CDT, Duration: 30 day, Stop date: 11/22/17 13:10:00 CDTNotes: (Same as: Sharon) MEDICATION WASTE Product Size: 4 mg Product Wasted: ___ mg Acetaminophen 1 tab, Route: No Longer 325 MG / PO, Drug Form: Active 2017 [facility] Hydrocodone TAB, Dosing Bitartrate 10 MG Weight 72.841, Oral Tablet kg, Q6H, PRN Pain Score 6-10, Start date: 10/23/17 13:11:00 CDT, Duration: 30 day, Stop date: 11/22/17 13:10:00 CDTNotes: Do not exceed 4gm/day of acetaminophen. (Same as: [place] 325/10) Morphine 2 mg, 0.5 mL, No Longer Route: IVP, Active 2017 [facility] Drug form: SOLN, Q4H, Dosing Weight 72.841, kg, PRN Pain Score 1-3, Start date: 10/23/17 13:11:00 CDT, Duration: 30 day, Stop date: 11/22/17 13:10:00 CDTNotes: (Same as:MORPhine Sulfate) Acetaminophen 650 mg, 2 tab, No Longer Route: PO, Drug Active 2017 [facility] form: TAB, Q4H, Dosing Weight 72.841, kg, PRN Pain 1-3/Temp > 100.4 F, Start date: 10/23/17 13:11:00 CDT, Duration: 30 day, Stop date: 11/22/17 13:10:00 CDTNotes: Do not exceed 4 gm/day. (Same as: Tylenol) acetaminophen-co 2 tab, Route: No Longer deine #3 PO, Drug Form: Active 2018 [facility] TAB, Dosing Weight 72.841, kg, Q4H, PRN Pain Score 4-6, Start date: 10/23/17 13:11:00 CDT, Duration: 30 day, Stop date: 11/22/17 13:10:00 CDTNotes: Do not exceed 4gm/day of acetaminophen. (Same as: Tylenol with Codeine # 3) Acetaminophen 1 tab, Route: No Longer 325 MG / PO, Drug Form: Active 2018 [facility] Hydrocodone TAB, Dosing Bitartrate 5 MG Weight 72.841, Oral Tablet kg, Q4H, PRN Pain Score 4-6, Start date: 10/23/17 13:11:00 CDT, Duration: 30 day, Stop date: 11/22/17 13:10:00 CDTNotes: (Same as: [place] 325/5) Do not exceed 4gm/day of acetaminophen. Isolyte S PH 7.4 Route: IV, Inactive (ANES) 1000 mL Total Volume: 2017 [facility] 1,000, Start date: 10/23/17 12:30:00 CDT, Stop date: 10/23/17 13:30:00 CDT Zinacef 1.5 gm, Route: No Longer IVP, Drug form: Active 2018 [facility] PDR/INJ, PRE OP, Dosing Weight 72.841, kg, Start date: 10/23/17 12:00:00 CDT, Duration: 30 day, Stop date: 11/22/17 11:59:00 CDTNotes: (Same As: Kefurox, Zinacef) MEDICATION WASTE Product Size: 1500 mg Product Wasted: ___ mg losartan 25 mg 25 mg, PO, Active oral tablet Daily, 0 2017 [facility] Refill(s) Furosemide 20 MG 20 mg=1 tab, Active Oral Tablet PO, Daily, PRN 2017 [facility] [Lasix] Edema, 0 Refill(s) clopidogrel 75 75 mg, PO, No Longer mg oral tablet Daily, 0 Active 2017 [facility] Refill(s) carvedilol 6.25 6.25 mg, PO, Active mg oral tablet Q12H, 0 2017 [facility] Refill(s) atorvastatin 80 80 mg, PO, Active mg oral tablet Bedtime, 0 2017 [facility] Refill(s) Aspirin 81 MG 81 mg=1 tab, Active Enteric Coated PO, Daily, 0 2017 [facility] Tablet Refill(s) Furosemide 20 MG 20 mg, 1 tab, No Longer Oral Tablet Route: PO, Drug Active 2017 [facility] [Lasix] form: TAB, Daily, Dosing Weight 72.841, kg, PRN Edema, Start date: 10/23/17 10:30:00 CDT, Duration: 30 day, Stop date: 11/22/17 10:29:00 CDTNotes: (Same as: Lasix) May cause GI upset. Give with food or milk. Acetaminophen 1 tab, Route: Inactive 325 MG / PO, Drug Form: 2017 [facility] Hydrocodone TAB, Dosing Bitartrate 5 MG Weight 72.841, Oral Tablet kg, Q4H, PRN Pain Score 4-6, Start date: 10/23/17 10:29:00 CDT, Duration: 30 day, Stop date: 11/22/17 10:28:00 CDTNotes: (Same as: [place] 325/5) Do not exceed 4gm/day of acetaminophen. Acetaminophen 650 mg, 2 tab, No Longer Route: PO, Drug Active 2017 [facility] form: TAB, Q4H, Dosing Weight 72.841, kg, PRN Pain Score 1-3, Start date: 10/23/17 10:29:00 CDT, Duration: 30 day, Stop date: 11/22/17 10:28:00 CDTNotes: Do not exceed 4 gm/day. (Same as: Tylenol) Ondansetron 4 mg, 2 mL, No Longer Route: IVP, Active 2017 [facility] Drug form: INJ, Q8H, Dosing Weight 72.841, kg, PRN Nausea & Vomiting, Start date: 10/23/17 10:29:00 CDT, Duration: 30 day, Stop date: 11/22/17 10:28:00 CDTNotes: (Same as: Sharon) MEDICATION WASTE Product Size: 4 mg Product Wasted: ___ mg Sodium Chloride 750 mL, Rate: Inactive 0.9% IV 750 mL 75 ml/hr, 2017 [facility] Infuse over: 10 hr, Route: IV, Dosing Weight 72.841 kg, Total Volume: 750, Start date: 10/23/17 10:29:00 CDT, Duration: 10 hr, Stop date: 10/23/17 20:28:00 CDT, 1.88, m2 Sodium Chloride 1,000 mL, Rate: Inactive 0.9% IV 1,000 mL 30 ml/hr, 2017 [facility] Infuse over: 33.3 hr, Route: IV, Dosing Weight 72.841 kg, Total Volume: 1,000, Start date: 10/23/17 8:06:00 CDT, Duration: 30 day, Stop date: 11/22/17 8:05:00 CDT, 1.88, m2 clopidogrel 75 75 mg=1 tab, No Longer Medical mg oral tablet PO, Daily, # 90 Active 2018 Group tab, 2 Refill(s), Pharmacy: [facility] tramadol 50 mg, 1 tab, Inactive hydrochloride 50 Route: PO, Drug 2017 [facility] Oral Tablet form: TAB, ONCE, Dosing Weight 76.136, kg, Priority: NOW, Start date: 09/19/17 10:17:00 CDT, Stop date: 09/19/17 10:17:00 CDTNotes: Not to exceed 400mg/day. (Same As: Ultram) clopidogrel 75 mg, 1 tab, Inactive Route: PO, Drug 2017 [facility] form: TAB, Daily, Dosing Weight 71.818, kg, Start date: 09/19/17 9:00:00 CDT, Duration: 30 day, Stop date: 10/18/17 9:00:00 CDTNotes: (Same As: Plavix) Losartan 25 mg, 1 tab, Inactive Route: PO, Drug 2017 [facility] form: TAB, Daily, Dosing Weight 71.818, kg, Start date: 09/19/17 9:00:00 CDT, Duration: 30 day, Stop date: 10/18/17 9:00:00 CDTNotes: (Same as: Cozaar) Aspirin 81 MG 81 mg, 1 tab, Inactive Enteric Coated Route: PO, Drug 2017 [facility] Tablet form: ECTAB, Daily, Dosing Weight 71.818, kg, Start date: 09/19/17 9:00:00 CDT, Duration: 30 day, Stop date: 10/18/17 9:00:00 CDTNotes: Do not crush or chew. (Same As: Ecotrin) Lovenox 70 mg, 0.7 mL, Inactive Route: SUB-Q, 2017 [facility] Drug form: INJ, ONCE, Dosing Weight 71.818, kg, Start date: 09/18/17 21:00:00 CDT, Stop date: 09/18/17 21:00:00 CDTNotes: Nurse to ensure documentation of patient education per anticoagulation policy. (Same as: Lovenox) carvedilol 6.25 mg, 1 tab, No Longer Route: PO, Drug Active 2017 [facility] form: TAB, Q12H, Dosing Weight 71.818, kg, Start date: 09/18/17 21:00:00 CDT, Duration: 30 day, Stop date: 10/18/17 9:00:00 CDTNotes: Give with food. (Same As: Coreg) atorvastatin 80 mg, 2 tab, No Longer Route: PO, Drug Active 2017 [facility] form: TAB, Bedtime, Dosing Weight 71.818, kg, Start date: 09/18/17 21:00:00 CDT, Duration: 30 day, Stop date: 10/17/17 21:00:00 CDTNotes: (Same as: Lipitor) Nitroglycerin 0.5 inch, Inactive 0.02 MG/MG Route: TOP, 2017 [facility] Topical Ointment Drug Form: OINT, Dosing Weight 71.818, kg, TID, Start date: 09/18/17 17:00:00 CDT, Duration: 30 day, Stop date: 10/18/17 13:00:00 CDT Nitroglycerin 0.5 inch, No Longer 07/19/ MH 0.02 MG/MG Route: TOP, Active 2017 [facility] Topical Ointment Drug Form: OINT, Dosing Weight 71.818, kg, Q8H, Start date: 09/18/17 16:00:00 CDT, Duration: 30 day, Stop date: 10/18/17 8:00:00 CDTNotes: 1 gram is approximately 1 inch of nitroglycerin ointment (20 mg NTG per gram) (Same as:Nitro-Bid) Sodium Chloride 250 mL, Route: No Longer 0.9% IV IVPB, Start Active 2017 [facility] date: 09/18/17 15:49:00 CDT, Duration: 30 day, Stop date: 10/18/17 15:48:00 CDT, PRN Line Flush BD Normal Saline 10 mL, Route: No Longer Flush IVP, Drug Form: Active 2017 [facility] INJ, PRN, PRN Line Flush, Start date: 09/18/17 15:49:00 CDT, Duration: 30 day, Stop date: 10/18/17 15:48:00 CDTNotes: (Same as: BD Posiflush) Sodium Chloride 750 mL, Rate: No Longer 0.9% IV 750 mL 75 ml/hr, Active 2017 [facility] [facility] over: 10 hr, Route: IV, Dosing Weight 71.818 kg, Total Volume: 750, Start date: 09/18/17 14:18:00 CDT, Duration: 10 hr, Stop date: 09/19/17 0:17:00 CDT, 1.87, m2 empagliflozin 10 10 mg=1 tab, Active MG Oral Tablet PO, Bedtime, 0 2017 [facility] [Jardiance] Refill(s) Jardiance PO, QAM, 0 Inactive Refill(s) 2017 [facility] Sodium Chloride 1,000 mL, Rate: No Longer 0.9% IV 1,000 mL 75 ml/hr, Active 2017 [facility] Infuse over: 13.3 hr, Route: IV, Dosing Weight 72.33 kg, Total Volume: 1,000, Start date: 09/18/17 8:40:00 CDT, Duration: 30 day, Stop date: 10/18/17 8:39:00 CDT, 1.87, m2 Aspirin 81 MG 81 mg=1 tab, Active Medical Enteric Coated PO, Daily, # 90 2018 Group Tablet tab, 2 Refill(s), Pharmacy: [facility] Furosemide 20 MG 20 mg=1 tab, Active Medical Oral Tablet PO, Daily, PRN 2018 Group [Lasix] Edema, NEEDED FOR EDEMA, # 90 tab, 2 Refill(s), Pharmacy: [facility] clopidogrel 75 75 mg=1 tab, Active 08/26[facility] Medical mg oral tablet PO, Daily, # 90 2018 Group tab, 2 Refill(s), Pharmacy: [facility] losartan 25 mg 25 mg=1 tab, Active 08/26[facility] Medical oral tablet PO, Daily, # 90 2018 Group tab, 2 Refill(s), Pharmacy: [facility] carvedilol 3.125 6.25 mg=2 tab, Active 08/26[facility] Medical mg oral tablet PO, Q12H, # 360 2018 Group tab, 2 Refill(s), Pharmacy: [facility] atorvastatin 40 80 mg=2 tab, Active Medical mg oral tablet PO, Bedtime, # 2018 Group 180 tab, 2 Refill(s), Pharmacy: [facility] Sodium Chloride 1,000 mL, Rate: Inactive Sugar 0.9% IV 1,000 mL 75 ml/hr, 2017 [facility] over: 13.3 hr, Route: IV, Dosing Weight 74.545 kg, Total Volume: 1,000, Start date: 08/26/17 9:19:00 CDT, Duration: 30 day, Stop date: 09/25/17 9:18:00 CDT, 1.9, m2 Plavix 75 mg, Route: Inactive Sugar PO, Drug form: 2017 [facility] TAB, ONCE, Dosing Weight 74.545, kg, Start date: 08/26/17 8:48:00 CDT, Stop date: 08/26/17 8:48:00 CDT Aspirin 81 MG 81 mg, Route: Inactive Sugar Chewable Tablet PO, Drug form: 2017 [facility] CHEWTAB, ONCE, Dosing Weight 74.545, kg, Start date: 08/26/17 8:48:00 CDT, Stop date: 08/26/17 8:48:00 CDT clopidogrel 75 75 mg=1 tab, Active 07/31/ [facility] mg oral tablet PO, Daily, # 2017 [facility] tab, 2 Refill(s), Pharmacy: [facility] atorvastatin 40 80 mg=2 tab, Active 07/31/ [facility] mg oral tablet PO, Bedtime, # 2017 Neuro 60 tab, 2 Refill(s), Pharmacy: [facility] Aspirin 81 MG 81 mg=1 tab, [facility], Daily, 2017 Neuro Tablet tab, 2 Refill(s), Pharmacy: [facility] Furosemide 20 MG 40 mg, PO, Active Medical Oral Tablet Daily, PRN 2018 Group [Lasix] Edema, # 30 tab, 6 Refill(s), Pharmacy: [facility] losartan 25 mg 25 mg=1 tab, Active Sugar oral tablet PO, Daily, 30 2017 [facility] tab, 0 Refill(s), Pharmacy: [facility] clopidogrel 75 75 mg=1 tab, Active Sugar mg oral tablet PO, Daily, 2017 [facility] tab, 0 Refill(s), Pharmacy: [facility] carvedilol 3.125 6.25 mg=2 tab, Active Sugar mg oral tablet PO, Q12H, # 120 2018 [facility] tab, 0 Refill(s), Pharmacy: [facility] atorvastatin 40 80 mg=2 tab, Active Sugar mg oral tablet PO, Bedtime, # 2017 [facility] 60 tab, 0 Refill(s), Pharmacy: [facility] Aspirin 81 MG 81 mg=1 tab, Active Sugar Enteric Coated PO, Daily, 2017 [facility] Tablet tab, 0 Refill(s), Pharmacy: [facility] Aspirin 81 MG 81 mg, 1 tab, Inactive Sugar Enteric Coated Route: PO, Drug 2017 [facility] Tablet form: ECTAB, Daily, Dosing Weight 76.4, kg, Start date: 06/23/17 9:00:00 CDT, Duration: 30 day, Stop date: 07/22/17 9:00:00 CDTNotes: Do not crush or chew. (Same As: Ecotrin) Imodium A-D 2 mg, 1 cap, No Longer Sugar Route: PO, Drug Active 2017 [facility] form: CAP, Q6H, Dosing Weight 76.4, kg, PRN Loose Stools, Start date: 06/22/17 9:16:00 CDT, Duration: 30 day, Stop date: 07/22/17 9:15:00 CDTNotes: (Same as: Imodium) MAX adult dose is 8 caps/day Coreg 6.25 mg, 2 tab, No Longer Sugar Route: PO, Drug Active 2017 [place] form: TAB, Q12H, Dosing Weight 76.4, kg, Start date: 06/21/17 21:00:00 CDT, Duration: 30 day, Stop date: 07/21/17 9:00:00 CDTNotes: Give with food. (Same As: Coreg) heparin 5,000 unit, 1 No Longer Sugar mL, Route: Active 2017 [facility] SUB-Q, Drug form: INJ, Q8H, Dosing Weight 76.4, kg, Start date: 06/21/17 18:00:00 CDT, Duration: 30 day, Stop date: 07/21/17 10:00:00 CDTNotes: porcine heparin Losartan 25 mg, 1 tab, No Longer Sugar Route: PO, Drug Active 2017 [place] form: TAB, Daily, Dosing Weight 76.4, kg, Start date: 06/21/17 17:00:00 CDT, Duration: 30 day, Stop date: 07/21/17 9:00:00 CDTNotes: (Same as: Cozaar) Thiamine 100 mg, 1 mL, Inactive Sugar Route: IV, Drug 2017 [facility] form: INJ, Q12H, Dosing Weight 76.4, kg, Start date: 06/21/17 9:00:00 CDT, Duration: 2 doses or times, Stop date: 06/21/17 21:00:00 CDTNotes: (Same As: Vitamin B1) Foltx 1 tab, Route: No Longer Sugar PO, Drug Form: Active 2018 [facility] TAB, Dosing Weight 76.4, kg, Daily, Start date: 06/21/17 9:00:00 CDT, Duration: 30 day, Stop date: 07/20/17 9:00:00 CDTNotes: (Same as:Thera) WASTE: F/P - Black; E - Municipal Trash Bin Take with food. Coreg 3.125 mg, 1 No Longer Sugar tab, Route: PO, Active 2017 [facility] Drug form: TAB, Q12H, Dosing Weight 76.4, kg, Start date: 06/20/17 13:18:00 CDT, Duration: 30 day, Stop date: 07/20/17 9:00:00 CDTNotes: Give with food. (Same As: Coreg) Thiamine 100 mg, 1 tab, No Longer Sugar Route: PO, Drug Active 2017 [place] form: TAB, Daily, Dosing Weight 76.4, kg, Start date: 06/20/17 9:00:00 CDT, Duration: 30 day, Stop date: 07/19/17 9:00:00 CDTNotes: (Same As: Vitamin B1) Folic Acid 1 mg, 1 tab, No Longer Sugar Route: PO, Drug Active 2017 [place] form: TAB, Daily, Dosing Weight 76.4, kg, Start date: 06/20/17 9:00:00 CDT, Duration: 30 day, Stop date: 07/19/17 9:00:00 CDTNotes: (Same as: Folvite) multivitamin 1 tab, Route: No Longer Sugar with minerals PO, Drug Form: Active 2018 [facility] TAB, Dosing Weight 76.4, kg, Daily, Start date: 06/20/17 9:00:00 CDT, Duration: 30 day, Stop date: 07/19/17 9:00:00 CDTNotes: (Same as:Thera-M, Theragran-M) WASTE: F/P - Black; E - Municipal Trash Bin Give with food. aspirin 325 mg 325 mg, 1 tab, No Longer Sugar tablet, enteric Route: PO, Drug Active 2017 [facility] coated form: ECTAB, Q24H, Start date: 06/19/17 17:00:00 CDT, Duration: 30 day, Stop date: 07/18/17 17:00:00 CDTNotes: (Do Not Crush) Do not crush or chew. Sodium Chloride 250 mL, 250 No Longer Sugar 0.9% (Bolus) IV ml/hr, Infuse Active 2017 [facility] Over: 1 hr, Route: IV, 250, Drug form: INJ, ONCALL, Priority: Routine, Dosing Weight 76.4 kg, Start date: 06/19/17 11:00:00 CDT, Duration: 1 doses or times Sodium Chloride 750 mL, Rate: No Longer Sugar 0.9% IV 750 mL 75 ml/hr, Active 2017 [facility] Infuse over: 10 hr, Route: IV, Dosing Weight 76.4 kg, Total Volume: 750, Start date: 06/19/17 10:42:00 CDT, Duration: 24 hr, Stop date: 06/20/17 10:41:00 CDT, 1.93, m2 Lasix 40 mg, 1 tab, No Longer Sugar Route: PO, Drug Active 2017 [facility] form: TAB, Daily, Dosing Weight 76.4, kg, Start date: 06/19/17 9:00:00 CDT, Duration: 30 day, Stop date: 07/18/17 9:00:00 CDTNotes: (Same as: Lasix) May cause GI upset. Give with food or milk. pantoprazole 40 mg, 1 tab, No Longer Sugar Route: PO, Drug Active 2017 [facility] form: ECTAB, Daily, Dosing Weight 75.966, kg, Priority: Routine, Start date: 06/19/17 9:00:00 CDT, Duration: 30 day, Stop date: 07/18/17 9:00:00 CDTNotes: Tablet should not be chewed or crushed. (Same as: Protonix) Plavix 75 mg, 1 tab, No Longer Sugar Route: PO, Drug Active 2017 [facility] form: TAB, Daily, Dosing Weight 76.4, kg, Start date: 06/19/17 9:00:00 CDT, Duration: 30 day, Stop date: 07/18/17 9:00:00 CDTNotes: (Same As: Plavix) Docusate Sodium 100 mg, 1 cap, No Longer Sugar 100 MG Oral Route: PO, Drug Active 2017 [facility] Capsule form: CAP, BID, Dosing Weight 76.4, kg, PRN Constipation, Start date: 06/19/17 8:13:00 CDT, Duration: 30 day, Stop date: 07/19/17 8:12:00 CDTNotes: (Same as: Colace) (Do Not Crush) Magnesium Oxide 800 mg, 2 tab, No Longer Sugar Route: PO, Drug Active 2017 [facility] form: TAB, PRN, Dosing Weight 76.4, kg, PRN Abnormal Lab Result, For NON-ICU Patients Only., Start date: 06/19/17 5:49:00 CDT, Duration: 30 day, Stop date: 07/19/17 5:48:00 CDTNotes: (Same as: Mag-Ox 400) Magnesium oxide [id number] elemental magnesium Dose=____mg magnesium oxide (___mg elemental magnesium) Calcium 3 gm, 30 mL, No Longer Sugar Gluconate Route: IVPB, 2017 PRN, Dosing Weight 76.4, kg, PRN Abnormal Lab Result, For NON-ICU Patients Only., Start date: 06/19/17 5:49:00 CDT, Duration: 30 day, Stop date: 07/19/17 5:48:00 CDTNotes: WASTE: F/P - Sink; E - Municipal Trash Bin sodium phosphate 30 mmol, 10 mL, No Longer Sugar Route: IVPB, 2017 PRN, Dosing Weight 76.4, kg, PRN Abnormal Lab Result, For NON-ICU Patients Only., Start date: 06/19/17 5:49:00 CDT, Duration: 30 day, Stop date: 07/19/17 5:48:00 CDT Magnesium 2 gm, 50 mL, No Longer Sugar Sulfate Route: IVPB2017 Drug form: INJ, PRN, Dosing Weight 76.4, kg, PRN Abnormal Lab Result, For NON-ICU Patients Only., Start date: 06/19/17 5:49:00 CDT, Duration: 30 day, Stop date: 07/19/17 5:48:00 CDTNotes: WASTE: F/P - Sink; E - Municipal Trash Bin potassium 30 mmol, 10 mL, No Longer Sugar phosphate Route: IVPB, Active 2017 [facility] PRN, Dosing Weight 76.4, kg, PRN Abnormal Lab Result, For NON-ICU Patients Only., Start date: 06/19/17 5:49:00 CDT, Duration: 30 day, Stop date: 07/19/17 5:48:00 CDTNotes: (Same as: K Phosphate.) 1 mMol phoshate has 1.47 mEq potassium Infuse over 4 hours Potassium 20 mEq, 15 mL, No Longer Sugar Chloride Route: NJ, Drug Active 2017 [facility] form: LIQ, PRN, Dosing Weight 76.4, kg, PRN Abnormal Lab Result, For NON-ICU Patients Only, Start date: 06/19/17 5:49:00 CDT, Duration: 30 day, Stop date: 07/19/17 5:48:00 CDTNotes: (Same as: Potassium Chloride) potassium 2 pkt, Route: No Longer Sugar phosphate-sodium PO, Drug Form: Active 2017 [facility] phosphate 250 PDR/REC, Dosing mg-280 mg-160 mg Weight 76.4, oral powder for kg, PRN, PRN reconstitution Abnormal Lab Result, For NON-ICU Patients Only, Start date: 06/19/17 5:49:00 CDT, Duration: 30 day, Stop date: 07/19/17 5:48:00 CDTNotes: (Same as: Phos-NaK) Each 1.5 gm pkt has 250mg phosphorous. Mix w/2.5oz water and stir. heparin 5,000 unit, No Longer Sugar Route: SUB-Q, Active 2017 [facility] Q8H, Dosing Weight 75.966, kg, Start date: 06/19/17 0:00:00 CDT, Stop date: 07/18/17 16:00:00 CDT Saline Flush 10 ml, Route: No Longer Sugar 0.9% IVP, Drug Form: Active 2017 [facility] INJ, Dosing Weight 75.966, kg, Q12H, Start date: 06/18/17 21:00:00 CDT, Duration: 30 day, Stop date: 07/18/17 9:00:00 CDTNotes: (Same as: BD Posiflush) atorvastatin 80 mg, 2 tab, No Longer Sugar Route: PO, Drug Active 2017 [facility] form: TAB, Bedtime, Dosing Weight 75.966, kg, Start date: 06/18/17 21:00:00 CDT, Duration: 30 day, Stop date: 07/17/17 21:00:00 CDTNotes: (Same as: Lipitor) Insulin Lispro 5 unit, 0.05 No Longer Sugar mL, Route: Active 2017 [facility] SUB-Q, Drug form: SOLN, Q4H, Dosing Weight 76.4, kg, PRN Blood Glucose Results, Start date: 06/18/17 20:15:00 CDT, Duration: 30 day, Stop date: 07/18/17 20:14:00 CDTNotes: (Same as: Humalog ) Roll in palms of hands gently; Do not shake `vigorously. "Single Patient Use Only " WASTE: F/P - Black; E - [place] Trash Bin Stable for 28 days at room temperature. Expires in days from D ate Glucagon 1 mg, Route: No Longer Sugar IM, Drug form: Active 2017 [facility] PDR/INJ, PRN, Dosing Weight 76.4, kg, PRN Blood Glucose Results, Start date: 06/18/17 20:15:00 CDT, Duration: 30 day, Stop date: 07/18/17 20:14:00 CDT Dextrose 50% 25 gm, 50 mL, No Longer Sugar Syringe Route: IVP, Active 2017 [facility] Drug Form: INJ, Dosing Weight 76.4, kg, PRN, PRN Blood Glucose Results, Start date: 06/18/17 20:15:00 CDT, Duration: 30 day, Stop date: 07/18/17 20:14:00 CDT arformoterol =1 ea, NEB, Active Sugar 0.0075 MG/ML BID, # 60 ea, [address] [facility] Inhalant Refill(s) Solution [Brovana] Lasix 40 mg, Daily, 0 Active Sugar Refill(s) 2017 [facility] Insulin Lispro 4 unit, 0.04 Inactive Sugar mL, Route: 2017 [facility] SUB-Q, Drug form: SOLN, Bedtime, Dosing Weight 76.4, kg, PRN Blood Glucose Results, Start date: 06/18/17 18:36:00 CDT, Duration: 30 day, Stop date: 07/18/17 18:35:00 CDTNotes: (Same as: Humalog ) Roll in palms of hands gently; Do not shake `vigorously. "Single Patient Use Only " WASTE: F/P - Black; E - Municipal Trash Bin Stable for 28 days at room temperature. Expires in days from D ate Glucagon 1 mg, Route: Inactive Sugar IM, Drug form: 2017 [facility] PDR/INJ, PRN, Dosing Weight 76.4, kg, PRN Blood Glucose Results, Start date: 06/18/17 18:36:00 CDT, Duration: 30 day, Stop date: 07/18/17 18:35:00 CDT Dextrose 50% 12.5 gm, 25 mL, Inactive Sugar Syringe Route: IVP, 2017 [facility] Drug Form: INJ, Dosing Weight 76.4, kg, PRN, PRN Blood Glucose Results, Start date: 06/18/17 18:36:00 CDT, Duration: 30 day, Stop date: 07/18/17 18:35:00 CDT Ativan 1 mg, 0.5 mL, No Longer Sugar Route: IVP, Active 2017 [facility] Drug form: INJ, Q4H, Dosing Weight 76.4, kg, PRN Agitation, Start date: 06/18/17 18:36:00 CDT, Duration: 30 day, Stop date: 07/18/17 18:35:00 CDTNotes: (Same as: Ativan) Sodium Chloride 1,000 mL, Rate: No Longer Sugar 0.9% IV 1,000 mL 60 ml/hr, Active 2017 [facility] + M.V.I.-12 10 Infuse over: mL Daily + folic 16.9 hr, Route: acid IV 1 mg IV, Dosing Daily + thiamine Weight 76.4 kg, IV 1 Total Volume: 1,011.2, Start date: 06/18/17 18:34:00 CDT, Duration: 3 day, Stop date: 06/21/17 18:33:00 CDT, 1.88, m2 Zofran 4 mg, 2 mL, No Longer Sugar Route: IVP, Active 2017 [place] Drug form: INJ, Q4H, Dosing Weight 75.966, kg, PRN Nausea, Start date: 06/18/17 18:15:00 CDT, Duration: 30 day, Stop date: 07/18/17 18:14:00 CDTNotes: (Same as: Zofran) MEDICATION WASTE Product Size: 4 mg Product Wasted: ___ mg Tylenol 650 mg, 2 tab, No Longer Sugar Route: PO, Drug Active 2017 [place] form: TAB, Q4H, Dosing Weight 75.966, kg, PRN For Temp > 100.4 F, Start date: 06/18/17 18:15:00 CDT, Duration: 30 day, Stop date: 07/18/17 18:14:00 CDTNotes: Do not exceed 4 gm/day. (Same as: Tylenol) heparin additive 500 mL, Rate: No Longer Sugar 25,000 unit [12 18.34 ml/hr, Active 2017 [facility] unit/kg/hr] + Infuse over: Premix Diluent 27.3 hr, Route: Dextrose 5% 500 IV, Dosing mL Weight 76.4 kg, Total Volume: 500 mL, Start date: 06/18/17 18:10:00 CDT, Duration: 30 day, Stop date: 07/18/17 18:09:00 CDT, 1.93, m2 Heparin 30 Route: IVP, No Longer Sugar unit/kg Bolus PRN, 2,300 Active 2017 [facility] (Heparin Dosing unit, 2.3 mL, Weight) Drug form: INJ, PRN, Heparin Protocol, Start date: 06/18/17 18:10:00 CDT Stop date: 07/18/17 18:09:00 CDT, 30 day Heparin 60 Route: IVP, No Longer Sugar unit/kg Bolus PRN, 4,600 Active 2018 [facility] (Heparin Dosing unit, 4.6 mL, Weight) Drug form: INJ, PRN, Heparin Protocol, Start date: 06/18/17 18:10:00 CDT Stop date: 07/18/17 18:09:00 CDT, 30 day Saline Flush 10 ml, Route: No Longer Sugar 0.9% IVP, Drug Form: Active 2018 [facility] INJ, Dosing Weight 75.966, kg, PRN, PRN Line Flush, Start date: 06/18/17 18:00:00 CDT, Duration: 30 day, Stop date: 07/18/17 17:59:00 CDTNotes: (Same as: BD Posiflush) Aspirin 325 MG 325 mg, Route: Inactive Sugar Enteric Coated PO, Drug form: 2018 [facility] Tablet ECTAB, Q24H, Dosing Weight 75.966, kg, Start date: 06/18/17 18:00:00 CDT, Duration: 30 day, Stop date: 07/17/17 18:00:00 CDT Aspirin 81 MG 324 mg, Route: Inactive Sugar Chewable Tablet PO, Drug form: 2018 [facility] CHEWTAB, ONCE, Dosing Weight 75.966, kg, Priority: STAT, Start date: 06/18/17 16:40:00 CDT, Stop date: 06/18/17 16:40:00 CDT Saline Flush 10 mL, Route: No Longer Sugar 0.9% IVP, Drug Form: Active 2018 [facility] INJ, Dosing Weight 75.966, kg, PRN, PRN Line Flush, Start date: 06/18/17 15:05:00 CDT, Duration: 30 day, Stop date: 07/18/17 15:04:00 CDTNotes: (Same as: BD Posiflush) Arformoterol TWICE DAILY Active [facility] Tartrate RESPIRAT[facility] 2018 [facility] Furosemide DAILY Active [facility] 2018 [facility] Levocetirizine DAILY Active [facility]. Dihydrochloride 2018 [facility] Atorvastatin AT BEDTIME Active [facility] Calcium 2018 [facility] Losartan DAILY Active [facility] Potassium 2018 [facility] Metoprolol DAILY Active [facility] Succinate 2018 [facility] Ranolazine TWICE DAILY Active [facility] 2018 [facility] Tramadol Hcl EVERY 6 HOURS [address] [facility] PRN For Pain 2018 [facility] Aspirin Chewable DAILY Active [facility] 2017 [facility] Clopidogrel DAILY Active [facility] Bisulfate [facility] [place] warfarin 7.5 mg, 1 tab, PO No Longer Eduardo [facility] Route: PO, Drug Active 2012 Medical form: TAB, Center Q5PM, Dosing Weight 68.182, kg, Start date: 10/13/12 17:00:00, Duration: 1 doses or times, Stop date: 10/13/12 17:00:00 Coumadin 5 mg See [facility] 10/13[facility] oral tablet Instructions, 1 2012 Medical tab PO Daily, Center 30 tab, Substitution Allowed1 tab PO Daily Coumadin 2.[address] [facility] [address] 10/13[facility] oral tablet Instructions, 1 2012 Medical tab, 30 tab, Center Substitution Allowed1 tab metoprolol 25 mg 25 mg, 1 tab, PO Active [facility] [address] 10/13[facility] oral tablet, PO, Q12H, 60 2012 Medical extended release tab, Center Substitution Allowed, ERTAB tamsulosin 0.4 0.8 mg, 2 cap, PO Active [address] 10/13[facility] mg oral capsule PO, After 2012 Medical Dinner, 60 cap, Center Substitution Allowed, CAP colchicine 0.6 0.6 mg, 1 tab, PO Active [address] 10/13[facility] [place] mg oral tablet PO, BID, 14 2012 Medical tab, Center Substitution Allowed, TAB aspirin 81 mg 81 mg, 1 tab, PO Active [address] 10/13[facility] tablet, enteric PO, Daily, 30 2012 Medical coated tab, Center Substitution Allowed, ECTAB [place] 7.5/325 1 tab, PO, Q4H, PO Active [address] 10/13[facility] oral tablet PRN, 30 tab, 2012 Medical Pain Score 1-5, Center Substitution Allowed, Maintenance, TAB enoxaparin 80 70 mg, 0.7 mL, SUB-Q Active [facility] Boris mg/0.8 mL SUB-Q, 2012 Medical subcutaneous [id number], 4 Center solution doses or times, 0, 0, Substitution Allowed, INJ warfarin 5 mg, 1 tab, PO No Longer Eduardo [facility] Route: PO, Drug Active 2012 Medical form: TAB, Center Q5PM, Dosing Weight 68.182, kg, Start date: 10/12/12 17:00:00, Duration: 1 doses or times, Stop date: 10/12/12 17:00:00 magnesium oxide 400 mg, 1 tab, PO No Longer [facility] Route: PO, Drug Active 2012 Medical form: TAB, Center Daily, Dosing Weight 68.182, kg, Start date: 10/12/12 9:00:00, Duration: 30 day, Stop date: 11/10/12 9:00:00 warfarin 7.5 mg, 1 tab, PO No Longer [place] [facility] Route: PO, Drug Active 2012 Medical form: TAB, Center Q5PM, Dosing Weight 68.182, kg, Start date: 10/11/12 17:00:00, Duration: 1 doses or times, Stop date: 10/11/12 17:00:00 magnesium oxide 500 mg, Route: PO No Longer [facility] 10/11[facility] PO, Drug form: Active 2012 Medical TAB, Daily, Center Dosing Weight 68.182, kg, Start date: 10/11/12 9:00:00, Duration: 30 day, Stop date: 11/09/12 9:00:00 warfarin 7.5 mg, 1 tab, PO No Longer [place] 10/10[facility] Route: PO, Drug Active 2012 Medical form: TAB, Center Q5PM, Dosing Weight 68.182, kg, Start date: 10/10/12 17:00:00, Duration: 1 doses or times, Stop date: 10/10/12 17:00:00 Silvadene 1% 1 appl, Route: TOP No Longer Eduardo 10/10[facility] topical cream TOP, BID, Drug Active 2012 Medical form: CRM, Center Start date: 10/10/12 17:00:00, Duration: 30 day, Stop date: 11/09/12 9:00:00 Lasix 40 mg, 4 mL, IVP No Longer [place] [facility] Route: IVP, Active 2012 Medical Drug form: INJ, Center Daily, Dosing Weight 68.182, kg, Start date: 10/10/12 14:03:00, Duration: 30 day, Stop date: 11/09/12 9:00:00 Lovenox 70 mg, 0.7 mL, SUB-Q No Longer [place] [facility] Route: SUB-Q, Active 2012 Medical Drug form: INJ, Center [id number], Dosing Weight 68.182, kg, Priority: NOW, Start date: 10/10/12 6:44:00, Duration: 30 day, Stop date: 11/08/12 18:44:00 warfarin 7.5 mg, 1 tab, PO No Longer Eduardo [facility] Route: PO, Drug Active 2012 Medical form: TAB, Center Q5PM, Dosing Weight 68.182, kg, Start date: 10/09/12 17:00:00, Duration: 1 doses or times, Stop date: 10/09/12 17:00:00 magnesium oxide 400 mg, 1 tab, PO No Longer [facility] Route: PO, Drug Active 2012 Medical form: TAB, Center Daily, Dosing Weight 68.182, kg, Priority: NOW, Start date: 10/09/12 14:47:00, Duration: 30 day, Stop date: 11/08/12 9:00:00 levalbuterol 0.63 mg, 3 mL, NEB No Longer [place] [facility] Route: NEB, Active 2012 Medical Drug form: Center SOLN, PRN, Dosing Weight 68.182, kg, PRN Respiratory Protocol, Start date: 10/09/12 9:24:00, Duration: 30 day, Stop date: 11/08/12 9:23:00, Substitute Allowed No warfarin 5 mg, 1 tab, PO No Longer Eduardo [facility] Route: PO, Drug Active 2012 Medical form: TAB, Center Q5PM, Dosing Weight 68.182, kg, Start date: 10/08/12 17:00:00, Duration: 1 doses or times, Stop date: 10/08/12 17:00:00 furosemide 20 mg, 2 mL, IV No Longer [place] [facility] Route: IV, Drug Active 2012 Medical form: INJ, Center Daily, Dosing Weight 68.182, kg, Start date: 10/08/12 14:00:00, Duration: 2 doses or times, Stop date: 10/09/12 9:00:00 furosemide 20 mg, Route: IV No Longer [place] [facility] IV, ONCE, Active 2012 Medical Dosing Weight Center 68.182, kg, Start date: 10/08/12 13:31:00, Stop date: 10/08/12 13:31:00 morphine Sulfate 1 mg, 0.5 mL, IVP No Longer [place] [facility] Route: IVP, Active 2012 Medical Drug form: INJ, [place] ONCE, Dosing Weight 68.182, kg, Start date: 10/08/12 12:34:00, Stop date: 10/08/12 12:34:00 colchicine 0.6 mg, 1 tab, PO No Longer [place] [facility] Route: PO, Drug Active 2012 Medical form: TAB, BID, Center Dosing Weight 68.182, kg, Start date: 10/07/12 17:00:00, Duration: 30 day, Stop date: 11/06/12 9:00:00 warfarin 1 mg, 1 tab, PO No Longer Eduardo [facility] Route: PO, Drug Active 2012 Medical form: TAB, [place] Q5PM, Dosing Weight 68.182, kg, Start date: 10/07/12 17:00:00, Duration: 1 doses or times, Stop date: 10/07/12 17:00:00 colchicine 0.6 0.6 mg, 1 tab, PO No Longer [place] [facility] mg oral tablet Route: PO, Drug Active 2012 Medical form: TAB, BID, [place] Dosing Weight 68.182, kg, PRN Other -See Comment, Start date: 10/07/12 9:59:00, Duration: 30 day, Stop date: 11/06/12 9:58:00 aspirin 81 mg 81 mg, 1 tab, PO No Longer [place] [facility] tablet, enteric Route: PO, Drug Active 2012 Medical coated form: ECTAB, [place] Daily, Dosing Weight 68.182, kg, Start date: 10/07/12 9:00:00, Duration: 30 day, Stop date: 11/05/12 9:00:00 chlorhexidine 15 ml, Route: S&SPIT No Longer Religious [facility] topical 0.12% S&SPIT, Q12H, Active 2012 Medical liquid Drug form: LIQ, Center Start date: 10/06/12 21:00:00, Duration: 2 week, Stop date: 10/20/12 9:00:00 atorvastatin 20 mg, Route: PO No Longer [place] [facility] PO, Drug form: Active 2012 Medical TAB, QPM, Center Dosing Weight 68.182, kg, Start date: 10/06/12 17:00:00, Duration: 30 day, Stop date: 11/04/12 17:00:00 cefazolin (SCIP) 1 gm, Route: IVPB No Longer [place] [facility] IVPB, Drug Active 2012 Medical form: PDR/INJ, Center Q8H, Dosing Weight 68.182, kg, Start date: 10/06/12 16:00:00, Duration: 3 doses or times, Stop date: 10/07/12 8:00:00 Xopenex 1.25 mg, 3 mL, NEB No Longer [place] [facility] Route: NEB, Active 2012 Medical Drug form: Center SOLN, RQ4H, Dosing Weight 68.182, kg, Start date: 10/06/12 15:00:00, Duration: 30 day, Stop date: 11/05/12 11:00:00 calcium 4 gm, 40 mL, IVPB No Longer Religious [facility] gluconate + Route: IVPB, Active 2012 Medical Sodium Chloride ONCE, Dosing Center 0.9% IV 110 mL Weight 68.182, kg, Start date: 10/06/12 12:21:00, Duration: 1 doses or times, Stop date: 10/06/12 12:21:00, For Ionized Ca For Ionized Ca nitroglycerin 0.4 mg, 1 tab, SL No Longer Wilmore [facility] Route: SL, Drug Active 2012 Medical form: TAB, Center Q5Min, Dosing Weight 68.182, kg, PRN Chest Pain, Start date: 10/06/12 9:31:00, Duration: 30 day, Stop date: 11/05/12 9:30:00 docusate 100 mg, Route: PO No Longer [place] [facility] PO, BID, Dosing Active 2012 Medical Weight 68.182, Center kg, PRN Constipation, Start date: 10/06/12 9:31:00, Duration: 30 day, Stop date: 11/05/12 9:30:00 Lactated Ringers 1,000 mL, Rate: IV No Longer [place] Injection IV 50 ml/hr, 2012 Medical 1,000 mL Infuse over: 20 Center hr, Route: IV, Dosing Weight 68.182 kg, Total Volume: 1,000, Start date: 10/06/12 9:31:00, Duration: 30 day, Stop date: 11/05/12 9:30:00 Ancef 2 gm, Route: IVPB No Longer Safi [facility] IVPB, ONCE, Active 2012 Medical Dosing Weight Center 68.182, kg, Start date: 10/06/12 8:28:00, Duration: 1 doses or times, Stop date: 10/06/12 8:28:00 metoprolol 25 mg, 1 tab, PO No Longer [place] [facility] extended release Route: PO, Drug Active 2012 Medical form: ERTAB, Center Q12H, Start date: 10/05/12 21:00:00, Duration: 30 day, Stop date: 11/04/12 9:00:00 warfarin 7.5 mg, 1 tab, PO No Longer Eduardo [facility] Route: PO, Drug Active 2012 Medical form: TAB, Center Q5PM, Dosing Weight 68.182, kg, Start date: 10/04/12 17:00:00, Duration: 1 doses or times, Stop date: 10/04/12 17:00:00 warfarin 5 mg, 1 tab, PO No Longer Anderson [facility] Route: PO, Drug Active 2012 Medical form: TAB, Center Q5PM, Dosing Weight 68.182, kg, Start date: 10/03/12 17:00:00, Duration: 1 doses or times, Stop date: 10/03/12 17:00:00 metoprolol 25 mg, 1 tab, PO No Longer [place] [facility] tartrate Route: PO, Drug Active 2012 Medical form: TAB, TID, Center Dosing Weight 68.182, kg, Start date: 10/03/12 13:00:00, Duration: 30 day, Stop date: 11/02/12 9:00:00 warfarin 7.5 mg, 1 tab, PO No Longer Eduardo [facility] Route: PO, Drug Active 2012 Medical form: TAB, Center Q5PM, Dosing Weight 68.182, kg, Start date: 10/02/12 17:00:00, Duration: 1 doses or times, Stop date: 10/02/12 17:00:00 Saline Flush 10 mL, Route: IVP No Longer [place] 10/02[facility] 0.9% IVP, Drug Form: Active 2012 Medical INJ, Dosing Center Weight 68.182, kg, Q8H, Start date: 10/02/12 16:00:00, Duration: 30 day, Stop date: 11/01/12 8:00:00 tramadol 50 mg 50 mg, 1 tab, PO No Longer Golden [facility] oral tablet Route: PO, Drug Active 2012 Medical form: TAB, Q6H, Center Dosing Weight 68.182, kg, Start date: 10/02/12 12:00:00, Duration: 30 day, Stop date: 11/01/12 6:00:00 Saline Flush 10 mL, Route: IVP No Longer Bal 10/02[facility] 0.9% IVP, Drug Form: Active 2012 Medical INJ, Dosing Center Weight 68.182, kg, PRN, PRN Line Flush, Start date: 10/02/12 10:31:00, Duration: 30 day, Stop date: 11/01/12 10:30:00 molasses 240 mL, Route: [place] No Longer [place] 10/02[facility] [place], Drug Form: Active 2012 Medical SYRP, Dosing Center Weight 68.182, kg, ONCE, Milk of Molasses Enema, Start date: 10/02/12 10:11:00, Duration: 1 doses or times, Stop date: 10/02/12 10:11:00 molasses 240 mL, Route: [place] No Longer [place] 10/02[facility] [place], Drug Form: Active 2012 Medical SYRP, Dosing Center Weight 68.182, kg, ONCE, Milk of Molasses Enema, Start date: 10/02/12 9:55:00, Duration: 1 doses or times, Stop date: 10/02/12 9:55:00 Lasix 40 mg, Route: IVP No Longer Banks [facility] IVP, Drug form: Active 2012 Medical INJ, Q12H, Center Dosing Weight 78, kg, Start date: 10/01/12 21:00:00, Duration: 30 day, Stop date: 10/31/12 9:00:00 Flomax 0.8 mg, 2 cap, PO No Longer Soraida [facility] Route: PO, Drug Active 2012 Medical form: CAP, Center After Dinner, Dosing Weight 68.182, kg, Priority: NOW, Start date: 10/01/12 19:04:00, Stop date: 10/31/12 17:00:00 indomethacin 25 mg, 1 cap, PO No Longer Golden [facility] Route: PO, Drug Active 2012 Medical form: CAP, TID, Center Dosing Weight 68.182, kg, Priority: NOW, Start date: 10/01/12 17:32:00, Duration: 30 day, Stop date: 10/31/12 17:00:00 warfarin 5 mg, 1 tab, PO No Longer Eduardo 10/01[facility] Route: PO, Drug Active 2012 Medical form: TAB, Center Q5PM, Dosing Weight 68.182, kg, Start date: 10/01/12 17:00:00, Duration: 1 doses or times, Stop date: 10/01/12 17:00:00 Fleet Enema 133 ml, Route: [place] No Longer Eduardo 10/01[facility] [place], Drug Form: Active 2012 Medical FERNIE, Dosing Center Weight 68.182, kg, ONCE, PRN Bowel Movements, Start date: 10/01/12 16:56:00, May repeat x 1 if needed metoprolol 12.5 mg, 1 ea, PO No Longer Anderson [facility] tartrate Route: PO, Drug Active 2012 Medical form: TAB, Q6H, Center Dosing Weight 68.182, kg, Priority: NOW, Start date: 10/01/12 15:51:00, Duration: 30 day, Stop date: 10/31/12 12:00:00 Lovenox 70 mg, 0.7 mL, SUB-Q No Longer Golden [facility] Route: SUB-Q, Active 2012 Medical Drug form: INJ, Center [id number], Dosing Weight 68.182, kg, Priority: NOW, Start date: 10/01/12 15:49:00, Duration: 30 day, Stop date: 10/31/12 3:49:00 potassium 20 mEq, Route: PO No Longer Banks [facility] chloride PO, Drug form: Active 2012 Medical ELIX, ONCE, Center Dosing Weight 78, kg, Start date: 10/01/12 12:59:00, Stop date: 10/01/12 12:59:00 Lasix 40 mg, Route: IVP No Longer Juan [facility] IVP, Drug form: Active 2012 Medical INJ, ONCE, Center Dosing Weight 78, kg, Priority: STAT, Start date: 10/01/12 6:08:00, Stop date: 10/01/12 6:08:00 insulin glargine 10 unit, 0.1 SUB-Q No Longer Eduardo [facility] mL, Route: Active 2012 Medical SUB-Q, Drug Center form: INJ, Q12H, Dosing Weight 78, kg, Start date: 09/30/12 21:00:00, Duration: 30 day, Stop date: 10/30/12 9:00:00 Toradol 15 mg/mL 15 mg, 1 mL, IV No Longer Eduardo [facility] injectable Route: IV, Drug Active 2012 Medical solution form: INJ, Q6H, Center Dosing Weight 78, kg, Start date: 09/30/12 18:00:00, Stop date: 10/02/12 6:00:00 Silvadene 1% 1 appl, Route: TOP No Longer Eduardo [facility] topical cream TOP, BID, Drug Active 2012 Medical form: CRM, Center Start date: 09/30/12 17:00:00, Duration: 30 day, Stop date: 10/30/12 9:00:00 Dulcolax 10 mg, 1 supp, [place] No Longer Anderson [facility] Laxative Route: [place], Drug Active 2012 Medical form: SUPP, Center Daily, Dosing Weight 78, kg, Priority: NOW, Start date: 09/30/12 15:15:00, Duration: 30 day, Stop date: 10/30/12 9:00:00 Reglan 10 mg, 2 mL, IVP No Longer Eduardo 07/31[facility] Route: IVP, Active 2012 Medical Drug form: INJ, Center Q6H, Dosing Weight 78, kg, Priority: NOW, Start date: 09/30/12 15:14:00, Duration: 3 day, Stop date: 10/03/12 12:00:00 Toradol 30 mg/mL 30 mg, 1 mL, IV No Longer Eduardo [facility] injectable Route: IV, Drug Active 2012 Medical solution form: INJ, Center ONCE, Dosing Weight 78, kg, Priority: NOW, Start date: 09/30/12 12:37:00, Stop date: 09/30/12 12:37:00 insulin aspart 5 unit, 0.05 SUB-Q No Longer [place] [facility] mL, Route: Active 2012 Medical SUB-Q, Drug Center form: SOLN, TID-Before Meals, Dosing Weight 78, kg, Start date: 09/30/12 11:30:00, Stop date: 10/30/12 7:30:00 Lantus 15 unit, 0.15 SUB-Q No Longer [place] [facility] mL, Route: Active 2012 Medical SUB-Q, Drug Center form: INJ, Q12H, Dosing Weight 78, kg, Priority: NOW, Start date: 09/30/12 10:52:00, Stop date: 10/30/12 9:00:00 albumin human 25 gm, 100 mL, IVPB No Longer Eduardo [facility] 25% intravenous Route: IVPB, Active 2012 Medical solution Drug form: INJ, Center ONCE, Dosing Weight 78, kg, Start date: 09/30/12 10:43:00, Stop date: 09/30/12 10:43:00 metoprolol 5 5 mg, 5 mL, IVP No Longer Eduardo [facility] mg/5 ml INJ Route: IVP, Active 2012 Medical Drug form: INJ, Center Q6H, Dosing Weight 78, kg, PRN Hypertension, Start date: 09/30/12 10:41:00, Duration: 30 day, Stop date: 10/30/12 10:40:00, SBP >150 metoprolol 12.5 mg, 1 ea, PO No Longer Eduardo [facility] tartrate Route: PO, Drug Active 2012 Medical form: TAB, Center Q12H, Dosing Weight 78, kg, Priority: NOW, Start date: 09/30/12 10:40:00, Duration: 30 day, Stop date: 10/30/12 9:00:00 insulin aspart 10 unit, 0.1 SUB-Q No Longer [place] 09/30[facility] mL, Route: Active 2012 Medical SUB-Q, Drug Center form: SOLN, TID-Before Meals, Dosing Weight 78, kg, PRN Blood Glucose Results, Start date: 09/30/12 10:38:00, Duration: 30 day, Stop date: 10/30/12 10:37:00 glucagon 1 mg, Route: IM No Longer [place] [facility] IM, Drug form: Active 2012 Medical PDR/INJ, PRN, Center Dosing Weight 78, kg, PRN Blood Glucose Results, Start date: 09/30/12 10:38:00, Duration: 30 day, Stop date: 10/30/12 10:37:00 Dextrose 50% 25 gm, 50 mL, IVP No Longer [place] [facility] Syringe Route: IVP, Active 2012 Medical Drug Form: INJ, Center Dosing Weight 78, kg, PRN, PRN Blood Glucose Results, Start date: 09/30/12 10:38:00, Duration: 30 day, Stop date: 10/30/12 10:37:00 Lantus 10 unit, Route: SUB-Q No Longer [place] 09/30[facility] SUB-Q, Drug Active 2012 Medical form: SOLN, Center Daily, Dosing Weight 78, kg, Priority: NOW, Start date: 09/30/12 10:35:00, Duration: 30 day, Stop date: 10/30/12 9:00:00 Lasix 40 mg, 4 mL, IVP No Longer [place] 09/30[facility] Route: IVP, Active 2012 Medical Drug form: INJ, Center ONCE, Dosing Weight 78, kg, Priority: STAT, Start date: 09/30/12 10:34:00, Stop date: 09/30/12 10:34:00 [place] 7.5/325 2 tab, Route: PO No Longer [place] [facility] oral tablet PO, Drug Form: Active 2012 Medical TAB, Dosing Center Weight 78, kg, Q4H, PRN Pain Score 6-10, Start date: 09/30/12 10:33:00, Duration: 30 day, Stop date: 10/30/12 10:32:00 aspirin 325 mg 325 mg, 1 tab, PO No Longer [place] [facility] tablet, enteric Route: PO, Drug Active 2012 Medical coated form: ECTAB, Center Daily, Dosing Weight 78, kg, Priority: NOW, Start date: 09/30/12 10:23:00, Duration: 30 day, Stop date: 10/30/12 9:00:00 pneumococcal 0.5 ml, Route: IM No Longer SYSTEM [facility] 23-valent IM, Drug Form: Active 2012 Medical vaccine INJ, Start Center date: 09/30/12 9:00:00, Stop date: 09/30/12 9:00:00 Lovenox 40 mg, 0.4 mL, SUB-Q No Longer Eduardo [facility] Route: SUB-Q, Active 2012 Medical Drug form: INJ, Center [id number], Dosing Weight 78, kg, Start date: 09/30/12 9:00:00, Duration: 30 day, Stop date: 10/29/12 9:00:00 Milk of Magnesia 30 ml, Route: PO No Longer [place] [facility] PO, Drug Form: Active 2012 Medical SUSP, Dosing Center Weight 78, kg, Daily, Routine, Start date: 09/30/12 9:00:00, Duration: 30 day, Stop date: 10/29/12 9:00:00 [place] 5/325 oral 1 tab, Route: PO No Longer [place] [facility] tablet PO, Drug Form: Active 2012 Medical TAB, Dosing Center Weight 78, kg, Q4H, PRN Pain, Start date: 09/29/12 21:20:00, Duration: 30 day, Stop date: 10/29/12 21:19:00 pravastatin 80 mg, 4 tab, PO No Longer Eduardo [facility] Route: PO, Drug Active 2012 Medical form: TAB, Center Bedtime, Dosing Weight 78, kg, Start date: 09/29/12 21:00:00, Duration: 30 day, Stop date: 10/28/12 21:00:00 magnesium 2 gm, 50 mL, IVPB No Longer [facility] Boris sulfate Route: IVPB, Active 2012 Medical Drug form: INJ, Center ONCE, Dosing Weight 78, kg, Total dose=2 gm, Start date: 09/29/12 19:32:00, Duration: 1 doses or times, Stop date: 09/29/12 19:32:00 Colace 100 mg 100 mg, 1 cap, PO No Longer [place] [facility] oral capsule Route: PO, Drug Active 2012 Medical form: CAP, BID, Center Dosing Weight 78, kg, Start date: 09/29/12 17:00:00, Duration: 30 day, Stop date: 10/29/12 9:00:00 Protonix 40 mg, 1 tab, PO No Longer Eduardo [facility] Route: PO, Drug Active 2012 Medical form: ECTAB, Center Before Dinner, Dosing Weight 78, kg, Start date: 09/29/12 16:30:00, Stop date: 10/01/12 19:00:00 Dilaudid 0.5 mg, 0.25 IV No Longer [place] [facility] mL, Route: IV, Active 2012 Medical Drug form: INJ, Center Q2H, Dosing Weight 78, kg, PRN Pain, Priority: NOW, Start date: 09/29/12 15:52:00, Duration: 30 day, Stop date: 10/29/12 15:51:00 ipratropium 0.5 mg, 2.5 mL, NEB No Longer Eduardo [facility] Route: NEB, Active 2012 Medical Drug form: Center SOLN, RQ8H, Dosing Weight 78, kg, Start date: 09/29/12 15:00:00, Duration: 30 day, Stop date: 10/29/12 7:00:00 Blistex Lip 1 appl, Route: TOP No Longer Golden [facility] Revitalizer TOP, TID, Drug Active 2012 Medical form: STIC, PRN Center Dry Lips, Start date: 09/29/12 13:00:00, Duration: 30 day, Stop date: 10/29/12 9:00:00 phenol topical 1 spray, Route: TOP No Longer Golden [facility] 1.4% spray TOP, QID, Drug Active 2012 Medical form: SPRY, PRN Center as needed for sore throat, Start date: 09/29/12 13:00:00, Stop date: 10/29/12 9:00:00 simethicone 80 mg, 1 tab, CHEW No Longer Eduardo [facility] Route: CHEW, Active 2012 Medical Drug form: [place] CHEWTAB, Q6H, Dosing Weight 78, kg, Start date: 09/29/12 12:00:00, Duration: 30 day, Stop date: 10/29/12 6:00:00 albumin human 5% 25 gm, 500 mL, IV No Longer Eduardo Boris intravenous 0 ml/hr, Route: Active 2012 Medical solution IV, Drug Form: [place] INJ, Dosing Weight 78, kg, ONCE, NOW, Start date: 09/29/12 9:38:00, Stop date: 09/29/12 9:38:00 NS 0.45% IV 1,000 mL, Rate: IV No Longer Eduardo [place] 1,000 mL 75 ml/hr, Active 2012 Medical Infuse over: [place] 13.3 hr, Route: IV, Dosing Weight 78 kg, Total Volume: 1,000, Start date: 09/29/12 9:36:00, Stop date: 10/29/12 9:35:00 fentanyl 50 microgram, 1 IVP No Longer [place] mL, Route: IVP, Active 2012 Medical Drug form: INJ, [place] Q1H, Dosing Weight 78, kg, PRN Breakthrough Pain, Start date: 09/29/12 9:32:00, Duration: 30 day, Stop date: 10/29/12 9:31:00 Tylenol 650 mg, 2 tab, PO No Longer Eduardo Boris Route: PO, Drug Active 2012 Medical form: TAB, Q4H, [place] Dosing Weight 78, kg, PRN Fever, Start date: 09/29/12 9:32:00, Duration: 30 day, Stop date: 10/29/12 9:31:00 aspirin 81 mg 81 mg, 1 tab, PO No Longer Eduardo Boris tablet, enteric Route: PO, Drug Active 2012 Medical coated form: ECTAB, [place] Daily, Dosing Weight 79.091, kg, Start date: 09/29/12 9:00:00, Duration: 30 day, Stop date: 10/28/12 9:00:00 Zofran 4 mg, 2 mL, IVP No Longer [place] Boris Route: IVP, 2012 Medical Drug form: INJ, Center Q8H, PRN Nausea, Start date: 09/28/12 21:41:00, Duration: 30 day, Stop date: 10/28/12 21:40:00 Zofran 4 mg, 2 mL, IV No Longer [place] Boris Route: IV, Drug Active 2012 Medical form: INJ, Q8H, Center Dosing Weight 78, kg, PRN Nausea, Start date: 09/28/12 21:19:00, Duration: 30 day, Stop date: 10/28/12 21:18:00 vancomycin 1 gm, Route: IVPB No Longer Mar 09 Boris (SCIP) IVPB, Drug Active 2012 Medical form: INJ, Center [id number], Dosing Weight 79.091, kg, Start date: 09/28/12 20:00:00, Duration: 2 doses or times, Stop date: 09/29/12 8:00:00 NS 1,000 mL 1,000 mL, Rate: IV No Longer Eduardo Boris 75 ml/hr, 2012 Medical Infuse over: [place] 13.3 hr, Route: IV, Dosing Weight 78 kg, Total Volume: 1,000, Start date: 09/28/12 18:53:00, Duration: 30 day, Stop date: 10/28/12 18:52:00 FENTanyl 1000 1,000 IV No Longer Eduardo Boris mcg in 20 mL microgram, 20 2012 Medical (titrate) IV mL, Rate: Center 1,000 microgram Titrate., Dosing Weight 78, kg, Route: IV, Total Volume: 20, Duration: 30 day, Stop date: 10/28/12 18:52:00, Replace Every: 24 hr ipratropium 0.5 mg, 2.5 mL, NEB No Longer [facility] Boris Route: NEB, Active oren 2012 Medical Drug form: Center SOLN, PRN, Dosing Weight 79.091, kg, PRN Respiratory Protocol, Start date: 09/28/12 16:23:00, Duration: 30 day, Stop date: 10/28/12 16:22:00 norepinephrine 8 242 mL, Rate: IV No Longer Eduardo Boris mg + Sodium Use as direced, Active 2012 Medical Chloride 0.9% Dosing Weight Center (titrate) 242 mL 79.091, kg, Route: IV, Total Volume: 250 mL, Duration: 30 day, Stop date: 10/28/12 16:21:00, Replace Every: 24 hr fentanyl 25 microgram, IVP No Longer [place] [id number] 0.5 mL, Route: 2012 Medical IVP, Drug form: Center INJ, Q2H, Dosing Weight 79.091, kg, PRN Pain, Start date: 09/28/12 16:21:00, Duration: 30 day, Stop date: 10/28/12 16:20:00 cefazolin (SCIP) 1 gm, Route: IVPB No Longer Mar [address] [facility] IVPB, Drug Active 2012 Medical form: PDR/INJ, Center [id number], Dosing Weight 79.091, kg, Start date: 09/28/12 16:00:00, Duration: 3 doses or times, Stop date: 09/29/12 8:00:00 epinephrine 4 mg 246 mL, Rate: [facility] [address] + Sodium Titrate, Dosing Active 2012 Medical Chloride 0.9% Weight 79.091, [place] (titrate) 246 mL kg, Route: IV, Total Volume: 250, Duration: 30 day, Stop date: 10/28/12 14:02:00, Replace Every: 24 hr Insulin regular 99 mL, Rate: IVPB [facility] Longer [address] [facility] [address] 100 [facility] + Start Insulin Active 2012 Medical Sodium Chloride Drip Per ICU Center 0.9% (titrate) Protocol, 99 mL Dosing Weight 79.091, kg, Route: IVPB, Total Volume: 100, Stop date: 10/28/12 14:01:00, Replace Every: 24 hr, Initial Insulin Drip Rate (units/hour)=(F asting Blood Glucose-60)X0.0 3 "multiplier".In itial Insulin Drip Rate (units/hour)=(F asting Blood Glucose-60)X0.0 3 "multiplier". Dextrose 50% 25 gm, 50 mL, IVP No Longer [place] [id number] Syringe Route: IVP, Active 2012 Medical Drug Form: INJ, Center Dosing Weight 79.091, kg, PRN, PRN Blood Glucose Results, Start date: 09/28/12 14:00:00, Duration: 30 day, Stop date: 10/28/12 13:59:00 vancomycin 1.5 gm, Route: IVPB No Longer Safi [facility] IVPB, ONCE, Active 2012 Medical Dosing Weight Center 79.091, kg, Start date: 09/28/12 8:11:00, Stop date: 09/28/12 8:11:00 Ancef 2 gm, Route: IVP No Longer Safi [facility] IVP, ONCE, Active 2012 Medical Dosing Weight Center 79.091, kg, Start date: 09/28/12 8:11:00, Stop date: 09/28/12 8:11:00 valsartan 160 mg 160 mg, 1 tab, PO Active 09/25[facility] [place] oral tablet PO, Daily, 2012 Medical tab, Center Substitution Allowed, TAB pravastatin 80 80 mg, 1 tab, PO Active 09/25[facility] [place] mg oral tablet PO, Daily, 2012 Medical tab, Center Substitution Allowed, TAB isosorbide 30 mg, 1 tab, PO Active 09/25[facility] mononitrate 30 PO, QAM, 2012 Medical mg oral tablet, tab, Center extended release Substitution Allowed, ERTAB enoxaparin 80 SUB-Q, Q12H, SUB-Q Active 09/25[facility] [place] mg/0.8 mL Substitution 2012 Medical subcutaneous Allowed [place] solution docusate sodium 100 mg, PO, PO Active 09/25[facility] [place] 100 mg oral BID, PRN, 20 2012 [facility] capsule cap, [place] Constipation, Substitution Allowed carvedilol 3.125 3.125 mg, 1 PO Active 09/25[facility] [place] mg oral tablet tab, PO, Q12H, 2012 Medical 60 tab, Center Substitution Allowed, TAB [place] 5/325 oral 1 tab, PO, Q4H, PO Active 09/25[facility] [place] tablet PRN, for pain, 2012 Medical Substitution Center Allowed, Maintenance, TAB Allergies, Adverse Reactions, Alerts Substance Category Reaction Severity Reaction Status Date Comments Source type Reported No Known Assertion Drug Medication allergy Medical Allergies Group Immunizations Immunization Date Site Status Last Comments Source Given Updated pneumococcal kathryn Dickson [facility] 23-valent 3 [facility] vaccine Center pneumococcal Right completed [facility] 23-valent 3 Deltoid Neuro, vaccine [place] pneumococcal Right completed [facility] 23-valent 3 Deltoid Neuro, vaccine [place],[facility] Results Order Name Results Value Reference Date Interpretation Comments Source Range CHEM PANEL eGFR 106 10/27 Result Comment: The eGFR is calculated using the CKD-EPI formula. In most young, healthy individuals the eGFR will be >90 mL/ min/1.73m2. The eGFR declines with age. An eGFR of 60-89 may be normal in mL/min/1.7 some populations, particularly the elderly, for whom the CKD-EPI formula has not been extensively validated. Use of the eGFR is not recommended in the following populations: [address] Individuals with unstable creatinine concentrations, including patients and those with serious co-morbid conditions. Patients with extremes in muscle mass or diet. The data above are obtained from the National Kidney Disease Education Program (NKDEP) which additionally recommends that when the eGFR is used in patients with extremes of body mass index for purposes of drug dosing, the eGFR should be multiplied by the estimated BMI. CHEM PANEL Creatinine 0.70 mg/dL 0.50 - 10/27 Lvl 1.40 [facility] CHEM PANEL Sodium Lvl 136 meq/L 135 - 145 10/27 [facility] CHEM PANEL Potassium 4.3 meq/L 3.5 - 5.1 10/27 MH Lvl [facility] CHEM PANEL Chloride Lvl 102 meq/L 95 - 109 10/27 [facility] CHEM PANEL Calcium Lvl 9.0 mg/dL 8.5 - 10.5 10/27 [facility] CHEM PANEL CO2 25 meq/L 24 - 32 10/27 [facility] CHEM PANEL Glucose Lvl 124 mg/dL 70 - 99 10/27 [facility] CHEM PANEL BUN 10 mg/dL 7 - 22 10/27 [facility] CHEM PANEL AGAP 13.3 meq/L 10.0 - 10/27 MH 20.0 [facility] HEMATOLOGY WBC 11.7 K/CMM 3.7 - 10.4 10/27 [facility] HEMATOLOGY RBC 4.09 M/CMM 4.70 - 10/27 MH 6.10 [facility] HEMATOLOGY Hct 29.3 % 42.0 - 10/27 MH 54.0 [facility] HEMATOLOGY MCV 71.5 fL 80.0 - 10/27 MH 94.0 /2017 [facility] HEMATOLOGY Hgb 9.7 g/dL 14.0 - 10/27 18.0 [facility] HEMATOLOGY MCH 23.8 pg 27.0 - 10/27 MH 31.0 [facility] HEMATOLOGY MCHC 33.3 g/dL 32.0 - 10/27 MH 36.0 [facility] HEMATOLOGY RDW 23.5 % 11.5 - 10/27 MH 14.5 [facility] HEMATOLOGY Platelet 133 K/CMM 133 - 450 10/27 /2017 [facility] HEMATOLOGY MPV 8.8 fL 7.4 - 10.4 10/27 [facility] HEMATOLOGY Microcyte 2+ None Seen 10/27 [facility] *ABN* (10/27/17 5:36 AM) HEMATOLOGY Basophils 0.3 % 0.0 - 1.0 10/27 [facility] HEMATOLOGY Neutrophils 7.4 K/CMM 1.5 - 8.1 10/27 MH # /2017 [facility] HEMATOLOGY Monocytes 9.0 % 2.0 - 12.0 10/27 [facility] HEMATOLOGY Eosinophils 5.7 % 0.0 - 4.0 10/27 /2017 [facility] HEMATOLOGY Segs 63.5 % 45.0 - 10/27 75.0 [facility] HEMATOLOGY Lymphocytes 21.5 % 20.0 - 10/27 40.0 /2017 [facility] HEMATOLOGY Eosinophils 0.7 K/CMM 0.0 - 0.5 10/27 # /2017 [facility] HEMATOLOGY Lymphocytes 2.5 K/CMM 1.0 - 5.5 10/27 # /2017 [facility] HEMATOLOGY Monocytes # 1.0 K/CMM 0.0 - 0.8 10/27 /2017 [facility] HEMATOLOGY PT 14.6 s 12.0 - 10/27 14.7 [facility] HEMATOLOGY PTT 30.9 s 22.9 - 10/27 35.8 [facility] HEMATOLOGY INR 1.14 0.85 - 10/27 1.17 [facility] HEMATOLOGY RBC 4.07 M/CMM 4.70 - 10/26 MH 6.10 [facility] HEMATOLOGY WBC 10.6 K/CMM 3.7 - 10.4 10/26 [facility] HEMATOLOGY Hgb 9.7 g/dL 14.0 - 10/26 18.0 [facility] HEMATOLOGY Hct 29.3 % 42.0 - 10/26 MH 54.0 [facility] HEMATOLOGY MCV 72.0 fL 80.0 - 10/26 94.0 [facility] HEMATOLOGY Platelet 135 K/CMM 133 - 450 10/26 [facility] HEMATOLOGY MPV 9.8 fL 7.4 - 10.4 10/26 [facility] HEMATOLOGY MCHC 33.0 g/dL 32.0 - 10/26 36.0 [facility] HEMATOLOGY MCH 23.7 pg 27.0 - 10/26 31.0 [facility] HEMATOLOGY RDW 22.9 % 11.5 - 10/26 14. [facility] ELECTROLYT AGAP 11.8 meq/L 10.0 - 10/26 [facility] 20.0 [facility] ELECTROLYT eGFR 100 10/26 Result Comment: The eGFR is calculated using the CKD-EPI formula. In most young, healthy individuals the eGFR will be >90 mL/ min/1.73m2. The eGFR declines with age. An eGFR of 60-89 may be normal in [facility] mL/min/1. some populations, particularly the elderly, for whom the CKD-EPI formula has not been extensively validated. Use of the eGFR is not recommended in the following populations: [address] Individuals with unstable creatinine concentrations, including patients and those with serious co-morbid conditions. Patients with extremes in muscle mass or diet. The data above are obtained from the National Kidney Disease Education Program (NKDEP) which additionally recommends that when the eGFR is used in patients with extremes of body mass index for purposes of drug dosing, the eGFR should be multiplied by the estimated BMI. ELECTROLYT Sodium Lvl 136 meq/L 135 - 145 10/26 [facility] ELECTROLYT Potassium 3.8 meq/L 3.5 - 5.1 10/26 ES Lvl [facility] ELECTROLYT Creatinine 0.80 mg/dL 0.50 - 10/26 ES Lvl 1.40 [facility] ELECTROLYT BUN 10 mg/dL 7 - 10/26 [facility] ELECTROLYT Glucose Lvl 127 mg/dL 70 - 99 10/26 [facility] ELECTROLYT CO2 25 meq/L 24 - 32 10/26 [facility] ELECTROLYT Chloride Lvl 103 meq/L 95 - 109 10/26 [facility] ELECTROLYT Calcium Lvl 8.1 mg/dL 8.5 - 10.5 10/26 ES [facility] HEMATOLOGY Eosinophils 0.6 K/CMM 0.0 - 0.5 10/26 [facility] HEMATOLOGY Monocytes # 1.0 K/CMM 0.0 - 0.8 10/26 [facility] HEMATOLOGY Tear Cell Moderate None Seen 10/26 [facility] *ABN* (10/26/17 4:41 AM) HEMATOLOGY Eosinophils 5.6 % 0.0 - 4.0 10/26 [facility] HEMATOLOGY Monocytes 9.7 % 2.0 - 12.0 10/26 [facility] HEMATOLOGY Polychrom Moderate None Seen 10/26 [facility] *ABN* (10/26/17 4:41 AM) HEMATOLOGY Microcyte 2+ None Seen 10/26 [facility] *ABN* (10/26/17 4:41 AM) HEMATOLOGY Neutrophils 5.9 K/CMM 1.5 - 8.1 10/26 [facility] HEMATOLOGY Lymphocytes 2.5 K/CMM 1.0 - 5.5 10/26 [facility] HEMATOLOGY Basophils 0.5 % 0.0 - 1.0 10/26 [facility] HEMATOLOGY Segs 59.0 % 45.0 - 10/26 75.0 [facility] HEMATOLOGY Lymphocytes 25.2 % 20.0 - 10/26 40.0 [facility] Plt Morph Normal 10/26 [facility] (10/26/17 4:41 AM) HEMATOLOGY MCH 23.6 pg 27.0 - 10/26 31.0 [facility] HEMATOLOGY Platelet 122 K/CMM 133 - 450 10/26 [facility] HEMATOLOGY MCHC 33.2 g/dL 32.0 - 10/26 36.0 [facility] HEMATOLOGY RDW 22.6 % 11.5 - 10/26 14.5 [facility] HEMATOLOGY MCV 71.2 fL 80.0 - 10/26 94.0 [facility] HEMATOLOGY WBC 9.9 K/CMM 3.7 - 10.4 10/26 [facility] HEMATOLOGY Hct 27.2 % 42.0 - 10/26 54.0 [facility] HEMATOLOGY RBC 3.81 M/CMM 4.70 - 10/26 MH 6.10 [facility] HEMATOLOGY Hgb 9.0 g/dL 14.0 - 10/26 18.0 [facility] HEMATOLOGY MPV 9.0 fL 7.4 - 10.4 10/26 [facility] BLOOD BANK RBC product Product available 10/25 Result Comment: 2017 09:59 [id number] RESULTS /2017 Blood available, notified Artemio at 10/25/2017 09:59 by [email or web address] Kuhn (10/25/17 9:45 AM) Pelvis CTA Pelvis CTA Patient Name: VIVIEN GREWAL 10/25 - - [facility] : 1960; Age: 57 years y/o Male MR: [id number] Read by: Terence Nichols MD Dictated Date/time: 10/25/17 16:33 Electronically Signed by: Terence Nichols MD 10/25/17 16:51 FINAL REPORT * CT ANGIOGRAPHY OF THE LOWER ABDOMEN AND PELVIS HISTORY: 57-year-old male with peripheral artery disease. Retroperitoneal bleeding. The patient underwent emergent right femoral exploration and repair of right femoral artery and external iliac artery following a percutaneous intervention. Prior imaging studies reviewed: none Technique: [address] images were obtained from the lower chest through the lower abdomen to include the entire pelvis and upper thighs during the dynamic administration of nonionic iodinated contr ast for maximal arterial opacification (CT angiography technique). 3- dimensional (obtained by postprocessing on an independent workstation) and sagittal and coronal maximum intensity projection reconstr uction (obtained by postprocessing on an independent workstation) were also provided. CT imaging performed at this location utilizes radiation dose optimization techniques which include one or more of the following: -Automated exposure control. -Adjustment of the mA and/or kV according to patient size. -Use of iterative reconstruction technique. CT radiation dose DLP: 347 mGy-cm FINDINGS: 1. No active bleeding or bleeding source such as a pseudoaneurysm is identified, particularly in the region of the distal right external iliac artery , right common femoral artery and right femoral bifurcation. 2. Postoperative changes. A Allen-Mcclellan drain extends from the right inguinal region into the right flank, just lateral to the right lower psoas muscle in the upper pelvis. 3. There is a small amount of residual soft tissue hemorrhage in the right retroperitoneal region. There does not appear to be a large retroperitoneal hemorrhage or findings to suggest a new retroperitoneal hemorrhage. 4. Atherosclerotic changes as outlined below. 5. Moderate atherosclerotic changes are noted involving the distal abdominal aorta and bifurcation. There is extensive atherosclerotic plaque involving the common iliac arteries. Appears be mild stenose s bilaterally. No hemodynamically significant stenosis is indicated. Both external iliac artery shows relatively mild without significant stenosis. 6. There appears to be a moderate (approximately 50%) eccentric stenosis involving the proximal left common femoral artery best seen on image 44 of series 5. 7. There is disease involving the left common femoral artery. There is a mild to moderate (approximately 40%) diffuse stenosis of the distal right common femoral artery. The right profunda femoral artery is patent. 8. Moderate (approximately 45%) stenosis of the proximal right superficial femoral artery. Below this, the visualized right superficial femoral artery is patent. 9. There is a vascular stent within the proximal left superficial femoral artery which appears to be patent. 10. The origin of the left profundofemoral artery is patent. Most of the left profundofemoral branches are patent. However, the largest deep branch which extends anterior to the proximal femur is occlud ed. This is best visualized on images 57 through 65 of series 2. 11. Note is made of a small umbilical hernia. There is no herniation of bowel. 12. No other significant soft tissue abnormalities are seen within the visualized lower abdomen and pelvis. The lower portions of the kidneys are unremarkable. No mass or adenopathy is seen within the l ower abdomen or pelvis. The visualized gastrointestinal structures are unremarkable. Evaluation of the gastrointestinal structures is limited due to lack of oral contrast. 13. Note is made of calcification in the vas deferens consistent with diabetes. SL: [facility] CHEM PANEL eGFR 100 10/25 Result Comment: The eGFR is calculated using the CKD-EPI formula. In most young, healthy individuals the eGFR will be >90 mL/ min/1.73m2. The eGFR declines with age. An eGFR of 60-89 may be normal in [facility] /min/1. some populations, particularly the elderly, for whom the CKD-EPI formula has not been extensively validated. Use of the eGFR is not recommended in the following populations: [place] [address] Individuals with unstable creatinine concentrations, including patients and those with serious co-morbid conditions. Patients with extremes in muscle mass or diet. The data above are obtained from the National Kidney Disease Education Program (NKDEP) which additionally recommends that when the eGFR is used in patients with extremes of body mass index for purposes of drug dosing, the eGFR should be multiplied by the estimated BMI. CHEM PANEL Calcium Lvl 8.2 mg/dL 8.5 - 10.5 10/25 [facility] CHEM PANEL AGAP 14.9 meq/L 10.0 - 10/25 20.0 [facility] CHEM PANEL CO2 24 meq/L 24 - 32 10/25 [facility] CHEM PANEL Glucose Lvl 140 mg/dL 70 - 99 10/25 [facility] CHEM PANEL Sodium Lvl 140 meq/L 135 - 145 10/25 [facility] CHEM PANEL Potassium 3.9 meq/L 3.5 - 5.1 10/25 Lvl [facility] CHEM PANEL Creatinine 0.80 mg/dL 0.50 - 10/25 Lvl 1.40 [facility] CHEM PANEL Chloride Lvl 105 meq/L 95 - 109 10/25 [facility] CHEM PANEL BUN 15 mg/dL 7 - 22 10/25 [facility] HEMATOLOGY Eosinophils 0.4 K/CMM 0.0 - 0.5 10/25 [facility] HEMATOLOGY Basophils # 0.1 K/CMM 0.0 - 0.2 10/25 [facility] HEMATOLOGY Monocytes # 1.0 K/CMM 0.0 - 0.8 10/25 [facility] HEMATOLOGY Microcyte 3+ None Seen 10/25 [facility] *NA* (10/25/17 4:54 AM) HEMATOLOGY Neutrophils 7.0 K/CMM 1.5 - 8.1 10/25 [facility] HEMATOLOGY Lymphocytes 2.3 K/CMM 1.0 - 5.5 10/25 [facility] HEMATOLOGY Eosinophils 4.1 % 0.0 - 4.0 10/25 [facility] HEMATOLOGY Basophils 0.5 % 0.0 - 1.0 10/25 [facility] HEMATOLOGY Lymphocytes 21.7 % 20.0 - 10/25 40.0 [facility] HEMATOLOGY Monocytes 9.0 % 2.0 - 12.0 10/25 [facility] HEMATOLOGY Segs 64.7 % 45.0 - 10/25 75.0 [facility] Basophils # 0.2 K/CMM 0.0 - 0.2 10/24 [facility] BLOOD BANK RBC product Product available 10/23 [facility] (10/23/17 3:45 PM) HEMATOLOGY Estimated % 1.4 % 0.0 - 7.5 10/23 Lysis [facility] HEMATOLOGY G-value 6.8 K d/sc 5.0 - 11.6 10/23 [facility] HEMATOLOGY Max 58 mm 52 - 71 10/23 Amplitude [facility] Rapid HEMATOLOGY Angle Rapid 70 degrees 64 - 80 10/23 [facility] HEMATOLOGY K-time Rapid 1.7 min 0.6 - 2.3 10/23 [facility] HEMATOLOGY R-time Rapid 0.8 min 0.4 - 0.7 10/23 [facility] HEMATOLOGY [place] 0.7 min 10/23 [facility] HEMATOLOGY ACT (TEG) 128 s 86 - 118 10/23 [facility] BLOOD BANK RBC product Product available 10/23 [facility] (10/23/17 12:05 PM) BLOOD BANK ABO/Rh A POS 10/23 RESULTS [facility] BLOOD BANK Antibody Negative 10/23 RESULTS Scrn [facility] (10/23/17 11:57 AM) CHEM PANEL Bili Total 1.4 mg/dL 0.2 - 1.3 10/23 [facility] CHEM PANEL Total 5.5 g/dL 6.4 - 8.4 10/23 [facility] CHEM PANEL Albumin Lvl 2.8 g/dL 3.5 - 5.0 10/23 [facility] CHEM PANEL ALT 15 unit/L 0 - 65 10/23 [facility] CHEM PANEL AST 15 unit/L 0 - 37 10/23 [facility] CHEM PANEL Alk Phos 66 unit/L 39 - 136 10/23 [facility] CHEM PANEL Globulin 2.7 g/dL 2.7 - 4.2 10/23 [facility] CHEM PANEL B/C Ratio 10 6 - 25 10/23 [facility] CHEM PANEL A/G Ratio 1.0 0.7 - 1.6 10/23 [facility] HEMATOLOGY Baso Moderate None Seen 10/23 [place] [facility] *ABN* (10/23/17 11:57 AM) HEMATOLOGY Basophils # 0.1 K/CMM 0.0 - 0.2 10/23 [facility] HEMATOLOGY Polychrom Moderate None Seen 10/23 [facility] *ABN* (10/23/17 11:57 AM) HEMATOLOGY Plt Morph Normal 10/23 /2017 [facility] (10/23/17 11:57 AM) HEMATOLOGY INR 1.47 0.85 - 10/23 1.17 [facility] HEMATOLOGY PT 17.9 s 12.0 - 10/23 14.7 [facility] HEMATOLOGY PTT 96.0 s 22.9 - 10/23 35.8 /2017 [facility] HEMATOLOGY POC 301 s 10/23 Activated /2017 [facility] Clotting Time Chest 1 v Chest 1 v Patient Name: VIVIEN GREWAL 10/23 - for for /2017 - [facility] Placement Placement DX : 1960; Age: 57 years y/o Male DX MR: [id number] Read by: Zion Yo MD Dictated Date/time: 10/23/17 14:28 Electronically Signed by: Zion Yo MD 10/23/17 14:30 FINAL REPORT Study: Chest 1 v for Placement DX dated 10/23/2017. Clinical Indication: Line Placement Comparison: 06/18/2017 Patient is status post median sternotomy and CABG. Right internal jugular catheter in place with tip in expected region of the right atrium. Enlarged cardiac silhouette and mediastinal structures are stable. No focal infiltrates within the lungs, no edema and no pneumothorax. SL: [id number] HEMATOLOGY POC 330 s 10/23 Activated /2017 [facility] Clotting Time ELECTROLYT POC AGAP 18.0 meq/L 10.0 - 10/23 ES 20.0 [facility] ELECTROLYT POC 46.0 % 42.0 - 10/23 ES Hematocrit 54.0 [facility] ELECTROLYT POC 15.6 g/dL 14.0 - 10/23 ES Hemoglobin 18.0 [place] ELECTROLYT POC 0.8 mg/dL 0.5 - 1.4 10/23 ES Creatinine /2017 [place] ELECTROLYT POC BUN 8 mg/dL 7 - 22 10/23 ES /2017 [facility] ELECTROLYT POC Ion Ca 1.26 1.05 - 10/23 ES mMol/L 1.25 [place] ELECTROLYT POC Glucose 138 mg/dL 70 - 99 10/23 ES /2017 [facility] ELECTROLYT POC Chloride 101 meq/L 95 - 109 10/23 ES /2017 [place] ELECTROLYT POC 4.1 meq/L 3.5 - 5.1 10/23 ES Potassium /2017 [facility] ELECTROLYT POC Carbon 26 mEq/dL 24 - 32 10/23 ES Dioxide [facility] ELECTROLYT POC Sodium 140 meq/L 135 - 145 10/23 ES [facility] Ext Lower Ext Lower Patient Name: VIVIEN GREWAL 10/23 - Arterial Arterial /2017 - [facility] Doppler Doppler : 1960; Age: 57 years y/o Male unilat US unilat MR: [id number] Read by: Zion Yo MD Dictated Date/time: 10/23/17 12:44 Electronically Signed by: Zion Yo MD 10/23/17 12:47 FINAL REPORT Study: Right groin ultrasound dated 10/23/2017. 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 No pseudoaneurysm was identified. Monophasic waveform was seen to the right common femoral artery. CONCLUSIONS: 1. No pseudoaneurysm identified from the right common femoral artery. SL: [id number] ELECTROLYT AGAP 13.8 meq/L 10.0 - 09/19 ES 20.0 [facility] ELECTROLYT eGFR 95 09/19 Result Comment: The eGFR is calculated using the CKD-EPI formula. In most young, healthy individuals the eGFR will be >90 mL/ min/1.73m2. The eGFR declines with age. An eGFR of 60-89 may be normal in [facility] mL/min/1.7 some populations, particularly the elderly, for whom the CKD-EPI formula has not been extensively validated. Use of the eGFR is not recommended in the following populations: [facility] 3m2 Individuals with unstable creatinine concentrations, including patients and those with serious co-morbid conditions. Patients with extremes in muscle mass or diet. The data above are obtained from the National Kidney Disease Education Program (NKDEP) which additionally recommends that when the eGFR is used in patients with extremes of body mass index for purposes of drug dosing, the eGFR should be multiplied by the estimated BMI. ELECTROLYT Glucose Lvl 136 mg/dL 70 - 99 09/19 ES [facility] ELECTROLYT BUN 16 mg/dL 7 - 22 09/19 [facility] ELECTROLYT Creatinine 0.90 mg/dL 0.50 - 09/19 ES Lvl 1.40 [facility] ELECTROLYT Sodium Lvl 138 meq/L 135 - 145 09/19 [facility] ELECTROLYT Potassium 3.8 meq/L 3.5 - 5.1 09/19 ES Lvl [facility] ELECTROLYT Chloride Lvl 105 meq/L 95 - 109 09/19 [facility] ELECTROLYT Calcium Lvl 8.3 mg/dL 8.5 - 10.5 09/19 [facility] ELECTROLYT CO2 23 meq/L 24 - 32 09/19 [facility] HEMATOLOGY RDW 16.4 % 11.5 - 09/19 14. [facility] HEMATOLOGY MCHC 33.0 g/dL 32.0 - 09/19 36.0 [facility] HEMATOLOGY Platelet 167 K/CMM 133 - 450 09/19 [facility] HEMATOLOGY RBC 5.85 M/CMM 4.70 - 09/19 6.10 [facility] HEMATOLOGY MCH 21.0 pg 27.0 - 09/19 31.0 [facility] HEMATOLOGY MPV 9.3 fL 7.4 - 10.4 09/19 [facility] HEMATOLOGY Hgb 12.3 g/dL 14.0 - 09/19 18.0 [facility] HEMATOLOGY MCV 63.6 fL 80.0 - 09/19 94.0 [facility] HEMATOLOGY WBC 10.8 K/CMM 3.7 - 10.4 09/19 [facility] HEMATOLOGY Hct 37.2 % 42.0 - 09/19 54.0 [facility] HEMATOLOGY Basophils 0.6 % 0.0 - 1.0 09/19 [facility] HEMATOLOGY Eosinophils 4.9 % 0.0 - 4.0 09/19 [facility] HEMATOLOGY Schistocyte 1-3 per HPF None Seen 09/19 [facility] (09/19/17 4:11 AM) HEMATOLOGY Polychrom Moderate None Seen 09/19 [facility] *ABN* (09/19/17 4:11 AM) HEMATOLOGY Lymphocytes 2.1 K/CMM 1.0 - 5.5 09/19 [facility] HEMATOLOGY Lymphocytes 19.2 % 20.0 - 09/19 MH 40.0 [facility] HEMATOLOGY Monocytes 8.5 % 2.0 - 12.0 09/19 [facility] HEMATOLOGY Microcyte 3+ None Seen 09/19 [facility] *NA* (09/19/17 4:11 AM) HEMATOLOGY Basophils # 0.1 K/CMM 0.0 - 0.2 09/19 [facility] HEMATOLOGY Neutrophils 7.2 K/CMM 1.5 - 8.1 09/19 # /2018 [facility] HEMATOLOGY Monocytes # 0.9 K/CMM 0.0 - 0.8 09/19 [facility] HEMATOLOGY Eosinophils 0.5 K/CMM 0.0 - 0.5 09/19 MH # /2018 [facility] HEMATOLOGY Segs 66.8 % 45.0 - 09/19 MH 75.0 [facility] HEMATOLOGY Plt Morph Normal 09/19 [facility] (09/19/17 4:11 AM) HEMATOLOGY POC 339 s 09/18 Activated [facility] Clotting Time HEMATOLOGY POC 358 s 09/18 Activated [facility] Clotting Time CHEM PANEL eGFR 106 09/18 Result Comment: The eGFR is calculated using the CKD-EPI formula. In most young, healthy individuals the eGFR will be >90 mL/ min/1.73m2. The eGFR declines with age. An eGFR of 60-89 may be normal in mL/min/1. some populations, particularly the elderly, for whom the CKD-EPI formula has not been extensively validated. Use of the eGFR is not recommended in the following populations: [facility] 3m2 Individuals with unstable creatinine concentrations, including patients and those with serious co-morbid conditions. Patients with extremes in muscle mass or diet. The data above are obtained from the National Kidney Disease Education Program (NKDEP) which additionally recommends that when the eGFR is used in patients with extremes of body mass index for purposes of drug dosing, the eGFR should be multiplied by the estimated BMI. CHEM PANEL POC AGAP 19.0 meq/L 10.0 - 09/18 MH 20.0 [facility] CHEM PANEL POC 0.7 mg/dL 0.5 - 1.4 09/18 Creatinine [facility] CHEM PANEL POC BUN 10 mg/dL 7 - 09/18 [facility] CHEM PANEL POC Glucose 137 mg/dL 70 - 99 09/18 /2017 [facility] CHEM PANEL POC 3.9 meq/L 3.5 - 5.1 09/18 Potassium [facility] CHEM PANEL POC Chloride 102 meq/L 95 - 109 09/18 [facility] CHEM PANEL POC Carbon 25 mEq/dL 24 - 32 09/18 [facility] CHEM PANEL POC Sodium 141 meq/L 135 - 145 09/18 [facility] CHEM PANEL POC Ion Ca 1.28 1.05 - 09/18 mMol/L 1.25 [facility] CHEM PANEL POC 13.3 g/dL 14.0 - 09/18 Hemoglobin 18.0 [facility] CHEM PANEL POC 39.0 % 42.0 - 09/18 Hematocrit 54.0 [facility] CHEM PANEL eGFR 95 08/18 Result Comment: The eGFR is calculated using the CKD-EPI formula. In most young, healthy individuals the eGFR will be >90 mL/ min/1.73m2. The eGFR declines with age. An eGFR of 60-89 may be normal in mL/min/1.7 some populations, particularly the elderly, for whom the CKD-EPI formula has not been extensively validated. Use of the eGFR is not recommended in the following populations: [facility] 3m2 Individuals with unstable creatinine concentrations, including patients and those with serious co-morbid conditions. Patients with extremes in muscle mass or diet. The data above are obtained from the National Kidney Disease Education Program (NKDEP) which additionally recommends that when the eGFR is used in patients with extremes of body mass index for purposes of drug dosing, the eGFR should be multiplied by the estimated BMI. CHEM PANEL CO2 27 meq/L - 08/18 Group CHEM PANEL Chloride Lvl 105 meq/L 95 - 109 08/18 Group CHEM PANEL Potassium 4.7 meq/L 3.5 - 5.1 08/18 [facility] L[facility] CHEM PANEL Sodium Lvl 141 meq/L 135 - 145 08/18 Group CHEM PANEL Creatinine 0.90 mg/dL 0.50 - 08/18 [facility] Lvl 1.40 [facility] CHEM PANEL BUN 12 mg/dL 7 - 22 08/18 Group CHEM PANEL Glucose Lvl 139 mg/dL 70 - 99 08/18 Group CHEM PANEL Calcium Lvl 9.3 mg/dL 8.5 - 10.5 08/18 Group CHEM PANEL AGAP 13.7 meq/L 10.0 - 08/18 Medical 20. Group HEMATOLOGY Eosinophils 0.5 K/CMM 0.0 - 0.5 08/18 Medical # /2017 [facility] HEMATOLOGY Monocytes # 0.8 K/CMM 0.0 - 0.8 08/18 Group HEMATOLOGY Microcyte 3+ None Seen 08/18 Group *NA* (08/18/17 10:43 AM) HEMATOLOGY Basophils # 0.1 K/CMM 0.0 - 0.2 08/18 Group HEMATOLOGY Lymphocytes 3.0 K/CMM 1.0 - 5.5 08/18 Medical # /2017 [facility] HEMATOLOGY Eosinophils 4.6 % 0.0 - 4.0 08/18 Group HEMATOLOGY Basophils 0.7 % 0.0 - 1.0 08/18 Group HEMATOLOGY Monocytes 7.0 % 2.0 - 12.0 08/18 Group HEMATOLOGY Segs-Bands # 6.8 K/CMM 1.5 - 8.1 08/18 Group HEMATOLOGY Plt Morph Normal 08/18 Group (08/18/17 10:43 AM) HEMATOLOGY Lymphocytes 27.0 % 20.0 - 08/18 [facility] 40.0 /2018 [facility] HEMATOLOGY Segs 60.7 % 45.0 - 08/18 [facility] 75.0 Group HEMATOLOGY PT 14.8 s 12.0 - 08/18 Medical 14.7 Group HEMATOLOGY INR 1.16 0.85 - 08/18 Medical 1.17 Group HEMATOLOGY PTT 33.1 s 22.9 - 08/18 Medical 35.8 /2018 Group HEMATOLOGY MPV 9.2 fL 7.4 - 10.4 08/18 Group HEMATOLOGY MCHC 31.3 g/dL 32.0 - 08/18 Medical 36.0 /2018 Group HEMATOLOGY MCH 20.7 pg 27.0 - 08/18 [facility] 31.0 /2018 Group HEMATOLOGY Platelet 195 K/CMM 133 - 450 08/18 Group HEMATOLOGY RDW 15.3 % 11.5 - 08/18 [facility] 14.5 Group HEMATOLOGY MCV 66.0 fL 80.0 - 08/18 Medical 94.0 /2018 [facility] HEMATOLOGY RBC 6.21 M/CMM 4.70 - 08/18 Medical 6.10 Group HEMATOLOGY WBC 11.2 K/CMM 3.7 - 10.4 08/18 [facility] HEMATOLOGY Hct 41.0 % 42.0 - 08/18 Medical 54.0 Group HEMATOLOGY Hgb 12.8 g/dL 14.0 - 08/18 [facility] 18.0 [facility] CHEM PANEL Phosphorus 3.4 mg/dL 2.5 - 4.5 06/23 [place] CHEM PANEL Magnesium 1.9 mg/dL 1.8 - 2.4 06/23 [place] CHEM PANEL eGFR 81 06/23 Result Comment: The eGFR is calculated using the CKD-EPI formula. In most young, healthy individuals the eGFR will be >90 mL/ min/1.73m2. The eGFR declines with age. An eGFR of 60-89 may be normal in mL/min/1. some populations, particularly the elderly, for whom the CKD-EPI formula has not been extensively validated. Use of the eGFR is not recommended in the following populations: [place] 3m2 Individuals with unstable creatinine concentrations, including patients and those with serious co-morbid conditions. Patients with extremes in muscle mass or diet. The data above are obtained from the National Kidney Disease Education Program (NKDEP) which additionally recommends that when the eGFR is used in patients with extremes of body mass index for purposes of drug dosing, the eGFR should be multiplied by the estimated BMI. CHEM PANEL Sodium Lvl 138 meq/L 135 - 145 06/23 [place] CHEM PANEL Potassium 3.8 meq/L 3.5 - 5.1 06/23 [place] CHEM PANEL Creatinine 1.03 mg/dL 0.50 - 06/23 [place] Lvl 1.40 [place] CHEM PANEL CO2 25 meq/L 24 - 32 06/23 [place] CHEM PANEL Calcium Lvl 8.4 mg/dL 8.5 - 10.5 06/23 [place] CHEM PANEL Chloride Lvl 105 meq/L 95 - 109 06/23 [place] CHEM PANEL Glucose Lvl 155 mg/dL 70 - 99 06/23 [place] CHEM PANEL BUN 15 mg/dL 7 - 22 06/23 [place] CHEM PANEL AGAP 11.8 meq/L 10.0 - 06/23 [place] HEMATOLOGY MCH 21.4 pg 27.0 - 06/23 [place] 31.0 [place] HEMATOLOGY RBC 5.61 M/CMM 4.70 - 06/23 [place] 6.10 [place] HEMATOLOGY Hct 39.4 % 42.0 - 06/23 [place] 54.0 [place] HEMATOLOGY WBC 11.6 K/CMM 3.7 - 10.4 06/23 [place] HEMATOLOGY Hgb 12.0 g/dL 14.0 - 06/23 [place] 18.0 [place] HEMATOLOGY MCV 70.2 fL 80.0 - 06/23 [place] 94.0 [place] HEMATOLOGY MCHC 30.4 g/dL 32.0 - 06/23 [place] 36.0 [place] HEMATOLOGY RDW 15.1 % 11.5 - 06/23 [place] 14.5 [place] HEMATOLOGY Platelet 224 K/CMM 133 - 450 06/23 [place] HEMATOLOGY MPV 8.9 fL 7.4 - 10.4 06/23 [place] HEMATOLOGY Monocytes # 1.0 K/CMM 0.0 - 0.8 06/23 [place] HEMATOLOGY Lymphocytes 2.7 K/CMM 1.0 - 5.5 06/23 [place] [facility] [place] HEMATOLOGY Eosinophils 3.5 % 0.0 - 4.0 06/23 [place] HEMATOLOGY Segs-Bands # 7.5 K/CMM 1.5 - 8.1 06/23 [place] HEMATOLOGY Basophils 0.3 % 0.0 - 1.0 06/23 [place] HEMATOLOGY Basophils # 0.0 K/CMM 0.0 - 0.2 06/23 [place] HEMATOLOGY Eosinophils 0.4 K/CMM 0.0 - 0.5 06/23 [place] # [place] HEMATOLOGY Segs 64.6 % 45.0 - 06/23 [place] 75.0 [place] HEMATOLOGY Lymphocytes 23.3 % 20.0 - 06/23 [place] 40.0 [place] HEMATOLOGY Monocytes 8.3 % 2.0 - 12.0 06/23 [place] CHEM PANEL Phosphorus 4.2 mg/dL 2.5 - 4.5 06/22 [place] CHEM PANEL eGFR 89 06/22 Result Comment: The eGFR is calculated using the CKD-EPI formula. In most young, healthy individuals the eGFR will be >90 mL/ min/1.73m2. The eGFR declines with age. An eGFR of 60-89 may be normal in mL/min/1. some populations, particularly the elderly, for whom the CKD-EPI formula has not been extensively validated. Use of the eGFR is not recommended in the following populations: [place] 3m2 Individuals with unstable creatinine concentrations, including patients and those with serious co-morbid conditions. Patients with extremes in muscle mass or diet. The data above are obtained from the National Kidney Disease Education Program (NKDEP) which additionally recommends that when the eGFR is used in patients with extremes of body mass index for purposes of drug dosing, the eGFR should be multiplied by the estimated BMI. CHEM PANEL BUN 17 mg/dL 7 - 06/22 [facility] CHEM PANEL Glucose Lvl 135 mg/dL 70 - 99 06/22 [place] CHEM PANEL Creatinine 0.96 mg/dL 0.50 - 06/22 [place] Lvl 1.40 [place] CHEM PANEL Sodium Lvl 136 meq/L 135 - 145 06/22 [place] CHEM PANEL Chloride Lvl 102 meq/L 95 - 109 06/22 [place] CHEM PANEL Potassium 3.9 meq/L 3.5 - 5.1 06/22 [place] CHEM PANEL Calcium Lvl 8.9 mg/dL 8.5 - 10.5 06/22 [place] CHEM PANEL CO2 25 meq/L 24 - 32 06/22 [facility] CHEM PANEL AGAP 12.9 meq/L 10.0 - 06/22 [place] 20.0 [place] CHEM PANEL Magnesium 2.2 mg/dL 1.8 - 2.4 06/[address] [facility] HEMATOLOGY Anisocyte 1+ None Seen 06/22 [place] *ABN* (06/22/17 4:05 AM) HEMATOLOGY Target Cell Slight 06/22 [facility] HEMATOLOGY Segs 72.0 % 45.0 - 06/[address] [facility] HEMATOLOGY Basophils # 0.1 K/CMM 0.0 - 0.2 06/22 [facility] HEMATOLOGY Lymphocytes 2.3 K/CMM 1.0 - 5.5 06/22 [place] HEMATOLOGY Monocytes # 1.4 K/CMM 0.0 - 0.8 06/22 [place] HEMATOLOGY Eosinophils 0.4 K/CMM 0.0 - 0.5 06/22 [place] # /2017 [place] HEMATOLOGY Eosinophils 2.8 % 0.0 - 4.0 06/22 [place] HEMATOLOGY Basophils 0.5 % 0.0 - 1.0 06/22 [place] HEMATOLOGY Segs-Bands # 10.7 K/CMM 1.5 - 8.1 06/22 [place] HEMATOLOGY Lymphocytes 15.2 % 20.0 - 06/22 [place] 40.0 [place] HEMATOLOGY Monocytes 9.5 % 2.0 - 12.0 06/22 [place] HEMATOLOGY RBC 5.72 M/CMM 4.70 - 06/[address] [facility] HEMATOLOGY WBC 14.9 K/CMM 3.7 - 10.4 06/22 [place] HEMATOLOGY Hct 40.5 % 42.0 - 06/22 [place] 54.0 [place] HEMATOLOGY Hgb 12.6 g/dL 14.0 - 06/22 [place] 18.0 [place] HEMATOLOGY MPV 8.6 fL 7.4 - 10.4 06/22 [place] HEMATOLOGY Platelet 211 K/CMM 133 - 450 06/22 [facility] HEMATOLOGY RDW 15.1 % 11.5 - 06/22 [place] 14.5 [place] HEMATOLOGY MCV 70.7 fL 80.0 - 06/[address] [facility] HEMATOLOGY MCHC 31.1 g/dL 32.0 - 06/22 [place] 36.0 [place] HEMATOLOGY MCH 22.0 pg 27.0 - 06/22 [place] 31.0 [place] PARATHYROI Ca Ion WB 1.14 1.05 - 06/22 [place] D PROFILE mMol/L 03.27 [place] PARATHYROI Ca Norm WB 1.11 1.05 - 06/22 [place] D PROFILE mMol/L 03.27 [place] ANEMIA Vitamin B12 452 pg/mL 254 - 1320 06/22 [place] STUDY Lvl [place] Ext Lower Ext Lower CLINICAL HISTORY : , - claudication 06/21 - [place] Arterial Arterial /2017 - [place] Doppler Doppler bilat US bilat US EXAM : BilateralLower Extremity Arterial Duplex 06/21/2017 1:27 PM CDT Read by: Gretchen Kendrick MD Dictated Date/time: 06/21/17 22:24 Electronically Signed by: Gretchen Kendrick MD 06/21/17 22:28 FINAL REPORT COMPARISON : none TECHNIQUE : Utilizing a linear array transducer, real-time ultrasound evaluation of the bilateral lower extremity was performed. Color Doppler imaging was used to assess vascular flow. FINDINGS : Right There is extensive mixed calcified and noncalcified atherosclerotic plaque throughout the right lower extremity arterial vasculature. Common Femoral artery: PSV 135 cm/s, biphasic waveform Proximal SFA: PSV 216 cm/s, biphasic waveform Mid SFA : PSV 122 cm/s, biphasic waveform Distal SFA : PSV 139 cm/s, monophasic waveform Popliteal : PSV 65 cm/s, monophasic waveform Anterior tibial : PSV 26 cm/s, monophasic waveform Posterior tibial : PSV 24 cm/s, monophasic waveform Dorsalis Pedis : PSV 33 cm/s, monophasic waveform Left There is extensive mixed calcified and noncalcified atherosclerotic plaque throughout the left lower extremity arterial vasculature. Common Femoral artery: PSV 261 cm/s, monophasic waveform Proximal SFA: PSV 72 cm/s, monophasic waveform Mid SFA : Occluded Distal SFA : PSV 7 cm/s, monophasic waveform Popliteal : PSV 26 cm/s, monophasic waveform Anterior tibial : PSV 19 cm/s, monophasic waveform Posterior tibial : PSV 18 cm/s, monophasic waveform Dorsalis Pedis : PSV 13 cm/s, monophasic waveform IMPRESSION: Right: 1. Greater than 70% stenosis of the proximal SFA by velocity criteria. 2. Diminished flow velocity in the runoff vessels. 3. Extensive atherosclerotic plaque with dampened waveform pattern throughout the right lower extremity. Left: 1. Greater than 70% stenosis of the common femoral artery by velocity criteria. 2. Occlusion of the mid SFA. 3. Dampened waveform and diminished flow velocities throughout the left lower extremity. 4. Moderate atherosclerotic plaque throughout the left lower extremity. CHEM PANEL Phosphorus 3.9 mg/dL 2.5 - 4.5 06/21 [facility] [place] /2017 [place] CHEM PANEL Magnesium 2.3 mg/dL 1.8 - 2.4 06/21 [facility] [place] Lvl /2017 [place] ELECTROLYT AGAP 13.1 meq/L 10.0 - 06/21 [facility] [place] ES 20.0 [place] ELECTROLYT eGFR 80 06/21 Result Comment: The eGFR is calculated using the CKD-EPI formula. In most young, healthy individuals the eGFR will be >90 mL/ min/1.73m2. The eGFR declines with age. An eGFR of 60-89 may be normal in [place] ES mL/min/1. some populations, particularly the elderly, for whom the CKD-EPI formula has not been extensively validated. Use of the eGFR is not recommended in the following populations: [place] 3m2 Individuals with unstable creatinine concentrations, including patients and those with serious co-morbid conditions. Patients with extremes in muscle mass or diet. The data above are obtained from the National Kidney Disease Education Program (NKDEP) which additionally recommends that when the eGFR is used in patients with extremes of body mass index for purposes of drug dosing, the eGFR should be multiplied by the estimated BMI. ELECTROLYT Glucose Lvl 188 mg/dL 70 - 99 06/21 [facility] [place] ELECTROLYT Calcium Lvl 8.7 mg/dL 8.5 - 10.5 06/21 [place] ELECTROLYT Chloride Lvl 103 meq/L 95 - 109 06/21 [place] ELECTROLYT CO2 25 meq/L 24 - 32 06/21 [place] ELECTROLYT BUN 16 mg/dL 7 - 22 06/21 [place] ELECTROLYT Creatinine 1.04 mg/dL 0.50 - 06/21 [facility] [place] Lvl 1.40 [place] ELECTROLYT Sodium Lvl 137 meq/L 135 - 145 06/21 [place] ELECTROLYT Potassium 4.1 meq/L 3.5 - 5.1 06/21 [place] ES Lvl /2017 [place] HEMATOLOGY Basophils 0.4 % 0.0 - 1.0 06/21 [place] HEMATOLOGY Segs-Bands # 5.6 K/CMM 1.5 - 8.1 06/21 [place] HEMATOLOGY Lymphocytes 2.2 K/CMM 1.0 - 5.5 06/21 [facility] [place] # 2018 [place] HEMATOLOGY Basophils # 0.0 K/CMM 0.0 - 0.2 06/21 [place] HEMATOLOGY Eosinophils 0.5 K/CMM 0.0 - 0.5 06/21 [facility] [place] # /2018 [place] HEMATOLOGY Monocytes # 0.9 K/CMM 0.0 - 0.8 06/21 [place] /2017 [place] HEMATOLOGY Segs 60.9 % 45.0 - 06/21 [facility] [place] 75.0 /2017 [place] HEMATOLOGY Monocytes 9.4 % 2.0 - 12.0 06/21 [place] HEMATOLOGY Lymphocytes 23.6 % 20.0 - 06/21 [place] 40.0 [place] HEMATOLOGY Eosinophils 5.7 % 0.0 - 4.0 06/21 [place] HEMATOLOGY Hgb 13.0 g/dL 14.0 - 06/21 [place] 18.0 [place] HEMATOLOGY Hct 41.7 % 42.0 - 06/21 [place] 54.0 [place] HEMATOLOGY WBC 9.2 K/CMM 3.7 - 10.4 06/21 [place] HEMATOLOGY RBC 5.96 M/CMM 4.70 - 06/21 [place] 6.10 [place] HEMATOLOGY MCV 69.9 fL 80.0 - 06/21 [place] 94.0 [place] HEMATOLOGY MCH 21.8 pg 27.0 - 06/21 [place] 31.0 [place] HEMATOLOGY Platelet 202 K/CMM 133 - 450 06/21 [place] HEMATOLOGY MPV 8.5 fL 7.4 - 10.4 06/21 [place] HEMATOLOGY MCHC 31.2 g/dL 32.0 - 06/21 [place] 36.0 [place] HEMATOLOGY RDW 15.4 % 11.5 - 06/21 [place] 14.5 [place] PARATHYROI Ca Norm WB 1.08 1.05 - 06/21 [place] D PROFILE mMol/L 1. [place] PARATHYROI Ca Ion WB 1.08 1.05 - 06/21 [place] D PROFILE mMol/L . [place] CARDIAC Troponin-I 3.07 ng/mL 0.00 - 06/20 Result [place] ENZYMES 0.40 Comment: [place] Critical Result(s) called to Yasmany Culver at 06/20/2017 04:45 by RP. Read back OK. HEMATOLOGY PT 14.0 s 12.0 - 06/20 [facility] [place] 14.7 [place] HEMATOLOGY PTT 32.5 s 22.9 - 06/20 [place] 35.8 [place] HEMATOLOGY INR 1.08 0.85 - 06/20 [facility] [place] 1. [place] PARATHYROI Ca Norm WB 1.10 1.05 - 06/20 [facility] [place] D PROFILE mMol/L . [facility] PARATHYROI Ca Ion WB 1.13 1.05 - 06/20 [facility] [place] D PROFILE mMol/L . [facility] Brain/Neck Brain/Neck EXAM: CTA NECK WITH CONTRAST 06/19 - [place] CTA CTA - [facility] EXAM: CTA BRAIN WITH CONTRAST Read by: Travis Edwards MD Dictated Date/time: 06/19/17 11:12 Electronically Signed by: Travis Edwards MD 06/19/17 11:28 FINAL REPORT DATE: 06/19/2017 10:00 AM CDT ORDERING PHYSICIAN: Anna Fish CLINICAL INDICATION: - L ICA occlusion, B infarcts; TECHNIQUE Rapid acquisition spiral images were obtained following the intravenous administration of 100 mL Omnipaque. 3D MIP reconstructions were performed. This exam was performed according to our departmental dose-optimization protocol, which includes automated exposure control, adjustment of the mA and/ or kV according to patient size and/or use of iterative reconstruction technique. DLP: 561 mGy-cm This exam was performed according to our departmental dose-optimization protocol, which includes automated exposure control, adjustment of the mA and/ or kV according to patient size and/or use of iterative reconstruction technique. COMPARISON: MRI brain, MRA head and neck, brain CT of 06/18 and 06/19/2017, 08/08/2012 CTA head and neck DISCUSSION: CTA NECK: Aortic arch: Standard anatomy. Mild, calcified atherosclerosis. No great vessel origin stenosis. Left carotid system: Intimal thickening in the mid and distal thirds of the common carotid with no substantial luminal stenosis. There is immediate luminal tapering at the bifurcation with string sign approximately 1 cm distal to the bifurcation progression to complete occlusion approximately 3 cm distal to the bifurcation. There is occlusion throughout the remainder of the cervical course. Right carotid system: Unremarkable common carotid. There is calcified disease, soft plaque, and intimal thickening in the bulb and bifurcation with estimated luminal narrowing of approximately 15%. The distal cervical internal carotid arteries tortuous but otherwise unremarkable. Vertebral arteries: Right dominant system. The right side has normal course , caliber, and contour without atherosclerosis or stenosis. The left side is hypoplastic and excluded from the origin through C 5, where there is reconstitution from intramuscular branches. Nonvascular tissues: No mucosal contour abnormality, abnormal enhancement, or asymmetry. Normal salivary and thyroid glands. No lymphadenopathy. CTA BRAIN: Distal Internal carotid arteries: Left side is occluded with reconstitution distal to the ophthalmic origin. The supraclinoid portion is patent. There is calcified disease and soft plaque in the right s eddy with approximately 50% stenosis of the cavernous and ophthalmic segments. The supraclinoid portion is normal. [place]: Standard configuration without proximal stenosis or aneurysm. Anterior cerebral arteries: No focal stenosis or aneurysm. Middle cerebral arteries: No focal stenosis or aneurysm Posterior cerebral arteries: No focal stenosis or aneurysm. Vertebrobasilar circulation: The intradural vertebral arteries, basilar artery, and all cerebellar branches are patent without focal stenosis or aneurysm. Veins: There is no opacification of the left transverse sinus. The remaining major dural venous sinus, cortical and deep cerebral veins are patent. This configuration is stable compared with 08/08/2012. Paranasal sinuses: There is bilateral maxillary and ethmoid sinus mucosal thickening. IMPRESSION: 1. 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 There is only minimal flow "string sign" at the bifurcation. 2. 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 Brain CTA: Significant stenosis of the cavernous and ophthalmic segments of the right internal carotid artery. There is a new finding compared with 08/08/2012. The remainder of the intracranial circulation is patent. All quantitative and qualitative assessments of carotid bifurcation and proximal internal carotid artery stenosis are made at referencing the distal internal carotid artery (NASCET criteria). HEMATOLOGY INR 1.16 0.85 - 06/19 [place] 1.17 /2017 [facility] HEMATOLOGY PTT 43.8 s 22.9 - 06/19 [place] 35.8 /2018 [facility] HEMATOLOGY PT 14.9 s 12.0 - 06/19 [place] 14.7 /2018 [facility] CARDIAC Troponin-I 6.47 ng/mL 0.00 - 06/19 Result [place] ENZYMES 0.40 /2018 Comment: [facility] Critical Result(s) called to Wendy JADE RN/3E at 06/19/2017 00:48 by BLANCA. Read back OK. CARDIAC CK MB 1.6 ng/mL 0.5 - 3.6 06/19 [place] ENZYMES /2017 [facility] CARDIAC Total CK 105 unit/L 12 - 191 06/19 [place] ENZYMES /2017 [facility] CARDIAC CK MB Index 1.5 0.0 - 2.5 06/19 [place] ENZYMES /2017 [facility] HEMATOLOGY Microcyte 1+ None Seen 06/19 [place] *ABN* (06/19/17 12:15 AM) HEMATOLOGY Hypochrom 1+ None Seen 06/19 [place] /2017 [place] (06/19/17 12:15 AM) HEMATOLOGY PTT 40.5 s 22.9 - 06/[address] [facility] LIPIDS CHD Risk 9.04 4.00 - 06/19 [place] 7.30 [place] LIPIDS VLDL 53 06/[address] [facility] LIPIDS LDL 132 mg/dL <=99 mg/dL 06/19 [place] (Calculated) [facility] LIPIDS Chol 208 mg/dL <=199 06/19 [place] mg/dL [facility] LIPIDS Trig 267 mg/dL <=149 06/19 [place] mg/dL [facility] LIPIDS HDL 23 mg/dL >=61 mg/dL 06/[address] [facility] Brain wo Brain wo CLINICAL HISTORY : , - acute cva 06/19 - [place] contrast contrast MRI - [facility] MRI EXAM : MRI brain without contrast 06/18/2017 6:00 PM CDT Read by: Gretchen Kendrick MD Dictated Date/time: 06/19/17 01:56 Electronically Signed by: Gretchen Kendrick MD 06/19/17 02:11 FINAL REPORT COMPARISON : MRI brain without contrast 08/08/2012 TECHNIQUE : Sagittal T1, sagittal FLAIR, and axial diffusion-weighted/ADC, T1, T2, FLAIR, and gradient echo images were obtained through the brain. . CONTRAST : None FINDINGS : On the diffusion-weighted images, there are multifocal areas of increased diffusion signal throughout the bilateral cerebral hemispheres. There is a large confluent area of increased signal in the right parietal lobe on image 41 measuring 3.7 cm in diameter. There are numerous subcentimeter foci throughout the bilateral posterior frontal and parietal lobes as well as multifocal areas within the right occipital lobe. On image 37 there is a 1.6 cm focus in the right occipital lobe. In the left parietal lobe on image 41 there is a assistance representative 7 mm focus. . On the ADC images, there are areas of low signal intensity corresponding with the areas of increased diffusion signal. On the T2-weighted images, the CSF spaces are normal in appearance. There are no areas of abnormal increased signal intensity. On the T1-weighted images, there are no areas of abnormal signal intensity to suggest hemorrhage. On the FLAIR images, there are moderate periventricular and subcortical white matter areas of high FLAIR signal as well as increased signal intensity corresponding with the areas of increased diffusion signal. There is no evidence of subarachnoid hemorrhage. On the gradient echo images, there are no areas of abnormally low signal to suggest hemosiderin deposits or hemorrhage. The soft tissue structures of the face, scalp, and orbits are normal. The globes are intact and the visualized portions of the paranasal sinuses and mastoid air cells are clear. The calvarium remains grossly intact. There is no evidence of acute intracranial hemorrhage, midline shift, or mass effect. The ventricles are normal in size and the posterior fossa structures are within normal limits. IMPRESSION: 1. Multifocal areas of increased diffusion signal throughout the bilateral cerebral hemispheres as described above. 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 2. Moderate small vessel ischemic changes. 3. No acute intracranial hemorrhage, midline shift, or mass effect. Note: Results discussed with Nurse Yasmany of the ICU at 02:10 on 2017. Neck wo Neck wo CLINICAL HISTORY : , - acute cva 06/19 - [place] contrast contrast MRA /2017 - [facility] MRA EXAM : MRA Neck 06/18/2017 6:00 PM CDT Read by: rGetchen Kendrick MD Dictated Date/time: 06/19/17 02:05 Electronically Signed by: Gretchen Kendrick MD 06/19/17 02:10 FINAL REPORT COMPARISON : CT angiogram of the neck and brain 08/08/2012 TECHNIQUE : Time of flight angiographic images were obtained through the brain. Volumetric reconstruction images were also presented for interpretation. Maximum intensity projection images were also presented for interpretation. Measurements and stenosis evaluation is based on NASCET criteria. CONTRAST : None FINDINGS : The visualized portions of the aortic arch are normal. There is no stenosis of the proximal portion of the left subclavian artery proximal to the origin of the left vertebral artery. The right common carotid artery is normal in course and caliber from its origin off of the brachiocephalic trunk through the bifurcation. There is up to 30% narrowing of the right carotid bulb related to atherosclerotic plaque. The right internal and external carotid arteries are normal in course and caliber throughout the neck. There is no significant atherosclerotic or significant narrowing/dissection. The right internal carotid artery is normal in course and caliber from its cervical through the supraclinoid segments. The left common carotid artery is normal in course and caliber from its origin off of the aorta to its bifurcation. There is diffuse occlusion of the left internal carotid artery. The left external carotid artery is normal in course, caliber, and branching pattern. The left internal carotid artery is normal in course and caliber from its cervical through the supraclinoid segments. There is occlusion of the proximal left vertebral artery from its origin off of the left subclavian artery through the C6 level. The left vertebral artery is normal in course and caliber distal to the C6 level. The right vertebral artery is normal in course, caliber, and branching pattern. IMPRESSION: 1. Progressive diffuse occlusion of the left internal carotid artery. 2. Proximal occlusion of the left vertebral artery with reconstitution. 3. Up to 30% narrowing of the right carotid bulb. Note: Results discussed with Nurse Yasmany of the ICU at 02:10 on 2017. Brain wo Brain wo CLINICAL HISTORY: , - acute cva 06/19 - [place] contrast contrast MRA /2017 - [facility] MRA EXAM: MR angiogram of the brain 06/18/2017 6:00 PM CDT Read by: Gretchen Kendrick MD Dictated Date/time: 06/19/17 02:01 Electronically Signed by: Gretchen Kendrick MD 06/19/17 02:11 FINAL REPORT Comparisons: CT angiogram of the neck and brain 08/08/2012. TECHNIQUE: Time of flight angiographic images were obtained through the brain. Images in the axial plane and volume rendered images were presented for interpretation. Maximum intensity projection images were also presented for interpretation. Measurements and stenosis evaluation is based on NASCET criteria. Contrast Dose: none FINDINGS: The right internal carotid artery is normal in course and caliber from the cervical to the supraclinoid segments. The right middle and anterior cerebral arteries are normal in course, caliber, and branching pattern. There is occlusion of the left internal carotid artery from the cervical segment through the bifurcation.. There is collateral filling of the left anterior and middle cerebral arteries which are otherwise largely normal in course and caliber.. The bilateral vertebral arteries are symmetric and normal in appearance. The basilar artery and posterior cerebral arteries are normal in course and caliber. There is origin of the bilateral posterior cerebral arteries.. The bilateral posterior communicating arteries are well visualized and normal in appearance. There is no evidence of aneurysm, dissection, or large vessel occlusion of the intracranial vasculature. Limited evaluation of the venous structures demonstrates no gross abnormalities. The soft tissue structures of the face, scalp, and orbits are normal. The globes remain intact in the visualized portions of the paranasal sinuses and mastoid air cells are clear. The calvarium remains intact. There is no evidence of acute intracranial hemorrhage, midline shift, or mass effect. The ventricles are normal in size in the posterior fossa structures are within normal limits. IMPRESSION: 1. Diffuse occlusion of the left internal carotid artery; this finding is progressed compared to the prior exam. 2. No additional areas of vascular occlusion to correspond with the patient 's right-sided infarcts. 3. No other areas of aneurysm, dissection, or hemorrhage... Note: Results discussed with Nurse Jade of the ICU at 02:10 on 2017. CARDIAC Troponin-I 6.02 ng/mL 0.00 - 06/19 Result [place] ENZYMES 0.40 /2017 Comment: [facility] Critical Result(s) called to Leon LEE at 06/18/2017 20:47 by . Read back OK. CARDIAC Total CK 99 unit/L 12 - 191 06/[address] [facility] CARDIAC CK MB Index 1.6 0.0 - 2.5 06/[address] [facility] CARDIAC CK MB 1.6 ng/mL 0.5 - 3.6 06/[address] [facility] HEMATOLOGY INR 1.13 0.85 - 06/19 [place] 1.17 /2017 [facility] HEMATOLOGY PT 14.5 s 12.0 - 06/19 [place] 14.7 /2017 [facility] SPECIAL Hgb A1C 8.0 % <=5.6 % 06/19 [place] CHEMISTRY /2017 [facility] URINE AND UA Sq Epi None Seen 06/[address] [facility] URINE AND UA <=1.0 0.1 - 1.0 06/19 [place] STOOL Urobilinogen mg/dL /2017 [facility] URINE AND UA Color Dark Yellow Yellow 06/[address] [facility] *NA* (06/18/17 7:34 PM) URINE AND UA Turbidity Clear Clear 06/19 [place] (06/18/17 7:34 PM) URINE AND UA Glucose 500 mg/dL Negative 06/19 [place] STO[facility] mg/dL [facility] URINE AND UA Protein Negative Negative 06/19 [place] STO[facility] mg/dL mg/dL [facility] URINE AND UA Ketones Negative Negative 06/19 [place] STO[facility] mg/dL mg/dL [facility] URINE AND UA pH 6.0 5.0 - 8.0 06/19 [facility] URINE AND UA Spec Grav 1.018 <=1.030 06/19 [facility] URINE AND UA Leuk Est Negative Negative 06/[address] [facility] (06/18/17 7:34 PM) URINE AND UA Bili Negative Negative 06/19 [place] *NA* (06/18/17 7:34 PM) URINE AND UA Nitrite Negative Negative 06/[address] [facility] (06/18/17 7:34 PM) URINE AND UA Blood Negative Negative 06/[address] [facility] (06/18/17 7:34 PM) URINE AND UA WBC 1 /HPF 0 - 5 06/19 [facility] URINE AND UA RBC 1 /HPF 0 - 2 06/19 [facility] URINE AND UA Hyal Cast 1 /LPF 0 - 2 06/19 [facility] URINE AND UA Mucus Few /LPF None Seen 06/19 [place] /LPF [facility] CARDIAC Total CK 108 unit/L 12 - 191 06/[address] [facility] CARDIAC CK MB 1.4 ng/mL 0.5 - 3.6 06/18 [facility] CHEM PANEL A/G Ratio 0.8 0.7 - 1.6 06/18 [place] CHEM PANEL Globulin 4.2 g/dL 2.7 - 4.2 06/18 [facility] CHEM PANEL B/C Ratio 18 6 - 25 06/18 [place] CHEM PANEL Bili Total 0.5 mg/dL 0.2 - 1.3 06/18 [place] CHEM PANEL Alk Phos 63 unit/L 39 - 136 06/18 [place] CHEM PANEL AST 43 unit/L 0 - 37 06/18 [place] CHEM PANEL ALT 37 unit/L 0 - 65 06/18 [place] CHEM PANEL Albumin Lvl 3.3 g/dL 3.5 - 5.0 06/18 Sugar /2017 [facility] CHEM PANEL Total 7.5 g/dL 6.4 - 8.4 06/18 Sugar Protein /2017 [facility] CARDIAC BNP 234 pg/mL <=100 06/18 Sugar ENZYMES pg/mL /2017 [facility] Brain wo Brain wo PATIENT NAME: VIVIEN GREWAL 06/18 - Sugar contrast contrast CT /2017 - [facility] CT : 1960; Age: 56 years y/o Male MR: [id number] Read by: Travis Edwards MD Dictated Date/time: 06/18/17 16:25 Electronically Signed by: Travis Edwards MD 06/18/17 16:29 FINAL REPORT STUDY: Brain wo contrast CT 06/18/2017 3:05 PM CDT ORDERING PHYSICIAN: Jenniffer Carrillo CLINICAL INDICATION: - weak left arm; COMPARISON: August 08, 2012 brain MRI TECHNIQUE: Noncontrast images of the brain are obtained from the skull base to the vertex. Axial, sagittal, and coronal images are interpreted. DLP: 609 mGy-cm This exam was performed according to our departmental dose-optimization protocol, which includes automated exposure control, adjustment of the mA and/ or kV according to patient size and/or use of iterative reconstruction technique. FINDINGS: BRAIN PARENCHYMA: There is cytotoxic edema without mass effect in the right motor strip, the right superior frontal gyrus, in the right parietal lobe. There is no hemorrhage or mass effect. There is mil d generalized cortical and deep white matter volume loss. Chronic small vessel ischemic changes are present. There are calcified atherosclerotic changes. CEREBELLOPONTINE REGIONS AND SKULL BASE: The cerebellopontine angles appear unremarkable. No skull base abnormality is seen. VENTRICLES/SULCI/CISTERNS: The ventricles are mildly prominent but proportionate to degree of generalized volume loss. The basal cisterns are patent. ORBITS, VISUALIZED PARANASAL SINUSES AND MASTOIDS: Paranasal sinuses are clear. The mastoid air cells are clear. No orbital pathology is seen. IMPRESSION: Subacute right JEANNINE and MCA ischemic changes without hemorrhage or mass effect. Findings may represent embolic phenomena or a distal carotid lesion. Findings were discussed with Jenniffer Carrillo by telephone on 2017 Chest Chest 1view HISTORY: - weak left arm 06/18 - Sugar 1view DX DX - [facility] TECHNIQUE: Single AP view of the chest at 15:09. Read by: Abdi Ogden MD Dictated Date/time: 06/18/17 15:19 Electronically Signed by: Abdi Ogden MD 06/18/17 15:21 FINAL REPORT COMPARISON: Study dated 10/12/2012. FINDINGS/IMPRESSION: 1. Borderline cardiomegaly is now seen with changes from prior sternotomy noted. Diffuse mild interstitial thickening likely represents pulmonary edema. 2. There is no focal consolidation, significant pleural effusion, or evidence of pneumothorax. [id number] Laboratory Segmented 71 % 40 - 80 06/[address] [facility] [address] Studies Neutrophils [facility] [place] [facility] Monocytes 3 % 0 - 10 06/[address] [facility] [address] Studies [facility] [place] [facility] Microcytosis Microcytos 06/[address] [facility] [address] Studies is [facility] [place] [facility] Lymphocytes 20 % 15 - 42 06/[address] [facility] [address] [facility] [place] [facility] Hypochromasi Hypochroma 06/[address] [facility] [address] Studies a darrell [facility] [place] [facility] Eosinophils 4 % 0 - 3 06/17 St[facility] Studies [facility] [place] [facility] Blood Blood 06/17 [facility]. Studies Morphology Morphology [facility] Comment Comment [place] [facility] Basophils 2 % 0 - 1 06/17 St[facility] Studies [facility] [place] [facility] Anisocytosis Anisocytos 06/[address] [facility] [address] Studies is [facility] [place] [facility] Total 0.9 mg/dL 0.3 - 1.2 06/[address] [facility] [address] Studies Bilirubin [facility] [place] [facility] Serum Total 7.1 g/dL 6.0 - 8.3 06/[address] [facility] [address] Studies Protein [facility] [place] [facility] Globulin 3.3 g/dL 2.3 - 3.5 06/[address] [facility] [address] Studies [facility] [place] [facility] Estimat 80 mL/min 90 06/[address] [facility] [address] Studies Glomerular [facility] Filtration [place] Rate Laboratory Creatinine 0.97 mg/dL 0.61 - 06/[address] [facility] [address] Studies 1.24 [facility] [place] [facility] Blood Urea 18 mg/dL 6 - 20 06/[address] [facility] [address] Studies Nitrogen [facility] [place] [facility] Aspartate 45 IU/L 10 - 42 06/[address] [facility] [address] Studies Amino Transf /2017 [facility] (AST/SGOT) [place] [facility] Alkaline 52 IU/L 42 - 121 06/[address] [facility] [address] Studies Phosphatase /2017 [facility] [place] [facility] Albumin/Glob 1.2 1.1 - 1.8 06/17 [facility]. Studies ulin Ratio /2017 [facility] [place] [facility] Albumin 3.8 g/dL 3.2 - 5.5 06/[address] [facility] [address] Studies /2017 [facility] [place] [facility] Alanine 30 IU/L 10 - 60 06/17 [facility]. Studies Aminotransfe /2017 [facility] rase [place] (ALT/SGPT) Laboratory White Blood 11.7 K/uL 4.3 - 10.9 06/17 [facility]. Studies Count /2017 [facility] [place] [facility] Red Cell 15.7 % 12.1 - 06/17 [facility]. Studies Distribution 15.2 [facility] Width [place] [facility] Red Blood 6.34 M/uL 4.33 - 06/17 [facility]. Studies Count 5.43 /2017 [facility] [place] [facility] Platelet 231 K/uL 152 - 406 06/17 [facility]. Studies Count /2017 [facility] [place] [facility] Neutrophils 63.6 % 41.7 - 06/[address] [facility] [address] Studies % 73.7 /2017 [facility] [place] [facility] Monocytes % 5.7 % 3.3 - 12.3 06/17 [facility]. Studies /2017 [facility] [place] [facility] Mean 8.1 fL 7.6 - 11.3 06/17 [facility]. Studies Platelet /2017 [facility] Volume [place] [facility] Mean 68.5 fL 80 - 100 06/17 [facility]. Studies Corpuscular /2017 [facility] Volume [place] [facility] Mean 31.0 g/dL 32.0 - 06/17 [facility]. Studies Corpuscular 36.0 [facility] Hemoglobin [place] Concent Laboratory Mean 21.2 pg 27.0 - 06/17 [facility]. Studies Corpuscular 35.0 /2017 [facility] Hemoglobin [place] [facility] Lymphocytes 25.1 % 15.3 - 06/17 [facility]. Studies % 44.8 /2017 [facility] [place] [facility] Hemoglobin 13.4 g/dL 13.6 - 06/[address] [facility] [address] Studies 17.9 /2017 [facility] [place] [facility] Hematocrit 43.4 % 39.6 - 06/[address] [facility] [address] Studies 49.0 /2017 [facility] [place] [facility] Eosinophils 4.5 % 0 - 4.4 06/[address] [facility] [address] Studies % /2017 [facility] [place] [facility] Basophils % 1.1 % 0 - 1.3 06/[address] [facility] [address] Studies /2018 [facility] [place] [facility] Absolute 7.5 K/uL 1.8 - 8.0 06/[address] [facility] [address] Studies Neutrophil /2017 [facility] [place] [facility] Absolute 0.7 K/uL 0.1 - 1.3 06/[address] [facility] [address] Studies Monocytes /2017 [facility] (CBC) [place] [facility] Absolute 2.9 K/uL 0.7 - 4.9 06/[address] [facility] [address] Studies Lymphocytes [facility] (CBC) [place] [facility] Absolute 0.5 K/uL 0 - 0.5 06/[address] [facility] [address] Studies Eosinophils [facility] (CBC) [place] [facility] Absolute 0.1 K/uL 0 - 0.5 06/[address] [facility] [address] Studies Basophils [facility] (CBC) [place] [facility] Sodium Level 134 mEq/L 135 - 145 06/[address] [facility] [address] Studies /2017 [facility] [place] [facility] Potassium 3.6 mEq/L 3.6 - 5.0 06/[address] [facility] [address] Studies Level /2017 [facility] [place] [facility] Glucose 186 mg/dL 65 - 120 06/[address] [facility] [address] Studies Level /2018 [facility] [place] [facility] Chloride 99 mEq/L 101 - 111 06/[address] [facility] [address] Studies Level [facility] [place] [facility] Carbon 27 mEq/L 21 - 31 06/[address] [facility] [address] Studies Dioxide [facility] [place] [facility] Calcium 9.9 mg/dL 8.5 - 10.5 06/[address] [facility] [address] Studies Level /2018 [facility] [place] [facility] Bedside 154 mg/dl 65 - 120 06/[address] [facility] [address] Studies Glucose /2017 [facility] Vitamin B12 163 pg/ml 180 - 914 06/[address] [facility] [address] Studies Level /2018 [facility] [place] [facility] Transferrin 9.9 % 20.0 - 06/[address] [facility] [address] Studies % Saturation 50.0 [facility] [place] [facility] Transferrin 244 mg/dL 180 - 329 06/[address] [facility] [address] Studies /2018 [facility] [place] [facility] Total Iron 342 ug/dL 250 - 460 06/16 St. Studies Binding /2017 [facility] Capacity [place] [facility] Thyroid 2.63 0.34 - 06/16 St. Studies Stimulating uIU/mL 5.60 [facility] Hormone [place] (TSH) Laboratory Iron Level 34.0 ug/dL 45 - 182 06/16 St. Studies /2017 [facility] [place] [facility] Ferritin 239.7 23.9 - 06/16 St. Studies ng/ml 336.2 [facility] [place] [facility] Lactic Acid 28.8 mg/dL 4.5 - 19.8 06/[address] [facility] [address] Studies Level /2017 [facility] [place] [facility] Procalcitoni 0.61 ng/mL 06/15 St[facility] Studies n [facility] [place] [facility] Hypogranular Hypogranul 06/15 . Studies Neutrophils ar /2017 [facility] Neutrophil [place] s [facility] Band 3 % 0 - 1 06/15 [facility]. Studies Neutrophils /2017 [facility] [place] [facility] Urine pH 6.5 06/15 St. Studies /2017 [facility] [place] [facility] Urine WBC Urine WBC 06/15 St. Studies /2017 [facility] [place] [facility] Urine 0.2 mg/dL 06/15 [facility]. Studies Urobilinogen /2017 [facility] [place] [facility] Urine Total Urine 06/15 . Studies Protein Total /2017 [facility] Protein [place] [facility] Urine null 06/[address] [facility] [address] Studies Squamous /2017 [facility] Epithelial [place] Cells Laboratory Urine Urine 06/[address] [facility] [address] Studies Specific Specific /2017 [facility] [place] [facility] Urine RBC Urine RBC 06/15 St[facility] Studies /2017 [facility] [place] [facility] Urine Urine 06/15 St[facility] Studies Nitrite Nitrite /2017 [facility] [place] [facility] Urine Urine 06/15 . Studies Leukocyte Leukocyte /2017 [facility] Esterase Esterase [place] [facility] Urine Urine 06/15 . Studies Ketones Ketones /2017 [facility] [place] [facility] Urine Urine 06/15 St. Studies Glucose Glucose /2017 [facility] [place] [facility] Urine Urine 06/15 . Studies Culture Culture /2017 [facility] Reflexed Reflexed [place] [facility] Urine Color Urine 06/15 [facility]. Studies Color /2017 [facility] [place] [facility] Urine Blood Urine 06/15 [facility]. Studies Blood [facility] [place] [facility] Urine Urine 06/15 [facility] Studies Bilirubin Bilirubin [facility] [place] [facility] Urine null 06/15 [facility]. Studies Bacteria [facility] [place] [facility] Urine Urine 06/15 [facility]. Studies Appearance Appearance /2017 [facility] [place] [facility] Prothrombin 12.7 9.5 - 12.5 06/15 [facility]. Studies Time SECONDS [facility] [place] [facility] INR 1.08 06/15 [facility]. Studies Internationa [facility] - l Normalized [place] Ratio Laboratory Other Total 16.9 g/dl - 06/15 [facility]. Studies Hemoglobin [facility] (Blood Gas) [place] [facility] Blood Gas pH 7.31 7.35 - 06/15 [facility]. Studies 7.45 [facility] [place] [facility] Blood Gas 57.0 mmHG 75 - 100 06/15 [facility]. Studies PO2 [facility] [place] [facility] Blood Gas 30.1 mmHG 35 - 45 06/15 [facility]. Studies PCO2 [facility] [place] [facility] Blood Gas 82.0 % 94 - 97 06/15 [facility]. Studies Oxyhemoglobi /2017 [facility] n [place] [facility] Blood Gas 100.0 % 06/15 [facility] Studies Inspired [facility] Oxygen [place] [facility] Blood Gas 14.6 22 - 28 06/15 [facility]. Studies HCO3 mmol/L [facility] [place] [facility] Blood Gas -10.4 06/15 [facility]. Studies Base Excess mmol/L [facility] [place] [facility] Arterial 0.8 % 0 - 1.5 06/15 [facility]. Studies Blood [facility] Methemoglobi [place] n Laboratory Arterial 1.2 % 0 - 1.5 06/15 [facility]. Studies Blood [facility] Carboxyhemog [place] lobin Laboratory Arterial Bld 83.7 % 92 - 98.5 06/15 [facility]. Studies O2 [facility] Saturation [place] (Measur) Laboratory Polychromasi Polychroma 06/[address] [facility] [address] Studies a darrell [facility] [place] [facility] Metamyelocyt 1 % 0 - 0 06/[address] [facility] [address] Studies es [facility] - [place] [facility] Giant Giant 06/15 [facility]. Studies Platelets Platelets [facility] [place] [facility] Atypical 8 06/15 [facility]. Studies Lymphocytes [facility] - [place] [facility] Magnesium 2.2 mg/dL 1.8 - 2.5 06/[address] [facility] [address] Studies Level [facility] - [place] [facility] Direct 0.2 mg/dL 0 - 0.2 06/15 [facility]. Studies Bilirubin [facility] [place] [facility] B-Type 373 pg/ml 06/15 [facility]. Studies Natriuretic [facility] - Peptide [place] [facility] Rapid 0.04 ng/mL 06/15 [facility] Studies Troponin I [facility] [place] HEMATOLOGY POC INR 3.2 0.8 - 1.2 10/26 [facility] HEMATOLOGY POC PT 36.2 s .0 - 10/26 [facility] HEMATOLOGY POC PT 35.4 s 12.0 - 10/20 [facility] HEMATOLOGY POC INR 3.1 0.8 - 1.2 10/20 [facility] HEMATOLOGY POC PT 23.2 s .0 - 10/15 [facility] HEMATOLOGY POC INR 2.0 0.8 - 1.2 10/15 [facility] BEDSIDE Gluc POC 127 mg/dL 70 - 99 10/13 PA [address]pretive [facility] GLUCOSE Lifmin Data: Medical TESTING Center Upper Reportable Limit: 200 mg/dL. BEDSIDE Comment1 Notify 10/13 [facility] GLUCOSE RN/MD Medical TESTING Center BEDSIDE Comment1 Notify 10/13 [facility] GLUCOSE RN/MD /2012 [facility] TESTING Center BEDSIDE Gluc POC 130 mg/dL 70 - 99 10/13 [place] 3Interpretive [facility] GLUCOSE Lifmin Data: [facility] TESTING Center Upper Reportable Limit: 200 mg/dL. CHEMISTRY Magnesium 1.9 mg/dL 1.8 - 2.4 10/[address] [facility] Lvl Medical Center CHEMISTRY eGFR 99 10/13 NA 5Result Comment: The eGFR is calculated using the CKD-EPI formula. In most young, healthy individuals the eGFR will be > 90 mL/min/1.73m2. The eGFR declines with age. An eGFR of 60-89 may be normal in [facility] mL/min/1. some populations, particularly the elderly, for whom the CKD-EPI formula has not been extensively validated. Use of the eGFR is not recommended in the following populations: [place] [address] Center Individuals with unstable creatinine concentrations, including patients and those with serious co-morbid conditions. Patients with extremes in muscle mass or diet. The data above are obtained from the National Kidney Disease Education Program (NKDEP) which additionally recommends that when the eGFR is used in patients with extremes of body mass index for purposes of drug dosing, the eGFR should be multiplied by the estimated BMI. CHEMISTRY Creatinine 0.9 mg/dL 0.5 - 1.4 10/[address] [facility] CHEMISTRY BUN 20 mg/dL 7 - 22 10/13 Normal [facility] CHEMISTRY Glucose Lvl 105 mg/dL 70 - 99 10/13 [place] 8Interpretive Data: Adult reference range values reflect the clinical guidelines of the [place] [employer]. [facility] CHEMISTRY Potassium 4.4 meq/L 3.5 - 5.1 10/13 Normal [facility] CHEMISTRY Sodium Lvl 137 meq/L 135 - 145 10/13 Normal [facility] CHEMISTRY Calcium Lvl 8.6 mg/dL 8.5 - 10.5 10/13 Normal [facility] CHEMISTRY CO2 26 meq/L 24 - 32 10/13 Normal [facility] CHEMISTRY Chloride Lvl 98 meq/L 95 - 109 10/13 Normal [facility] CHEMISTRY AGAP 17.4 meq/L 10.0 - 10/[address] [facility] 20.0 [facility] HEMATOLOGY PTT 48.5 s 22.9 - 10/13 PA 17Interpretiv [facility] 35.8 e Data: [facility] Therapeutic Range: 57 - 92 Seconds HEMATOLOGY PT 19.8 s 12.0 - 10/13 [facility] 14.7 [facility] HEMATOLOGY INR 1.67 0.85 - 10/13 PA 14Interpretive Data: RECOMMENDED RANGES FOR PROTIME INR: [facility] 1. 2.0-3.0 for most medical and surgical thromboembolic states. Medical 2.5-3.5 for artificial heart valves and recurrent embolism. Center INR SHOULD BE USED ONLY FOR PATIENTS ON STABLE ANTICOAGULANT THERAPY. HEMATOLOGY MPV 8.5 fL 7.4 - 10.4 10/13 Normal [facility] HEMATOLOGY RBC 4.13 M/CMM 4.70 - 10/13 [facility] [place] 6.10 [facility] HEMATOLOGY WBC 11.0 K/CMM 3.7 - 10.4 10/13 [facility] HEMATOLOGY RDW 19.1 % 11.5 - 08 [facility] 14.5 /2012 [facility] HEMATOLOGY Platelet 277 K/CMM 133 - 450 10/13 [facility] HEMATOLOGY Hct 28.0 % 42.0 - 08 [facility] [place] 54.0 /2012 [facility] HEMATOLOGY Hgb 8.8 g/dL 14.0 - 10/13 [facility] 18.0 [facility] HEMATOLOGY MCHC 31.4 g/dL 32.0 - 10/13 [facility] 36.0 /2012 [facility] HEMATOLOGY MCH 21.3 pg 27.0 - 10/13 [facility] 31.0 [facility] HEMATOLOGY MCV 67.7 fL 80.0 - 10/13 [facility] 94.0 /2012 [facility] HEMATOLOGY Microcyte 3+ None Seen 10/13 NA Medical *NA* Center (10/13/2012 05:01:00) HEMATOLOGY Basophils # 0.1 K/CMM 0.0 - 0.2 10/13 [facility] HEMATOLOGY Eosinophils 1.6 K/CMM 0.0 - 0.5 10/13 [facility] [place] # /2012 [facility] HEMATOLOGY Segs-Bands # 4.9 K/CMM 1.5 - 8.1 10/13 [facility] HEMATOLOGY Lymphocytes 3.5 K/CMM 1.0 - 5.5 10/13 [facility] HEMATOLOGY Monocytes # 0.9 K/CMM 0.0 - 0.8 10/13 [facility] HEMATOLOGY Segs 44.3 % 45.0 - 10/13 [facility] [place] 75.0 /2012 [facility] HEMATOLOGY Lymphocytes 32.0 % 20.0 - 08 [facility] [place] 40.0 /2012 [facility] HEMATOLOGY Monocytes 8.4 % 2.0 - 12.0 10/13 [facility] HEMATOLOGY Basophils 1.0 % 0.0 - 1.0 10/13 Normal [facility] HEMATOLOGY Eosinophils 14.3 % 0.0 - 4.0 10/13 HI [facility] BEDSIDE Gluc POC 157 mg/dL 70 - 99 10/13 PA [address]pretive [facility] GLUCOSE Lifscn Data: [facility] Upper Reportable Limit: 200 mg/dL. BEDSIDE Comment1 Notify 10/[address] [facility] GLUCOSE RN/MD /2012 [facility] Chest Chest 1view Chest one view, October 12, 2012 at 10:53 a.m. 10/12 - [facility] 1 - [facility] HISTORY: 52-year-old man with abnormal chest sounds. Read by: Gillian Chu Dictated Date/time: 10/12/12 11:40 Electronically Signed by: Gillian Chu MD 10/12/12 11:41 FINAL REPORT FINDINGS: Comparison is made to October 10. The cardiomediastinal silhouette is stable. There is mild narrowing of the intrathoracic trachea at the T1-T2 level. There is abundant platelike atelectasis in the bilateral lower lobes. A small right pleural effusion blunts the costophrenic sulcus and is unchanged. There is also a very small left pleural effusion. IMPRESSION: No significant change since October 10. CHEMISTRY Calcium Lvl 8.6 mg/dL 8.5 - 10.5 10/12 Normal [facility] CHEMISTRY AGAP 16.4 meq/L 10.0 - 10/[address] [facility] 20.0 [facility] CHEMISTRY CO2 25 meq/L 24 - 32 10/12 Normal [facility] CHEMISTRY Chloride Lvl 99 meq/L 95 - 109 10/12 Normal [facility] CHEMISTRY eGFR 87 10/12 NA 6Result Comment: The eGFR is calculated using the CKD-EPI formula. In most young, healthy individuals the eGFR will be > 90 mL/min/1.73m2. The eGFR declines with age. An eGFR of 60-89 may be normal in [facility] mL/min/1. some populations, particularly the elderly, for whom the CKD-EPI formula has not been extensively validated. Use of the eGFR is not recommended in the following populations: [address] Center Individuals with unstable creatinine concentrations, including patients and those with serious co-morbid conditions. Patients with extremes in muscle mass or diet. The data above are obtained from the National Kidney Disease Education Program (NKDEP) which additionally recommends that when the eGFR is used in patients with extremes of body mass index for purposes of drug dosing, the eGFR should be multiplied by the estimated BMI. CHEMISTRY Sodium Lvl 136 meq/L 135 - 145 10/12 Normal [facility] CHEMISTRY Potassium 4.4 meq/L 3.5 - 5.1 10/12 [facility] CHEMISTRY Glucose Lvl 129 mg/dL 70 - 99 10/12 PA 9Interpretive Data: Adult reference range values reflect the clinical guidelines of the [place] [employer]. Medical Center CHEMISTRY BUN 21 mg/dL 7 - 22 10/12 Normal [facility] CHEMISTRY Creatinine 1.0 mg/dL 0.5 - 1.4 10/12 [facility] CHEMISTRY Phosphorus 4.3 mg/dL 2.5 - 4.5 10/12 [facility] CHEMISTRY Magnesium 2.0 mg/dL 1.8 - 2.4 10/12 [facility] HEMATOLOGY MCHC 31.4 g/dL 32.0 - 10/12 [facility] 36.0 [facility] HEMATOLOGY MCH 21.4 pg 27.0 - 10/12 [facility] 31.0 [facility] HEMATOLOGY Platelet 272 K/CMM 133 - 450 10/12 [facility] HEMATOLOGY RDW 19.2 % 11.5 - 08 [facility] 14.5 [facility] HEMATOLOGY MPV 8.3 fL 7.4 - 10.4 10/12 [facility] HEMATOLOGY Hct 27.3 % 42.0 - 08 [facility] 54.0 [facility] HEMATOLOGY Hgb 8.6 g/dL 14.0 - 08 [facility] 18.0 [facility] HEMATOLOGY MCV 68.2 fL 80.0 - 10/12 [facility] 94.0 [facility] HEMATOLOGY RBC 4.01 M/CMM 4.70 - 08 [facility] [place] 6.10 [facility] HEMATOLOGY WBC 11.7 K/CMM 3.7 - 10.4 10/12 [facility] HEMATOLOGY PTT 47.0 s 22.9 - 10/12 PA 18Interpretiv [facility] 35.8 /2013 e Data: [facility] Therapeutic Range: 57 - 92 Seconds HEMATOLOGY PT 18.5 s 12.0 - 0812 [facility] 14.7 /2012 [facility] HEMATOLOGY INR 1.53 0.85 - 10/12 PA 15Interpretive Data: RECOMMENDED RANGES FOR PROTIME INR: [facility] 1. 2.0-3.0 for most medical and surgical thromboembolic states. Medical 2.5-3.5 for artificial heart valves and recurrent embolism. Center INR SHOULD BE USED ONLY FOR PATIENTS ON STABLE ANTICOAGULANT THERAPY. HEMATOLOGY Segs 46.8 % 45.0 - 10/[address] [facility] 75.0 /2012 [facility] HEMATOLOGY Monocytes 8.0 % 2.0 - 12.0 10/12 Normal [facility] HEMATOLOGY Lymphocytes 31.4 % 20.0 - 10/12 [facility] 40.0 [facility] HEMATOLOGY Eosinophils 12.9 % 0.0 - 4.0 10/12 [facility] HEMATOLOGY Microcyte 3+ None Seen 10/12 NA /2012 [facility] *NA* Center (10/12/2012 04:09:00) HEMATOLOGY Basophils 0.9 % 0.0 - 1.0 10/12 Normal [facility] HEMATOLOGY Lymphocytes 3.7 K/CMM 1.0 - 5.5 10/[address] [facility] # /2012 [facility] HEMATOLOGY Eosinophils 1.5 K/CMM 0.0 - 0.5 10/12 [facility] # /2012 [facility] HEMATOLOGY Monocytes # 0.9 K/CMM 0.0 - 0.8 10/12 [facility] HEMATOLOGY Basophils # 0.1 K/CMM 0.0 - 0.2 10/12 Normal [facility] HEMATOLOGY Segs-Bands # 5.5 K/CMM 1.5 - 8.1 10/12 Normal [facility] CHEMISTRY AGAP 16.5 meq/L 10.0 - 10/[address] [facility] 20.0 [facility] CHEMISTRY eGFR 99 10/11 NA 7Result Comment: The eGFR is calculated using the CKD-EPI formula. In most young, healthy individuals the eGFR will be > 90 mL/min/1.73m2. The eGFR declines with age. An eGFR of 60-89 may be normal in [facility] mL/min/1.7 some populations, particularly the elderly, for whom the CKD-EPI formula has not been extensively validated. Use of the eGFR is not recommended in the following populations: [place] [address] Center Individuals with unstable creatinine concentrations, including patients and those with serious co-morbid conditions. Patients with extremes in muscle mass or diet. The data above are obtained from the National Kidney Disease Education Program (NKDEP) which additionally recommends that when the eGFR is used in patients with extremes of body mass index for purposes of drug dosing, the eGFR should be multiplied by the estimated BMI. CHEMISTRY Sodium Lvl 135 meq/L 135 - 145 10/11 Normal [facility] CHEMISTRY Potassium 4.5 meq/L 3.5 - 5.1 10/11 Normal [facility] CHEMISTRY Creatinine 0.9 mg/dL 0.5 - 1.4 10/11 Normal [facility] CHEMISTRY Chloride Lvl 97 meq/L 95 - 109 10/11 Normal [facility] CHEMISTRY Calcium Lvl 8.7 mg/dL 8.5 - 10.5 10/11 Normal [facility] CHEMISTRY CO2 26 meq/L 24 - 32 10/11 Normal [facility] CHEMISTRY Glucose Lvl 78 mg/dL 70 - 99 10/11 Normal 10Interpretive Data: Adult reference range values reflect the clinical guidelines of the [place] [employer]. [facility] CHEMISTRY BUN 19 mg/dL 7 - 22 10/11 Normal [facility] CHEMISTRY Phosphorus 5.0 mg/dL 2.5 - 4.5 10/11 HI [facility] CHEMISTRY Magnesium 1.8 mg/dL 1.8 - 2.4 10/11 Normal [facility] HEMATOLOGY INR 1.41 0.85 - 10/11 HI 16Interpretive Data: RECOMMENDED RANGES FOR PROTIME INR: [facility] 03.19 2.0-3.0 for most medical and surgical thromboembolic states. Medical 2.5-3.5 for artificial heart valves and recurrent embolism. Center INR SHOULD BE USED ONLY FOR PATIENTS ON STABLE ANTICOAGULANT THERAPY. HEMATOLOGY PTT 43.4 s 22.9 - 08 HI 19Interpretiv [facility] 35.8 e Data: [facility] Therapeutic Range: 57 - 92 [facility] HEMATOLOGY PT 17.4 s 12.0 - 08 [facility] [place] 14.7 /2012 [facility] HEMATOLOGY Microcyte 3+ None Seen 10/11 NA Medical *NA* Center (10/11/2012 04:25:21) HEMATOLOGY Segs 52.3 % 45.0 - 08 [facility] [place] 75.0 /2012 [facility] HEMATOLOGY Lymphocytes 27.2 % 20.0 - 08 Normal [place] 40.0 /2012 [facility] HEMATOLOGY Monocytes 7.5 % 2.0 - 12.0 10/11 Normal [facility] HEMATOLOGY Eosinophils 11.5 % 0.0 - 4.0 08 HI [facility] HEMATOLOGY Basophils 1.5 % 0.0 - 1.0 10/11 [facility] HEMATOLOGY Segs-Bands # 7.8 K/CMM 1.5 - 8.1 10/11 Normal [facility] HEMATOLOGY Lymphocytes 4.1 K/CMM 1.0 - 5.5 10/11 Normal [place] /2012 [facility] HEMATOLOGY Monocytes # 1.1 K/CMM 0.0 - 0.8 10/11 HI [facility] HEMATOLOGY Eosinophils 1.7 K/CMM 0.0 - 0.5 10/11 [facility] [place] # [facility] HEMATOLOGY Basophils # 0.2 K/CMM 0.0 - 0.2 10/11 Normal [facility] HEMATOLOGY WBC 14.9 K/CMM 3.7 - 10.4 10/11 [facility] HEMATOLOGY MCV 67.8 fL 80.0 - 10/11 [facility] [place] 94.0 [facility] HEMATOLOGY Hgb 8.6 g/dL 14.0 - 08 [facility] [place] 18.0 [facility] HEMATOLOGY Hct 27.4 % 42.0 - 08 [facility] [place] 54.0 /2012 [facility] HEMATOLOGY RBC 4.05 M/CMM 4.70 - 08 [facility] [place] 6.10 [facility] HEMATOLOGY MCH 21.3 pg 27.0 - 08 [facility] [place] 31.0 /2012 [facility] HEMATOLOGY Platelet 311 K/CMM 133 - 450 10/11 Normal [facility] HEMATOLOGY MPV 8.4 fL 7.4 - 10.4 10/11 Normal [facility] HEMATOLOGY MCHC 31.5 g/dL 32.0 - 10/[address] [facility] 36.0 /2012 [facility] HEMATOLOGY RDW 19.5 % 11.5 - 10/11 [facility] 14.5 [facility] CHEMISTRY Phosphorus 4.6 mg/dL 2.5 - 4.5 10/10 [facility] HEMATOLOGY Plt Morph Normal 10/10 Normal [facility] (10/10/2012 04:50:00) Center HEMATOLOGY Tot Cell Ct 100 10/10 NA [facility] HEMATOLOGY Anisocyte 3+ None Seen 10/10 [facility] (10/10/2012 04:50:00) Center HEMATOLOGY Bands 1.0 % 0.0 - 11.0 10/10 [facility] HEMATOLOGY Atypical 1.0 % <=0.0 10/10 [facility] Lymph [facility] HEMATOLOGY Hypochrom Slight None Seen 10/10 [facility] (10/10/2012 04:50:00) Center HEMATOLOGY Polychrom Slight None Seen 10/10 [facility] (10/10/2012 04:50:00) Center HEMATOLOGY Elliptocyte Slight None Seen 10/10 [facility] [place] (10/10/2012 04:50:00) HEMATOLOGY Target Cell Slight None Seen 10/10 [facility] [place] (10/10/2012 04:50:00) HEMATOLOGY Tear Cell Slight None Seen 10/10 [facility]* [place] (10/10/2012 04:50:00) Chest Chest 1view Chest one view, October 08, 2012, at 8:44 a.m. 10/10 - [facility] - [facility] HISTORY: A 52-year-old man with abnormal chest sounds. Read by: Gillian Chu Dictated Date/time: 10/10/12 12:35 Electronically Signed by: Gillian Chu MD 10/10/12 13:14 FINAL REPORT FINDINGS: Comparison is made to October 09. The cardiomediastinal silhouette and postoperative changes are stable. Plate like atelectasis is seen in the bilateral lower lobes. There is a right retrocardiac opacity which may be due to a layering r ight pleural effusion and/or an air space opacity such as pneumonia or atelectasis. There are small bilateral pleural effusions, greater on the right. IMPRESSION: No significant change since yesterday morning. Chest Chest 1view Chest one view, October 09, 2012, at 8:20 a.m. 10/[address] HISTORY: A 52-year-old man with shortness of breath. Read by: Gillian Chu Dictated Date/time: 10/09/12 09:36 Electronically Signed by: Gillian Chu MD 10/10/12 10:29 FINAL REPORT FINDINGS: Comparison is made to yesterday evening. The cardiomediastinal silhouette and postoperative changes are stable. Platelike atelectasis is seen in the bilateral lower lobes. There is a right retrocardiac opacity which may be due to a layering ri ght pleural effusion and/or an air space opacity such as pneumonia or atelectasis. There is a small right pleural effusion obscuring the hemidiaphragm and costophrenic sulcus. There may be a tiny left pleural effusion as well. IMPRESSION: 1. Bilateral lower lobe plate like atelectasis. 2. There is a right retrocardiac opacity which may be due to a layering right pleural effusion and/or an air space opacity such as pneumonia or atelectasis. 3. A small right pleural effusion has slightly increased since yesterday. Chest Chest 1view PORTABLE CHEST 2012-10-08 17:58:00 10/[address] COMPARISON: Same day at 9:33 a.m. Read by: Fritz Ruiz Dictated Date/time: 10/09/12 09:00 Electronically Signed by: Fritz Ruiz MD 10/09/12 09:01 FINAL REPORT CLINICAL INDICATION: Tube placement/removal/reposition DISCUSSION: Mediastinal drain has been removed. Note again of small bilateral pleural effusions. No interval change in right retrocardiac opacity. Areas of platelike atelectasis are seen within left low er lung. Upper lungs are clear. Cardiac silhouette and mediastinum are unchanged. IMPRESSION: Removal of mediastinal drain. Otherwise, similar to prior. Chest Chest 1view Chest one view, October 08, 2012, at 9:33 a.m. 10/08 [facility] HISTORY: A 52-year-old man with abnormal chest sounds. Read by: Gillian Chu Dictated Date/time: 10/08/12 10:29 Electronically Signed by: Gillian Chu MD 10/08/12 11:00 FINAL REPORT FINDINGS: Comparison is made to yesterday. The cardiomediastinal silhouette and postoperative changes are stable with a mediastinal and/or pericardial drain in place. The right-sided PICC line has been removed. Abundant subsegmental atelectasis is seen in the bilateral lower lobes. There are small bilateral pleural effusions, more so on the right. IMPRESSION: 1. Abundant bilateral lower lobe subsegmental atelectasis. 2. Small bilateral pleural effusions. 3. The right-sided PICC line has been removed. Chest Chest 1view PORTABLE CHEST 2012-10-07 10:14:00 10/07 [facility] COMPARISON: 10/06/2012 Read by: Fritz Ruiz Dictated Date/time: 10/07/12 10:49 Electronically Signed by: Fritz Ruiz MD 10/07/12 10:51 FINAL REPORT CLINICAL INDICATION: Tube placement/removal/reposition DISCUSSION: Endotracheal tube has been removed. Other support lines are unchanged. No interval change in appearance of right upper extremity PICC which is looped within the right brachiocephalic vein be fore terminating within the region of the upper SVC. Lung volumes are low. Platelike atelectasis is seen within left lower lobe. There is a small pleural effusion on the right. IMPRESSION: 1. Interval extubation. 2. No interval change in appearance of right upper extremity PICC which is looped within right brachiocephalic vein before terminating within upper SVC. 3. Small right pleural effusion. CHEMISTRY Ca Ion WB 1.15 1.05 - 10/07 Normal [facility] [place] mMol/L 1. [facility] CHEMISTRY Ca Norm WB 1.11 1.05 - 10/07 Normal [facility] [place] mMol/L 1. [facility] CHEMISTRY Ca Ion WB 1.09 1. - 10/06 Normal [facility] [place] mMol/L 1. [facility] CHEMISTRY Ca Norm WB 1.10 1.05 - 10/06 Normal [place] mMol/L 1. [facility] [place] CHEMISTRY POC A Glu 145 mg/dL 70 - 99 08/ HI [facility] [place] CHEMISTRY POC A LA 0.7 mMol/L 0.5 - 2.2 10/06 Normal [facility] CHEMISTRY POC A Ca Ion 1.05 1.05 - 10/06 Normal [place] mMol/L 1. Medical [place] CHEMISTRY POC A Temp 37.0 Neetu 10/06 NA [facility] CHEMISTRY POC A pH 7.43 7.35 - [address] [facility] 7.45 [facility] [place] CHEMISTRY POC A PCO2 41 mm[Hg] 35 - 45 10/06 Normal [facility] CHEMISTRY POC A PO2 99 mm[Hg] 80 - 100 10/06 Normal [facility] CHEMISTRY POC A BE 3 mMol/L -2-2 - 2 10/06 HI [facility] [place] CHEMISTRY POC A HCO3 27 mMol/L 22 - 26 10/06 [facility] [place] CHEMISTRY POC A Hct 28.0 % 42.0 - [address] [facility] 54.0 [facility] [place] CHEMISTRY POC A Na 128 meq/L 135 - 145 10/06 LOW [facility] CHEMISTRY POC A K 4.5 meq/L 3.5 - 5.1 10/06 Normal [facility] CHEMISTRY POC A O2 Sat 98.0 % 95.0 - 10/[address] [facility] 100.0 [facility] CHEMISTRY POC A Source ART 10/06 NA [facility] [place] CHEMISTRY Ca Ion WB 0.80 1.05 - 10/06 [facility] 13Result [place] mMol/L . Comment: [facility] Result(s) called to Binta Dolan at 10/06/2012 10:44 by lwb . Read back OK. CHEMISTRY Ca Norm WB 0.81 1.05 - 08 [facility] [place] mMol/L 1. [facility] CHEMISTRY AST 49 unit/L 0 - 37 10/06 [facility] CHEMISTRY B/C Ratio 25 6 - 25 10/06 Normal [facility] CHEMISTRY A/G Ratio 0.9 0.7 - 1.6 08 [facility] CHEMISTRY Globulin 3.0 g/dL 2.0 - 4.0 10/06 Normal MH [facility] CHEMISTRY Total 5.8 g/dL 6.4 - 8.4 10/[address] [facility] CHEMISTRY Bili Total 0.7 mg/dL 0.2 - 1.3 10/[address] [facility] CHEMISTRY Alk Phos 111 unit/L 39 - 136 10/06 Normal [facility] CHEMISTRY Albumin Lvl 2.8 g/dL 3.5 - 5.0 10/[address] [facility] CHEMISTRY ALT 33 unit/L 0 - 65 10/[address] [facility] HEMATOLOGY Baso Slight None Seen 10/06 [facility] *[facility]* [place] (10/06/2012 10:00:00) HEMATOLOGY NRBC 2 /100WB 10/[address] [facility] HEMATOLOGY Metamyelocyt 1.0 % 0.0 - 1.0 10/[address] [facility] HEMATOLOGY Atypical 0.0 % <=0.0 10/[address] [facility] Lymph [facility] HEMATOLOGY Plt Morph Normal 10/06 Normal [facility] (10/06/2012 10:00:00) Center HEMATOLOGY Anisocyte 1+ None Seen 10/06 [facility] *[facility]* [place] (10/06/2012 10:00:00) HEMATOLOGY Hypochrom Slight None Seen 10/06 [facility] (10/06/2012 10:00:00) Center HEMATOLOGY Target Cell Slight None Seen 10/06 [facility] [place] (10/06/2012 10:00:00) HEMATOLOGY Polychrom Slight None Seen 10/06 [facility] (10/06/2012 10:00:00) Center HEMATOLOGY Tear Cell Slight None Seen 10/06 [facility] *[facility]* [place] (10/06/2012 10:00:00) HEMATOLOGY Spherocyte Rare None Seen 10/06 [facility] (10/06/2012 10:00:00) HEMATOLOGY Elliptocyte Slight None Seen 10/06 [facility]* [place] (10/06/2012 10:00:00) HEMATOLOGY Bands 3.0 % 0.0 - 11.0 10/06 Normal [facility] CHEMISTRY POC A %FIO2 100.0 % 18.0 - 10/[address] [facility] 100.0 [facility] CHEMISTRY POC A PEEP 5.0 0.0 - 40.0 10/[address] [facility] cm[H2O] [facility] CHEMISTRY POC A Mode CPAP PS10 10/06 NA [facility] CHEMISTRY POC A Glu 154 mg/dL 70 - 99 10/06 [facility] CHEMISTRY POC A LA 1.3 mMol/L 0.5 - 2.2 10/06 Normal [facility] CHEMISTRY POC A Ca Ion 1.11 1.05 - 10/[address] [facility] mMol/L 1.25 [facility] CHEMISTRY POC A O2 Sat 100.0 % 95.0 - 10/[address] [facility] 100.0 [facility] CHEMISTRY POC A BE 1 mMol/L -2-2 - 2 10/06 Normal [facility] CHEMISTRY POC A Temp 37.0 Neetu 10/06 NA [facility] CHEMISTRY POC A Source ART 10/06 NA [facility] CHEMISTRY POC A HCO3 28 mMol/L 22 - 26 10/06 HI [facility] CHEMISTRY POC A PCO2 51 mm[Hg] 35 - 45 10/06 [facility] CHEMISTRY POC A K 4.2 meq/L 3.5 - 5.1 10/06 Normal [facility] CHEMISTRY POC A Na 128 meq/L 135 - 145 10/06 LOW [facility] CHEMISTRY POC A Hct 27.0 % 42.0 - 10/[address] [facility] 54.0 [facility] CHEMISTRY POC A PO2 242 mm[Hg] 80 - 100 10/06 [facility] CHEMISTRY POC A pH 7.34 7.35 - 10/[address] [facility] 7.45 [facility] BLOOD BANK ABO/Rh A POS 10/[address] [facility] RESULTS [facility] BLOOD BANK Antibody Negative 10/[address] [facility] RESULTS [facility] (10/06/2012 07:10:00) Center Chest Chest 1view EXAM: XR CHEST 1 VIEW 10/06 - [facility] - Medical This report was dictated by a Oil Developer/Fellow. I have personally reviewed the images as Center well as the Resident's interpretation and agree with the findings. DATE: Oct 06, 2012 12:25:00 PM Read by: Lele Poole Resident: Lele Poole Dictated Date/time: 10/06/12 13:16 Electronically Signed by: Gillian Chu MD 10/06/12 16:12 FINAL REPORT INDICATION: Respiratory distress COMPARISON: Chest x-ray from yesterday TECHNIQUE: AP view of the chest FINDINGS: The right-sided PICC line has looped in the superior vena cava and tip is now in the distal vena cava. There has been interval placement of a mediastinal drain and endotracheal tube, which is at the level of the anisa, and should be retracted 2 cm. Median sternotomy wires are again noted. The trachea is midline. The cardiomediastinal silhouette is stable. There are persistent bilateral retrocardiac opacities indicating atelectasis with or without consolidation. A right-sided pleural effusion has increased in the interval. Linear atelectasis noted in the left lower lung. IMPRESSION: 1. Interval looping of the right PICC line in the proximal superior vena cava with tip in the distal SVC. This finding was communicated through the primordial system at 1:36 p.m. 2. The endotracheal tube is at the level of the anisa and should be retracted 2 cm. 3. Stable bilateral retrocardiac opacities, representing atelectasis with or without consolidation. 4. Worsening right-sided pleural effusion. 5. Linear atelectasis in left lower lobe. BLOOD BANK FFP product Product available 10/[address] [facility] Medical (10/05/2012 15:32:00) [place] Chest Chest 1view EXAM: CHEST 1 VIEW 10/05 - [facility] 1 /2012 - [facility] DATE: Oct 05, 2012 06:31:00 PM Read by: Tre Koo Dictated Date/time: 10/05/12 18:38 Electronically Signed by: Tre Koo MD 10/05/12 18:40 FINAL REPORT INDICATION: PICC Line Placement COMPARISON: Chest radiograph 10/05/2012 at 8:14 a.m. TECHNIQUE: Single AP view of the chest FINDINGS: Right upper extremity PICC has been repositioned with tip overlying the right atrium. There is unchanged small right pleural effusion and bibasilar atelectasis. Cardiac contours are unchanged. IMPRESSION: Repositioned right upper extremity PICC with tip overlying the right atrium, recommend retracting line by 2 cm. HEMATOLOGY Anisocyte 1+ None Seen 10/05 [facility] (10/05/2012 04:05:00) HEMATOLOGY Tear Cell Slight None Seen 10/05 [facility] (10/05/2012 04:05:00) HEMATOLOGY Polychrom Slight None Seen 10/05 Normal [facility] (10/05/2012 04:05:00) [place] HEMATOLOGY Elliptocyte Slight None Seen 10/05 [facility] (10/05/2012 04:05:00) HEMATOLOGY Hypochrom Slight None Seen 10/05 [facility] (10/05/2012 04:05:00) [place] HEMATOLOGY Acanthocyte Occasional None Seen 10/05 [facility] (10/05/2012 04:05:00) HEMATOLOGY Large Plt Slight None Seen 10/05 [facility] (10/05/2012 04:05:00) Chest Chest 1view PORTABLE CHEST 2012-10-05 08:48:00 10/05 [facility] COMPARISON: 10/04/2012 Read by: Fritz Ruiz Dictated Date/time: 10/05/12 09:59 Electronically Signed by: Fritz Ruiz MD 10/05/12 10:00 FINAL REPORT CLINICAL INDICATION: Coughing DISCUSSION: No interval change in appearance of right upper extremity PICC which is partially looped within the right brachiocephalic vein before descending into the upper SVC. Note again of small bilat eral pleural effusions. Persistent right retrocardiac opacity. Note again of platelike atelectasis within the left lower lobe. Upper lungs are clear. Cardiac silhouette and mediastinum are unchanged. IMPRESSION: No significant interval change. Right upper extremity PICC is also unchanged. Chest Chest 1view Portable AP semierect chest, 10/04/2012. 10/04 [place] [id number] [facility] HISTORY: Cough. Comparison is made with yesterday. Read by: Cindi Camarillo Dictated Date/time: 10/04/12 10:21 Electronically Signed by: Cindi Camarillo MD 10/04/12 10:31 FINAL REPORT FINDINGS: Cardiomediastinal silhouette and sternotomy wires are stable. There is a right pleural effusion. There is platelike atelectasis at both lung bases. The upper lungs are clear. The right upper extremity PICC line which was previously had its tip in the right atrium has been pulled out into the superior vena cava, however, it is looped in the superior vena cava. yvette Gibbs rse caring for this patient in the [facility] was notified by phone of this at 10:25 hours. CONCLUSION: The PICC line is looped in the superior vena cava before extending caudally to the mid superior vena cava. The nurse has been notified. Heart w/wo Heart w/wo INDICATIONS: Chest pain. 10/03 - [facility] contrast contrast MRI /2012 - [facility] PROCEDURE: An MRI examination of the heart was performed with and without the intravenous administration of 16 cc Multihance. Multiplanar FFE images were obtained before and after contrast administratio Read by: Juan Pablo Dc. CINE phase-contrast evaluation of the aortic outflow tract was obtained. Triple inversion recovery short axis images were obtained. A perfusion sequence was performed during the intravenous administr Dictated Date/time: 10/04/12 08:55 ation of contrast. This was followed by short axis balance FFE images. Finally, a delayed enhancement study (viability) was obtained in the short and long axis views. The study was transferred to work s Electronically Signed by: Juan Pablo Dc MD 10/04/12 09:12 tation where analysis of cardiac function was performed. FINAL REPORT FINDINGS: Compared to August 11, 2012. Left Ventricular Functional Analysis: The ejection fraction=39.4%. The stroke-volume=32.9 cc. The cardiac output=3.3 liters/min. The end-diastolic volume=83.6 cc. The end-systolic volume=50.7 cc. The LV Hqnz=795 grams. The heart umvj=740 BPM. The cardiac index=1.9 liters/min/m(2) Aortic Outflow Analysis: Stroke Volume: 37.4 Forward Flow: 38.1 Backward Flow: 0.6 Regurgitant Fraction: 1.7 Qualitative Analysis: Cardiac Chambers: There is diffuse hypokinesis of the left ventricular myocardium with relative sparing of the basal segments. There is near transmural delayed contrast enhancement of the apex and apica l region the left ventricular myocardium. A focal transmural area of enhancement is seen in the mid inferior left ventricular wall. There is normal perfusion of the myocardium on the dynamic phase. Ther e is no intracardiac thrombi identified. No acute myocardial edema in is identified. Cardiac Valves: No significant abnormality. Pericardium: Moderate pericardial effusion with diminished end-diastolic volume. Aorta: No significant abnormality. Pulmonary artery: No significant abnormality. Other Findings: There is a new moderate right-sided pleural effusion with adjacent passive atelectasis. Mild left-sided pleural effusion is noted with some segmental atelectasis of left lung base. There is a new sternotomy with susceptibility artifact compatible with metallic wires. CONCLUSION: 1. No new myocardial infarctions are identified with chronic areas myocardial infarction involving the apex and apical region in the LAD distribution and mid inferior left ventricle wall in the right coronary artery distribution. 2. Continued diffuse hypokinesis relative sparing of the basal segments of the left ventricular myocardium with decreasing ejection fraction and stroke- volume compared to the prior examination. 3. New moderate pericardial effusion with diminished end-diastolic filling. 4. Bilateral pleural effusions right greater life with adjacent atelectasis. Chest Chest 1view Portable ap semierect chest, 10/03/2012. 10/03 - [facility] HISTORY: Cough. Comparison is made with yesterday. Read by: Cindi Camarillo Dictated Date/time: 10/03/12 15:26 Electronically Signed by: Cindi Camarillo MD 10/03/12 17:37 FINAL REPORT FINDINGS: Cardiomediastinal silhouette and life support lines are stable. There is a layering right pleural effusion obscuring portions of the right hemidiaphragm. The left costophrenic sulcus is sharp. No pneumothorax is identified, however, a supine film is suboptimal for that determination. An erect film of the chest is suggested in order to more accurately exclude a pneumothorax. Lung volumes are diminished with resultant elevation of the hemidiaphragms , spurious widening of the diameter of the heart and crowding of the basal lung markings. This produces subsegmental atelectasi s at both lung bases. The upper lungs are clear. CONCLUSION: There has been no significant interval change in the radiographic appearance of the chest when compared to prior radiograph. STOOL Occult Bld Negative Negative 10/[address] [facility] TESTS Stl Medical (10/02/2012 11:00:00) [place] Chest Chest 1view EXAM: XR CHEST 1 VIEW 10/02 - [facility] - [facility] This report was dictated by a Oil Developer/Fellow. I have personally reviewed the images as Center well as the Resident's interpretation and agree with the findings. DATE: Oct 02, 2012 11:53:00 AM Read by: Lele Poole Resident: Lele Poole Dictated Date/time: 10/02/12 13:03 Electronically Signed by: Gillian Chu MD 10/02/12 17:09 FINAL REPORT INDICATION: PICC Line Placement COMPARISON: Same day chest x-ray from 8:00 a.m. TECHNIQUE: AP view of the chest FINDINGS: Postoperative changes are stable. There has been interval placement of a right-sided peripherally inserted cardiac catheter with tip inside the right atrium. The trachea is midline. The cardio mediastinal silhouette is stable. Again noted is right midlung and left lower lobe subsegmental atelectasis. The costophrenic sulci are clear bilaterally. No pneumothorax. IMPRESSION: 1. Interval placement of right-sided PICC with tip inside the right atrium. The catheter should be retracted 4 cm. CHEMISTRY CK MB Index 4.3 0.0 - 2.5 10/02 [facility]2012 [facility] CHEMISTRY CK MB 5.4 ng/mL 0.5 - 3.6 10/02 [facility]2012 [facility] CHEMISTRY Total CK 127 unit/L 12 - 191 10/02 Normal [facility]2012 [facility] CHEMISTRY Troponin-T 0.306 0.000 - 10/02 CRIT [address] [facility] ng/mL 0.100 /2012 Comment: [facility] Result(s) called to avtar blair at 10/02/2012 06:10 by . Read back OK. CHEMISTRY Myoglobin 62 ng/mL 25 - 72 10/02 Normal [facility]2012 [facility] Chest Chest 1view PORTABLE CHEST 2012-10-02 08:48:00 10/02 - [facility] Center COMPARISON: 10/01/2012 Read by: Fritz Ruiz Dictated Date/time: 10/02/12 09:25 Electronically Signed by: Fritz Ruiz MD 10/02/12 09:26 FINAL REPORT CLINICAL INDICATION: Coughing DISCUSSION: Lung volumes are low. Note again of subsegmental atelectasis within right midlung and left lower lobe. No pneumothorax. Possible tiny pleural effusions. Cardiac silhouette and mediastinum are unchanged. Note again of a right IJ sheath. IMPRESSION: No significant interval change. Abdomen AP Abdomen AP EXAM: XR ABDOMEN one view 10/02 - [facility] view view /2012 - Medical This report was dictated by a Oil Developer/Fellow. I have personally reviewed the images as Center well as the Resident's interpretation and agree with the findings. DATE: October 02, 2012 at 0810. Read by: Janae Barakat Resident: Janae Barakat Dictated Date/time: 10/02/12 10:43 Electronically Signed by: Saywer Orta MD 10/02/12 16:23 FINAL REPORT INDICATION: Abdominal distention. 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 COMPARISON: X-ray abdomen September 30, 2012. TECHNIQUE: Three AP supine views of the abdomen provided for interpretation. FINDINGS: Lower thorax is unremarkable where visualized. Sternotomy wires in place. Interval removal of left chest tube and epicardial leads. Gaseous distention of the small and large bowel, with small bowel dilated up to 3.5 cm. Air is seen within the rectum. Overall pattern appears stable compared to prior exam. The bowel gas pattern is non obstructive. No abnormal mass or organomegaly seen. No suspicious calcifications found. No worrisome skeletal abnormalities. IMPRESSION: Gaseous distention of small and large bowel, likely representing ileus. STOOL Occult Bld Negative Negative 10/[address] [facility] TESTS Stl /2012 Medical (10/01/2012 21:36:45) Center HEMATOLOGY Sed Rate 84 mm/h 0 - 15 10/01 [facility] /2012 [facility] Center Microbiolo Culture: 10/[address] [facility] gy Urine /2012 [facility] URINALYSIS UA <=1.0 0.1 - 1.0 10/01 [facility] Urobilinogen mg/dL /2012 [facility]
*NA*< Center br/>(10/01 11:34:28) <sup> </sup> URINALYSIS Micro? Not Indicated 10/01 [facility] /2012 Medical *NA* Center (10/01/2012 11:34:28) URINALYSIS UA pH 5.0 5.0 - 8.0 10/01 Normal [facility] URINALYSIS UA Color Yellow Yellow 10/01 [facility] *NA* [place] (10/01/2012 11:34:28) URINALYSIS UA Spec Grav 1.011 <=1.030 10/01 Normal [facility] URINALYSIS UA Bili Negative Negative 10/01 [facility] *NA* [place] (10/01/2012 11:34:28) URINALYSIS UA Turbidity Clear Clear 10/01 Normal [facility] (10/01/2012 11:34:28) Center URINALYSIS UA Protein Negative mg/dL Negative 10/01 Normal [facility] (10/01/2012 11:34:28) Center URINALYSIS UA Ketones Negative mg/dL Negative 10/01 [facility] *NA* [place] (10/01/2012 11:34:28) URINALYSIS UA Blood Negative Negative 10/01 Normal [facility] (10/01/2012 11:34:28) Center URINALYSIS UA Glucose Negative mg/dL Negative 10/01 [facility] *NA* [place] (10/01/2012 11:34:28) URINALYSIS UA WBC 2 /HPF 0 - 5 10/01 Normal [facility] URINALYSIS UA Nitrite Negative Negative 10/01 Normal [facility] (10/01/2012 11:34:28) Center URINALYSIS UA Leuk Est Negative Negative 10/01 Normal [facility] (10/01/2012 11:34:28) Center URINALYSIS UA Sq Epi Few /LPF Few 10/01 [facility] *NA* [place] (10/01/2012 11:34:28) URINALYSIS UA Mucus Few /LPF None Seen 10/01 [facility] *NA* [place] (10/01/2012 11:34:28) URINALYSIS UA RBC 3 /HPF 0 - 2 10/01 HI [facility] Chest Chest 1view PORTABLE CHEST 2012-10-01 16:39:00 10/01 - [facility] - [facility] COMPARISON: Same day at 3:32 a.m. Read by: Fritz Ruiz Dictated Date/time: 10/01/12 16:59 Electronically Signed by: Fritz Ruiz MD 10/01/12 17:00 FINAL REPORT CLINICAL INDICATION: Tube placement/removal/reposition DISCUSSION: Left chest tube has been removed in the interim. No pneumothorax. No pleural effusions. Platelike atelectasis is seen within right midlung and left lower lobe. Right retrocardiac opacity cou ld also be related to basilar atelectasis. Cardiac silhouette is enlarged but unchanged. Note again of a right IJ sheath. IMPRESSION: Removal of left chest tube. No discernible pneumothorax. CHEMISTRY CK MB 6.6 ng/mL 0.5 - 3.6 10/01 [facility] CHEMISTRY CK MB Index 2.8 0.0 - 2.5 10/01 [facility]2012 [facility] CHEMISTRY Total CK 240 unit/L 12 - 191 10/01 [facility]2012 [facility] CHEMISTRY Myoglobin 66 ng/mL 25 - 72 10/[address] [facility] CHEMISTRY Troponin-T 0.312 0.000 - 10/[address] CRIT [address] [facility] ng/mL 0.100 /2012 Comment: [facility] Result(s) called to Lukas Kwok at 10/01/2012 11:15 by lwb . Read back OK. Microbiolo Culture: 10/01 [facility] Chest Chest 1view Chest one view, October 01, 2012, at 3:32 a.m. 10/01 - [facility] 1 - [facility] HISTORY: A 52-year-old man with coughing. Read by: Gillian Chu Dictated Date/time: 10/01/12 09:09 Electronically Signed by: Gillian Chu MD 10/01/12 09:29 FINAL REPORT FINDINGS: Comparison is made to yesterday evening. The cardiomediastinal silhouette is prominent, but stable. Right jugular sheath has its tip projecting above the medial right clavicle. The trachea is noted to be narrowed at about the T2-T3 level. This could represent postextubation edema, but should be followed for resolution. There is abundant subsegmental atelectasis in the right midlung and bilateral lower lobes. A small right pleural effusion is noted. A left basal chest tube remains in place. IMPRESSION: 1. Mild persistent narrowing of the trachea. This may represent postextubation edema, but can be followed to ensure resolution. 2. Bilateral lower lobe and right midlung subsegmental atelectasis. 3. Small right pleural effusion. Chest Chest 1view EXAM: CHEST 1 VIEW 09/30 [place] [id number] [facility] DATE: Sep 30, 2012 05:46:54 PM Read by: Salvatore Dominguez Dictated Date/time: 09/30/12 19:10 Electronically Signed by: Salvatore Dominguez MD 09/30/12 19:16 FINAL REPORT INDICATION: Tube placement/removal/reposition COMPARISON: Prior exam dated 09/30/2012 used for comparison. TECHNIQUE: Single portable radiograph of the chest FINDINGS: The cardiac silhouette is unchanged in appearance. The 2 mediastinal drains have been removed. The left-sided chest tube is unchanged in position. A minimal left pneumothorax is present. Ther e is fluid layering in minor fissure with discoid atelectasis adjacent to it. The remainder of the exam is unchanged. IMPRESSION: 1. Removal of 2 mediastinal drains with unchanged positioning of a left- sided chest tube. 2. Persistent small left-sided pneumothorax. 3. Fluid layering in the minor fissure with adjacent discoid atelectasis Abdomen AP Abdomen AP Abdomen one view, September 30, 2012, at 12:12 p.m. [facility] HISTORY: A 52-year-old man with abdominal distention. Read by: Gillian Chu Dictated Date/time: 09/30/12 13:26 Electronically Signed by: Gillian Chu MD 09/30/12 14:30 FINAL REPORT FINDINGS: two AP supine views of the abdomen are submitted, without a prior study for comparison. Gas is seen diffusely throughout the bowel loops, including small and large bowel. There is mild gaseous distention of the loops. This may represent an ileus and can be followed for clearing. HEMATOLOGY Plt Morph Normal 09/[address] [facility] Medical (09/30/2012 03:14:00) Center Chest Chest 1view Chest one view, September 30, 2012 at 2:55 a.m. 09/[address] [facility] HISTORY: 52-year-old man with coughing. Read by: Gillian Chu Dictated Date/time: 09/30/12 09:20 Electronically Signed by: Gillian Chu MD 09/30/12 09:27 FINAL REPORT FINDINGS: Comparison is made to yesterday. The patient is rotated to the right, causing right shift of heart and mediastinum. The trachea is narrowed. This may be related to postextubation edema but should be followed for resolution. The cardiom ediastinum appears slightly more prominent than it did yesterday, which may relate to spurious widening from the low lung volumes but should be followed for stability. There are [address] A right jugular sheath has its tip above the medial right clavicle. The [place]-Renetta catheter has been removed. Abundant subsegmental atelectasis is seen in the bilateral lower lobes secondary to diminished lung lines. There is a tiny left apical pneumothorax. A left basal chest tube remains in place. There is a small right pleural effusion. BLOOD BANK RBC product Product available 09/[address] [facility] (09/29/2012 15:52:00) Center CHEMISTRY POC A Glu 92 mg/dL 70 - 99 09/29 Normal [facility] CHEMISTRY POC A Ca Ion 1.07 1.05 - 09/[address] [facility] mMol/L 1.25 [facility] CHEMISTRY POC A K 3.9 meq/L 3.5 - 5.1 09/29 Normal [facility] CHEMISTRY POC A LA 0.7 mMol/L 0.5 - 2.2 09/29 Normal [facility] CHEMISTRY POC A O2 Sat 99.0 % 95.0 - 09/[address] [facility] 100.0 [facility] CHEMISTRY POC A Na 136 meq/L 135 - 145 09/29 Normal [facility] CHEMISTRY POC A Hct 24.0 % 42.0 - 09/[address] [facility] 54.0 [facility] CHEMISTRY POC A BE 2 mMol/L -2-2 - 2 09/29 Normal [facility] CHEMISTRY POC A HCO3 26 mMol/L 22 - 26 09/29 [facility] CHEMISTRY POC A pH 7.43 7.35 - 09/[address] [facility] 7.45 [facility] CHEMISTRY POC A PO2 156 mm[Hg] 80 - 100 09/29 HI [facility] CHEMISTRY POC A PCO2 39 mm[Hg] 35 - 45 09/29 Normal [facility] CHEMISTRY POC A Source ART 09/29 NA [facility] CHEMISTRY POC A Temp 37.0 Neetu 09/29 NA [facility] CHEMISTRY POC A CPAP 40.0 0.0 - 40.0 09/29 [facility] cm[H2O] [facility] HEMATOLOGY Rouleaux Present None Seen 09/29 [facility]* [place] (09/29/2012 03:45:00) HEMATOLOGY Target Cell Slight None Seen 09/29 [facility]* [place] (09/29/2012 03:45:00) CHEMISTRY POC A Mech 15 bpm 0 - 70 09/[address] [facility] CHEMISTRY POC A Mode SIMV 09/29 NA [facility] CHEMISTRY POC A VT 550 mL 2 - 1200 09/29 Normal [facility] CHEMISTRY POC A %FIO2 40.0 % 18.0 - 09/[address] [facility] 100.0 [facility] CHEMISTRY POC A PEEP 7.0 0.0 - 40.0 09/29 [facility] cm[H2O] [facility] Chest Chest view PORTABLE CHEST 2012-09-29 03:22:00 09/29 - [facility] - [facility] COMPARISON: 09/28/2012 Read by: Fritz Ruiz Dictated Date/time: 09/29/12 09:34 Electronically Signed by: Fritz Ruiz MD 09/29/12 09:36 FINAL REPORT CLINICAL INDICATION: Abnormal chest sounds DISCUSSION: Endotracheal tube now terminates at the level of the thoracic inlet. It may be advanced approximately 2-3 cm. NG tube has been removed in the interim. Other support lines including left basi lar chest tube are unchanged. No discernible pneumothorax. No pleural effusions. Note again of subsegmental atelectasis within right upper lobe and left lower lobe. IMPRESSION: 1. Endotracheal tube now terminates at the thoracic inlet. It may be advanced 3 cm. 2. Note again of subsegmental atelectasis within right upper lobe and left lower lobe. CHEMISTRY POC A Mode IMV PS 15 09/28 NA [facility] CHEMISTRY POC A Mech 15 bpm 0 - 70 09/[address] [facility] Rate Medical [place] CHEMISTRY POC A VT 550 mL 2 - 1200 09/28 Normal [facility] CHEMISTRY POC A PEEP 7.0 0.0 - 40.0 09/[address] [facility] cm[H2O] [facility] CHEMISTRY POC A %FIO2 70.0 % 18.0 - 09/[address] [facility] 100.0 [facility] CHEMISTRY TSH 2.350 0.360 - 09/[address] [facility] uIU/mL 3.740 [facility] CHEMISTRY POC V Source ROJELIO 09/28 NA [facility] CHEMISTRY POC V Temp 37.0 Neetu 09/28 NA [facility] CHEMISTRY POC V Hct 38.0 % 42.0 - 09/[address] [facility] 54.0 [facility] CHEMISTRY POC V Ion Ca 1.65 1.05 - 09/[address] [facility] mMol/L 1. [facility] CHEMISTRY POC V K 4.1 meq/L 3.5 - 5.1 09/28 Normal [facility] CHEMISTRY POC V PCO2 51 mm[Hg] 38 - 52 09/28 Normal [facility] CHEMISTRY POC V PO2 29 mm[Hg] 20 - 49 09/28 Normal [facility] CHEMISTRY POC V HCO3 21 mmol/L 22 - 26 09/28 LOW [facility] CHEMISTRY POC V BE -6 mmol/L -2-2 - 2 09/28 LOW [facility] CHEMISTRY POC V O2 Sat 42.0 % 40.0 - 09/[address] [facility] 70.0 [facility] CHEMISTRY POC V Glu 190 mg/dL 70 - 99 09/28 HI [facility] CHEMISTRY POC V Na 164 meq/L 135 - 145 09/28 CRIT [facility] CHEMISTRY POC V LA 4.8 mMol/L 0.5 - 2.2 09/28 HI [facility] CHEMISTRY POC V pH 7.23 7.28 - 09/[address] [facility] 7.42 [facility] BACTERIAL MRSA by PCR Negative 1 09/28 Normal 1Interpretive Data: Interpretive Data: The [employer] LightCycler MRSA assay is a qualitative test for the direct detection of nasal colonization with methicillin-resistant Staphylococcus aureus (MRSA) to aid MH in the prevention and control of MRSA infections in healthcare settings. A positive result does not indicate an infection or require treatment. A negative result does not exclude colonization or infection. [facility] (09/28/2012 14:52:41) [place] The polymerase chain reaction (PCR) assay detects a proprietary sequence indicative of the integration of the SCCmec cassette into the Staphylococcus aureus chromosome, indicating the presence of MRSA D NA. The assay utilizes FDA cleared IVD reagents. Performance characteristics have been verified by the [facility] within the [facility]. The [facility] Labor atory is authorized under the Clinical Laboratory Improvement Amendment of 1988 (CLIA-88) to perform high complexity testing. HEMATOLOGY Bands 2.0 % 0.0 - 11.0 09/[address] [facility] HEMATOLOGY Atypical 0.0 % <=0.0 09/[address] [facility] CHEMISTRY POC A VT 550 mL 2 - 1200 09/[address] CHEMISTRY POC A Mech 10 bpm 0 - 70 09/[address] [facility] Rate [facility] Chest Chest 1view EXAM: XR CHEST 1 VIEW 09/28 - [place] [address] /2012 - [facility] This report was dictated by a Oil Developer/Fellow. I have personally reviewed the images as Center well as the Resident's interpretation and agree with the findings. DATE: Sep 28, 2012 03:32:00 PM Read by: Lele Poole Resident: Lele Poole Dictated Date/time: 09/28/12 16:11 Electronically Signed by: Fritz Ruiz MD 09/29/12 08:35 FINAL REPORT INDICATION: Tube placement/removal/reposition COMPARISON: Same day 3:01 p.m. TECHNIQUE: AP view of the chest FINDINGS: Postoperative changes following CABG. There has been interval advancement of the endotracheal tube, which is now at the origin of the right mainstem bronchus. Again, a [place]-Renetta catheter is seen in the right pulmonary artery. A left basilar chest tube is again noted. There is better inflation of the left lung with diffuse atelectasis. Atelectasis at the right upper lobe is noted again. The cardiac silhouette is within normal limits. IMPRESSION: 1. The endotracheal tube is at the origin of the right mainstem bronchus. Recommend retraction. The patient's nurse, Jeff was notified at approximately 4 :40 p.m. today. 2. The sideport of the nasogastric tube is in the lower esophagus. Recommend advancement. All other tubes and lines are in proper position. 3. Atelectasis of the right upper lobe and left lower lung. Chest Chest 1view EXAM: XR CHEST 1 VIEW 09/28 - [facility] - Medical This report was dictated by a Oil Developer/Fellow. I have personally reviewed the images as Center well as the Resident's interpretation and agree with the findings. DATE: Sep 28, 2012 03:33:00 PM Read by: Lele Poole Resident: Lele Poole Dictated Date/time: 09/28/12 16:35 Electronically Signed by: Fritz Ruiz MD 09/29/12 08:34 FINAL REPORT INDICATION: Tube placement/removal/reposition COMPARISON: Same day chest x-ray 3:01 p.m. TECHNIQUE: AP view of the chest FINDINGS: Postoperative changes following CABG. Sternotomy wires are noted. The endotracheal tube is 4 cm into the right mainstem bronchus. A [place]- Renetta catheter is seen in the right pulmonary artery. A left basilar chest tube is noted. There is atelectasis of the right upper lobe and throughout the left lung. IMPRESSION: 1. Endotracheal tube is inside the right mainstem bronchus. This has been retracted, as seen on the next chest film. 2. The sideport of the nasogastric tube is in the lower esophagus. Recommend advancement. All other tubes and lines are in proper position. 3. Postoperative changes. BLOOD BANK ABO/Rh A POS 09/[address] [facility] RESULTS [facility] BLOOD BANK Antibody Negative 09/[address] [facility] RESULTS [facility] (09/28/2012 06:25:00) [place] BLOOD BANK FFP product Product available 09/[address] [facility] RESULTS Medical (09/28/2012 06:00:00) [place] BLOOD BANK Platelet Product available 09/[address] [facility] RESULTS product /2012 Medical (09/28/2012 06:00:00) [place] BLOOD BANK RBC product Product available 09/[address] [facility] RESULTS Medical (09/28/2012 06:00:00) [place] CHEMISTRY Hgb A1C 8.4 % <=5.6 09/25 [facility] Center URINALYSIS UA <=1.0 0.1 - 1.0 09/[address] [facility] Urobilinogen mg/dL /2012 Medical
*NA*< Center br/>(09/25 13:40:00) <sup> </sup> URINALYSIS UA Spec Grav 1.016 <=1.030 09/25 Normal [facility] URINALYSIS UA Turbidity Clear Clear 09/25 Normal [facility] (09/25/2012 13:40:00) Center URINALYSIS UA Blood Negative Negative 09/25 Normal [facility] (09/25/2012 13:40:00) Center URINALYSIS UA Bili Negative Negative 09/25 [facility] *NA* [place] (09/25/2012 13:40:00) URINALYSIS UA Nitrite Negative Negative 09/25 Normal [facility] (09/25/2012 13:40:00) Center URINALYSIS UA Ketones Negative mg/dL Negative 09/25 [facility] *NA* [place] (09/25/2012 13:40:00) URINALYSIS UA Protein Negative mg/dL Negative 09/25 Normal [facility] (09/25/2012 13:40:00) Center URINALYSIS UA pH 5.5 5.0 - 8.0 09/25 Normal [facility] [facility] URINALYSIS UA Glucose 50 mg/dL Negative 09/25 ABN [facility] *ABN* [place] (09/25/2012 13:40:00) URINALYSIS UA RBC null 0 - 2 09/25 Normal [facility] URINALYSIS UA Sq Epi Few /LPF Few 09/25 [facility] *NA* [place] (09/25/2012 13:40:00) URINALYSIS UA Leuk Est Negative Negative 09/25 Normal [facility] (09/25/2012 13:40:00) Center URINALYSIS UA WBC 2 /HPF 0 - 5 09/25 Normal [facility] URINALYSIS Micro? Not Indicated 09/25 [facility] *NA* [place] (09/25/2012 13:40:00) URINALYSIS UA Color Yellow Yellow 09/25 [facility] Medical *NA* [place] (09/25/2012 13:40:00) HVI VAS HVI VAS Indications preop examination. 09/25 - [facility] Arterial Arterial /2012 - Medical Extracrani Extracranial This report was dictated by a Oil Developer/Fellow. I have personally reviewed the images as Center al Doppler Doppler Bi well as the Resident's interpretation and agree with the findings. Bi IMPRESSION: Read by: [id number] DARRIAN Elelr [id number] Resident: [id number] DARRIAN Eller [phone] Dictated Date/time: 09/25/12 15:10 1. Mild atherosclerotic disease of bilateral carotid bulbs consistent with less than 50% stenosis. Electronically Signed by: Carla Wallace MD 09/25/12 17:56 FINAL REPORT COMMENT: Bilateral grayscale, color-flow, and Doppler examination of the extracranial carotid arterial system was performed here. On the right, the internal carotid to common carotid peak systolic velocity ratio is 0.94. The peak systolic velocity in the internal carotid artery is 79.7 cm/sec. This is consistent with less than 50% stenosis. On the left, the internal carotid to common carotid peak systolic velocity ratio is 0.60 . The peak systolic velocity in the internal carotid artery a 51 cm/sec. This consistent with less than 50% stenosis. Bilateral external carotid arteries are patent. Bilateral antegrade flow was noted in the vertebral arteries. CHEMISTRY eGFR 87 09/16 NA 1Result Comment: The eGFR is calculated using the CKD-EPI formula. In most young, healthy individuals the eGFR will be > 90 mL/min/1.73m2. The eGFR declines with age. An eGFR of 60-89 may be normal in [facility] mL/min/1.7 /2012 some populations, particularly the elderly, for whom the CKD-EPI formula has not been extensively validated. Use of the eGFR is not recommended in the following populations: [place] [address] Center Individuals with unstable creatinine concentrations, including patients and those with serious co-morbid conditions. Patients with extremes in muscle mass or diet. The data above are obtained from the National Kidney Disease Education Program (NKDEP) which additionally recommends that when the eGFR is used in patients with extremes of body mass index for purposes of drug dosing, the eGFR should be multiplied by the estimated BMI. CHEMISTRY POC Sodium 138 meq/L 135 - 145 09/[address] [facility] /2012 [facility] CHEMISTRY POC 4.0 meq/L 3.5 - 5.1 09/[address] [facility] Potassium [facility] CHEMISTRY POC Chloride 106 meq/L 95 - 109 09/[address] [facility] CHEMISTRY POC Carbon 22 mEq/dL 24 - 32 09/[address] [facility] Dioxide [facility] CHEMISTRY POC 1.0 mg/dL 0.5 - 1.4 09/[address] [facility] Creatinine [facility] CHEMISTRY POC BUN 21 mg/dL 7 - 22 09/[address] [facility] CHEMISTRY POC 40.0 % 42.0 - 09/[address] [facility] Hematocrit 54.0 [facility] CHEMISTRY POC Glucose 98 mg/dL 70 - 99 09/16 Normal [facility] CHEMISTRY POC 13.6 g/dL 14.0 - 09/16 [facility] Hemoglobin 18.0 [facility] HEMATOLOGY POC PT 43.7 s 12.0 - 09/16 [facility] . [facility] HEMATOLOGY POC INR 3.9 0.8 - 1.2 09/16 [facility] HEMATOLOGY POC PT 34.8 s 12.0 - 08/27 [facility] 14. [facility] HEMATOLOGY POC INR 3.1 0.8 - 1.2 08/27 [facility] HEMATOLOGY POC INR 1.8 0.8 - 1.2 08/24 [facility] HEMATOLOGY POC PT 21.3 s 12.0 - 08/24 [facility] 14. [facility] CHEMISTRY eGFR 87 08/21 NA 1Result Comment: The eGFR is calculated using the CKD-EPI formula. In most young, healthy individuals the eGFR will be > 90 mL/min/1.73m2. The eGFR declines with age. An eGFR of 60-89 may be normal in [facility] mL/min/1. some populations, particularly the elderly, for whom the CKD-EPI formula has not been extensively validated. Use of the eGFR is not recommended in the following populations: [address] Individuals with unstable creatinine concentrations, including patients and those with serious co-morbid conditions. Patients with extremes in muscle mass or diet. The data above are obtained from the National Kidney Disease Education Program (NKDEP) which additionally recommends that when the eGFR is used in patients with extremes of body mass index for purposes of drug dosing, the eGFR should be multiplied by the estimated BMI. CHEMISTRY POC 41.0 % 42.0 - 08/[address] [facility] Hematocrit 54.0 /2012 Medical Center CHEMISTRY POC 13.9 g/dL 14.0 - 08/[address] [facility] Hemoglobin 18.0 /2012 Medical Center CHEMISTRY POC BUN 19 mg/dL 7 - 22 08/21 Normal [facility] CHEMISTRY POC Carbon 25 mEq/dL 24 - 32 08/21 Normal [facility] CHEMISTRY POC 4.5 meq/L 3.5 - 5.1 08/[address] [facility] Potassium [facility] CHEMISTRY POC Chloride 105 meq/L 95 - 109 08/21 Normal [facility] CHEMISTRY POC 1.0 mg/dL 0.5 - 1.4 08/[address] [facility] Creatinine [facility] CHEMISTRY POC Glucose 126 mg/dL 70 - 99 08/21 [facility] CHEMISTRY POC Sodium 138 meq/L 135 - 145 08/21 Normal [facility] Center Vital Signs Vital Sign Value Date Comments Source BMI Calculated 24.23 11/18/2017 [facility] Height 172.72 cm 11/18/2017 [facility] Weight 72.273 11/18/2017 [facility] Heart Rate 76 11/18/2017 [facility] Systolic (mm Hg) 132 11/18/2017 [facility] Diastolic (mm Hg) 86 11/18/2017 [facility] Respitory Rate 18 10/27/2017 [facility] Systolic (mm Hg) 133 10/27/2017 [facility] Diastolic (mm Hg) 80 10/27/2017 [facility] Heart Rate 79 10/27/2017 [facility] Heart Rate 73 10/27/2017 [facility] Respitory Rate 18 10/27/2017 [facility] Systolic (mm Hg) 124 10/27/2017 [facility] Diastolic (mm Hg) 71 10/27/2017 [facility] Systolic (mm Hg) 130 10/27/2017 [facility] Diastolic (mm Hg) 76 10/27/2017 [facility] Respitory Rate 18 10/27/2017 [facility] Heart Rate 80 10/27/2017 [facility] Temperature Oral (F) 98.7 F 10/26/2017 [facility] Temperature Oral (F) 99 F 10/25/2017 [facility] Temperature Oral (F) 99.7 F 10/25/2017 [facility] Weight 72.841 10/23/2017 [facility] BMI Calculated 24.42 10/23/2017 [facility] Height 172.72 cm 10/23/2017 [facility] BMI Calculated 24.61 10/10/2017 [facility] Weight 73.409 10/10/2017 [facility] Height 172.72 cm 10/10/2017 [facility] Heart Rate 71 10/10/2017 [facility] Systolic (mm Hg) 120 10/10/2017 [facility] Diastolic (mm Hg) 77 10/10/2017 [facility] Weight 73.818 09/29/2017 [facility] BMI Calculated 24.74 09/29/2017 [facility] Height 172.72 cm 09/29/2017 [facility] Systolic (mm Hg) 126 09/29/2017 [facility] Diastolic (mm Hg) 79 09/29/2017 [facility] Heart Rate 82 09/29/2017 [facility] Temperature Oral (F) 98.2 F 09/29/2017 [facility] Systolic (mm Hg) 144 09/19/2017 [facility] Diastolic (mm Hg) 74 09/19/2017 [facility] Respitory Rate 18 09/19/2017 [facility] Heart Rate 81 09/19/2017 [facility] Weight 76.136 09/19/2017 [facility] Systolic (mm Hg) 125 09/19/2017 [facility] Diastolic (mm Hg) 66 09/19/2017 [facility] Heart Rate 77 09/19/2017 [facility] Respitory Rate 20 09/19/2017 [facility] Systolic (mm Hg) 125 09/19/2017 [facility] Diastolic (mm Hg) 72 09/19/2017 [facility] Respitory Rate 20 09/19/2017 [facility] Heart Rate 88 09/19/2017 [facility] Temperature Oral (F) 97.5 F 09/18/2017 [facility] Height 172.72 cm 09/18/2017 [facility] Weight 71.818 09/18/2017 [facility] BMI Calculated 24.07 09/18/2017 [facility] BMI Calculated 24.25 09/12/2017 [facility] Weight 72.33 09/12/2017 [facility] Height 172.72 cm 09/12/2017 [facility] Heart Rate 72 09/12/2017 [facility] Systolic (mm Hg) 108 09/12/2017 [facility] Diastolic (mm Hg) 74 09/12/2017 [facility] Height 172.72 cm 09/10/2017 [facility] BMI Calculated 24.55 09/10/2017 [facility] Weight 73.239 09/10/2017 [facility] Systolic (mm Hg) 111 09/10/2017 [facility] Diastolic (mm Hg) 67 09/10/2017 [facility] Heart Rate 78 09/10/2017 [facility] Temperature Oral (F) 98.5 F 08/26/2017 [place] Systolic (mm Hg) 131 08/26/2017 [facility] [place] Diastolic (mm Hg) 75 08/26/2017 [place] BMI Calculated 24.99 08/26/2017 [place] Weight 74.545 08/26/2017 [facility] [place] Height 172.72 cm 08/26/2017 [place] BMI Calculated 26.69 07/31/2017 [facility] Weight 75 07/31/2017 [facility] Height 167.64 cm 07/31/2017 [facility] Temperature Oral (F) 97.8 F 07/31/2017 [facility] Heart Rate 64 07/31/2017 [facility] Systolic (mm Hg) 143 07/31/2017 [facility] Diastolic (mm Hg) 80 07/31/2017 [facility] BMI Calculated 25.77 07/09/2017 [facility] Height 172.72 cm 07/09/2017 [facility] Weight 76.875 07/09/2017 [facility] Heart Rate 65 07/09/2017 [facility] Systolic (mm Hg) 129 07/09/2017 [facility] Diastolic (mm Hg) 72 07/09/2017 [facility] Respitory Rate 20 06/23/2017 [place] Systolic (mm Hg) 111 06/23/2017 [place] Diastolic (mm Hg) 75 06/23/2017 [place] Heart Rate 65 06/23/2017 [place] Temperature Oral (F) 98.9 F 06/23/2017 [facility] [place] Systolic (mm Hg) 122 06/23/2017 [facility] [place] Diastolic (mm Hg) 77 06/23/2017 [place] Respitory Rate 20 06/23/2017 [place] Heart Rate 66 06/23/2017 [place] Temperature Oral (F) 98.1 F 06/23/2017 [place] Temperature Oral (F) 98.4 F 06/23/2017 [place] Systolic (mm Hg) 126 06/23/2017 [facility] [place] Diastolic (mm Hg) 74 06/23/2017 [place] Respitory Rate 18 06/23/2017 [place] Heart Rate 77 06/23/2017 [place] Height 172.72 cm 06/18/2017 [place] BMI Calculated 25.61 06/18/2017 [place] Weight 76.4 06/18/2017 [place] Weight 75.966 06/18/2017 [place] Temperature Oral (F) 97.9 F 06/17/[address] [facility] Heart Rate 84 06/17/[address] [facility] Respitory Rate 18 06/17/[address] [facility] Systolic (mm Hg) 117 06/17/[address] [facility] Diastolic (mm Hg) 73 06/17/[address] [facility] Height 68 06/15/[address] [facility] Weight 177.18 06/15/[address] [facility] Respitory Rate 20 10/13/2012 [facility] Diastolic (mm Hg) 63 10/13/2012 [facility] Systolic (mm Hg) 97 10/13/2012 [facility] Temperature Oral (F) 98.1 F 10/13/2012 [facility] Respitory Rate 22 10/13/2012 [facility] Systolic (mm Hg) 99 10/13/2012 [facility] Diastolic (mm Hg) 60 10/13/2012 [facility] Diastolic (mm Hg) 67 10/13/2012 [facility] Respitory Rate 20 10/13/2012 [facility] Systolic (mm Hg) 104 10/13/2012 [facility] Temperature Oral (F) 97.8 F 10/13/2012 [facility] Temperature Oral (F) 98.9 F 10/13/2012 [facility] Heart Rate 99 10/03/2012 [facility] Heart Rate 97 10/03/2012 [facility] Heart Rate 100 10/03/2012 [facility] Weight 68.182 10/01/2012 [facility] Height 162.56 cm 10/01/2012 [facility] Weight 78 09/28/2012 [facility] Height 147.32 cm 09/28/2012 [facility] Weight 79.091 09/28/2012 [facility] Height 172.72 cm 09/28/2012 [facility] Weight 79.091 09/25/2012 [facility] Height 172.72 cm 09/25/2012 [facility] Weight 93.182 09/25/2012 [facility] Height 172.72 cm 09/25/2012 [facility] Encounters Location Location Encounter Encounter Reason Attending ADM DC Status Source Details Type Number For Provider Date Date Visit [facility] [place] [id number] CHF ROSA 08/21 Active [facility] 0 [facility] [place] [id number] COUMADIN ROSA 08/21 Active [facility] 0 LETY [facility] Outpatient [id number] CAROTID JEANETTE 09/25 Active [facility] 8 ARTERY ESTRERA /2012 [facility] STENOSIS Center [facility] Inpatient [id number] ALI 09/28 10/13 Active [facility] 1 AZIZZADEH /2012 [facility] FARD [facility] [place] [id number] NEW PT NON 10/13 Active [facility] 3 COUMADIN PHYSICIAN /2012 [facility] [place] [id number] COUMADIN ROSA 10/15 Active [facility] 2 F/U [facility] [id number] 06/15 06/[address] [facility] [id number] [facility] 06/18 06/23 [facility] [place] [address] [facility] [place] Juan Finn MNA Phone [phone] 06/24 06/26 [facility] Message Neuro e [place] Outpatient [id number] MAJID 07/09 Active [facility] 0 [place] [facility] Outpatient [id number] Majid 07/09 07/10 Cardiology 0 [facility] [place] [facility] Outpatient [id number] HAMID 07/31 Active [facility] 1 [facility] MNA Outpatient [id number] Hamid 07/31 08/01 [facility] 1 Ham Neuro e [place] [facility] Bedded [id number] Majid 08/26 08/26 [facility] Outpatient 3 [facility] [place] [facility] Phone [phone] 08/26 08/28 MH Cardiology Message Medical [place] [facility] Outpatient [id number] MAJID 09/10 Active [facility] 2 [place] [facility] Outpatient [id number] Majid 09/10 09/11 Cardiology 2 Medical [place] [facility] Outpatient [id number] TITO 09/12 Active [facility] 4 [place] [facility] Outpatient [id number] Majid 09/12 09/13 Cardiology 4 Medical [place] [facility] Bedded [id number] Tito 09/18 09/19 [place] Outpatient 7 [facility] Outpatient [id number] HAMID 09/29 Active [facility] 3 [place] MNA Outpatient [id number] Hamid 09/29 09/30 [facility] 3 Neuro e [place] Outpatient [id number] TITO 10/10 Active [facility] 6 [place] [facility] Outpatient [id number] Tito 10/10 10/11 Cardiology 6 Medical [place] [facility] Phone [id number] 10/10 10/12 Cardiology Message Medical [facility] Inpatient [id number] Tito 10/24 10/27 [place] 8 [facility] Phone [id number] 10/29 10/31 Cardiology Message Medical [facility] Outpatient [id number] TITO 11/18 Active [facility] 7 [facility] MG Outpatient [id number] Tito 11/18 11/19 Cardiology 7 Medical [facility] Outpatient [id number] MAJID 12/10 Active [facility] 5 [place] [facility] Ambulatory [id number] Majid 12/10 12/10 Cardiology Pre-Reg 5 Medical [place] [facility] Outpatient [id number] TITO 03/17 Active [facility] 8 [place] Outpatient [id number] MAJID 03/23 Active [facility] 9 [facility] Ambulatory [id number] Majid 03/23 03/23 Cardiology Pre-Reg 9 Xu /2019 /2019 Medical [place] [facility] [place] [id number] SMOKING ROSA Cancel [facility] 1 [facility] Outpatient [id number] CAROTID JEANETTE Cancel [place] [address] ARTERY [facility] STENOSIS Center [facility] [place] [id number] COUMADIN ROSA Cancel [place] [address] F/U [facility] Center Procedures Procedure Code Date Perfomer Comments Source Peripheral [id number] Medical angiography 8 Group Peripheral [id number] [facility] angiography 8 Peripheral [id number] [facility] 8 Chest For Pe Angio [id number] [facility] [place] Gram Stain [id number] [facility] [place] Anaerobic Blood [id number] [facility] [place] Aerobic Blood [id number] [facility] [place] [id number] [facility] [place] Culture & [id number] [facility] [place] Count [id number] [facility] [place] Chest Single View [id number] [facility] [place] Catheterization [id number] [facility] Catheterization [id number] [facility] Hernia [id number] abdominal in [facility] repair<sup>1</sup> Caterina 2010 Catheterization [id number] [place] Hernia [id number] abdominal in [place] repair<sup>1</sup> Caterina 2010 Catheterization [id number] Medical Group Hernia [id number] abdominal in Medical repair<sup>1</sup> Caterina 2010 Group Catheterization [id number] [facility] Hernia [id number] abdominal in [facility] repair<sup>1</sup> Caterina 2009
--- OUTSIDE RECORDS SUMMARY | 2018-07-14 12:07 | XMS REPORT | CCD ---
:1960 Author Organization [facility] Care Team Providers Name Role Phone Dante [...]
--- OUTSIDE RECORDS SUMMARY | 2018-07-14 12:08 | XMS REPORT | CCD ---
:1960 Author Organization [facility] Care Team Providers Name Role Phone Mike Chawla Consulting Provider Allergies, Adverse Reactions, Alerts Substance Reaction Status NKDA Active Problem List Condition Effective Dates Status CAD - Coronary artery disease Active DM - Diabetes mellitus Active Hypertension Active
--- OUTSIDE RECORDS SUMMARY | 2018-07-14 12:08 | XMS REPORT | CCD ---
:1960 Author Organization [facility] Care Team Providers Name Role Phone Mike [...] Ordered tablet 60 tab, Substitution Allowed, TAB [place] 5/325 oral tablet 1 tab, PO, Q4H, PRN, for 09/25/2012 Ordered pain, Substitution Allowed, Maintenance, TAB Vital Signs Most recent to oldest [Reference Range]: 1 Height 172.72 cm (09/25/2012 12:15:00) Weight 93.182 kg (09/25/2012 12:15:00) Procedures Procedures Date Related Diagnosis Catheterization
--- OUTSIDE RECORDS SUMMARY | 2018-07-14 12:08 | XMS REPORT | CCD ---
:1960 Author Organization [facility] Care Team Providers Name Role Phone Dante [...]
--- OUTSIDE RECORDS SUMMARY | 2018-07-14 12:09 | XMS REPORT ---
[...] involving I25.810 Active coronary bypass graft of [place] heart, angina presence unspecified Problem Mixed hyperlipidemia [...] involving I25.810 Active coronary bypass graft of [place] heart, angina presence unspecified Assessment Mixed hyperlipidemia E78.2 Active Assessment Uncontrolled type 2 diabetes E11.65 Active mellitus with hyperglycemia Assessment HTN (hypertension), benign I10 Active Medications Medication Code Code Instructions Start End Status Dosage System Date Date [facility] 68374620602 81 MG Orally Active 1 tablet Once a day Jardiance [facility] 25790069664 10 MG Orally Hali Active 1 tablet Once a day 2018 Losartan [facility] 07305006254 25 MG Orally Active 1 tablet Potassium Once a day Carvedilol [facility] 88969969545 3.125 MG Orally Active as directed Clopidogrel [facility] 11874828585 75 MG Orally Active as Bisulfate directed Ranolazine ER [facility] [address]-99 500 MG Orally Active 1 tablet Twice a day Januvia [facility] 16771168720 100 MG Orally Active 1 tablet Once a day Atorvastatin [facility] 17249868661 40 MG Orally Active 1 tablet Calcium Once a day Results No Known Results Summary Purpose eClinicalWorks Submission
--- OUTSIDE RECORDS SUMMARY | 2018-07-14 12:09 | XMS REPORT | CCD ---
:1960 Author Organization [facility] Care Team Providers Name Role Phone Dante [...]
--- OUTSIDE RECORDS SUMMARY | 2018-07-14 12:09 | XMS REPORT ---
[...] involving I25.810 Active coronary bypass graft of [place] heart, angina presence unspecified Problem Mixed hyperlipidemia [...] involving I25.810 Active coronary bypass graft of [place] heart, angina presence unspecified Assessment Mixed hyperlipidemia E78.2 Active Assessment Uncontrolled type 2 diabetes E11.65 Active mellitus with hyperglycemia Assessment HTN (hypertension), benign I10 Active Medications Medication Code Code Instructions Start End Status Dosage System Date Date Ranolazine ER [facility] [address]-44 500 MG Orally Active 1 tablet Twice a day Carvedilol [facility] 85498930278 3.125 MG Orally Active as directed Januvia [facility] 01563296862 100 MG Orally Active 1 tablet Once a day Aspir-81 [facility] 91660387807 81 MG Orally Active 1 tablet Once a day Atorvastatin [facility] 78797137424 80 MG Orally Active 1 tablet Calcium Once a day Clopidogrel [facility] 18722181085 75 MG Orally Active as Bisulfate directed Losartan [facility] 99598038803 25 MG Orally Active 1 tablet Potassium Once a day Jardiance [facility] 88447627332 10 MG Orally Active 1 tablet Once a day Results Name Result Date Reference Range Unit Abnormality Flag HEMOGLOBIN A1C ----A1C 7.5 [id number] Summary Purpose eClinicalWorks Submission
--- OUTSIDE RECORDS SUMMARY | 2018-07-14 12:09 | XMS REPORT | CCD ---
:1960 Author Organization [facility] Care Team Providers Name Role Phone Everardo [...] date: 10/29/12 9:35:00 molasses 240 mL, Route: VT, Drug 10/02/2012 10/02/2012 Discontinued Form: SYRP, Dosing Weight 68.182, kg, ONCE, Milk of Molasses Enema, Start date: 10/02/12 9:55:00, Duration: 1 doses or times, Stop date: 10/02/12 9:55:00 warfarin 7.5 mg, 1 tab, Route: 10/09/2012 10/09/2012 Completed PO, Drug form: TAB, Q5PM, Dosing Weight 68.182, kg, Start date: 10/09/12 17:00:00, Duration: 1 doses or times, Stop date: 10/09/12 17:00:00 [place] 5/325 oral tablet 1 tab, Route: PO, Drug 09/29/2012 09/30/2012 Discontinued Form: TAB, Dosing Weight 78, kg, Q4H, PRN Pain, Start date: 09/29/12 21:20:00, Duration: 30 day, Stop date: 10/29/12 21:19:00 [place] Enema 133 ml, Route: VT, Drug 10/01/2012 10/13/2012 Discontinued Form: FERNIE, Dosing [...] IVPB, Drug 09/28/2012 09/29/2012 Completed form: INJ, [id number], Dosing Weight 79.091, kg, Start date: 09/28/12 [...] Duration: 30 day, Stop date: 10/29/12 7:00:00 [place] 7.5/325 oral tablet 1 tab, PO, Q4H, PRN, 30 10/13/2012 Ordered tab, Pain Score 1-5, Substitution Allowed, Maintenance, TAB Zofran 4 mg, 2 mL, Route: IV, 09/28/2012 09/28/2012 Discontinued Drug form: INJ, Q8H, Dosing Weight 78, kg, PRN Nausea, Start date: 09/28/12 21:19:00, Duration: 30 day, Stop date: 10/28/12 21:18:00 [place] 7.5/325 oral tablet 2 tab, Route: PO, Drug 09/30/2012 10/13/2012 Discontinued Form: TAB, Dosing Weight 78, kg, Q4H, PRN Pain Score 6-10, Start date: 09/30/12 10:33:00, Duration: 30 day, Stop date: 10/30/12 10:32:00 [place] 7.5/325 oral tablet 1 tab, Route: PO, [...] 10/01/2012 10/05/2012 Discontinued SUB-Q, Drug form: INJ, [id number], Dosing Weight 68.182, kg, Priority: NOW, Start date: 10/01/12 15:49:00, Duration: 30 day, Stop date: 10/31/12 3:49:00 Lovenox 70 mg, 0.7 mL, Route: 10/10/2012 10/13/2012 Discontinued SUB-Q, Drug form: INJ, [id number], Dosing Weight 68.182, kg, Priority: NOW, Start date: 10/10/12 6:44:00, Duration: 30 day, Stop date: 11/08/12 18:44:00 molasses 240 mL, Route: VT, Drug 10/02/2012 10/02/2012 Discontinued Form: SYRP, Dosing Weight 68.182, kg, ONCE, Milk of Molasses Enema, Start date: 10/02/12 10:11:00, Duration: 1 doses or times, Stop date: 10/02/12 10:11:00 Dulcolax Laxative 10 mg, 1 supp, Route: 09/30/2012 10/02/2012 Discontinued VT, Drug form: SUPP, Daily, Dosing Weight 78, [...] 09/30/2012 10/01/2012 Discontinued SUB-Q, Drug form: INJ, [id number], Dosing Weight 78, kg, Start date: 09/30/12 9:00:00, Duration: 30 day, Stop date: 10/29/12 9:00:00 enoxaparin 80 mg/0.8 mL 70 mg, 0.7 mL, SUB-Q, 10/13/2012 Ordered subcutaneous solution [id number], 4 doses or times, 0, 0, Substitution [...] by the [facility] within the [facility]. The [facility] Diagnostic Laboratory is authorized under [...] values reflect the clinical guidelines of the [place] [employer].9Interpretive Data: Adult reference range values reflect the clinical guidelines of the [place] [employer].10Interpretive Data: Adult reference range values reflect the clinical guidelines of the [place] [employer].11Result Comment: Critical Result(s) called to [...] Data: Heparin Therapeutic Range: 57 - 92 [id number] Data: Heparin Therapeutic Range: 57 - 92 [id number] Data: Heparin Therapeutic Range: 57 - 92 [...]
--- OUTSIDE RECORDS SUMMARY | 2018-07-14 12:09 | XMS REPORT ---
:1960 Author Organization [facility] Address [address] [place] [address] [address]. [address] [place] [address] Care Team Providers Name Role Phone Unavailable Unavailable Unavailable Problems This patient has no known problems. Allergies, Adverse Reactions, Alerts This patient has no known allergies or adverse reactions. Medications This patient has no known medications.
--- OUTSIDE RECORDS SUMMARY | 2018-07-14 12:09 | XMS REPORT ---
[...] [place] heart, angina presence unspecified Problem Systolic congestive heart failure, I50.20 Active unspecified HF chronicity Assessment Mixed hyperlipidemia E78.2 Active Assessment HTN (hypertension), benign I10 Active Assessment Uncontrolled type 2 diabetes E11.65 Active mellitus with hyperglycemia Assessment PAD (peripheral artery disease) I73.9 Active Assessment Coronary artery disease involving I25.810 Active coronary bypass graft of [place] heart, angina presence unspecified Assessment Well adult on routine health check Z00.00 Active Assessment Systolic congestive heart failure, I50.20 Active unspecified HF chronicity Assessment 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 Medications Medication Code Code Instructions Start End Status Dosage System Date Date [facility] 35121983189 81 MG Orally Active 1 tablet Once a day Laurent [facility] 91450098921 100 MG Orally Active 1 tablet Once a day Ranolazine ER [facility] [address]-43 500 MG Orally Active 1 tablet Twice a day Losartan [facility] 29838199181 25 MG Orally Active 1 tablet Potassium Once a day Atorvastatin [facility] 87133464580 80 MG Orally Active 1 tablet Calcium Once a day Clopidogrel [facility] 94875044941 75 MG Orally Active as Bisulfate directed Jardiance [facility] 12677714667 10 MG Orally Active 1 tablet Once a day Carvedilol [facility] 61440349678 3.125 MG Orally Active as directed Results No Known Results Summary Purpose eClinicalWorks Submission
--- OUTSIDE RECORDS SUMMARY | 2018-07-14 12:09 | XMS REPORT ---
[...] involving I25.810 Active coronary bypass graft of [place] heart, angina presence unspecified Problem Tobacco use [...] Status Dosage System Date Date Clopidogrel ND 75480300245 75 MG Orally Active as Bisulfate directed Carvedilol [facility] 65580669312 3.125 MG Orally Active as directed Jardiance [facility] 61395877388 10 MG Orally Active 1 tablet Once a day Januvia [facility] 70925282922 100 MG Orally Active 1 tablet Once a day Atorvastatin [facility] 87717191799 80 MG Orally Active 1 tablet Calcium Once a day Lyrica ND 92560588370 75 MG Orally Hali Active 1 capsule Twice a day 2018 Ranolazine ER [facility] [address]-69 500 MG Orally Active 1 tablet Twice a day Losartan [facility] 20673128780 25 MG Orally Active 1 tablet Potassium Once a day Aspir-81 [facility] 39152943052 81 MG Orally Active 1 tablet Once a day Results No Known Results Summary Purpose eClinicalWorks Submission
[2018-07-14] MEDS ORDERED: MORPHINE 2 MG/ML SYR IV PRN (12:19)
[2018-07-14] MEDS ORDERED: ACETAMINOPHEN 650MG/RECT SUPP PR PRN (12:21)
[2018-07-14] MEDS ORDERED: POLYVINYL ALCOHOL 1.4% 15 ML OPTH PRN (12:21)
[2018-07-14] MEDS ORDERED: LORazepam 2 MG/ML VIAL IV PRN (12:22)
[2018-07-14] MEDS ORDERED: ONDANSETRON 4 MG/2 ML VIAL IV PRN (12:22)
[2018-07-14] MEDS ORDERED: SCOPOLAMINE HYDROBROMIDE PATCH TD PRN (12:23)
[2018-07-14] MEDS: MORPHINE 4 MG/ML SYR IV SCH ×5 (12:52→17:42)
[2018-07-14] MEDS: MORPHINE 2 MG/ML SYR IV SCH ×5 (12:57→17:41)
[2018-07-14] MEDS: LORazepam 2 MG/ML VIAL IV SCH ×2 (14:04→16:34)
== END 2018-07-14 20:55 | disposition expired | DRG 951 ==
LOC: 3RD-ICU 11:29
PROVIDERS: ADMIT Family Medicine; ATTEND Family Medicine
DX: Z51.5 Encounter for palliative care (principal); J96.01 Acute respiratory failure with hypoxia; J13 Pneumonia due to Streptococcus pneumoniae; I50.21 Acute systolic (congestive) heart failure; J81.0 Acute pulmonary edema; I11.0 Hypertensive heart disease with heart failure; I25.10 Atherosclerotic heart disease of native coronary artery without angina pectoris; E11.9 Type 2 diabetes mellitus without complications; E78.5 Hyperlipidemia, unspecified
CPT/HCPCS: J2270